=== PATIENT | female | born 1955 | race Caucasian/White ===

== ENCOUNTER → 2018-07-17 08:11 | Outpatient (CLI) | payer OTHER, SELFPAY ==
[2018-07-17 09:46] LABS: Add Manual Diff / Slide Review NO; Appearance Urine UA CLEAR; Basophils Absolute Auto 0 /uL (0-100); Basophils Percent Auto 0.8 % (0-2); Bilirubin Urine UA NEGATIVE (NEGATIVE); Color Urine UA YELLOW; Eosinophils Absolute Auto 100 /uL (0-450); Eosinophils Percent Auto 2.8 % (2-4); Glucose Urine UA NEGATIVE (Negative); Hematocrit 40.4 % (36-46); Hemoglobin 13.3 g/dL (12.0-16.0); Ketones Urine UA NEGATIVE (NEGATIVE); Leukocyte Esterase Urine UA NEGATIVE (NEGATIVE); Lymphocytes Absolute Auto 2000 /uL (1100-4500); Lymphocytes Percent Auto 41.3 % (25-40); Mean Corpuscular HGB Conc 32.9 % (30-36); Mean Corpuscular Hemoglobin 28.6 PG (26-34); Mean Corpuscular Volume 87.1 fL (80-100); Monocytes Absolute Auto 400 /uL (0-900); Monocytes Percent Auto 7.6 % (3-14); Neutrophils Absolute Auto 2300 /uL (1500-7000); Neutrophils Percent Auto 47.5 % (50-75); Nitrite Urine UA NEGATIVE (Negative); Occult Blood Urine UA 3+ (Negative); Platelet Count 216 X10^3/uL (150-400); Protein Urine UA NEGATIVE (Negative); Red Blood Cell Count 4.63 X10^6/uL (4.0-5.2); Red Cell Distribution Width 12.8 % (11.6-14.8); Urobilinogen Urine UA 0.2 E.U./dL (0.2); White Blood Cell Count 4.9 X10^3/uL (4.5-11.0); pH Urine UA 6.5 (4.5-8.0)
[2018-07-17 09:58] LABS: Bacteria Urine Few (2-10); Culture Indicated Urine Cult Not Indicated; RBC Urine 5-10/HPF (0-5/HPF); Squamous Epithelial Cell Urine 1-5 /HPF (0-5/HPF); WBC Urine 0-1/HPF (0-5/HPF)
[2018-07-17 10:26] LABS: Alanine Aminotransferase 15 IU/L (9-52); Albumin 4.5 g/dL (3.5-5.0); Albumin Globulin Ratio 1.6 (1.0-2.8); Alkaline Phosphatase 59 U/L (38-126); Aspartate Aminotransferase 29 IU/L (14-36); Bilirubin Total 0.7 mg/dL (0.2-1.3); Blood Urea Nitrogen 20 mg/dL (7-17); Calcium 9.4 mg/dL (8.4-10.2); Carbon Dioxide 30 mmol/L (22-32); Chloride 103 mmol/L (98-107); Cholesterol 242 mg/dL (140-199); Estimated Glomerular Filt Rate > 60.0 mL/min (>60); Globulin 2.9 g/dL (1.7-4.1); Glucose 85 mg/dL (80-110); HDL Cholesterol 66 mg/dL (40-60); HEMOLYSIS < 15 (0-50); LDL Cholesterol Calculated 152 mg/dL (<100); Potassium 4.4 mmol/L (3.4-5.1); Sodium 141 mmol/L (137-145); Total Protein 7.4 g/dL (6.3-8.2); Triglycerides 122 mg/dL (35-150)
[2018-07-17 10:50] LABS: Thyroid Stimulating Hormone 3.35 uIU/mL (0.47-4.68)
[2018-07-17 11:26] LABS: Folate 13.9 ng/mL (2.76-20.0); Vitamin B12 571 pg/mL (239-931)
[2018-07-17 12:37] LABS: Vitamin D 25 Hydroxy (D3) 60.4 ng/mL (30.0-100.0)
== END ==
PROVIDERS: Visit Provider Family Medicine
DX: Z13.9 Encounter for screening, unspecified (principal)
CPT/HCPCS: 36415; 80053; 80061; 81001; 82306; 82607; 82746; 84443; 85025

== ENCOUNTER → 2018-09-04 07:36 | Outpatient (CLI) | payer OTHER, SELFPAY ==
--- NOTE | 2018-09-04 | DI.MG.S_ITS ---
BILATERAL DIGITAL SCREENING MAMMOGRAM 3D/2D WITH CAD: 09/04/2018 CLINICAL: Routine screening. Family history of breast cancer. Comparison is made to exams dated: 05/06/2017 mammogram, 04/30/2016 mammogram, and 11/01/2014 mammogram - [facility]. There are scattered fibroglandular elements in both breasts. Current study was also evaluated with a Computer Aided Detection (CAD) system. No significant masses, calcifications, or other findings are seen in either breast. There has been no significant interval change. IMPRESSION: NEGATIVE There is no mammographic evidence of malignancy. A 1 year screening mammogram is recommended. This exam was interpreted at Station ID: [id number]. NOTE: For mammograms, a report in lay terms will be sent to the patient. Approximately 15% of breast malignancies will not be visualized mammographically. In the management of a palpable breast mass, a negative mammogram must not discourage biopsy of a clinically suspicious lesion. Electronically Signed By: Ty shore/jenny:09/07/2018 09:00:48 letter sent: Normal Exam ACR BI-RADS Category 1: Negative 3341F
== END ==
PROVIDERS: PCP Family Medicine; Visit Provider Family Medicine
DX: Z12.31 Encounter for screening mammogram for malignant neoplasm of breast (principal); Z80.3 Family history of malignant neoplasm of breast
CPT/HCPCS: 77063; 77067

== ENCOUNTER → 2018-11-19 08:05 | Outpatient (CLI) | payer OTHER, SELFPAY ==
[2018-11-19 08:44] LABS: Appearance Urine UA CLEAR; Bilirubin Urine UA NEGATIVE (NEGATIVE); Color Urine UA YELLOW; Glucose Urine UA NEGATIVE (Negative); Ketones Urine UA NEGATIVE (NEGATIVE); Leukocyte Esterase Urine UA NEGATIVE (NEGATIVE); Nitrite Urine UA NEGATIVE (Negative); Occult Blood Urine UA 2+ (Negative); Protein Urine UA NEGATIVE (Negative); Specific Gravity Urine UA 1.015 (1.000-1.035); Urobilinogen Urine UA 0.2 E.U./dL (0.2)
[2018-11-19 09:17] LABS: Cholesterol 224 mg/dL (140-199); HDL Cholesterol 69 mg/dL (40-60); LDL Cholesterol Calculated 127 mg/dL (<100); Triglycerides 140 mg/dL (35-150)
[2018-11-19 09:24] LABS: Rheumatoid Factor < 8.6 IU/mL (<12.0)
[2018-11-19 09:46] LABS: Erythrocyte Sedimentation Rate 8 MM/HR (0-20)
== END ==
PROVIDERS: PCP Family Medicine; Visit Provider Family Medicine
DX: E78.5 Hyperlipidemia, unspecified (principal); M85.80 Other specified disorders of bone density and structure, unspecified site; Z82.3 Family history of stroke
CPT/HCPCS: 36415; 80061; 81003; 85651; 86038; 86430

== ENCOUNTER → 2018-12-01 10:01 | Outpatient (CLI) | payer OTHER, SELFPAY ==
--- NOTE | 2018-12-01 10:05 | DI.RAD.S_ITS ---
PROCEDURE: XR HIP W PEL IF DONE LT MIN 4V INDICATIONS: myalgia, arthralgia, rheumatoid bursisit of hip. TECHNIQUE: AP pelvis with lateral view(s) of the bilateral hip(s). COMPARISON: None. FINDINGS: Bones: No fractures or dislocations. Pelvic ring appears intact. No suspicious bony lesions. There is a small degree of hip joint space narrowing, consistent with mild osteoarthritis Soft tissues: The visualized bowel gas pattern is normal. No suspicious soft tissue calcifications. Note is made of rounded clustered radiodensities at the midline of the pelvis, potentially dystrophic calcifications within a uterine fibroid but also potentially evidence of bladder calculi layering dependently posteriorly. IMPRESSION: Mild symmetric hip joint osteoarthritis, no trauma found. Clustered presumed calcifications at the midline of the pelvis potentially within a dystrophic uterine fibroid but also possibly within the bladder lumen. Dedicated single organ bladder ultrasound likely is warranted to ensure that bladder calculi are not present. Dictated by: Gume Joe M.D. on 12/01/2018 at 11:12 Approved by: Gume Joe M.D. on 12/01/2018 at 11:14
--- NOTE | 2018-12-01 10:05 | DI.RAD.S_ITS ---
PROCEDURE: XR KNEE RT 3V INDICATIONS: myalgia, arthralgia, rheumatoid bursisit of hip/. TECHNIQUE: 3 views of the knee were acquired. COMPARISON: None. FINDINGS: Bones: No fractures or dislocations. No suspicious bony lesions. Mild degenerative medial compartment joint space narrowing. Soft tissues: No joint effusion. No suspicious soft tissue calcifications. IMPRESSION: No acute trauma found, no effusion or loose body, mild medial compartment degenerative osteoarthritic joint space narrowing. Dictated by: Gume Joe M.D. on 12/01/2018 at 11:14 Approved by: Gume Joe M.D. on 12/01/2018 at 11:20
--- NOTE | 2018-12-01 10:05 | DI.RAD.S_ITS ---
PROCEDURE: XR KNEE LT 3V INDICATIONS: myalgia, arthralgia, rheumatoid bursisit of hip/. TECHNIQUE: 3 views of the knees bilaterally were acquired. COMPARISON: [facility], CR, XR KNEE RT 3V, 12/01/2018, 10:12. FINDINGS: Bones: No fractures or dislocations. No suspicious bony lesions. Soft tissues: No joint effusion. No suspicious soft tissue calcifications. IMPRESSION: No trauma found, and there is only a mild degree of degenerative osteoarthritic joint space narrowing symmetrically present at each knee. Dictated by: Gume Joe M.D. on 12/01/2018 at 11:46 Approved by: Gume Joe M.D. on 12/01/2018 at 11:47
== END ==
PROVIDERS: PCP Family Medicine; Visit Provider Family Medicine
DX: M06.2 Rheumatoid bursitis (principal); M16.0 Bilateral primary osteoarthritis of hip; M17.0 Bilateral primary osteoarthritis of knee; M79.10 Myalgia, unspecified site; M25.50 Pain in unspecified joint
CPT/HCPCS: 73522; 73562

== ENCOUNTER → 2019-09-28 14:11 | Outpatient (CLI) | payer MEDICARE, SELFPAY | PROVIDERS: PCP Student in an Organized Health Care Education/Training Program; Referring Provider Student in an Organized Health Care Education/Training Program; Visit Provider Student in an Organized Health Care Education/Training Program | DX: Z13.820 Encounter for screening for osteoporosis (principal); M85.88 Other specified disorders of bone density and structure, other site; Z78.0 Asymptomatic menopausal state; Z91.89 Other specified personal risk factors, not elsewhere classified | CPT/HCPCS: 77080 ==

== ENCOUNTER → 2020-02-21 14:54 | Outpatient (CLI) | payer MEDICARE, SELFPAY ==
[2020-02-21 17:04] LABS: COVID19 -Nasal RAPID Negative (Negative)
== END ==
PROVIDERS: PCP Student in an Organized Health Care Education/Training Program; Visit Provider Physician Assistant
DX: Z11.59 Encounter for screening for other viral diseases (principal); R51.9 Headache, unspecified
CPT/HCPCS: 87635

== ENCOUNTER 2020-09-22 20:13 | Emergency (ER) | payer MEDICARE, SELFPAY ==
[2020-09-22 20:15] VITALS: TEMP 36.8; BMI 25.0
[2020-09-22] MEDS: LIDO 1%/SOD BICARB 8.4% (10ML) 10 ML SYRINGE INJ (20:36)
--- NOTE | 2020-09-22 20:38 | PC.NURSE ---
pt had a moth in her ear
--- NOTE | 2020-09-22 20:39 | PC.NURSE ---
Dr Bone ordered buffered lido irrigated in right ear. Moth stopped moving able to use an ear curette to remove moth. Dr stern in room.
--- NOTE | 2020-09-23 06:36 | ED.EAR ---
HPI - Ear Problem General Chief complaint: Ear Stated complaint: states moth in rt ear, she can't get it out Time Seen by Provider: 09/22/20 20:33 Source: patient Mode of arrival: Ambulatory Limitations: no limitations History of Present Illness HPI Narrative: 65-year-old female former smoker with noncontributory medical history presents with a chief complaint of a bug in her right ear. She states that it has been fluttering around for the past 30 minutes or so. She denies any pain or drainage. She has not made any significant attempts to get it out. She denies other symptoms and is otherwise well and free of complaint MD Complaint: foreign body Location: right ear Duration: constant Severity: mild Relieving factors: nothing Exacerbating factors: nothing Discharge from ear: no Treatment prior to arrival: none Related Data Home Medications Medication Instructions Recorded Confirmed ascorbate calcium (vitamin C) 500 500 mg PO DAILY 05/02/19 11/23/19 mg tablet cholecalciferol (vitamin D3) 125 5,000 unit PO DAILY 05/02/19 11/23/19 mcg (5,000 unit) capsule vitamin B complex 1 tab PO DAILY 05/02/19 11/23/19 Previous Rx's Medication Instructions Recorded primidone 50 mg tablet 50 mg PO BEDTIME #30 tab 07/08/20 Allergies Allergy/AdvReac Type Severity Reaction Status Date / Time No Known Drug Allergies Allergy Verified 09/22/20 20:15 Review of Systems Constitutional Constitutional: Denies chills, Denies fatigue, Denies fever(s), Denies frequent falls, Denies lethargy and Denies weakness Eyes Eyes: Denies change in vision, Denies eye discharge, Denies irritation and Denies loss of vision ENT Ears, Nose, Mouth, and Throat: Denies change in voice, Denies dizziness, Denies neck pain, Denies sore throat and Denies throat swelling Cardiovascular Cardiovascular: Denies chest pain, Denies irregular heart rhythm, Denies lightheadedness, Denies palpitations, Denies dyspnea, Denies dyspnea on exertion and Denies orthopnea Respiratory Respiratory: Denies cough, Denies dyspnea, Denies dyspnea on exertion and Denies wheezing Gastrointestinal Gastrointestinal: Denies abdominal pain, Denies change in bowel habits, Denies diarrhea, Denies nausea and Denies vomiting Musculoskeletal Musculoskeletal: Denies neck pain and Denies numbness Integumentary/Breasts Skin/Breast: Denies pruritus, Denies erythema, Denies rash and Denies wounds Neurologic Neurologic: Denies behavioral changes, Denies confusion, Denies dizziness, Denies frequent falls, Denies loss of vision, Denies numbness and Denies weakness Psychiatric Psychiatric: Denies anxiety, Denies behavioral changes, Denies confusion, Denies depression, Denies homicidal ideation and Denies suicidal ideation Endocrine Endocrine: Denies fatigue, Denies flushing and Denies palpitations Hematologic/Lymphatic Hematologic/Lymphatic: Denies easy bruising Allergic/Immunologic Allergic/Immunologic: Denies urticaria, Denies throat swelling and Denies wheezing Patient History Medical History Actinic keratosis Fibroids (~1984) Finger laceration Genital warts (~1971) Lipoma of right upper extremity Osteopenia Ovarian cyst (~1984) Rheumatoid bursitis, unspecified hip Sinus congestion Tinnitus (~2017) Vitamin D deficiency Surgical History Anesthesia H/O blepharoplasty History of 2 sections History of bunionectomy (~1970) History of oral surgery (~2017) History of varicose veins Family History Mother Hypertension Stroke Social History Smoking Status: Former smoker alcohol intake: current substance use type: former substance user (marijuana) Smoking Status: Former smoker alcohol intake frequency: holidays/special occasions only Substance Use Type: does not use Exam Narrative Exam Narrative: GEN: AOx3 and in mild distress EYES: Pupils are equal, round, and reactive to light and accommodation. Extraoccular muscles are intact bilaterally. There is no subconjunctival hemorrhage or exudate. ENT: Foreign body, my off, noted in right external auditory canal. Nursing has instilled lidocaine with bicarb and moth no longer moving. It is easily removed from the canal with no residual parts, damage. No bleeding discharge or evidence of perforation CHEST: Lungs are clear to auscultation bilaterally and free of wheezes, rales, or rhonchi. Heart rate is regular rhythm, there are no murmurs, clicks, rubs, or gallops. There is no chest wall tenderness. ABD: Abdomen is soft and nontender. There is no guarding or rebound. Bowel sounds are normal in all 4 quadrants. There is no mass or organomegaly. EXT: Full painless ROM of all extremities with no loss of sensation or strength. SKIN: Warm, pink, and dry. No erythema or rash Initial Vital Signs Initial Vital Signs: Vital Signs Temperature 98.3 F 09/22/20 20:15 Discharge Plan Departure Patient Disposition: Home Clinical Impression: Foreign body in ear Qualifiers: Encounter type: initial encounter Laterality: right Qualified Code(s): T16.1XXA - Foreign body in right ear, initial encounter Instructions: DI for Removal of Foreign Body From Ear Activity Restrictions/Additional Instructions: *You have been diagnosed with [foreign body right ear, removed] *What to do: *Please continue to take your regular medications as directed. [ ] New medication prescriptions sent to your pharmacy: [ ] [ ] New medication written as a paper prescription [x ] No new medications given *Please follow up with your primary care provider in 2-3 days, call for an appointment. Let them know you were seen in the Emergency Department and that we ask that you be seen in follow up. We will electronically transmit a record of today's note if your PCP is in our system *If you do not have a primary care provider please contact the [facility] Resource line at [phone]. They will ask some questions about your medical history and help get you set up with a doctor in the community. *Return to Emergency Department if you should have any new, worsening or concerning symptoms, such as [fever greater than 101 F, shaking chills, worsening pain, persistent vomiting or other bothersome symptoms] Prescriptions: No Action cholecalciferol (vitamin D3) 125 mcg (5,000 unit) capsule 5,000 unit PO DAILY RF: 0 vitamin B complex [B Complex-Vitamin B12] Tablet 1 tab PO DAILY RF: 0 ascorbate calcium (vitamin C) 500 mg tablet 500 mg PO DAILY RF: 0 primidone 50 mg tablet 50 mg PO BEDTIME Qty: 30 RF: 0 Referrals: Heriberto Vang MD [Primary Care Provider] -
== END 2020-09-22 20:40 | disposition home or self-care (01) ==
PROVIDERS: Emergency Provider Emergency Medicine; PCP Student in an Organized Health Care Education/Training Program
DX: T16.1XXA Foreign body in right ear, initial encounter (principal)
CPT/HCPCS: 99282

== ENCOUNTER → 2020-11-01 10:57 | Outpatient (CLI) | payer MEDICARE, SELFPAY ==
--- NOTE | 2020-11-01 | DI.MG.S_ITS ---
BILATERAL DIGITAL SCREENING MAMMOGRAM 3D/2D WITH CAD: 11/01/2020 CLINICAL: Routine screening. Comparison is made to exams dated: 09/04/2018 mammogram - [facility], 05/06/2017 mammogram, and 04/30/2016 mammogram - [facility]. There are scattered fibroglandular elements in both breasts. Current study was also evaluated with a Computer Aided Detection (CAD) system. There is a possible new 0.5 cm oval equal density focal asymmetry in the left breast at 5 o'clock posterior depth. No other significant masses, calcifications, or other findings are seen in either breast. IMPRESSION: INCOMPLETE: NEEDS ADDITIONAL IMAGING EVALUATION The possible new 0.5 cm oval equal density focal asymmetry in the left breast is indeterminate. Additional views with possible ultrasound are recommended. This exam was interpreted at Station ID: [id number]. NOTE: For mammograms, a report in lay terms will be sent to the patient. Approximately 15% of breast malignancies will not be visualized mammographically. In the management of a palpable breast mass, a negative mammogram must not discourage biopsy of a clinically suspicious lesion. Electronically Signed By: Camilo Carl M.D. aty/:11/01/2020 11:49:49 letter sent: Additional Imaging Needed ACR BI-RADS Category 0: Incomplete 3340F
--- NOTE | 2020-11-01 11:00 | DI.RAD.S_ITS ---
PROCEDURE: XR HIP W PEL IF DONE KIMBERLY MIN 4V INDICATIONS: Bilateral hip osteoarthritis TECHNIQUE: AP pelvis with lateral view(s) of the bilateral hip(s). COMPARISON: [facility], CR, XR HIP W PEL IF DONE KIMBERLY 3TO4V, 12/01/2018, 10:09. FINDINGS: Bones: No fractures or dislocations. Pelvic ring appears intact. No suspicious bony lesions. Soft tissues: The visualized bowel gas pattern is normal. No suspicious soft tissue calcifications. Note is again made of pelvic calcifications over the midline and also at the lateral aspect of the bladder area, perhaps ovarian in origin. Impression: Midline pelvic calcifications, potentially bladder calculi. Bladder ultrasound may be warranted. These have been previously present, however, and therefore potentially may simply represent dystrophic calcifications within uterine fibroids. Bilateral pelvic sidewall calcifications, likely ovarian in origin. Pelvic/bladder ultrasound may be warranted. Dictated by: Gume Joe M.D. on 11/01/2020 at 15:12 Approved by: Gume Joe M.D. on 11/01/2020 at 15:14
== END ==
PROVIDERS: PCP Student in an Organized Health Care Education/Training Program; Referring Provider Student in an Organized Health Care Education/Training Program; Visit Provider Student in an Organized Health Care Education/Training Program
DX: Z12.31 Encounter for screening mammogram for malignant neoplasm of breast (principal); M16.0 Bilateral primary osteoarthritis of hip
CPT/HCPCS: 73522; 77063; 77067

== ENCOUNTER → 2020-11-06 11:10 | Outpatient (CLI) | payer MEDICARE, SELFPAY ==
[2020-11-06 12:15] LABS: BUN Creatinine Ratio 26.4 (6-22); Blood Urea Nitrogen 19 mg/dL (7-17); Estimated Glomerular Filt Rate > 60.0 mL/min (>60)
== END ==
PROVIDERS: PCP Student in an Organized Health Care Education/Training Program; Referring Provider Student in an Organized Health Care Education/Training Program; Visit Provider Student in an Organized Health Care Education/Training Program
DX: Z01.812 Encounter for preprocedural laboratory examination (principal)
CPT/HCPCS: 36415; 82565; 84520

== ENCOUNTER → 2020-11-07 10:05 | Outpatient (CLI) | payer MEDICARE, SELFPAY ==
--- NOTE | 2020-11-07 10:08 | DI.CT.S_ITS ---
PROCEDURE: CT UE RT W CON INDICATIONS: Right arm masses TECHNIQUE: After the administration of intravenous contrast, 3 mm axial sections acquired of the humerus and radius/ulna, with coronal and sagittal reformats. COMPARISON: None. FINDINGS: Image quality: Excellent. Bones: No fracture identified. No focal osseous destruction is seen. Soft tissues: No discrete mass identified. Between 2 fiducial markers placed on the upper extremity at the level of the mid humerus to the mid radius, there is no discrete mass or focal fluid collection. Subcutaneous soft tissues appear grossly unremarkable. The muscles appear within normal limits. Vessels grossly normal and contrast opacified. No axillary lymphadenopathy seen. Technically (as in all cases) it would be difficult to exclude unencapsulated lipoma. IMPRESSION: No discrete mass or focal fluid collection seen in the region marked by the skin fiducials. If clinically warranted, a focused ultrasound could be performed, or contrast enhanced MRI on the basis of persistent high clinical suspicion. Recommend clinical management. Dictated by: Tima Quinonez M.D. on 11/07/2020 at 12:40 Approved by: Tima Quinonez M.D. on 11/07/2020 at 12:48
== END ==
PROVIDERS: PCP Student in an Organized Health Care Education/Training Program; Referring Provider Student in an Organized Health Care Education/Training Program; Visit Provider Student in an Organized Health Care Education/Training Program
DX: R22.31 Localized swelling, mass and lump, right upper limb (principal)
CPT/HCPCS: 73201; Q9967

== ENCOUNTER → 2020-11-28 09:13 | Outpatient (CLI) | payer MEDICARE, SELFPAY ==
--- NOTE | 2020-11-28 | DI.MG.S_ITS ---
UNILATERAL LEFT DIGITAL DIAGNOSTIC MAMMOGRAM 3D/2D WITH ADDITIONAL VIEWS: 11/28/2020 CLINICAL: Additional evaluation requested from prior study. Comparison is made to exams dated: 11/01/2020 mammogram, 09/04/2018 mammogram - [facility], and 05/06/2017 mammogram - [facility]. There are scattered fibroglandular elements in left breast. The previously described possible 0.5 cm oval equal density focal asymmetry in the left breast at 5 o'clock middle depth is not reproduced and presumably represented superimposed breast tissue. No other significant masses or calcifications are seen in the breast. IMPRESSION: BENIGN The previously described asymmetry disperses with additional views and is consistent with summation artifact. There is no mammographic evidence of malignancy. A 1 year screening mammogram is recommended. Findings and recommendations were conveyed to the patient during today's evaluation. This exam was interpreted at Station ID: [id number]. NOTE: For mammograms, a report in lay terms will be sent to the patient. Approximately 15% of breast malignancies will not be visualized mammographically. In the management of a palpable breast mass, a negative mammogram must not discourage biopsy of a clinically suspicious lesion. Electronically Signed By: Camilo Carl M.D. aty/:11/28/2020 09:59:18 letter sent: Normal Exam ACR BI-RADS Category 2: Benign Finding(s) 3342F
== END ==
PROVIDERS: PCP Student in an Organized Health Care Education/Training Program; Referring Provider Student in an Organized Health Care Education/Training Program; Visit Provider Student in an Organized Health Care Education/Training Program
DX: R92.8 Other abnormal and inconclusive findings on diagnostic imaging of breast (principal)
CPT/HCPCS: 77065; G0279

== ENCOUNTER → 2021-12-19 09:58 | Outpatient (CLI) | payer MEDICARE, SELFPAY ==
--- NOTE | 2021-12-19 10:00 | DI.CT.S_ITS ---
PROCEDURE: CT CERVICAL SPINE WO CON INDICATIONS: Multiple limb paresthesias and coordination problems TECHNIQUE: Noncontrast 3 mm thick sections acquired from the skull base to the T4 level. Sagittal and coronal reformats were then constructed. For radiation dose reduction, the following was used: automated exposure control, adjustment of mA and/or kV according to patient size. COMPARISON: None. FINDINGS: Image quality: Excellent. Bones: No fractures or dislocations. Visualized superior ribs are intact. Reversal of the normal cervical lordosis is seen, with the apex at the C4-C5 level. No focal AP alignment abnormality is seen. Focal degenerative change is seen involving the C1-C2 interface anteriorly. There is mild to moderate disc space narrowing seen at C3-C4 and C4-C5, with at least moderate disc space narrowing seen at C5-C6 and at C6-C7. Post erected endplate osteophytes are seen, which are worst at C5-C6 and C6-C7. There is an apparent vertebral body hemangioma seen within the T3 vertebral body, as on series 4, image 34. Soft tissues: Prevertebral soft tissues are normal in thickness. No paravertebral hematomas. No apical pneumothoraces. IMPRESSION: Cervical spine degenerative changes are seen, which are worst inferiorly. Reversal of the normal cervical lordosis is seen. This is commonly observed in patients with muscular spasm. If it would be helpful for clinical management decision making, please consider a dedicated cervical spine MRI for further evaluation (assuming that there is no contraindication). Incidental note is made of: T3 vertebral body hemangioma Dictated by: Roger Brown M.D. on 12/19/2021 at 9:25 Approved by: Roger Brown M.D. on 12/19/2021 at 9:27
--- NOTE | 2021-12-19 10:00 | DI.MG.S_ITS ---
BILATERAL DIGITAL SCREENING MAMMOGRAM 3D/2D WITH CAD: 12/19/2021 CLINICAL: Routine screening. Comparison is made to exams dated: 11/01/2020 mammogram, 09/04/2018 mammogram - [facility], 05/06/2017 mammogram - [facility], and 11/28/2020 mammogram - [facility]. There are scattered areas of fibroglandular density in both breasts (category b / 25%-50% glandular tissue). Current study was also evaluated with a Computer Aided Detection (CAD) system. No significant masses, calcifications, or other findings are seen in either breast. There has been no significant interval change. IMPRESSION: NEGATIVE There is no mammographic evidence of malignancy. A 1 year screening mammogram is recommended. Based on the Tyrer Cuzick model (a risk assessment model) the patient's lifetime risk is 5.8% and her 10 year risk is 3.2%. According to the ACR, ACS, and NCCN guidelines, an annual breast MRI exam along with mammogram is recommended if the patient's lifetime risk is 20% or greater. This exam was interpreted at Station ID: [id number]. NOTE: For mammograms, a report in lay terms will be sent to the patient. Approximately 15% of breast malignancies will not be visualized mammographically. In the management of a palpable breast mass, a negative mammogram must not discourage biopsy of a clinically suspicious lesion. Electronically Signed By: Dino polk/jenny:12/19/2021 13:22:27 letter sent: Normal Exam ACR BI-RADS Category 1: Negative [id number]
== END ==
PROVIDERS: Family Provider Student in an Organized Health Care Education/Training Program; PCP Student in an Organized Health Care Education/Training Program; Referring Provider Student in an Organized Health Care Education/Training Program; Visit Provider Student in an Organized Health Care Education/Training Program
DX: Z78.0 Asymptomatic menopausal state (principal); M85.88 Other specified disorders of bone density and structure, other site; Z12.31 Encounter for screening mammogram for malignant neoplasm of breast; M47.812 Spondylosis without myelopathy or radiculopathy, cervical region; R20.8 Other disturbances of skin sensation; M79.10 Myalgia, unspecified site; R29.898 Other symptoms and signs involving the musculoskeletal system; D18.09 Hemangioma of other sites
CPT/HCPCS: 72125; 77063; 77067; 77080

== ENCOUNTER → 2022-01-03 07:56 | Outpatient (CLI) | payer MEDICARE, SELFPAY ==
[2022-01-03 09:44] LABS: Erythrocyte Sedimentation Rate 12 MM/HR (0-20)
[2022-01-03 09:49] LABS: BUN Creatinine Ratio 17.1 (6-22); Blood Urea Nitrogen 14 mg/dL (7-17); C-Reactive Protein Quant < 0.5 mg/dL (<1.0); Calcium 9.2 mg/dL (8.4-10.2); Carbon Dioxide 30 mmol/L (22-32); Chloride 103 mmol/L (98-107); Creatine Kinase 40 U/L (30-135); Estimated Glomerular Filt Rate > 60 mL/min (>60); Glucose 93 mg/dL (80-110); HEMOLYSIS < 15 (0-50); Potassium 4.3 mmol/L (3.4-5.1); Sodium 142 mmol/L (137-145)
[2022-01-03 09:51] LABS: Rheumatoid Factor < 8.6 IU/mL (<12.0)
[2022-01-04 16:07] LABS: DNA (DS) Antibody <1 IU/mL (0-9); Scleroderma 70 Antibody < 0.2 AI (0.0-0.9)
[2022-01-05 16:28] LABS: ANA Screen, IFA Positive (.)
[2022-01-06 00:50] LABS: CCP Antibodies IgG/IgA 5 units (0-19)
== END ==
PROVIDERS: Family Provider Student in an Organized Health Care Education/Training Program; PCP Student in an Organized Health Care Education/Training Program; Referring Provider Student in an Organized Health Care Education/Training Program; Visit Provider Student in an Organized Health Care Education/Training Program
DX: M34.89 Other systemic sclerosis (principal); R20.8 Other disturbances of skin sensation; R29.898 Other symptoms and signs involving the musculoskeletal system
CPT/HCPCS: 36415; 80048; 82550; 85651; 86038; 86140; 86200; 86225; 86235; 86430

== ENCOUNTER → 2022-01-09 08:29 | Outpatient (CLI) | payer MEDICARE, SELFPAY ==
--- NOTE | 2022-01-09 08:32 | DI.MRI.S_ITS ---
PROCEDURE: MR KNEE LT WO CON INDICATIONS: Left knee injury TECHNIQUE: Noncontrast sagittal PD fast spin echo and T2 fast spin echo with fat saturation, sagittal 3-D FLASH with fat saturation; coronal T1 spin echo and PD fast spin echo with fat saturation, and axial PD fast spin echo with fat saturation through the knee. COMPARISON: None. FINDINGS: Image quality: Excellent. Menisci: Peripheral displacement of medial meniscus is seen bowing medial collateral ligament. Complex oblique tear involving posterior horn of medial meniscus seen is seen extending to superior articulating surface. Lateral meniscus is intact. Torn posterior medial meniscal root ligament at its insertion is noted. Cruciate ligaments: The anterior and posterior cruciate ligaments appear intact. Medial structures: Moderate grade medial collateral ligament sprain/partial-thickness tear is seen. The posterior oblique ligament, semimembranosus tendon insertions, oblique popliteal ligament, and meniscocapsular junction appear intact. Visualized portions of the pes anserinus tendons appear normal. No abnormal bursal fluid. Lateral structures: The lateral collateral ligament, long and short heads of the biceps femoris tendon appear intact. The popliteus tendon appears normal; the popliteofibular ligament appears intact. Iliotibial band appears normal. Anterior structures: The quadriceps and patellar tendons appear intact. Patellar alignment is normal. No femoral trochlear dysplasia or ventral trochlear prominence. No edema in the infrapatellar fat pad. 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 No fracture or dislocation. Joint space: There is small to moderate amount of joint effusion. Large lobulated and septated popliteal cyst is seen and measures up to 6.6 x 2 x 8.1 cm in size. Normal appearing synovial plicae are incidentally noted. IMPRESSION: 1. 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 No fracture or dislocation. Small to moderate joint effusion and a large popliteal cyst as above. 2. Complex oblique tear involving posterior horn of medial meniscus extending to superior articulating surface. Lateral meniscus is intact. Torn posterior medial meniscal root ligament. 3. Moderate grade MCL sprain/partial-thickness tear. Anterior and posterior cruciate ligaments are intact. Dictated by: Jeremias Honeycutt M.D. on 01/09/2022 at 12:26 Approved by: Jeremias Honeycutt M.D. on 01/09/2022 at 12:36
== END ==
PROVIDERS: Family Provider Student in an Organized Health Care Education/Training Program; PCP Student in an Organized Health Care Education/Training Program; Referring Provider Student in an Organized Health Care Education/Training Program; Visit Provider Student in an Organized Health Care Education/Training Program
DX: S83.232A Complex tear of medial meniscus, current injury, left knee, initial encounter (principal); S83.412A Sprain of medial collateral ligament of left knee, initial encounter; M17.12 Unilateral primary osteoarthritis, left knee; M71.22 Synovial cyst of popliteal space [Baker], left knee; M94.262 Chondromalacia, left knee; M25.462 Effusion, left knee; X58.XXXA Exposure to other specified factors, initial encounter
CPT/HCPCS: 73721

== ENCOUNTER 2022-01-24 09:30 | Outpatient (RCR) | payer MEDICARE, SELFPAY ==
--- NOTE | 2021-12-13 15:30 | OT.OP.EVAL ---
Visit Care Team Role Provider Type Heriberto Vang MD Attending Provider Physician Family Provider Primary Care Provider Referring Provider Specialty: Internal Medicine Address: [address] [place] [address], [address], [place], [address] Email: [email or web address] Occupational Therapy Initial Evaluation OT Outpatient Adult Evaluation Start: 12/14/21 08:37 Freq: Status: Active Protocol: Document 12/13/21 15:30 AMS (Rec: 12/14/21 09:09 AMS [id number]) General Information - Adult Visit Number 04/09 Plan of Care Dates 12/13/21 - 02/21/22 Insurance Information A[employer] Medicare Visit Start Time 13:30 Visit Stop Time 14:15 Total Visit Minutes 45 Treatment Setting Outpatient Care Note Type Initial Evaluation Identification Confirmed Yes Identification Confirmed By Patient/June Goals Treatment Initiated HEP. Instructed in passive hook fist stretch; instructed in active hook --> tight fist for tendon gliding. Instructed in digit extensor strengthening w/ single rubberband. Written and visual instructions were provided and will be scanned into EMR by front office attendant staff when they are able to do so. Floor Cleaner Goals 1. Patient will be modified independent with execution of home exercise program utilizing provided written and visual instructions from therapist. 2. Patient will be able to verbally identify 2 to 3 different strategies to address tightness/stiffness of digits of the hands that she can utilize in the home without support from therapist (e.g., heat, range of motion, positioning). 3. Patient will be able to verbalize understanding of joint protection principles of the fingers/hands referencing provided written and visual instructions as needed. Assessment/Plan Treatment Assessment Patient is a 66 left hand dominant female referred to outpatient OT by her PCP secondary to c/o bilateral hand weakness/stiffness. PMH: Significant for: lipoma of R UE; osteopenia; rheumatoid bursitis; vitamin D deficiency ; neuropathy. Patient is currently taking Gabapentin. 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 She has tried playing the guitar recently with poor success. Patient Goals/Concerns: Concern re: losing function of fingers/hands. Difficulties reported w/ keyboarding and playing the guitar. Patient reports that she will be seeing her neurologist on December 26; she reports seeing pie maker earlier in the day who recommend the following panels: thyroid, B12 and folate, Glucose, and CBC differential. She also expressed that she will be seeking EMG referral to changes in sensation. Tingling reported in hands/feet w/ numbness primarily reported in toes. (+) bilateral intrinsic tightness. (+) tightness reported of MPJs of 2 through 5 digits bilaterally; however, full extension available. (+) scissoring of 3rd digits onto 4th digits w/ formation of tight fist. Patient's main concern is L; reports that 'L is worse than R'. Report of awareness of scissoring with gripping items (as noted with use of steering wheel). Reported finger tightness bilaterally w/ formation of tight fists. 4th digit extensor weakness. Patient denies use of finger/hand splints. Patient completed Pain Assessment Grid; indicated 1 out of 10 for digits 1 to 3 bilaterally; 2 out of 10 R 4th and 5th digits ; 3 out of 10 L 4th and 5th digits. Volar and dorsal surfaces were indicated. QuickDASH UE Outcome Measure Score = 34.09. QuickDASH Work Module (computer typing) Score = 62.5. QuickDASH Sports/ Performing Arts Module (hiking , music) Score = 68.75. Patient would likely benefit from outpatient OT for education, HEP development, and to address finger/hand coordination/weakness. Patient would like to see neurologist prior to having follow-up OT treatment sessions. Thus, patient was started on HEP w/ follow-up appointments scheduled post-neuro appt. Comment 10 weeks Treatment Frequency Once a Week Comment 1-2 times per week Therapeutic Contents Active Range of Motion, Adaptive Equipment Education, Client Education,Cognitive Skills Development,Functional Activities,Home Exercise Program,Joint Protection, Manual Therapy,Education, Neurodevelopment Treatment, Neuromuscular Re-Education, Self-Care,Stretching/ Flexibility Activities, Therapeutic Activities, Therapeutic Exercises, Modalities,Sensory Re- education Modalities As Needed,As Prescribed Additional Types of Modalities Heat/Cold/Parrafin/Ultrasound
--- NOTE | 2021-12-27 15:30 | OT.OP.TRT ---
Visit Care Team Role Provider Type Heriberto Vang MD Attending Provider Physician Family Provider Primary Care Provider Referring Provider Specialty: Internal Medicine Address: [address] [place] [address], [address], [place], [address] Email: [email or web address] Occupational Therapy Treatment Note OT Outpatient Treatment Note - Adult Start: 12/14/21 08:37 Freq: Status: Active Protocol: Document 12/27/21 15:30 AMS (Rec: 12/28/21 12:31 AMS [id number]) OT Outpatient Adult Treatment Note Session Time Visit Start Time 09:30 Visit Stop Time 10:15 Total Visit Minutes 45 Visit Information Visit Number 05/10 Plan of Care Dates 12/13/21 - 02/21/22 Insurance Information AARP Medicare Setting Treatment Setting Outpatient Care Visit Type Note Type Treatment Note General Information General Information Patient is a 66 left hand dominant female referred to outpatient OT by her PCP secondary to c/o bilateral hand weakness/stiffness. PMH: Significant for: lipoma of R UE; osteopenia; rheumatoid bursitis; vitamin D deficiency ; neuropathy. Patient is currently taking Gabapentin. 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 She has tried playing the [place] [place] recently with poor success. - Subjective Identification Type Name Identification Reconciled With Medical Record Observations June reported (+) compliance w/ tendon glides/passive hook/ fist stretches; denied use of single rubberband to work on extensor strengthening of the digits. Report of being seen by a new neurologist ( MD Cody) who is referring June for EMG and to be seen by sales advisory manager. Report of recent scan of upper neck w/ no signs of compression. Patient Expectation/Goals Concern re: losing function of fingers/hands. Diff w/ keyboarding/music - Objective Objective Measurements Please refer to below for progress towards meeting established OT goals: Mix Maker Goals 1. Patient will be modified independent with execution of home exercise program utilizing provided written and visual instructions from therapist. 2. Patient will be able to verbally identify 2 to 3 different strategies to address tightness/stiffness of digits of the hands that she can utilize in the home without support from therapist (e.g., heat, range of motion, positioning). 3. Patient will be able to verbalize understanding of joint protection principles of the fingers/hands referencing provided written and visual instructions as needed. - Treatment 2 Descriptor Heat x 10 minutes. 1 Descriptor HEP. Education re: heat to support range of motion/ flexibility in joints of fingers/hands. Discussed bathing/showering, sinked filled w/ warm water, rice hot pack and/or other heated source. Discussed need to monitor skin d/t inconsistent report of change in sensation of fingers/hands to therapist. Discussed use of gloves and recommendation to range fingers/change position of fingers/hands when hiking and using trekking poles (avoiding sustained positions of fingers/hands). Also discussed portable heating options for hands. Instructed in use of single rubberband for strengthening abd/add of digits; focus primarily 4th digit w/ abd d/t presenting weakness. Reviewed extension strengthening of digits w/ rubberband and hook fist w/ passive contralateral hand providing stretch. - Assessment Assessment of Improvement Patient reported slight improvement relative to flexibility of fingers/digits since time of eval. Has been referred to sales advisory manager and for nerve conduction studies. Advanced HEP/additional education provided. Weakness w / abd 4th digit of L hand vs R hand. Recommend upgrading HEP as able. Overall, good session. Patient would likely benefit from outpatient OT for education, HEP development, and to address finger/hand coordination/weakness. Patient would like to see neurologist prior to having follow-up OT treatment sessions. Thus, patient was started on HEP w/ follow-up appointments scheduled post-neuro appt. - Plan Therapy Recommendations Continue with Current Program, Advance per Rehabilitation Protocol
--- NOTE | 2022-01-17 16:59 | OT.OP.TRT ---
Visit Care Team Role Provider Type Heriberto Vang MD Attending Provider Physician Family Provider Primary Care Provider Referring Provider Specialty: Internal Medicine Address: [address] [place] [address], [facility] [address], [place], [address] Email: [email or web address] Occupational Therapy Treatment Note OT Outpatient Treatment Note - Adult Start: 12/14/21 08:37 Freq: Status: Active Protocol: Document 01/17/22 16:41 AMS (Rec: 01/17/22 16:59 AMS [id number]) OT Outpatient Adult Treatment Note Session Time Visit Start Time 13:30 Visit Stop Time 14:15 Total Visit Minutes 45 Visit Information Visit Number 06/07 Plan of Care Dates 12/13/21 - 02/21/22 Insurance Information AARP Medicare Setting Treatment Setting Outpatient Care Visit Type Note Type Treatment Note General Information General Information Patient is a 66 left hand dominant female referred to outpatient OT by her PCP secondary to c/o bilateral hand weakness/stiffness. PMH: Significant for: lipoma of R UE; osteopenia; rheumatoid bursitis; vitamin D deficiency ; neuropathy. Patient is currently taking Gabapentin. 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 She has tried playing the [place] recently with poor success. - Subjective Identification Type Name Identification Reconciled With Medical Record Observations June reported (+) compliance w/ tendon glides/passive hook/ fist stretches. Report of having orthopedic surgeon appt next Friday for knee re: tear , cyst, and OA; report of inability to get scheduled for PT until February; report of inability to get scheduled w/ deputy district customs director until May. Patient Expectation/Goals Concern re: losing function of fingers/hands. Diff w/ keyboarding/music - Objective Objective Measurements Please refer to below for progress towards meeting established OT goals: Fpc Goals 1. Patient will be modified independent with execution of home exercise program utilizing provided written and visual instructions from therapist. 2. Patient will be able to verbally identify 2 to 3 different strategies to address tightness/stiffness of digits of the hands that she can utilize in the home without support from therapist (e.g., heat, range of motion, positioning). 3. Patient will be able to verbalize understanding of joint protection principles of the fingers/hands referencing provided written and visual instructions as needed. - Treatment 2 Descriptor Heat x 10 minutes. 1 Descriptor HEP. Introduced passive MCPJ extension stretch and bear claws w/ towel. Exercises to be scanned into EMR when front desk agent staff able to do so. Reviewed use of re: heat to support range of motion/ flexibility in joints of fingers/hands; discussed need to monitor skin d/t inconsistent report of change in sensation of fingers/hands and use of gloves; reviewed recommendation to range fingers/change position of fingers/hands when hiking and using trekking poles (avoiding sustained positions of fingers/hands); reviewed use of single rubberband for strengthening abd/add of digits; focus primarily 4th digit w/ abd d/t presenting weakness. Reviewed extension strengthening of digits w/ rubberband and hook fist w/ passive contralateral hand providing stretch. - Assessment Assessment of Improvement Patient reported that she has noticed improvement of flexibility of fingers/digits. Reviewed prior recommendations and introduced 2 new exercises; written and visual instructions were provided and to be scanned into EMR when able by front desk agent staff. Patient to be seen by orthopedic surgeon for knee; deputy district customs director in May; PT in February for knee and nerve conduction study mid January. Recommend answering all questions re: HEP and transition to HEP when able. Overall, good session. Patient would likely benefit from outpatient OT for education, HEP development, and to address finger/hand coordination/weakness. Patient would like to see neurologist prior to having follow-up OT treatment sessions. Thus, patient was started on HEP w/ follow-up appointments scheduled post-neuro appt. - Plan Therapy Recommendations Continue with Current Program, Advance per Rehabilitation Protocol
--- NOTE | 2022-01-24 15:30 | OT.OP.TRT ---
Visit Care Team Role Provider Type Heriberto Vang MD Attending Provider Physician Family Provider Primary Care Provider Referring Provider Specialty: Internal Medicine Address: [address] [place] [address], [address], [address] Email: [email or web address] Occupational Therapy Treatment Note OT Outpatient Treatment Note - Adult Start: 12/14/21 08:37 Freq: Status: Active Protocol: Document 01/24/22 15:30 AMS (Rec: 04/02/22 09:03 AMS [id number]) OT Outpatient Adult Treatment Note Session Time Visit Start Time 09:30 Visit Stop Time 10:15 Total Visit Minutes 45 Visit Information Visit Number 07/08 Plan of Care Dates 12/13/21 - 02/21/22 Insurance Information AARP Medicare Setting Treatment Setting Outpatient Care Visit Type Note Type Treatment Note General Information General Information Patient is a 66 left hand dominant female referred to outpatient OT by her PCP secondary to c/o bilateral hand weakness/stiffness. PMH: Significant for: lipoma of R UE; osteopenia; rheumatoid bursitis; vitamin D deficiency ; neuropathy. Patient is currently taking Gabapentin. 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 She has tried playing the [place] recently with poor success. - Subjective Identification Type Name Identification Reconciled With Medical Record Observations June reported (+) compliance w/ home exercise program. Report of receipt of referral to hand therapist to obtain custom hand splints. Patient Expectation/Goals Concern re: losing function of fingers/hands. Diff w/ keyboarding/music - Objective Objective Measurements Please refer to below for progress towards meeting established OT goals: Shelter Goals ALL GOALS MET 01/24/22 1. Patient will be modified independent with execution of home exercise program utilizing provided written and visual instructions from therapist. 2. Patient will be able to verbally identify 2 to 3 different strategies to address tightness/stiffness of digits of the hands that she can utilize in the home without support from therapist (e.g., heat, range of motion, positioning). 3. Patient will be able to verbalize understanding of joint protection principles of the fingers/hands referencing provided written and visual instructions as needed. - Treatment 2 Descriptor Heat x 10 minutes. 1 Descriptor HEP. Reviewed home exercise program recommendations; provided written and visual instructions to support carry- over of home exercise program. June denied questions and/or need for further treatment. - Assessment Assessment of Improvement Patient denied any questions and reported receipt of referral from physician to local T in order to receive custom hand/finger splints. Therapist reviewed home exercise program and provided written and visual instructions to support carry- over. June denied questions and/or need for further treatment. Therapist to complete d/c paperwork. - Plan Therapy Recommendations Discharge from Occupational Therapy
--- NOTE | 2022-04-02 09:04 | OT.OP.DC ---
Visit Care Team Role Provider Type Heriberto Vang MD Attending Provider Physician Family Provider Primary Care Provider Referring Provider Address: [address] [place] [address], [address], [place], [address] Email: [email or web address] Outpatient OT Outpatient Adult Evaluation Start: 12/14/21 08:37 Freq: Status: Active Protocol: Document 12/13/21 15:30 AMS (Rec: 12/14/21 09:09 AMS [id number]) General Information - Adult Visit Information Visit Number 04/09 Plan of Care Dates 12/13/21 - 02/21/22 Insurance Information AAR Medicare Session Time Visit Start Time 13:30 Visit Stop Time 14:15 Total Visit Minutes 45 Setting Treatment Setting Outpatient Care Visit Type Note Type Initial Evaluation Identification Identification Confirmed Yes Identification Confirmed By Patient/June Goals Treatment Treatment Initiated HEP. Instructed in passive hook fist stretch; instructed in active hook --> tight fist for tendon gliding. Instructed in digit extensor strengthening w/ single rubberband. Written and visual instructions were provided and will be scanned into EMR by front desk manager staff when they are able to do so. [facility] Goals Advanced Manager Goals 1. Patient will be modified independent with execution of home exercise program utilizing provided written and visual instructions from therapist. 2. Patient will be able to verbally identify 2 to 3 different strategies to address tightness/stiffness of digits of the hands that she can utilize in the home without support from therapist (e.g., heat, range of motion, positioning). 3. Patient will be able to verbalize understanding of joint protection principles of the fingers/hands referencing provided written and visual instructions as needed. Assessment/Plan Assessment Treatment Assessment Patient is a 66 left hand dominant female referred to outpatient OT by her PCP secondary to c/o bilateral hand weakness/stiffness. PMH: Significant for: lipoma of R UE; osteopenia; rheumatoid bursitis; vitamin D deficiency ; neuropathy. Patient is currently taking Gabapentin. 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 She has tried playing the guitar recently with poor success. Patient Goals/Concerns: Concern re: losing function of fingers/hands. Difficulties reported w/ keyboarding and playing the guitar. Patient reports that she will be seeing her neurologist on December 26; she reports seeing forest technician earlier in the day who recommend the following panels: thyroid, B12 and folate, Glucose, and CBC differential. She also expressed that she will be seeking EMG referral to changes in sensation. Tingling reported in hands/feet w/ numbness primarily reported in toes. (+) bilateral intrinsic tightness. (+) tightness reported of MPJs of 2 through 5 digits bilaterally; however, full extension available. (+) scissoring of 3rd digits onto 4th digits w/ formation of tight fist. Patient's main concern is L; reports that 'L is worse than R'. Report of awareness of scissoring with gripping items (as noted with use of steering wheel). Reported finger tightness bilaterally w/ formation of tight fists. 4th digit extensor weakness. Patient denies use of finger/hand splints. Patient completed Pain Assessment Grid; indicated 1 out of 10 for digits 1 to 3 bilaterally; 2 out of 10 R 4th and 5th digits ; 3 out of 10 L 4th and 5th digits. Volar and dorsal surfaces were indicated. QuickDASH UE Outcome Measure Score = 34.09. QuickDASH Work Module (computer typing) Score = 62.5. QuickDASH Sports/ Performing Arts Module (hiking , music) Score = 68.75. Patient would likely benefit from outpatient OT for education, HEP development, and to address finger/hand coordination/weakness. Patient would like to see neurologist prior to having follow-up OT treatment sessions. Thus, patient was started on HEP w/ follow-up appointments scheduled post-neuro appt. Plan Comment 10 weeks Treatment Frequency Once a Week Comment 1-2 times per week Therapeutic Contents Active Range of Motion, Adaptive Equipment Education, Client Education,Cognitive Skills Development,Functional Activities,Home Exercise Program,Joint Protection, Manual Therapy,Education, Neurodevelopment Treatment, Neuromuscular Re-Education, Self-Care,Stretching/ Flexibility Activities, Therapeutic Activities, Therapeutic Exercises, Modalities,Sensory Re- education Modalities As Needed,As Prescribed Additional Types of Modalities Heat/Cold/Parrafin/Ultrasound Functional Wrist/Hand Scan Hand Side Sensory Assessment Sensory Profile2 OT Outpatient Treatment Note - Adult Start: 12/14/21 08:37 Freq: Status: Active Protocol: Document 01/24/22 15:30 AMS (Rec: 04/02/22 09:03 AMS [id number]) OT Outpatient Adult Treatment Note Session Time Visit Start Time 09:30 Visit Stop Time 10:15 Total Visit Minutes 45 Visit Information Visit Number 4 Plan of Care Dates 12/13/21 - 02/21/22 Insurance Information A[employer] Medicare Setting Treatment Setting Outpatient Care Visit Type Note Type Treatment Note General Information General Information Patient is a 66 left hand dominant female referred to outpatient OT by her PCP secondary to c/o bilateral hand weakness/stiffness. PMH: Significant for: lipoma of R UE; osteopenia; rheumatoid bursitis; vitamin D deficiency ; neuropathy. Patient is currently taking Gabapentin. 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 She has tried playing the [place] recently with poor success. - Subjective Identification Type Name Identification Reconciled With Medical Record Observations June reported (+) compliance w/ home exercise program. Report of receipt of referral to hand therapist to obtain custom hand splints. Patient Expectation/Goals Concern re: losing function of fingers/hands. Diff w/ keyboarding/music - Objective Objective Measurements Please refer to below for progress towards meeting established OT goals: Advanced Manager Goals ALL GOALS MET 01/24/22 1. Patient will be modified independent with execution of home exercise program utilizing provided written and visual instructions from therapist. 2. Patient will be able to verbally identify 2 to 3 different strategies to address tightness/stiffness of digits of the hands that she can utilize in the home without support from therapist (e.g., heat, range of motion, positioning). 3. Patient will be able to verbalize understanding of joint protection principles of the fingers/hands referencing provided written and visual instructions as needed. - Treatment 2 Descriptor Heat x 10 minutes. 1 Descriptor HEP. Reviewed home exercise program recommendations; provided written and visual instructions to support carry- over of home exercise program. June denied questions and/or need for further treatment. - Assessment Assessment of Improvement Patient denied any questions and reported receipt of referral from physician to local [facility] in order to receive custom hand/finger splints. Therapist reviewed home exercise program and provided written and visual instructions to support carry- over. June denied questions and/or need for further treatment. Therapist to complete d/c paperwork. - Plan Therapy Recommendations Discharge from Occupational Therapy
== END 2022-04-03 12:43 | disposition home or self-care (01) ==
LOC: OT 09:30
PROVIDERS: Family Provider Student in an Organized Health Care Education/Training Program; PCP Student in an Organized Health Care Education/Training Program; Referring Provider Student in an Organized Health Care Education/Training Program; Visit Provider Student in an Organized Health Care Education/Training Program
DX: R29.898 Other symptoms and signs involving the musculoskeletal system (principal); R53.1 Weakness; M25.542 Pain in joints of left hand; M25.541 Pain in joints of right hand
CPT/HCPCS: 97110; 97165

== ENCOUNTER → 2022-01-30 14:04 | Outpatient (CLI) | payer MEDICARE, SELFPAY ==
--- NOTE | 2022-01-30 14:05 | DI.US.S_ITS ---
PROCEDURE: US EXTREMELY NONVASC UPPER RT INDICATIONS: ARM LUMPS TECHNIQUE: Real-time scanning was performed of the bilateral upper extremities, with image documentation. COMPARISON: None. FINDINGS: Targeted scanning at the areas of the bilateral palpable abnormalities demonstrates multiple mildly hyperechoic circumscribed subcutaneous masses. Seven similar appearing masses are seen in total, 4 on the right and 3 on the left. The largest is located at the posterior aspect of the right upper arm (labeled #2 on sonographic images), which measures 4.7 x 1.6 x 3.6 cm. IMPRESSION: Multiple circumscribed hyperechoic masses in the subcutaneous tissues of both upper extremities, which correspond to the reported palpable abnormalities. Imaging findings are most compatible with benign lipomas, although other benign or malignant soft tissue masses are not entirely excluded. MRI or CT could be performed for further evaluation if there is continued clinical concern. Approved by: Basilio Fernandez M.D. on 01/30/2022 at 16:22
== END ==
PROVIDERS: Family Provider Student in an Organized Health Care Education/Training Program; PCP Student in an Organized Health Care Education/Training Program; Referring Provider Student in an Organized Health Care Education/Training Program; Visit Provider Student in an Organized Health Care Education/Training Program
DX: R22.31 Localized swelling, mass and lump, right upper limb (principal)
CPT/HCPCS: 76882

== ENCOUNTER → 2022-02-23 08:17 | Outpatient (CLI) | payer MEDICARE, SELFPAY | PROVIDERS: Family Provider Student in an Organized Health Care Education/Training Program; PCP Student in an Organized Health Care Education/Training Program; Visit Provider Physician Assistant | DX: R30.0 Dysuria (principal) | CPT/HCPCS: 87077; 87086; 87186 ==

== ENCOUNTER → 2022-03-09 09:17 | Outpatient (CLI) | payer MEDICARE, SELFPAY | PROVIDERS: Family Provider Student in an Organized Health Care Education/Training Program; PCP Student in an Organized Health Care Education/Training Program; Visit Provider Nurse Practitioner Family | DX: N39.0 Urinary tract infection, site not specified (principal) | CPT/HCPCS: 87077; 87086; 87186 ==

== ENCOUNTER → 2022-03-27 12:16 | Outpatient (CLI) | payer MEDICARE, SELFPAY ==
[2022-03-27 13:37] LABS: Add Manual Diff / Slide Review NO; Appearance Urine UA SL CLOUDY; Basophils Absolute Auto 0 /uL (0-100); Basophils Percent Auto 0.4 % (0-2); Bilirubin Urine UA NEGATIVE (NEGATIVE); Color Urine UA YELLOW; Eosinophils Absolute Auto 100 /uL (0-450); Eosinophils Percent Auto 1.8 % (2-4); Glucose Urine UA NEGATIVE (Negative); Hematocrit 36.2 % (36-46); Hemoglobin 12.2 g/dL (12.0-16.0); Ketones Urine UA NEGATIVE (NEGATIVE); Leukocyte Esterase Urine UA TRACE (NEGATIVE); Lymphocytes Absolute Auto 1900 /uL (1100-4500); Lymphocytes Percent Auto 31.2 % (25-40); Mean Corpuscular HGB Conc 33.7 % (30-36); Mean Corpuscular Volume 86.2 fL (80-100); Monocytes Absolute Auto 300 /uL (0-900); Monocytes Percent Auto 4.7 % (3-14); Neutrophils Absolute Auto 3700 /uL (1500-7000); Neutrophils Percent Auto 61.9 % (50-75); Nitrite Urine UA NEGATIVE (Negative); Occult Blood Urine UA 3+ (Negative); Platelet Count 202 X10^3/uL (150-400); Protein Urine UA TRACE (Negative); Specific Gravity Urine UA >=1.030 (1.000-1.035); Urobilinogen Urine UA 0.2 E.U./dL (0.2)
[2022-03-27 13:51] LABS: Hemoglobin A1C% w Est Avg Glu 5.5 % (4.0-6.0)
[2022-03-27 14:00] LABS: Bacteria Urine Few (2-10); Culture Indicated Urine Specimen Cultured; RBC Urine 1-5/HPF (0-5/HPF); Squamous Epithelial Cell Urine 1-5 /HPF (0-5/HPF); WBC Urine 1-5/HPF (0-5/HPF)
[2022-03-27 14:04] LABS: BUN Creatinine Ratio 31.9 (6-22); Blood Urea Nitrogen 23 mg/dL (7-17); Calcium 9.2 mg/dL (8.4-10.2); Carbon Dioxide 27 mmol/L (22-32); Chloride 106 mmol/L (98-107); Estimated Glomerular Filt Rate > 60 mL/min (>60); Glucose 89 mg/dL (80-110); HEMOLYSIS < 15 (0-50); Potassium 3.9 mmol/L (3.4-5.1); Sodium 141 mmol/L (137-145)
== END ==
PROVIDERS: Family Provider Student in an Organized Health Care Education/Training Program; PCP Student in an Organized Health Care Education/Training Program; Referring Provider Orthopaedic Surgery Foot and Ankle Surgery; Visit Provider Orthopaedic Surgery Foot and Ankle Surgery
DX: Z01.818 Encounter for other preprocedural examination (principal); R73.9 Hyperglycemia, unspecified; Z01.812 Encounter for preprocedural laboratory examination; N39.0 Urinary tract infection, site not specified
CPT/HCPCS: 36415; 80048; 81001; 83036; 85025; 87086; 93005

== ENCOUNTER 2022-06-17 16:17 | Emergency (ER) | payer MEDICARE, SELFPAY ==
[2022-06-17 16:35] VITALS: BP 181/77; PULSE 78; RESP 16; TEMP 36.6; O2SAT 98; BMI 25.0
[2022-06-17 17:12] LABS: COVID19 -Nasal RAPID Negative (Negative)
[2022-06-17 18:15] VITALS: BP 180/70; PULSE 75; RESP 18; O2SAT 98
--- NOTE | 2022-06-17 19:26 | ED.RECABL ---
HPI - Recheck/Abnormal Lab/Rx <Shaka Do PA-C - Last Filed: 06/17/22 19:35> General Chief Complaint: Recheck/Abnormal Lab/Rx Stated Complaint: METAL TASTE AND SMELL (PREVIOUS KNEE REPLACEMENT) Time Seen by Provider: 06/17/22 17:43 Source: patient Mode of arrival: Ambulatory History of Present Illness HPI narrative: 67-year-old female with pastMedical history arthritis, peripheral neuropathy, hypercholesterolemia, status post a left knee replacement in May 2022 presents to the ED with 2 days of metallic smell and taste. Patient denies fever, chills, rhinorrhea, sinus congestion, cough, sore throat, cough, chest pain, shortness of breath, abdominal pain, dysuria, lightheadedness, dizziness, syncope. Patient came to the ED since she was concerned that the metallic knee replacement might be causing the smell and taste. Patient states she tried to call her orthopedic surgeon, however she did not hear back from them. Patient denies having any recent viral URIs. Related Data Home Medications Medication Instructions Recorded Confirmed calcium carbonate 600 mg calcium 600 mg PO DAILY 10/31/20 03/27/22 (1,500 mg) tablet (Calcium) cholecalciferol (vitamin D3) 25 25 mcg PO DAILY 01/02/22 03/27/22 mcg (1,000 unit) chewable tablet (Vitamin D3) meloxicam 15 mg tablet-irritant 1 ea topical DAILY PRN miniscus 03/27/22 03/27/22 and counter-irritant no.2 topical tear and possible inf gel Previous Rx's Medication Instructions Recorded gabapentin 300 mg capsule 300 mg PO TID #270 caps 05/20/22 Allergies Allergy/AdvReac Type Severity Reaction Status Date / Time No Known Drug Allergies Allergy Verified 03/27/22 16:51 Review of Systems <Shaka Do PA-C - Last Filed: 06/17/22 19:35> Review of Systems ROS Unobtainable: All systems reviewed & are unremarkable except as noted in HPI and below Constitutional Constitutional: Denies chills, Denies fatigue, Denies fever(s), Denies frequent falls, Denies lethargy and Denies weakness Eyes Eyes: Denies change in vision, Denies eye discharge, Denies irritation and Denies loss of vision ENT Ears, Nose, Mouth, and Throat: Denies change in voice, Denies dizziness, Denies neck pain, Denies sore throat and Denies throat swelling Comments: metallic smell and taste in mouth Cardiovascular Cardiovascular: Denies chest pain, Denies irregular heart rhythm, Denies lightheadedness, Denies palpitations, Denies dyspnea, Denies dyspnea on exertion and Denies orthopnea Respiratory Respiratory: Denies cough, Denies dyspnea, Denies dyspnea on exertion and Denies wheezing Gastrointestinal Gastrointestinal: Denies abdominal pain, Denies change in bowel habits, Denies diarrhea, Denies nausea and Denies vomiting Genitourinary Genitourinary: Denies hematuria, Denies flank pain, Denies urinary incontinence and Denies urinary urgency Musculoskeletal Musculoskeletal: Denies back pain, Denies muscle weakness, Denies neck pain, Denies numbness and Denies tingling Integumentary/Breasts Skin/Breast: Denies pruritus, Denies erythema, Denies rash and Denies wounds Neurologic Neurologic: Denies behavioral changes, Denies confusion, Denies dizziness, Denies frequent falls, Denies loss of vision, Denies numbness, Denies tingling and Denies weakness Psychiatric Psychiatric: Denies anxiety, Denies behavioral changes, Denies confusion, Denies depression, Denies homicidal ideation and Denies suicidal ideation Endocrine Endocrine: Denies fatigue, Denies flushing and Denies palpitations Hematologic/Lymphatic Hematologic/Lymphatic: Denies easy bruising Allergic/Immunologic Allergic/Immunologic: Denies urticaria, Denies throat swelling and Denies wheezing Patient History <Shaka Do PA-C - Last Filed: 06/17/22 19:35> Medical History Actinic keratosis Fibroids (~1984) Finger laceration Genital warts (~1971) Lipoma of right upper extremity Osteopenia Ovarian cyst (~1984) Rheumatoid bursitis, unspecified hip Sinus congestion Tinnitus (~2017) Urinary tract infection Vitamin D deficiency Surgical History Anesthesia H/O blepharoplasty History of 2 sections History of bunionectomy (~1970) History of oral surgery (~2017) History of varicose veins Family History Mother Hypertension Stroke Social History Smoking Status: Former smoker alcohol intake: current substance use type: former substance user Smoking Status: Former smoker alcohol intake frequency: holidays/special occasions only Substance Use Type: does not use Exam <Shaka Do PA-C - Last Filed: 06/17/22 19:35> Narrative Exam Narrative: Const General:?cooperative, healthy appearing and comfortable HENAK Head:?normal to inspection Ears:?hearing grossly normal bilaterally Nose:?external nose normal Face and sinus:?normal facial exam and sinuses nontender Mouth:?oral mucosae normal Throat:?posterior oropharynx normal Eyes General:?appearance normal, both eyes and all related structures Neck Neck:?normal visual inspection and no lymphadenopathy noted Resp Effort & Inspection:?normal respiratory effort Auscultation:?clear to auscultation bilaterally Cardio Rate:?regular rate Rhythm:?regular rhythm Neuro General:?patient alert, patient awake and patient oriented x3 Initial Vital Signs Initial Vital Signs: Vital Signs Temperature 98 F 06/17/22 16:35 Pulse Rate 78 06/17/22 16:35 Respiratory Rate 16 06/17/22 16:35 Blood Pressure 181/77 H 06/17/22 16:35 Pulse Oximetry 98 06/17/22 16:35 Oxygen Delivery Method Room Air 06/17/22 16:35 <Jese Rod DO - Last Filed: 06/18/22 07:13> Initial Vital Signs Initial Vital Signs: Vital Signs Temperature 98 F 06/17/22 16:35 Pulse Rate 78 06/17/22 16:35 Respiratory Rate 16 06/17/22 16:35 Blood Pressure 181/77 H 06/17/22 16:35 Pulse Oximetry 98 06/17/22 16:35 Oxygen Delivery Method Room Air 06/17/22 16:35 Course <Shaka Do PA-C - Last Filed: 06/17/22 19:35> Orders Ordered: ED Orders 06/17/22 16:40 COVID19 -Nasal RAPID Stat Vital Signs Vital signs: Vital Signs - 8 hr 06/17/22 16:35 06/17/22 18:15 Temperature 98 F Pulse Rate 78 75 Respiratory Rate 16 18 Blood Pressure 181/77 H 180/70 H Pulse Oximetry 98 98 Oxygen Delivery Method Room Air <Jese Rod DO - Last Filed: 06/18/22 07:13> Orders Ordered: ED Orders 06/17/22 16:40 COVID19 -Nasal RAPID Stat Vital Signs Vital signs: Vital Signs - 8 hr 06/17/22 16:35 06/17/22 18:15 Temperature 98 F Pulse Rate 78 75 Respiratory Rate 16 18 Blood Pressure 181/77 H 180/70 H Pulse Oximetry 98 98 Oxygen Delivery Method Room Air MDM - Recheck/Abnormal Lab/Rx <Shaka Do PA-C - Last Filed: 06/17/22 19:35> Lab Data Labs: Lab Results 06/17/22 Range/Units 16:40 SARS-CoV-2 (PCR) Negative (Negative) MDM Narrative Medical decision making narrative: 67-year-old female with pastMedical history arthritis, peripheral neuropathy, hypercholesterolemia, status post a left knee replacement in May 2022 presents to the ED with 2 days of metallic smell and taste. Patient appears well. Discussed with patient the most common causes of metallic smell and taste. Also tested patient for COVID which was negative. Recommend patient consult with her orthopedic surgeon for further evaluation and treatment. Also recommend prompt follow-up with PCP for any further evaluation and monitoring. ED return precautions were discussed with patient. Patient verbalized understanding. Medical records reviewed: Yes <Jese Rod DO - Last Filed: 06/18/22 07:13> Lab Data Labs: Lab Results 06/17/22 Range/Units 16:40 SARS-CoV-2 (PCR) Negative (Negative) Discharge Plan Departure Patient Disposition: Home Clinical Impression: Metallic taste Activity Restrictions/Additional Instructions: You were evaluated in the ED today for a metallic taste in her mouth. While it is unclear what the source of this is, it is unlikely that it is related to your knee replacement surgery from May. Your also not experiencing a cold currently or have experienced a cold recently and you do not have any sinus congestion. I would recommend that you consult your orthopedic surgeon for further evaluation. Please also follow-up with your PCP as soon as possible. Return to the ED if you experience any chest pain, shortness of breath. Prescriptions: No Action gabapentin 300 mg capsule 300 mg PO TID Qty: 270 3RF cholecalciferol (vitamin D3) [Vitamin D3] 25 mcg (1,000 unit) tablet,chewable 25 mcg PO DAILY meloxicam-irritant,cntr irr 2 15 mg kit 1 ea topical DAILY PRN (Reason: miniscus tear and possible inf) calcium carbonate [Calcium 600] 600 mg calcium (1,500 mg) tablet 600 mg PO DAILY Referrals: Heriberto Vang MD [Primary Care Provider] - Stand Alone Forms: Patient Portal/API <Jese Rod DO - Last Filed: 06/18/22 07:13> Cosign ED Attending Cosignature Attestation: Dr Rod Co-Sign Statement: I was available for consultation during this patient's emergency department visit. This chart is signed by myself for administrative purposes only. I did not have direct contact with this patient during this visit. They were seen independently by the APC.
== END 2022-06-17 18:30 | disposition home or self-care (01) ==
PROVIDERS: Emergency Medicine; Emergency Provider Student in an Organized Health Care Education/Training Program; Family Provider Student in an Organized Health Care Education/Training Program; PCP Student in an Organized Health Care Education/Training Program
DX: R43.8 Other disturbances of smell and taste (principal); Z20.822 Contact with and (suspected) exposure to COVID-19
CPT/HCPCS: 87635; 99281; 99282; C9803

== ENCOUNTER 2022-08-23 10:30 | Outpatient (RCR) | payer MEDICARE, SELFPAY ==
--- NOTE | 2022-02-28 17:07 | PT.OIE ---
Current Diagnoses Unspecified injury of left lower leg, initial encounter (02/28/22) Past Medical History (Last Updated 02/23/22 @ 08:51 by Luis Schneider PA-C) Actinic keratosis Fibroids (~1984) Finger laceration Genital warts (~1971) Lipoma of right upper extremity Osteopenia Ovarian cyst (~1984) Rheumatoid bursitis, unspecified hip Sinus congestion Tinnitus (~2017) Urinary tract infection Vitamin D deficiency Past Surgical History (Last Reviewed 02/13/22 @ 09:40 by Massiel Joseph RN) Anesthesia H/O blepharoplasty History of 2 sections History of bunionectomy (~1970) History of oral surgery (~2017) History of varicose veins Visit Care Team Role Provider Type Heriberto Vang MD Attending Provider Physician Family Provider Primary Care Provider Referring Provider Specialty: Internal Medicine Address: [address] [place] [address], [address], [facility] Email: [email or web address] Physical Therapy Initial Evaluation PT-OP-A Visit Information Start: 02/25/22 19:43 Freq: Status: Active Protocol: Document 02/28/22 09:06 LRN (Rec: 02/28/22 12:41 LRN [id number]) Out-Patient Physical Therapy Visit Information Visit Information Visit Type Initial Evaluation Visit Start Time 09:06 Visit Stop Time 09:50 Total Visit Minutes 44 Visit Number Evaluation Information Evaluation Date 02/28/22 Precautions Precautions ADHESIVE ALLERGIES, Arthritis, decreased hearing but doesn't wear her hearing aids, 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 PT-OP-B Current Condition Start: 02/25/22 19:43 Freq: Status: Active Protocol: Document 02/28/22 09:06 LRN (Rec: 02/28/22 12:41 LRN [id number]) Current Condition History of Current Condition Onset Date Current Complaints L medial knee pain. History of Current Condition After hike L knee hurt, a couple weeks later was dancing and next day could hardly walk. Went to a walk-in clinic in [facility] and was told arthritis and was given meds. Pain didn't go away so went to Dr. Acuña and was told arthritis and knee wasn't going to get better. Had a cortisone injection in Dec 2021, that didn't help. Was told she was a candidate for a partial knee replacement or more injections. She is waiting to see if she has approval for surgery. Wearing an over the counter soft knee compression sleeve that is helpful. Has a brace for the L knee that she uses if she is doing something that she feels she needs more support that is helpful. Was told she had a meniscus tear. Prior Treatments and Tests Cortisone injection in L knee Dec 2021. X-ray 12/01/18. MRI 01/09/22 indicates oblique tear of posterior horn of medial meniscus extending to superior articulating surface. Torn posterior medial meniscus root ligament. 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 X-ray after MRI - unavailable. PT for R hip in [place] at end of 2020 with mostly resolution of pain. Future Testing and Treatments Planned Pending approval of partial L TKA. Treatment Goals Patient/Caregiver Goals Pt goal with therapy is to complete PT that was recommended a long time ago but wasn't able to get into therapy. Prior Functional Status Baseline Function- ADL's Independent Baseline Function- Mobility Independent Baseline Function- Gait Holds R LE in ER, hits hard on R heel strike. Baseline Function- Other Was hiking (couple times a week, a couple hour hike) and dancing for recreation. Current Functional Impairments (Reported) Functional Limitations- ADL's Not able to hike and dance. Walks sideways down stairs. Pain with transfers sit<>stand . Personal Factors Other Personal Factors That May Effect Currently has UTI. Therapy/Recovery Does online dance class and is doing water aerobic class trying to stay in shape. Lives alone with dog and 2 cats. PT-OP-C Subjective Start: 02/25/22 19:43 Freq: Status: Active Protocol: Document 02/28/22 09:06 LRN (Rec: 02/28/22 12:41 LRN [id number]) OP-PT Subjective Patient Comments Patient Comments States she has had swelling behind the L knee that she was told contributes to her pain. Patient Questionnaires Lower Extremity Functional Scale LEFS Score 25 LEFS Impairment 60 to 79% Impaired (Score 17- 31) OP-PT Pain Assessment Pain Assessment Grid Paper Pain Assessment Grid Completed Yes Location L knee Pain Location Details Anterior and posterio knee pain Intensity 5 Scale Used Numeric (0 - 10) Description Aching,Dull Description- Other 5/10 anterior, 3/10 posterior. At rest dull ache, walking sharp Frequency Constant Pain Aggravating Factors Changing Position,ADL's, Activity,Exercise,Sitting, Walking,Stair Climbing,Bending ,Lifting Pain Alleviating Factors Medication Other Pain Alleviating Factors Anti-inflammatory. PT-OP-G Mobility & Gait Start: 02/25/22 19:43 Freq: Status: Active Protocol: Document 02/28/22 09:06 LRN (Rec: 02/28/22 12:41 LRN [id number]) OP Gait Assessment Gait Gait Assistance Required: Independent Assistive Devices Assistive Device None Gait Deviations General Gait Pattern Antalgic Factors Limiting Gait Function Factors Limiting Gait Function Pain Comments Gait Comments Holds R LE in ER, hits hard on R heel strike. PT-OP-H Neuro Start: 02/25/22 19:43 Freq: Status: Active Protocol: Document 02/28/22 09:06 LRN (Rec: 02/28/22 12:41 LRN [id number]) Sensation Evaluation Gross Sensation Gross Sensation WNL Comments Summary Comments Sensation assessment is in bilateral thighs and lower legs. Bottoms of feet not assessed. NOTE: pt reported neuropathy. PT-OP-J Posture/Palpation/Skin Start: 02/25/22 19:43 Freq: Status: Active Protocol: Document 02/28/22 09:06 LRN (Rec: 02/28/22 12:41 LRN [id number]) Posture Evaluation Position Standing Knee Posture (L) Genu Varus,(R) Genu Varus Comments Posture Comments Decreased arch L foot Palpation Assessment Location L knee Palpation Location No pain Palpation Findings Edema PT-OP-K Range of Motion Start: 02/25/22 19:43 Freq: Status: Active Protocol: Document 02/28/22 09:06 LRN (Rec: 02/28/22 12:41 LRN [id number]) Knee Goniometric Range of Motion Knee Right Knee ROM WFL Yes Patient Position Supine Flexion Active (degrees) 137 Extension Active (degrees) 0 Left Knee ROM WFL No Patient Position Supine Flexion Active (degrees) 125 Extension Active (degrees) 2 Ankle and Foot Goniometric Range of Motion Ankle and Foot Right Active Ankle/Foot ROM WFL Yes Testing Position Supine Comments ROM is bilaterally symmetrical Left Active Ankle/Foot ROM WFL Yes Testing Position Supine Comments ROM is bilaterally symmetrical . In sitting: ankle DF is limited ~25%. PT-OP-M Strength Start: 02/25/22 19:43 Freq: Status: Active Protocol: Document 02/28/22 09:06 LRN (Rec: 02/28/22 12:41 LRN [id number]) Knee Strength Knee Manual Muscle Testing Right Flexion (S2) 5 Normal Extension (L3) 5 Normal Left Flexion (S2) 3 Fair Extension (L3) 3 Fair Ankle/Foot Strength Ankle and Foot Manual Muscle Testing Right Dorsiflexion (L4) 5 Normal Comments Generally 5/5 Left Eversion (S1) 3+ Fair+ Comments Generally 4/5 except as indicated above PT-OP-Q Treatments Start: 02/25/22 19:43 Freq: Status: Active Protocol: Document 02/28/22 09:06 LRN (Rec: 02/28/22 12:41 N [id number]) Self-Care/Home Management Treatment Education Patient Education Home Exercise Program,Joint Protection,Pain Management Other Education Discussed results of evaluation, goals, and plan of care (POC). Pt agreeable to goals and POC. Activities Self-Care/Home Management Activities I/S pt in QS, and precautions of movement for meniscus tear. Discussed and recommended pain management at home with use of cryotherapy and elevation techniques. PT-OP-T Assessment and Plan Start: 02/25/22 19:43 Freq: Status: Active Protocol: Document 02/28/22 09:06 LRN (Rec: 02/28/22 12:41 [facility] [id number]) Physical Therapy Assessment Rehab Potential Rehabilitation Potential Fair Evaluation Complexity Number of Personal Factors/Comorbidities 1-2 Number of Body Systems Impaired 4 or More Clinical Presentation at Evaluation Evolving Impairments Impairments Activity Tolerance,Gait,Pain, Strength Goals Three Impairment Decreased L knee strength Impairment L knee pain rated 5/10. 5/10 anterior, 3/10 posterior. L knee MMT: Flex/Ext 3/5 (R knee is 5/5). L ankle MMT: Generally 4/5 except EV is 3+/5 (R ankle is 5/5). Short Term Goal (STG) Strengthen L knee with pt able to perform sit<>stand with less L knee pain. STG Duration 03/29/22 LTG Duration 04/25/22 Two Impairment Decreased function per LEFS score and ascending stairs sideways. Impairment Knee AROM: 0-125 deg's left (0 -137 deg's right). Ankle AROM: LEFS 25 (60-79% impaired). Short Term Goal (STG) Improve L knee AROM with pt able to walk down stairs facing forward (step to step or normal gait). STG Duration 03/29/22 Custodial Goal (LTG) Improve function per LEFS score 48-62 (20-39% impaired). LTG Duration 04/25/22 One Impairment Lacks appropriate self care HEP Short Term Goal (STG) Pt will be educated in edema and pain management for self prison. Custodial Goal (LTG) Pt will be educated in HEP for L knee, hip ankle strengthening ex's and ROM ex' s as needed (knee, hip) LTG Duration 05/29/22 Assessment Summary Assessment Pt presents with symptoms and reports of L knee oblique tear of posterior horn of medial meniscus. 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 The pt is limited in strength, mobility and function due to pain. The pt will benefit from skilled physical therapy to promote L knee strengthening and stability for daily function, safety with gait, education in self care for pain and exercise, as well as preparation for possible future surgery. The pt is planned for a 6-8 week therapy program, but due to the approach of the holidays her therapy is expected to be extended. Physical Therapy Plan Frequency and Duration Frequency of Treatment 2x/Week Plan of Care Start Date 02/28/22 Plan of Care End Date 05/29/22 Therapeutic Interventions Therapeutic Interventions Aquatic Therapy,Gait Training, Home Exercise Program,Manual Therapy,Patient/Caregiver Education,Self-Care/Home Management,Soft Tissue Mobilization,Therapeutic Activities,Therapeutic Exercises Modalities Electric Stimulation, Ultrasound Next Visit Focus/Plan Next Note Type Treatment Note Next Visit Plan Assess hip strength. Review QS ex for appropriateness and add to HEP L quad/hamstring strengthening. Pt education in edema management (RICE) and review precautions of movement to decrease pain due to meniscal tear and arthritis. Strengthening with high RPM, low resistance. Gait training.
--- NOTE | 2022-02-28 17:08 | PT.OPPOC ---
Physical, Occupational & Speech Therapy At [facility] Current Diagnoses Unspecified injury of left lower leg, initial encounter (02/28/22) Visit Care Team Role Provider Type Heriberto Vang MD Attending Provider Physician Family Provider Primary Care Provider Referring Provider Specialty: Internal Medicine Address: [address] [place] [address], [address], [address] Email: [email or web address] Plan Of Care PT-OP-T Assessment and Plan Start: 02/25/22 19:43 Freq: Status: Active Protocol: Document 02/28/22 09:06 LRN (Rec: 02/28/22 12:41 LRN [id number]) Physical Therapy Assessment Rehab Potential Rehabilitation Potential Fair Evaluation Complexity Number of Personal Factors/Comorbidities 1-2 Number of Body Systems Impaired 4 or More Clinical Presentation at Evaluation Evolving Impairments Impairments Activity Tolerance,Gait,Pain, Strength Goals Three Impairment Decreased L knee strength Impairment L knee pain rated 5/10. 5/10 anterior, 3/10 posterior. L knee MMT: Flex/Ext 3/5 (R knee is 5/5). L ankle MMT: Generally 4/5 except EV is 3+/5 (R ankle is 5/5). Short Term Goal (STG) Strengthen L knee with pt able to perform sit<>stand with less L knee pain. STG Duration 03/29/22 LTG Duration 04/25/22 Two Impairment Decreased function per LEFS score and ascending stairs sideways. Impairment Knee AROM: 0-125 deg's left (0 -137 deg's right). Ankle AROM: LEFS 25 (60-79% impaired). Short Term Goal (STG) Improve L knee AROM with pt able to walk down stairs facing forward (step to step or normal gait). STG Duration 03/29/22 Nursing Home Goal (LTG) Improve function per LEFS score 48-62 (20-39% impaired). LTG Duration 04/25/22 One Impairment Lacks appropriate self care HEP Short Term Goal (STG) Pt will be educated in edema and pain management for self halfway. Nursing Home Goal (LTG) Pt will be educated in HEP for L knee, hip ankle strengthening ex's and ROM ex' s as needed (knee, hip) LTG Duration 05/29/22 Assessment Summary Assessment Pt presents with symptoms and reports of L knee oblique tear of posterior horn of medial meniscus. 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 The pt is limited in strength, mobility and function due to pain. The pt will benefit from skilled physical therapy to promote L knee strengthening and stability for daily function, safety with gait, education in self care for pain and exercise, as well as preparation for possible future surgery. The pt is planned for a 6-8 week therapy program, but due to the approach of the holidays her therapy is expected to be extended. Physical Therapy Plan Frequency and Duration Frequency of Treatment 2x/Week Plan of Care Start Date 02/28/22 Plan of Care End Date 05/29/22 Therapeutic Interventions Therapeutic Interventions Aquatic Therapy,Gait Training, Home Exercise Program,Manual Therapy,Patient/Caregiver Education,Self-Care/Home Management,Soft Tissue Mobilization,Therapeutic Activities,Therapeutic Exercises Modalities Electric Stimulation, Ultrasound Next Visit Focus/Plan Next Note Type Treatment Note Next Visit Plan Assess hip strength. Review QS ex for appropriateness and add to HEP L quad/hamstring strengthening. Pt education in edema management (RICE) and review precautions of movement to decrease pain due to meniscal tear and arthritis. Strengthening with high RPM, low resistance. Gait training. Plan of Care Dates Plan of Care Start Date 02/28/22 Plan of Care End Date 05/29/22 Electronically Signed by: Clara Harden, PT 02/28/22 [id number] If you are in agreement with this Plan of Care, please return a signed and dated copy. I have reviewed this Plan of Care and certify that the skilled therapy services above are required to meet the patient?s needs. Physician Signature Date Printed Name and Credentials Clinical Instructor Signature Printed Name and Credentials
--- NOTE | 2022-03-07 16:23 | PT.OTN ---
Current Diagnoses Unspecified injury of left lower leg, initial encounter (03/07/22) Physical Therapy Treatment Note PT-OP-A Visit Information Start: 02/25/22 19:43 Freq: Status: Active Protocol: Document 03/07/22 09:56 LRN (Rec: 03/07/22 10:36 LRN [id number]) Out-Patient Physical Therapy Visit Information Visit Information Visit Type Treatment Note Visit Start Time 09:56 Visit Stop Time 10:34 Total Visit Minutes 38 Visit Number Evaluation Information Evaluation Date 02/28/22 Precautions Precautions ADHESIVE ALLERGIES, Arthritis, decreased hearing but doesn't wear her hearing aids, 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 PT-OP-B Current Condition Start: 02/25/22 19:43 Freq: Status: Active Protocol: Document 02/28/22 09:06 LRN (Rec: 02/28/22 12:41 LRN [id number]) Current Condition History of Current Condition Onset Date Current Complaints L medial knee pain. History of Current Condition After hike L knee hurt, a couple weeks later was dancing and next day could hardly walk. Went to a walk-in clinic in [facility] and was told arthritis and was given meds. Pain didn't go away so went to Dr. Acuña and was told arthritis and knee wasn't going to get better. Had a cortisone injection in Dec 2021, that didn't help. Was told she was a candidate for a partial knee replacement or more injections. She is waiting to see if she has approval for surgery. Wearing an over the counter soft knee compression sleeve that is helpful. Has a brace for the L knee that she uses if she is doing something that she feels she needs more support that is helpful. Was told she had a meniscus tear. Prior Treatments and Tests Cortisone injection in L knee Dec 2021. X-ray 12/01/18. MRI 01/09/22 indicates oblique tear of posterior horn of medial meniscus extending to superior articulating surface. Torn posterior medial meniscus root ligament. 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 X-ray after MRI - unavailable. PT for R hip in [place] at end of 2020 with mostly resolution of pain. Future Testing and Treatments Planned Pending approval of partial L TKA. Treatment Goals Patient/Caregiver Goals Pt goal with therapy is to complete PT that was recommended a long time ago but wasn't able to get into therapy. Prior Functional Status Baseline Function- ADL's Independent Baseline Function- Mobility Independent Baseline Function- Gait Holds R LE in ER, hits hard on R heel strike. Baseline Function- Other Was hiking (couple times a week, a couple hour hike) and dancing for recreation. Current Functional Impairments (Reported) Functional Limitations- ADL's Not able to hike and dance. Walks sideways down stairs. Pain with transfers sit<>stand . Personal Factors Other Personal Factors That May Effect Currently has UTI. Therapy/Recovery Does online dance class and is doing water aerobic class trying to stay in shape. Lives alone with dog and 2 cats. PT-OP-C Subjective Start: 02/25/22 19:43 Freq: Status: Active Protocol: Document 03/07/22 09:56 LRN (Rec: 03/07/22 10:36 LRN [id number]) OP-PT Subjective Patient Comments Patient Comments Was carrying around grandson weighing 30#. Patient Reported Progress Same PT-OP-G Mobility & Gait Start: 02/25/22 19:43 Freq: Status: Active Protocol: Document 02/28/22 09:06 LRN (Rec: 02/28/22 12:41 LRN [id number]) OP Gait Assessment Gait Gait Assistance Required: Independent Assistive Devices Assistive Device None Gait Deviations General Gait Pattern Antalgic Factors Limiting Gait Function Factors Limiting Gait Function Pain Comments Gait Comments Holds R LE in ER, hits hard on R heel strike. PT-OP-H Neuro Start: 02/25/22 19:43 Freq: Status: Active Protocol: Document 02/28/22 09:06 LRN (Rec: 02/28/22 12:41 LRN [id number]) Sensation Evaluation Gross Sensation Gross Sensation WNL Comments Summary Comments Sensation assessment is in bilateral thighs and lower legs. Bottoms of feet not assessed. NOTE: pt reported neuropathy. PT-OP-J Posture/Palpation/Skin Start: 02/25/22 19:43 Freq: Status: Active Protocol: Document 02/28/22 09:06 LRN (Rec: 02/28/22 12:41 LRN [id number]) Posture Evaluation Position Standing Knee Posture (L) Genu Varus,(R) Genu Varus Comments Posture Comments Decreased arch L foot Palpation Assessment Location L knee Palpation Location No pain Palpation Findings Edema PT-OP-K Range of Motion Start: 02/25/22 19:43 Freq: Status: Active Protocol: Document 02/28/22 09:06 LRN (Rec: 02/28/22 12:41 LRN [id number]) Knee Goniometric Range of Motion Knee Right Knee ROM WFL Yes Patient Position Supine Flexion Active (degrees) 137 Extension Active (degrees) 0 Left Knee ROM WFL No Patient Position Supine Flexion Active (degrees) 125 Extension Active (degrees) 2 Ankle and Foot Goniometric Range of Motion Ankle and Foot Right Active Ankle/Foot ROM WFL Yes Testing Position Supine Comments ROM is bilaterally symmetrical Left Active Ankle/Foot ROM WFL Yes Testing Position Supine Comments ROM is bilaterally symmetrical . In sitting: ankle DF is limited ~25%. PT-OP-M Strength Start: 02/25/22 19:43 Freq: Status: Active Protocol: Document 02/28/22 09:06 LRN (Rec: 02/28/22 12:41 LRN [id number]) Knee Strength Knee Manual Muscle Testing Right Flexion (S2) 5 Normal Extension (L3) 5 Normal Left Flexion (S2) 3 Fair Extension (L3) 3 Fair Ankle/Foot Strength Ankle and Foot Manual Muscle Testing Right Dorsiflexion (L4) 5 Normal Comments Generally 5/5 Left Eversion (S1) 3+ Fair+ Comments Generally 4/5 except as indicated above PT-OP-Q Treatments Start: 02/25/22 19:43 Freq: Status: Active Protocol: Document 03/07/22 09:56 LRN (Rec: 03/07/22 10:36 LRN [id number]) Therapeutic Exercises Supine Exercises SLR Supine Exercise Name SLR Side left Reps/Minutes 30x L knee AROM Supine Exercise Name L knee flex/ext AROM stretch Side left Reps/Minutes 3' Prone Exercises L Hip Ext Prone Exercise Name L Hip Ext Side left Sidelying Exercises Hip AB/AD strengthening Sidelying Exercise Name Hip AB/AD strengthening Side left Reps/Minutes 15x Sitting Exercises L knee ext strengthening Sitting Exercise Name L knee 100-39 deg's ext Side left Equipment Used Lev 2 TB L knee strengthening Sitting Exercise Name L knee flex strengthening Side left Equipment Used Lev 2 TB Reps/Minutes 20x Knee flex ROM Sitting Exercise Name L knee flex stretch - Heel slide & KTC for knee flex stretch Side left Reps/Minutes 6' Comments Tried several different positions, but pt not able to get a good stretch. Self-Care/Home Management Treatment Education Patient Education Home Exercise Program,Pain Management Other Education Educated and discussed with pt ROM that places most stress on Meniscus. Pt educated in edema and pain management for self group home. Activities Self-Care/Home Management Activities Issued & reviewed HEP: L knee supine flex/ext stretch, and sup/sidelie: L hip ext, AB, AD strengthening. PT-OP-T Assessment and Plan Start: 02/25/22 19:43 Freq: Status: Active Protocol: Document 03/07/22 09:56 LRN (Rec: 03/07/22 10:36 LRN [id number]) Physical Therapy Assessment Goals Three Impairment Decreased L knee strength Impairment L knee pain rated 5/10. 5/10 anterior, 3/10 posterior. L knee MMT: Flex/Ext 3/5 (R knee is 5/5). L ankle MMT: Generally 4/5 except EV is 3+/5 (R ankle is 5/5). Short Term Goal (STG) Strengthen L knee with pt able to perform sit<>stand with less L knee pain. STG Duration 03/29/22 LTG Duration 04/25/22 Two Impairment Decreased function per LEFS score and ascending stairs sideways. Impairment Knee AROM: 0-125 deg's left (0 -137 deg's right). Ankle AROM: LEFS 25 (60-79% impaired). Short Term Goal (STG) Improve L knee AROM with pt able to walk down stairs facing forward (step to step or normal gait). STG Duration 03/29/22 [facility]ci Goal (LTG) Improve function per LEFS score 48-62 (20-39% impaired). LTG Duration 04/25/22 One Impairment Lacks appropriate self care HEP Short Term Goal (STG) Pt will be educated in edema and pain management for self group home. STG Duration 03/07/22: MET GOAL Ip Litigation Associate Goal (LTG) Pt will be educated in HEP for L knee, hip ankle strengthening ex's and ROM ex' s as needed (knee, hip). 03/07/22: HEP: L knee supine flex/ext stretch and QS; L hip ext, AB (clamshell and straight leg), AD strengthening in sup/sidelie. LTG Duration 05/29/22 progressed 03/07/22 Assessment Summary Assessment Pt with L knee oblique tear of manufacturing millwright horn of med meniscus and manufacturing millwright med meniscus root ligament, MCL strain/partial thickness tear and mild> moderate tricompartmental OA. Pt showed good tolerance to strengthening. Weakness noted with L hip Ext/AB/AD/mildly with flex. Physical Therapy Plan Frequency and Duration Frequency of Treatment 2x/Week Plan of Care Start Date 02/28/22 Plan of Care End Date 05/29/22 Next Visit Focus/Plan Next Note Type Treatment Note Next Visit Plan Review & issue HO for edema management (YEE). Review/discuss precautions of movement (rot, review flex/ext ) to decrease pain due to meniscal tear and arthritis. Maximize L knee strength: high RPM, low resistance (max range 3-90 deg's flexion). EX: Strengthen L ankle Gait training.
--- NOTE | 2022-03-13 11:15 | PT.OTN ---
Current Diagnoses Unspecified injury of left lower leg, initial encounter (03/13/22) Physical Therapy Treatment Note PT-OP-A Visit Information Start: 02/25/22 19:43 Freq: Status: Active Protocol: Document 03/13/22 10:32 SP (Rec: 03/13/22 11:41 SP [id number]) Out-Patient Physical Therapy Visit Information Visit Information Visit Type Treatment Note Visit Start Time 10:32 Visit Stop Time 11:15 Total Visit Minutes 43 Visit Number 3 Number of PAIN MANAGEMENT SPECIALIST Visits 1 Evaluation Information Evaluation Date 02/28/22 Precautions Precautions ADHESIVE ALLERGIES, Arthritis, decreased hearing but doesn't wear her hearing aids, 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 PT-OP-B Current Condition Start: 02/25/22 19:43 Freq: Status: Active Protocol: Document 02/28/22 09:06 LRN (Rec: 02/28/22 12:41 LRN [id number]) Current Condition History of Current Condition Onset Date Current Complaints L medial knee pain. History of Current Condition After hike L knee hurt, a couple weeks later was dancing and next day could hardly walk. Went to a walk-in clinic in [facility] and was told arthritis and was given meds. Pain didn't go away so went to Dr. Acuña and was told arthritis and knee wasn't going to get better. Had a cortisone injection in Dec 2021, that didn't help. Was told she was a candidate for a partial knee replacement or more injections. She is waiting to see if she has approval for surgery. Wearing an over the counter soft knee compression sleeve that is helpful. Has a brace for the L knee that she uses if she is doing something that she feels she needs more support that is helpful. Was told she had a meniscus tear. Prior Treatments and Tests Cortisone injection in L knee Dec 2021. X-ray 12/01/18. MRI 01/09/22 indicates oblique tear of posterior horn of medial meniscus extending to superior articulating surface. Torn posterior medial meniscus root ligament. 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 X-ray after MRI - unavailable. PT for R hip in [place] at end of 2020 with mostly resolution of pain. Future Testing and Treatments Planned Pending approval of partial L TKA. Treatment Goals Patient/Caregiver Goals Pt goal with therapy is to complete PT that was recommended a long time ago but wasn't able to get into therapy. Prior Functional Status Baseline Function- ADL's Independent Baseline Function- Mobility Independent Baseline Function- Gait Holds R LE in ER, hits hard on R heel strike. Baseline Function- Other Was hiking (couple times a week, a couple hour hike) and dancing for recreation. Current Functional Impairments (Reported) Functional Limitations- ADL's Not able to hike and dance. Walks sideways down stairs. Pain with transfers sit<>stand . Personal Factors Other Personal Factors That May Effect Currently has UTI. Therapy/Recovery Does online dance class and is doing water aerobic class trying to stay in shape. Lives alone with dog and 2 cats. PT-OP-C Subjective Start: 02/25/22 19:43 Freq: Status: Active Protocol: Document 03/13/22 10:32 SP (Rec: 03/13/22 11:41 SP [id number]) OP-PT Subjective Patient Comments Patient Comments Pt reports feels her AROM is improving with HEP. She found out is schedule for partial L knee on may 23, 2022 at [facility], wants to set up more appts into May up to surgery date. She will have family to help her, can borrow a FWW and maybe shower chair from [employer] for post op, has stairs to basement to let dog out but doesn;t have to go. Someone can let her dog out and flush threshold enter home. Patient Reported Progress Same PT-OP-G Mobility & Gait Start: 02/25/22 19:43 Freq: Status: Active Protocol: Document 02/28/22 09:06 LRN (Rec: 02/28/22 12:41 LRN [id number]) OP Gait Assessment Gait Gait Assistance Required: Independent Assistive Devices Assistive Device None Gait Deviations General Gait Pattern Antalgic Factors Limiting Gait Function Factors Limiting Gait Function Pain Comments Gait Comments Holds R LE in ER, hits hard on R heel strike. PT-OP-H Neuro Start: 02/25/22 19:43 Freq: Status: Active Protocol: Document 02/28/22 09:06 LRN (Rec: 02/28/22 12:41 LRN [id number]) Sensation Evaluation Gross Sensation Gross Sensation WNL Comments Summary Comments Sensation assessment is in bilateral thighs and lower legs. Bottoms of feet not assessed. NOTE: pt reported neuropathy. PT-OP-J Posture/Palpation/Skin Start: 02/25/22 19:43 Freq: Status: Active Protocol: Document 02/28/22 09:06 LRN (Rec: 02/28/22 12:41 LRN [id number]) Posture Evaluation Position Standing Knee Posture (L) Genu Varus,(R) Genu Varus Comments Posture Comments Decreased arch L foot Palpation Assessment Location L knee Palpation Location No pain Palpation Findings Edema PT-OP-K Range of Motion Start: 02/25/22 19:43 Freq: Status: Active Protocol: Document 03/13/22 10:32 SP (Rec: 03/13/22 11:41 SP [id number]) Knee Goniometric Range of Motion Knee Right Knee ROM WFL Yes Patient Position Supine Flexion Active (degrees) 145 Extension Active (degrees) 0 Comments IMproved 8 deg flexion AROM Left Knee ROM WFL No Patient Position Supine Flexion Active (degrees) 128 Extension Active (degrees) 2 Comments improved AROM 3 deg flexion PT-OP-M Strength Start: 02/25/22 19:43 Freq: Status: Active Protocol: Document 02/28/22 09:06 LRN (Rec: 02/28/22 12:41 LRN [id number]) Knee Strength Knee Manual Muscle Testing Right Flexion (S2) 5 Normal Extension (L3) 5 Normal Left Flexion (S2) 3 Fair Extension (L3) 3 Fair Ankle/Foot Strength Ankle and Foot Manual Muscle Testing Right Dorsiflexion (L4) 5 Normal Comments Generally 5/5 Left Eversion (S1) 3+ Fair+ Comments Generally 4/5 except as indicated above PT-OP-Q Treatments Start: 02/25/22 19:43 Freq: Status: Active Protocol: Document 03/13/22 10:32 SP (Rec: 03/13/22 11:41 SP [id number]) Therapeutic Exercises Supine Exercises SLR Supine Exercise Name SLR- HEP reviewed Side left Reps/Minutes 30x Comments cued quad set and maintain within reason during SLR L knee AROM Supine Exercise Name L knee flex/ext AROM stretch- Heel slide HEP reviewed Side left Resistance AROM: 128 deg LLE, 145 RLE Reps/Minutes x10 reps, pause good stretch Comments good form and stretch response , no UE support required Prone Exercises L Hip Ext Prone Exercise Name L Hip Ext- added to HEP Side left Resistance AROM Reps/Minutes x10 Comments cued TA awareness, pillow under pelvis to support LB Sidelying Exercises Hip AB/AD strengthening Sidelying Exercise Name Hip AB/AD strengthening- HEP reviewed Side left Reps/Minutes 15x Comments occasional cue for side stacking alignment, good form Sitting Exercises L knee ext strengthening Sitting Exercise Name L knee 90-10 deg's ext- HEP reviewed Side left Equipment Used Lev 2 TB around B ankles anchor opp LE Reps/Minutes x20 Comments cued modified ext hold 1 sec mid quad fac.- painfree response for strength L knee strengthening Sitting Exercise Name L knee flex strengthening Side left Resistance Lev 2 TB Equipment Used anchored in door, seated full back in chair Reps/Minutes 20x Comments cued sit full back in chair femur suport, painfree Knee flex ROM Sitting Exercise Name L knee flex stretch - Heel slide & KTC for knee flex stretch Side left Resistance AROM seated in chair Reps/Minutes x10 reps Comments pt reports easy,not getting stretch, good ROM review for post op awareness Self-Care/Home Management Treatment Education Patient Education Home Exercise Program Other Education Extra time spent on post op care, HEP, DME needed, CG support if needed no use stairs if not needed post surgery 05/23/22. Good understanding. PT-OP-T Assessment and Plan Start: 02/25/22 19:43 Freq: Status: Active Protocol: Document 03/13/22 10:32 SP (Rec: 03/13/22 11:41 SP [id number]) Physical Therapy Assessment Goals Three Impairment Decreased L knee strength Impairment L knee pain rated 5/10. 5/10 anterior, 3/10 posterior. L knee MMT: Flex/Ext 3/5 (R knee is 5/5). L ankle MMT: Generally 4/5 except EV is 3+/5 (R ankle is 5/5). Short Term Goal (STG) Strengthen L knee with pt able to perform sit<>stand with less L knee pain. STG Duration 03/29/22 LTG Duration 04/25/22 Two Impairment Decreased function per LEFS score and ascending stairs sideways. Impairment Knee AROM: 0-125 deg's left (0 -137 deg's right). Ankle AROM: LEFS 25 (60-79% impaired). Short Term Goal (STG) Improve L knee AROM with pt able to walk down stairs facing forward (step to step or normal gait). 03/13/22: porgression:128deg L knee flexion AROM supine. STG Duration 03/29/22 progression 03/13/22 Fpc Goal (LTG) Improve function per LEFS score 48-62 (20-39% impaired). LTG Duration 04/25/22 One Impairment Lacks appropriate self care HEP Short Term Goal (STG) Pt will be educated in edema and pain management for self retirement. STG Duration 03/07/22: MET GOAL Termite Helper Goal (LTG) Pt will be educated in HEP for L knee, hip ankle strengthening ex's and ROM ex' s as needed (knee, hip). 03/07/22: HEP: L knee supine flex/ext stretch and QS; L hip ext, AB (clamshell and straight leg), AD strengthening in sup/sidelie. : resisted HS curl & LAQ. LTG Duration 05/29/22 progressed 03/13/22 Progress Towards Goals Progress Towards Goals Progressing Toward Goals Progress Comments AROM B knees: RLE improved 8 deg, 145deg LLE improved 3 deg, 128 deg Assessment Summary Assessment Pt good response to HEP review , cues as needed for form. PRovided Tb loop for LAQ and showed how anchor TB for resisted hamstring curls. Pt improving in ROM progression and tolerance against gravity. Physical Therapy Plan Frequency and Duration Frequency of Treatment 2x/Week Plan of Care Start Date 02/28/22 Plan of Care End Date 05/29/22 Therapeutic Interventions Therapeutic Interventions Aquatic Therapy,Gait Training, Home Exercise Program,Manual Therapy,Patient/Caregiver Education,Self-Care/Home Management,Soft Tissue Mobilization,Therapeutic Activities,Therapeutic Exercises Modalities Electric Stimulation, Ultrasound Next Visit Focus/Plan Next Note Type Treatment Note Next Visit Plan Partial L knee surgery 05/23/22 , started post op ed 03/13/22. Assess if can add resistance to HEP. POC: Review & issue HO for edema management (RICE). Review/discuss precautions of movement (rot, review flex/ext ) to decrease pain due to meniscal tear and arthritis. Maximize L knee strength: high RPM, low resistance (max range 3-90 deg's flexion, 90- 10 deg extension). EX: Strengthen L ankle Gait training.
--- NOTE | 2022-04-09 17:55 | PT.OTN ---
Current Diagnoses Unspecified injury of left lower leg, initial encounter (04/09/22) Physical Therapy Treatment Note PT-OP-A Visit Information Start: 02/25/22 19:43 Freq: Status: Active Protocol: Document 04/09/22 09:50 LRN (Rec: 04/09/22 10:32 LRN [id number]) Out-Patient Physical Therapy Visit Information Visit Information Visit Type Progress Note Visit Start Time 09:50 Visit Stop Time 10:29 Total Visit Minutes 39 Visit Number Evaluation Information Evaluation Date 02/28/22 Precautions Precautions ADHESIVE ALLERGIES, Arthritis, decreased hearing but doesn't wear her hearing aids, 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 PT-OP-B Current Condition Start: 02/25/22 19:43 Freq: Status: Active Protocol: Document 02/28/22 09:06 LRN (Rec: 02/28/22 12:41 LRN [id number]) Current Condition History of Current Condition Onset Date Current Complaints L medial knee pain. History of Current Condition After hike L knee hurt, a couple weeks later was dancing and next day could hardly walk. Went to a walk-in clinic in [facility] and was told arthritis and was given meds. Pain didn't go away so went to Dr. Acuña and was told arthritis and knee wasn't going to get better. Had a cortisone injection in Dec 2021, that didn't help. Was told she was a candidate for a partial knee replacement or more injections. She is waiting to see if she has approval for surgery. Wearing an over the counter soft knee compression sleeve that is helpful. Has a brace for the L knee that she uses if she is doing something that she feels she needs more support that is helpful. Was told she had a meniscus tear. Prior Treatments and Tests Cortisone injection in L knee Dec 2021. X-ray 12/01/18. MRI 01/09/22 indicates oblique tear of posterior horn of medial meniscus extending to superior articulating surface. Torn posterior medial meniscus root ligament. 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 X-ray after MRI - unavailable. PT for R hip in [place] at end of 2020 with mostly resolution of pain. Future Testing and Treatments Planned Pending approval of partial L TKA. Treatment Goals Patient/Caregiver Goals Pt goal with therapy is to complete PT that was recommended a long time ago but wasn't able to get into therapy. Prior Functional Status Baseline Function- ADL's Independent Baseline Function- Mobility Independent Baseline Function- Gait Holds R LE in ER, hits hard on R heel strike. Baseline Function- Other Was hiking (couple times a week, a couple hour hike) and dancing for recreation. Current Functional Impairments (Reported) Functional Limitations- ADL's Not able to hike and dance. Walks sideways down stairs. Pain with transfers sit<>stand . Personal Factors Other Personal Factors That May Effect Currently has UTI. Therapy/Recovery Does online dance class and is doing water aerobic class trying to stay in shape. Lives alone with dog and 2 cats. PT-OP-C Subjective Start: 02/25/22 19:43 Freq: Status: Active Protocol: Document 04/09/22 09:50 LRN (Rec: 04/09/22 10:32 LRN [id number]) OP-PT Subjective Patient Comments Patient Comments Has pre-op first of MAY. for partial knee replacement on . No change in pain. PT-OP-G Mobility & Gait Start: 02/25/22 19:43 Freq: Status: Active Protocol: Document 02/28/22 09:06 LRN (Rec: 02/28/22 12:41 LRN [id number]) OP Gait Assessment Gait Gait Assistance Required: Independent Assistive Devices Assistive Device None Gait Deviations General Gait Pattern Antalgic Factors Limiting Gait Function Factors Limiting Gait Function Pain Comments Gait Comments Holds R LE in ER, hits hard on R heel strike. PT-OP-H Neuro Start: 02/25/22 19:43 Freq: Status: Active Protocol: Document 02/28/22 09:06 LRN (Rec: 02/28/22 12:41 LRN [id number]) Sensation Evaluation Gross Sensation Gross Sensation WNL Comments Summary Comments Sensation assessment is in bilateral thighs and lower legs. Bottoms of feet not assessed. NOTE: pt reported neuropathy. PT-OP-J Posture/Palpation/Skin Start: 02/25/22 19:43 Freq: Status: Active Protocol: Document 02/28/22 09:06 LRN (Rec: 02/28/22 12:41 LRN [id number]) Posture Evaluation Position Standing Knee Posture (L) Genu Varus,(R) Genu Varus Comments Posture Comments Decreased arch L foot Palpation Assessment Location L knee Palpation Location No pain Palpation Findings Edema PT-OP-K Range of Motion Start: 02/25/22 19:43 Freq: Status: Active Protocol: Document 03/13/22 10:32 SP (Rec: 03/13/22 11:41 SP [id number]) Knee Goniometric Range of Motion Knee Right Knee ROM WFL Yes Patient Position Supine Flexion Active (degrees) 145 Extension Active (degrees) 0 Comments IMproved 8 deg flexion AROM Left Knee ROM WFL No Patient Position Supine Flexion Active (degrees) 128 Extension Active (degrees) 2 Comments improved AROM 3 deg flexion PT-OP-M Strength Start: 02/25/22 19:43 Freq: Status: Active Protocol: Document 02/28/22 09:06 LRN (Rec: 02/28/22 12:41 LRN [id number]) Knee Strength Knee Manual Muscle Testing Right Flexion (S2) 5 Normal Extension (L3) 5 Normal Left Flexion (S2) 3 Fair Extension (L3) 3 Fair Ankle/Foot Strength Ankle and Foot Manual Muscle Testing Right Dorsiflexion (L4) 5 Normal Comments Generally 5/5 Left Eversion (S1) 3+ Fair+ Comments Generally 4/5 except as indicated above PT-OP-Q Treatments Start: 02/25/22 19:43 Freq: Status: Active Protocol: Document 04/09/22 09:50 LRN (Rec: 04/09/22 10:32 LRN [id number]) Cardio Equipment Recumbent Bicycle Duration (Minutes) 8 Resistance 1 Seat Position 5 Therapeutic Exercises Supine Exercises SLR Supine Exercise Name SLR foot at 12 & 10 O'Clock position Side left Reps/Minutes 15x each L knee AROM Supine Exercise Name Heel slide Side left Reps/Minutes 15x Prone Exercises L Hip Ext Prone Exercise Name L Hip Ext- added to HEP Side left Resistance AROM Reps/Minutes 15x 2 Comments cued TA awareness, pillow under pelvis to support LB Sidelying Exercises Hip AB/AD strengthening Sidelying Exercise Name Hip AB/AD strengthening- HEP reviewed Side left Reps/Minutes AD - 20x, 10x; AB - 15x 2 Comments cuing for good form to start & TA tight Sitting Exercises L knee ext strengthening Sitting Exercise Name L knee 90-10 deg's ext- HEP reviewed Side left Equipment Used Lev 2 TB around B ankles anchor opp LE Reps/Minutes 15 x 3 Comments cued modified ext hold 2- sec mid quad fac.- painfree response for strength L knee strengthening Sitting Exercise Name L knee flex strengthening Side left Resistance Lev 2 TB Equipment Used anchored by opp foot. Reps/Minutes 15x2 Comments Extra time to determine max tolerated resistance and ROM. Knee flex ROM Sitting Exercise Name L knee flex stretch - Heel slide & KTC for knee flex stretch Side left Resistance AROM seated in chair Reps/Minutes x10 reps Comments pt reports easy,not getting stretch, good ROM review for post op awareness Standing Exercises Toe raises Standing Exercise Name Toe raises: Ankle IV, neutral, EV Side bilateral Equipment Used Railing/6 steps Reps/Minutes 15x each position Stair stepping Standing Exercise Name Step ups Equipment Used Railing/6 step Reps/Minutes 15x each direction Comments Extra time taken for proper coordination of mvmt, Self-Care/Home Management Treatment Education Patient Education Pain Management Other Education Educated pt in edema management (RICE) technique. Activities Self-Care/Home Management Activities Review & issue HO for edema management (RICE). Issued white strap to anchor TB in door. Reviewed pt's appt schedule at pt's request and recommended pt schedule up to surgery day due to lack of available appts . PT-OP-T Assessment and Plan Start: 02/25/22 19:43 Freq: Status: Active Protocol: Document 04/09/22 09:50 LRN (Rec: 04/09/22 10:32 LRN [id number]) Physical Therapy Assessment Rehab Potential Rehabilitation Potential Fair Evaluation Complexity Number of Personal Factors/Comorbidities 1-2 Number of Body Systems Impaired 4 or More Clinical Presentation at Evaluation Evolving Impairments Impairments Activity Tolerance,Gait,Pain, Strength Goals Three Impairment Decreased L knee strength Impairment L knee pain rated 5/10. 5/10 anterior, 3/10 posterior. L knee MMT: Flex/Ext 3/5 (R knee is 5/5). L ankle MMT: Generally 4/5 except EV is 3+/5 (R ankle is 5/5). Short Term Goal (STG) Strengthen L knee with pt able to perform sit<>stand with less L knee pain. STG Duration 03/29/22 [facility] Goal (LTG) Improve L ankle strength. LTG Duration 04/25/22 Two Impairment Decreased function per LEFS score and ascending stairs sideways. Impairment Knee AROM: 0-125 deg's left (0 -137 deg's right). Ankle AROM: LEFS 25 (60-79% impaired). Short Term Goal (STG) Improve L knee AROM with pt able to walk down stairs facing forward (step to step or normal gait). 03/13/22: porgression:128 deg L knee flexion AROM supine. STG Duration 03/29/22 progression 03/13/22 Software Development Coordinator Goal (LTG) Improve function per LEFS score 48-62 (20-39% impaired). LTG Duration 04/25/22 One Impairment Lacks appropriate self care HEP Short Term Goal (STG) Pt will be educated in edema and pain management for self [facility]. STG Duration 03/07/22: MET GOAL Software Development Coordinator Goal (LTG) Pt will be educated in HEP for L knee, hip ankle strengthening ex's and ROM ex' s as needed (knee, hip). 03/07/22: HEP: L knee supine flex/ext stretch and QS; L hip ext, AB (clamshell and straight leg), AD strengthening in sup/sidelie. : resisted HS curl & LAQ. LTG Duration 05/29/22 progressed 03/13/22 Assessment Summary Assessment POC update due to addition of LTG to strength impairment ( Goal #3). Pt was not yet ready to add resistance to ex' s due to low tolerance to ex at home. Pt did tolerate increase in reps today with minimal complaints, primarily due to weakness of muscles. Expect pt will be ready for PRE's next appt. Physical Therapy Plan Frequency and Duration Frequency of Treatment 2x/Week Plan of Care Start Date 02/28/22 Plan of Care End Date 05/29/22 Therapeutic Interventions Therapeutic Interventions Aquatic Therapy,Gait Training, Home Exercise Program,Manual Therapy,Patient/Caregiver Education,Self-Care/Home Management,Soft Tissue Mobilization,Therapeutic Activities,Therapeutic Exercises Modalities Electric Stimulation, Ultrasound Next Visit Focus/Plan Next Note Type Treatment Note Next Visit Plan Partial L knee surgery planeed 05/23/22, started post op ed 03/13/22. POC: Review/discuss precautions of movement (rot, review flex/ext ) to decrease pain due to meniscal tear and arthritis. Add sitting ankle ex's, add resistance to ex for PRE's 8 rep max strengthening. EX: Maximize L knee strength: high RPM, low resistance ( max range 3-90 deg's flexion, 90-10 deg extension). Gait training.
--- NOTE | 2022-04-09 17:55 | PT.OPPOC ---
Physical, Occupational & Speech Therapy At [facility] Current Diagnoses Unspecified injury of left lower leg, initial encounter (04/09/22) Visit Care Team Role Provider Type Heriberto Vang MD Attending Provider Physician Family Provider Primary Care Provider Referring Provider Specialty: Internal Medicine Address: [address] [place] [address], [id number] Email: [email or web address] Plan Of Care PT-OP-T Assessment and Plan Start: 02/25/22 19:43 Freq: Status: Active Protocol: Document 04/09/22 09:50 LRN (Rec: 04/09/22 10:32 LRN [id number]) Physical Therapy Assessment Rehab Potential Rehabilitation Potential Fair Evaluation Complexity Number of Personal Factors/Comorbidities 1-2 Number of Body Systems Impaired 4 or More Clinical Presentation at Evaluation Evolving Impairments Impairments Activity Tolerance,Gait,Pain, Strength Goals Three Impairment Decreased L knee strength Impairment L knee pain rated 5/10. 5/10 anterior, 3/10 posterior. L knee MMT: Flex/Ext 3/5 (R knee is 5/5). L ankle MMT: Generally 4/5 except EV is 3+/5 (R ankle is 5/5). Short Term Goal (STG) Strengthen L knee with pt able to perform sit<>stand with less L knee pain. STG Duration 03/29/22 Correction Goal (LTG) Improve L ankle strength. LTG Duration 04/25/22 Two Impairment Decreased function per LEFS score and ascending stairs sideways. Impairment Knee AROM: 0-125 deg's left (0 -137 deg's right). Ankle AROM: LEFS 25 (60-79% impaired). Short Term Goal (STG) Improve L knee AROM with pt able to walk down stairs facing forward (step to step or normal gait). 03/13/22: porgression:128 deg L knee flexion AROM supine. STG Duration 03/29/22 progression 03/13/22 Review Assistant Goal (LTG) Improve function per LEFS score 48-62 (20-39% impaired). LTG Duration 04/25/22 One Impairment Lacks appropriate self care HEP Short Term Goal (STG) Pt will be educated in edema and pain management for self [facility]. STG Duration 03/07/22: MET GOAL Correction Goal (LTG) Pt will be educated in HEP for L knee, hip ankle strengthening ex's and ROM ex' s as needed (knee, hip). 03/07/22: HEP: L knee supine flex/ext stretch and QS; L hip ext, AB (clamshell and straight leg), AD strengthening in sup/sidelie. : resisted HS curl & LAQ. LTG Duration 05/29/22 progressed 03/13/22 Assessment Summary Assessment POC update due to addition of LTG to strength impairment ( Goal #3). Pt was not yet ready to add resistance to ex' s due to low tolerance to ex at home. Pt did tolerate increase in reps today with minimal complaints, primarily due to weakness of muscles. Expect pt will be ready for PRE's next appt. Physical Therapy Plan Frequency and Duration Frequency of Treatment 2x/Week Plan of Care Start Date 02/28/22 Plan of Care End Date 05/29/22 Therapeutic Interventions Therapeutic Interventions Aquatic Therapy,Gait Training, Home Exercise Program,Manual Therapy,Patient/Caregiver Education,Self-Care/Home Management,Soft Tissue Mobilization,Therapeutic Activities,Therapeutic Exercises Modalities Electric Stimulation, Ultrasound Next Visit Focus/Plan Next Note Type Treatment Note Next Visit Plan Partial L knee surgery planeed 05/23/22, started post op ed 03/13/22. POC: Review/discuss precautions of movement (rot, review flex/ext ) to decrease pain due to meniscal tear and arthritis. Add sitting ankle ex's, add resistance to ex for PRE's 8 rep max strengthening. EX: Maximize L knee strength: high RPM, low resistance ( max range 3-90 deg's flexion, 90-10 deg extension). Gait training. Plan of Care Dates Plan of Care Start Date 02/28/22 Plan of Care End Date 05/29/22 Electronically Signed by: Clara Harden, PT 04/09/22 2130 If you are in agreement with this Plan of Care, please return a signed and dated copy. I have reviewed this Plan of Care and certify that the skilled therapy services above are required to meet the patient?s needs. Physician Signature Date Printed Name and Credentials Clinical Instructor Signature Printed Name and Credentials
--- NOTE | 2022-04-17 10:35 | PT.OTN ---
Current Diagnoses Unspecified injury of left lower leg, initial encounter (04/17/22) Physical Therapy Treatment Note PT-OP-A Visit Information Start: 02/25/22 19:43 Freq: Status: Active Protocol: Document 04/17/22 09:46 SP (Rec: 04/17/22 10:37 SP [id number]) Out-Patient Physical Therapy Visit Information Visit Information Visit Type Treatment Note Visit Start Time 09:46 Visit Stop Time 10:35 Total Visit Minutes 49 Visit Number Number of BAND CUTTING MACHINE OPERATOR Visits 1 Evaluation Information Evaluation Date 02/28/22 Precautions Precautions ADHESIVE ALLERGIES, Arthritis, decreased hearing but doesn't wear her hearing aids, 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 PT-OP-B Current Condition Start: 02/25/22 19:43 Freq: Status: Active Protocol: Document 02/28/22 09:06 LRN (Rec: 02/28/22 12:41 LRN [id number]) Current Condition History of Current Condition Onset Date Current Complaints L medial knee pain. History of Current Condition After hike L knee hurt, a couple weeks later was dancing and next day could hardly walk. Went to a walk-in clinic in [facility] and was told arthritis and was given meds. Pain didn't go away so went to Dr. Acuña and was told arthritis and knee wasn't going to get better. Had a cortisone injection in Dec 2021, that didn't help. Was told she was a candidate for a partial knee replacement or more injections. She is waiting to see if she has approval for surgery. Wearing an over the counter soft knee compression sleeve that is helpful. Has a brace for the L knee that she uses if she is doing something that she feels she needs more support that is helpful. Was told she had a meniscus tear. Prior Treatments and Tests Cortisone injection in L knee Dec 2021. X-ray 12/01/18. MRI 01/09/22 indicates oblique tear of posterior horn of medial meniscus extending to superior articulating surface. Torn posterior medial meniscus root ligament. 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 X-ray after MRI - unavailable. PT for R hip in [place] at end of 2020 with mostly resolution of pain. Future Testing and Treatments Planned Pending approval of partial L TKA. Treatment Goals Patient/Caregiver Goals Pt goal with therapy is to complete PT that was recommended a long time ago but wasn't able to get into therapy. Prior Functional Status Baseline Function- ADL's Independent Baseline Function- Mobility Independent Baseline Function- Gait Holds R LE in ER, hits hard on R heel strike. Baseline Function- Other Was hiking (couple times a week, a couple hour hike) and dancing for recreation. Current Functional Impairments (Reported) Functional Limitations- ADL's Not able to hike and dance. Walks sideways down stairs. Pain with transfers sit<>stand . Personal Factors Other Personal Factors That May Effect Currently has UTI. Therapy/Recovery Does online dance class and is doing water aerobic class trying to stay in shape. Lives alone with dog and 2 cats. PT-OP-C Subjective Start: 02/25/22 19:43 Freq: Status: Active Protocol: Document 04/17/22 09:46 SP (Rec: 04/17/22 10:37 SP [id number]) OP-PT Subjective Patient Comments Patient Comments Pt asks to review ankle TB exercises, not sure doing right and having some knee pain with it. PT-OP-G Mobility & Gait Start: 02/25/22 19:43 Freq: Status: Active Protocol: Document 02/28/22 09:06 LRN (Rec: 02/28/22 12:41 LRN [id number]) OP Gait Assessment Gait Gait Assistance Required: Independent Assistive Devices Assistive Device None Gait Deviations General Gait Pattern Antalgic Factors Limiting Gait Function Factors Limiting Gait Function Pain Comments Gait Comments Holds R LE in ER, hits hard on R heel strike. PT-OP-H Neuro Start: 02/25/22 19:43 Freq: Status: Active Protocol: Document 02/28/22 09:06 LRN (Rec: 02/28/22 12:41 LRN [id number]) Sensation Evaluation Gross Sensation Gross Sensation WNL Comments Summary Comments Sensation assessment is in bilateral thighs and lower legs. Bottoms of feet not assessed. NOTE: pt reported neuropathy. PT-OP-J Posture/Palpation/Skin Start: 02/25/22 19:43 Freq: Status: Active Protocol: Document 02/28/22 09:06 LRN (Rec: 02/28/22 12:41 LRN [id number]) Posture Evaluation Position Standing Knee Posture (L) Genu Varus,(R) Genu Varus Comments Posture Comments Decreased arch L foot Palpation Assessment Location L knee Palpation Location No pain Palpation Findings Edema PT-OP-K Range of Motion Start: 02/25/22 19:43 Freq: Status: Active Protocol: Document 03/13/22 10:32 SP (Rec: 03/13/22 11:41 SP [id number]) Knee Goniometric Range of Motion Knee Right Knee ROM WFL Yes Patient Position Supine Flexion Active (degrees) 145 Extension Active (degrees) 0 Comments IMproved 8 deg flexion AROM Left Knee ROM WFL No Patient Position Supine Flexion Active (degrees) 128 Extension Active (degrees) 2 Comments improved AROM 3 deg flexion PT-OP-M Strength Start: 02/25/22 19:43 Freq: Status: Active Protocol: Document 02/28/22 09:06 LRN (Rec: 02/28/22 12:41 LRN [id number]) Knee Strength Knee Manual Muscle Testing Right Flexion (S2) 5 Normal Extension (L3) 5 Normal Left Flexion (S2) 3 Fair Extension (L3) 3 Fair Ankle/Foot Strength Ankle and Foot Manual Muscle Testing Right Dorsiflexion (L4) 5 Normal Comments Generally 5/5 Left Eversion (S1) 3+ Fair+ Comments Generally 4/5 except as indicated above PT-OP-Q Treatments Start: 02/25/22 19:43 Freq: Status: Active Protocol: Document 04/17/22 09:46 SP (Rec: 04/17/22 10:37 SP [id number]) Therapeutic Exercises Sitting Exercises self STMs Sitting Exercise Name added to HEP: quad, HS, calf, tib ant Side bilateral Equipment Used rolling pin Reps/Minutes 2 min total Comments good feedback self massage lessened knee discomfort L ankle DF Sitting Exercise Name L ankle DF strengthening Side left Equipment Used towel between knees Reps/Minutes 15x Comments cued ankle under/ front knee, slow eccentric control L ankle IV Sitting Exercise Name L ankle IV strengthening with R foot behind the L Side left Resistance TB #2 Reps/Minutes 15x Comments cued keep leg straight, painfree L ankle EV Sitting Exercise Name L ankle EV strengthening Side left Resistance TB #2 Equipment Used towel between knees Reps/Minutes 2x10 Comments cued eccentric control return L knee ext strengthening Sitting Exercise Name L knee 90-10 deg's ext- HEP reviewed Side left Equipment Used Lev 2 TB around B ankles anchor opp LE, legs dangle off edge table/ bed Reps/Minutes 15 x 3 Comments cued modified ext hold 2- sec mid quad fac.- painfree response for strength L knee strengthening Sitting Exercise Name L knee flex strengthening Side left Resistance Lev 2 TB Equipment Used anchored at post/door Reps/Minutes 15x2 Comments good feedback HS emphasis, not knee Standing Exercises resisted side stepping Standing Exercise Name added to HEP Resistance TB #2 loop at thighs Reps/Minutes 20 ft x2 laps Comments cued contact rail PRN, ft // Self-Care/Home Management Treatment Education Patient Education Body Mechanics,Home Exercise Program,Joint Protection,Pain Management,Posture,Safety Other Education Time spent cues knee/ankle alignment set up for ankle, knee HEP, improved good muscle effort and no knee pain. Added resisted band walk. PT-OP-T Assessment and Plan Start: 02/25/22 19:43 Freq: Status: Active Protocol: Document 04/17/22 09:46 SP (Rec: 04/17/22 10:37 SP [id number]) Physical Therapy Assessment Goals Three Impairment Decreased L knee strength Impairment L knee pain rated 5/10. 5/10 anterior, 3/10 posterior. L knee MMT: Flex/Ext 3/5 (R knee is 5/5). L ankle MMT: Generally 4/5 except EV is 3+/5 (R ankle is 5/5). Short Term Goal (STG) Strengthen L knee with pt able to perform sit<>stand with less L knee pain. STG Duration 03/29/22 Fpc Goal (LTG) Improve L ankle strength. LTG Duration 04/25/22 Two Impairment Decreased function per LEFS score and ascending stairs sideways. Impairment Knee AROM: 0-125 deg's left (0 -137 deg's right). Ankle AROM: LEFS 25 (60-79% impaired). Short Term Goal (STG) Improve L knee AROM with pt able to walk down stairs facing forward (step to step or normal gait). 03/13/22: progression:128 deg L knee flexion AROM supine. STG Duration 03/29/22 progression 03/13/22 Shoe Clerk Goal (LTG) Improve function per LEFS score 48-62 (20-39% impaired). LTG Duration 04/25/22 One Impairment Lacks appropriate self care HEP Short Term Goal (STG) Pt will be educated in edema and pain management for self fpc. 04/12/22: Reviewed/discussed precautions of movement (rot, review flex/ext) to decrease pain due to meniscal tear and arthritis. Reviewed RICE protocol. STG Duration 03/07/22: MET GOAL Fpc Goal (LTG) Pt will be educated in HEP for L knee, hip ankle strengthening ex's and ROM ex' s as needed (knee, hip). 03/07/22: HEP: L knee supine flex/ext stretch and QS; L hip ext, AB (clamshell and straight leg), AD strengthening in sup/sidelie. : resisted HS curl & LAQ. 04/12/22: ankle DF, IV, EV strengthening and gastroc/ soleus stretch. 04/27/22: added resisted band walk LTG Duration 05/29/22 progressed 04/17/22 Assessment Summary Assessment Pt good understanding set up and modifications in positioning for seated ankle and knee HEP. decreased knee pain with cues for alignment corrections. Painfree and good hip abd strengthening add resisted band walks, band at thighs. Physical Therapy Plan Frequency and Duration Frequency of Treatment 2x/Week Plan of Care Start Date 02/28/22 Plan of Care End Date 05/29/22 Therapeutic Interventions Therapeutic Interventions Aquatic Therapy,Gait Training, Home Exercise Program,Manual Therapy,Patient/Caregiver Education,Self-Care/Home Management,Soft Tissue Mobilization,Therapeutic Activities,Therapeutic Exercises Modalities Electric Stimulation, Ultrasound Next Visit Focus/Plan Next Note Type Treatment Note Next Visit Plan Recheck band walk and new positioning for LAQ, knee flexion, ankle HEP. *Partial L knee surgery planeed 05/23/22, started post op ed 03/13/22. POC: Review sitting ankle ex's, ADD Prone hip Ext to HEP. Add: Ex bike (low resistance/ high RPM), Glut strengthening (90 deg Squats) & resistance to ex for PRE's 8 rep max strengthening. EX: Maximize L knee strength: high RPM, low resistance ( max range 3-90 deg's flexion, 90-10 deg extension). Gait training.
--- NOTE | 2022-04-24 09:47 | PT.OTN ---
Current Diagnoses Unspecified injury of left lower leg, initial encounter (04/24/22) Physical Therapy Treatment Note PT-OP-A Visit Information Start: 02/25/22 19:43 Freq: Status: Active Protocol: Document 04/24/22 09:05 SP (Rec: 04/24/22 09:50 SP [id number]) Out-Patient Physical Therapy Visit Information Visit Information Visit Type Treatment Note Visit Start Time 09:05 Visit Stop Time 09:47 Total Visit Minutes 42 Visit Number Number of SCALLOP CUTTER MACHINE Visits 2 Evaluation Information Evaluation Date 02/28/22 Precautions Precautions ADHESIVE ALLERGIES, Arthritis, decreased hearing but doesn't wear her hearing aids, 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 PT-OP-B Current Condition Start: 02/25/22 19:43 Freq: Status: Active Protocol: Document 02/28/22 09:06 LRN (Rec: 02/28/22 12:41 LRN [id number]) Current Condition History of Current Condition Onset Date Current Complaints L medial knee pain. History of Current Condition After hike L knee hurt, a couple weeks later was dancing and next day could hardly walk. Went to a walk-in clinic in [facility] and was told arthritis and was given meds. Pain didn't go away so went to Dr. Acuña and was told arthritis and knee wasn't going to get better. Had a cortisone injection in Dec 2021, that didn't help. Was told she was a candidate for a partial knee replacement or more injections. She is waiting to see if she has approval for surgery. Wearing an over the counter soft knee compression sleeve that is helpful. Has a brace for the L knee that she uses if she is doing something that she feels she needs more support that is helpful. Was told she had a meniscus tear. Prior Treatments and Tests Cortisone injection in L knee Dec 2021. X-ray 12/01/18. MRI 01/09/22 indicates oblique tear of posterior horn of medial meniscus extending to superior articulating surface. Torn posterior medial meniscus root ligament. 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 X-ray after MRI - unavailable. PT for R hip in [place] at end of 2020 with mostly resolution of pain. Future Testing and Treatments Planned Pending approval of partial L TKA. Treatment Goals Patient/Caregiver Goals Pt goal with therapy is to complete PT that was recommended a long time ago but wasn't able to get into therapy. Prior Functional Status Baseline Function- ADL's Independent Baseline Function- Mobility Independent Baseline Function- Gait Holds R LE in ER, hits hard on R heel strike. Baseline Function- Other Was hiking (couple times a week, a couple hour hike) and dancing for recreation. Current Functional Impairments (Reported) Functional Limitations- ADL's Not able to hike and dance. Walks sideways down stairs. Pain with transfers sit<>stand . Personal Factors Other Personal Factors That May Effect Currently has UTI. Therapy/Recovery Does online dance class and is doing water aerobic class trying to stay in shape. Lives alone with dog and 2 cats. 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 PT-OP-G Mobility & Gait Start: 02/25/22 19:43 Freq: Status: Active Protocol: Document 02/28/22 09:06 LRN (Rec: 02/28/22 12:41 LRN [id number]) OP Gait Assessment Gait Gait Assistance Required: Independent Assistive Devices Assistive Device None Gait Deviations General Gait Pattern Antalgic Factors Limiting Gait Function Factors Limiting Gait Function Pain Comments Gait Comments Holds R LE in ER, hits hard on R heel strike. PT-OP-H Neuro Start: 02/25/22 19:43 Freq: Status: Active Protocol: Document 02/28/22 09:06 LRN (Rec: 02/28/22 12:41 LRN [id number]) Sensation Evaluation Gross Sensation Gross Sensation WNL Comments Summary Comments Sensation assessment is in bilateral thighs and lower legs. Bottoms of feet not assessed. NOTE: pt reported neuropathy. PT-OP-J Posture/Palpation/Skin Start: 02/25/22 19:43 Freq: Status: Active Protocol: Document 02/28/22 09:06 LRN (Rec: 02/28/22 12:41 LRN [id number]) Posture Evaluation Position Standing Knee Posture (L) Genu Varus,(R) Genu Varus Comments Posture Comments Decreased arch L foot Palpation Assessment Location L knee Palpation Location No pain Palpation Findings Edema PT-OP-K Range of Motion Start: 02/25/22 19:43 Freq: Status: Active Protocol: Document 03/13/22 10:32 SP (Rec: 03/13/22 11:41 SP [id number]) Knee Goniometric Range of Motion Knee Right Knee ROM WFL Yes Patient Position Supine Flexion Active (degrees) 145 Extension Active (degrees) 0 Comments IMproved 8 deg flexion AROM Left Knee ROM WFL No Patient Position Supine Flexion Active (degrees) 128 Extension Active (degrees) 2 Comments improved AROM 3 deg flexion PT-OP-M Strength Start: 02/25/22 19:43 Freq: Status: Active Protocol: Document 02/28/22 09:06 LRN (Rec: 02/28/22 12:41 LRN [id number]) Knee Strength Knee Manual Muscle Testing Right Flexion (S2) 5 Normal Extension (L3) 5 Normal Left Flexion (S2) 3 Fair Extension (L3) 3 Fair Ankle/Foot Strength Ankle and Foot Manual Muscle Testing Right Dorsiflexion (L4) 5 Normal Comments Generally 5/5 Left Eversion (S1) 3+ Fair+ Comments Generally 4/5 except as indicated above PT-OP-Q Treatments Start: 02/25/22 19:43 Freq: Status: Active Protocol: Document 04/24/22 09:05 SP (Rec: 04/24/22 09:50 SP [id number]) Gym Equipment Shuttle Recovery Unilateral squat Details cued knees with mid toes Resistance 25# (new band) Shuttle Recovery Platform Stable Reps/Time 2x10 alternate sets bilateral squat Details cued knees with mid toes Resistance 50# (1 new band) Shuttle Recovery Platform Stable Reps/Time x20 Therapeutic Exercises Supine Exercises SLR Supine Exercise Name SLR foot at 12 & 10 O'Clock position Side left Reps/Minutes 5 reps (before knee flexes) x3 sets each Comments cued quad set 1st then lift Prone Exercises L Hip Ext Prone Exercise Name L Hip Ext- reviewed HEP Side left Resistance AROM Reps/Minutes 30x Comments cued TA awareness, pillow under pelvis to support LB Standing Exercises resisted side stepping Standing Exercise Name reviewed HEP- lateral Resistance TB #2 loop at thighs (soft knee) Reps/Minutes 20 ft x3 laps Comments near rail, good knee alignment and ft // Soleus stretch Standing Exercise Name Soleus Stretch Side left Reps/Minutes 30 Comments cued soft knee- good deep calf . Gastroc stretch Standing Exercise Name Gastroc Stretch Side left Reps/Minutes 30 Comments good form Toe raises Standing Exercise Name Toe raises: Ankle IV, neutral, EV Side bilateral Equipment Used Railing/6 steps Reps/Minutes 15x each position Comments cue x1 for midfoot front step, heel lower for depth good muscle effort/ROM Stair stepping Standing Exercise Name Step ups fwd Equipment Used contact PRNRailing/6 step Reps/Minutes 3x10 Comments cued midfoot/heel press glut/ quad/TA/ hip abd mus effort- good feedback PT-OP-T Assessment and Plan Start: 02/25/22 19:43 Freq: Status: Active Protocol: Document 04/24/22 09:05 SP (Rec: 04/24/22 09:50 SP [id number]) Physical Therapy Assessment Goals Three Impairment Decreased L knee strength Impairment L knee pain rated 5/10. 5/10 anterior, 3/10 posterior. L knee MMT: Flex/Ext 3/5 (R knee is 5/5). L ankle MMT: Generally 4/5 except EV is 3+/5 (R ankle is 5/5). Short Term Goal (STG) Strengthen L knee with pt able to perform sit<>stand with less L knee pain. STG Duration 03/29/22 Mcfp Goal (LTG) Improve L ankle strength. LTG Duration 04/25/22 Two Impairment Decreased function per LEFS score and ascending stairs sideways. Impairment Knee AROM: 0-125 deg's left (0 -137 deg's right). Ankle AROM: LEFS 25 (60-79% impaired). Short Term Goal (STG) Improve L knee AROM with pt able to walk down stairs facing forward (step to step or normal gait). 03/13/22: progression:128 deg L knee flexion AROM supine. STG Duration 03/29/22 progression 03/13/22 Spanish Lecturer Goal (LTG) Improve function per LEFS score 48-62 (20-39% impaired). LTG Duration 04/25/22 One Impairment Lacks appropriate self care HEP Short Term Goal (STG) Pt will be educated in edema and pain management for self mcfp. 04/12/22: Reviewed/discussed precautions of movement (rot, review flex/ext) to decrease pain due to meniscal tear and arthritis. Reviewed RICE protocol. STG Duration 03/07/22: MET GOAL Mcfp Goal (LTG) Pt will be educated in HEP for L knee, hip ankle strengthening ex's and ROM ex' s as needed (knee, hip). 03/07/22: HEP: L knee supine flex/ext stretch and QS; L hip ext, AB (clamshell and straight leg), AD strengthening in sup/sidelie. : resisted HS curl & LAQ. 04/12/22: ankle DF, IV, EV strengthening and gastroc/ soleus stretch. 04/27/22: added resisted band walk LTG Duration 05/29/22 progressed 04/17/22 Assessment Summary Assessment Pt good response to shuttle recovery today, she responded well to HEP review, reported little knee discomfort at rep 10 with heel raises, discussed reps with effort/painfree tolerance for strength, less 5 from last tx. Cued knee/ ankle alignment with ther ex, quad set form SLR better painfree. Physical Therapy Plan Frequency and Duration Frequency of Treatment 2x/Week Plan of Care Start Date 02/28/22 Plan of Care End Date 05/29/22 Therapeutic Interventions Therapeutic Interventions Aquatic Therapy,Gait Training, Home Exercise Program,Manual Therapy,Patient/Caregiver Education,Self-Care/Home Management,Soft Tissue Mobilization,Therapeutic Activities,Therapeutic Exercises Modalities Electric Stimulation, Ultrasound Next Visit Focus/Plan Next Note Type Treatment Note Next Visit Plan Recheck ROM, band walk and new positioning for LAQ, knee flexion, ankle HEP. *Partial L knee surgery planeed 05/23/22, started post op ed 03/13/22. POC: Review sitting ankle ex's, ADD Prone hip Ext to HEP. Add: Ex bike (low resistance/ high RPM), Glut strengthening (90 deg Squats) & resistance to ex for PRE's 8 rep max strengthening. EX: Maximize L knee strength: high RPM, low resistance ( max range 3-90 deg's flexion, 90-10 deg extension). Gait training.
--- NOTE | 2022-05-15 13:10 | PT.OTN ---
Current Diagnoses Unspecified injury of left lower leg, initial encounter (05/15/22) Physical Therapy Treatment Note PT-OP-A Visit Information Start: 02/25/22 19:43 Freq: Status: Active Protocol: Document 05/15/22 12:12 SP (Rec: 05/15/22 13:11 SP [id number]) Out-Patient Physical Therapy Visit Information Visit Information Visit Type Treatment Note Visit Start Time 12:15 Visit Stop Time 13:10 Total Visit Minutes 55 Visit Number Number of TUBE WASHER Visits 3 Evaluation Information Evaluation Date 02/28/22 Precautions Precautions ADHESIVE ALLERGIES, Arthritis, decreased hearing but doesn't wear her hearing aids, 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 PT-OP-B Current Condition Start: 02/25/22 19:43 Freq: Status: Active Protocol: Document 02/28/22 09:06 LRN (Rec: 02/28/22 12:41 LRN [id number]) Current Condition History of Current Condition Onset Date Current Complaints L medial knee pain. History of Current Condition After hike L knee hurt, a couple weeks later was dancing and next day could hardly walk. Went to a walk-in clinic in [facility] and was told arthritis and was given meds. Pain didn't go away so went to Dr. Acuña and was told arthritis and knee wasn't going to get better. Had a cortisone injection in Dec 2021, that didn't help. Was told she was a candidate for a partial knee replacement or more injections. She is waiting to see if she has approval for surgery. Wearing an over the counter soft knee compression sleeve that is helpful. Has a brace for the L knee that she uses if she is doing something that she feels she needs more support that is helpful. Was told she had a meniscus tear. Prior Treatments and Tests Cortisone injection in L knee Dec 2021. X-ray 12/01/18. MRI 01/09/22 indicates oblique tear of posterior horn of medial meniscus extending to superior articulating surface. Torn posterior medial meniscus root ligament. 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 X-ray after MRI - unavailable. PT for R hip in [place] at end of 2020 with mostly resolution of pain. Future Testing and Treatments Planned Pending approval of partial L TKA. Treatment Goals Patient/Caregiver Goals Pt goal with therapy is to complete PT that was recommended a long time ago but wasn't able to get into therapy. Prior Functional Status Baseline Function- ADL's Independent Baseline Function- Mobility Independent Baseline Function- Gait Holds R LE in ER, hits hard on R heel strike. Baseline Function- Other Was hiking (couple times a week, a couple hour hike) and dancing for recreation. Current Functional Impairments (Reported) Functional Limitations- ADL's Not able to hike and dance. Walks sideways down stairs. Pain with transfers sit<>stand . Personal Factors Other Personal Factors That May Effect Currently has UTI. Therapy/Recovery Does online dance class and is doing water aerobic class trying to stay in shape. Lives alone with dog and 2 cats. PT-OP-C Subjective Start: 02/25/22 19:43 Freq: Status: Active Protocol: Document 05/15/22 12:12 SP (Rec: 05/15/22 13:11 SP [id number]) OP-PT Subjective Patient Comments Patient Comments Pt states the band around her thighs for band walk irritated her thighs, wants to recheck. PT-OP-G Mobility & Gait Start: 02/25/22 19:43 Freq: Status: Active Protocol: Document 02/28/22 09:06 LRN (Rec: 02/28/22 12:41 LRN [id number]) OP Gait Assessment Gait Gait Assistance Required: Independent Assistive Devices Assistive Device None Gait Deviations General Gait Pattern Antalgic Factors Limiting Gait Function Factors Limiting Gait Function Pain Comments Gait Comments Holds R LE in ER, hits hard on R heel strike. PT-OP-H Neuro Start: 02/25/22 19:43 Freq: Status: Active Protocol: Document 02/28/22 09:06 LRN (Rec: 02/28/22 12:41 LRN [id number]) Sensation Evaluation Gross Sensation Gross Sensation WNL Comments Summary Comments Sensation assessment is in bilateral thighs and lower legs. Bottoms of feet not assessed. NOTE: pt reported neuropathy. PT-OP-J Posture/Palpation/Skin Start: 02/25/22 19:43 Freq: Status: Active Protocol: Document 02/28/22 09:06 LRN (Rec: 02/28/22 12:41 LRN [id number]) Posture Evaluation Position Standing Knee Posture (L) Genu Varus,(R) Genu Varus Comments Posture Comments Decreased arch L foot Palpation Assessment Location L knee Palpation Location No pain Palpation Findings Edema PT-OP-K Range of Motion Start: 02/25/22 19:43 Freq: Status: Active Protocol: Document 03/13/22 10:32 SP (Rec: 03/13/22 11:41 SP [id number]) Knee Goniometric Range of Motion Knee Right Knee ROM WFL Yes Patient Position Supine Flexion Active (degrees) 145 Extension Active (degrees) 0 Comments IMproved 8 deg flexion AROM Left Knee ROM WFL No Patient Position Supine Flexion Active (degrees) 128 Extension Active (degrees) 2 Comments improved AROM 3 deg flexion PT-OP-M Strength Start: 02/25/22 19:43 Freq: Status: Active Protocol: Document 02/28/22 09:06 LRN (Rec: 02/28/22 12:41 LRN [id number]) Knee Strength Knee Manual Muscle Testing Right Flexion (S2) 5 Normal Extension (L3) 5 Normal Left Flexion (S2) 3 Fair Extension (L3) 3 Fair Ankle/Foot Strength Ankle and Foot Manual Muscle Testing Right Dorsiflexion (L4) 5 Normal Comments Generally 5/5 Left Eversion (S1) 3+ Fair+ Comments Generally 4/5 except as indicated above PT-OP-Q Treatments Start: 02/25/22 19:43 Freq: Status: Active Protocol: Document 05/15/22 12:12 SP (Rec: 05/15/22 13:11 SP [id number]) Therapeutic Exercises Supine Exercises post op HEP Supine Exercise Name QS, HS, SAQ, knee hang: supine , knee flexion seated Side left Resistance AROM Reps/Minutes 10 reps each Comments good understanding review: provided folder to follow Prone Exercises L Hip Ext Prone Exercise Name discontinue not easy home squishy bed- do standing Side left Resistance AROM Reps/Minutes 30x Comments cued TA awareness, pillow under pelvis to support LB Sidelying Exercises Hip AB/AD strengthening Sidelying Exercise Name Hip AB/AD strengthening- HEP reviewed Side left Resistance AROM Reps/Minutes x10 each Comments cuing for good mindful of top LE knee positioning not hurt jt. Sitting Exercises L knee ext strengthening Sitting Exercise Name L knee 90-10 deg's ext- HEP reviewed Side left Equipment Used Lev 1 TB around B ankles anchor opp LE, legs dangle off edge table/ bed Reps/Minutes 15 x 3 Comments cued modified ext hold 2- sec mid quad fac.- painfree response for strength Knee flex ROM Sitting Exercise Name L HS curl Side left Resistance TB #1 lrg loop anchored indoor Reps/Minutes x10 reps Comments good form understanding set up Standing Exercises TKE Standing Exercise Name added to HEP Side left Resistance Tb #2 post thigh Reps/Minutes x10 Comments cued slow con/eccentric bend, no trunk movement hip ext/abd Standing Exercise Name added to HEP Side left Resistance TB #1 Reps/Minutes x10 each Comments cued resisted side stepping Standing Exercise Name reviewed HEP- lateral Resistance TB #2 loop mid salguero (soft knee ) Reps/Minutes 10 ft x2 laps Comments near rail, good knee alignment and ft // Soleus stretch Standing Exercise Name Soleus Stretch Side left Reps/Minutes 30 Comments cued soft knee- good deep calf . Gastroc stretch Standing Exercise Name Gastroc Stretch Side left Reps/Minutes 30 Comments good form Toe raises Standing Exercise Name Toe raises: Ankle IV, neutral, EV Side bilateral Equipment Used off floor, rail support Reps/Minutes 15x each position Comments good response muscle effort tiring Stair stepping Standing Exercise Name Step ups fwd Equipment Used contact PRNRailing/6 step Reps/Minutes 3x10 Comments L knee little irritated so stopped Self-Care/Home Management Treatment Education Patient Education Home Exercise Program,Joint Protection,Pain Management Other Education Ed cues for proper form, painfree range. Added resisted L knee TKE, hip : abd, ext PT-OP-T Assessment and Plan Start: 02/25/22 19:43 Freq: Status: Active Protocol: Document 05/15/22 12:12 SP (Rec: 05/15/22 13:11 SP [id number]) Physical Therapy Assessment Goals Three Impairment Decreased L knee strength Impairment L knee pain rated 5/10. 5/10 anterior, 3/10 posterior. L knee MMT: Flex/Ext 3/5 (R knee is 5/5). L ankle MMT: Generally 4/5 except EV is 3+/5 (R ankle is 5/5). Short Term Goal (STG) Strengthen L knee with pt able to perform sit<>stand with less L knee pain. STG Duration 03/29/22 Hardware Design Engineer Goal (LTG) Improve L ankle strength. LTG Duration 04/25/22 Two Impairment Decreased function per LEFS score and ascending stairs sideways. Impairment Knee AROM: 0-125 deg's left (0 -137 deg's right). Ankle AROM: LEFS 25 (60-79% impaired). Short Term Goal (STG) Improve L knee AROM with pt able to walk down stairs facing forward (step to step or normal gait). 03/13/22: progression:128 deg L knee flexion AROM supine. STG Duration 03/29/22 progression 03/13/22 Intermediate Goal (LTG) Improve function per LEFS score 48-62 (20-39% impaired). LTG Duration 04/25/22 One Impairment Lacks appropriate self care HEP Short Term Goal (STG) Pt will be educated in edema and pain management for self senior living. 04/12/22: Reviewed/discussed precautions of movement (rot, review flex/ext) to decrease pain due to meniscal tear and arthritis. Reviewed RICE protocol. STG Duration 03/07/22: MET GOAL Hardware Design Engineer Goal (LTG) Pt will be educated in HEP for L knee, hip ankle strengthening ex's and ROM ex' s as needed (knee, hip). 03/07/22: HEP: L knee supine flex/ext stretch and QS; L hip ext, AB (clamshell and straight leg), AD strengthening in sup/sidelie. : resisted HS curl & LAQ. 04/12/22: ankle DF, IV, EV strengthening and gastroc/ soleus stretch. 04/27/22: added resisted band walk LTG Duration 05/29/22 progressed 04/17/22 Assessment Summary Assessment Pt good response to post op ex review (folder provided), added resisted TKE, hip abd and extension this tx, good feedback strength muscle tiring. She feels much stronger resisted extension standing vs prone due to squishy bed at home. Cues for soft knee band around mid salguero during band walk improved glut med fac and less pressure at thighs learned previously. Pt reports feels confident with HEP and wants to cancel next 2 TUBE WASHER appts, follow up with PT last tx before surgery . Will recheck with schedulers 1st appt back needs be with PT for post op reeval. Physical Therapy Plan Frequency and Duration Frequency of Treatment 2x/Week Plan of Care Start Date 02/28/22 Plan of Care End Date 05/29/22 Therapeutic Interventions Therapeutic Interventions Aquatic Therapy,Gait Training, Home Exercise Program,Manual Therapy,Patient/Caregiver Education,Self-Care/Home Management,Soft Tissue Mobilization,Therapeutic Activities,Therapeutic Exercises Modalities Electric Stimulation, Ultrasound Next Visit Focus/Plan Next Note Type Treatment Note Next Visit Plan Recheck GOALS, ROM, HEP: added TKE resisted hip abd/ext standing. *Partial L knee surgery planeed 05/23/22, started post op ed 03/13/22. POC: Add: Ex bike (low resistance/ high RPM), Glut strengthening (90 deg Squats) & resistance to ex for PRE's 8 rep max strengthening. EX: Maximize L knee strength: high RPM, low resistance ( max range 3-90 deg's flexion, 90-10 deg extension). Gait training.
--- NOTE | 2022-05-21 11:53 | PT.OTN ---
Current Diagnoses Unspecified injury of left lower leg, initial encounter (05/21/22) Physical Therapy Treatment Note PT-OP-A Visit Information Start: 02/25/22 19:43 Freq: Status: Active Protocol: Document 05/21/22 10:34 LRN (Rec: 05/21/22 11:21 LRN [id number]) Out-Patient Physical Therapy Visit Information Visit Information Visit Type Treatment Note Visit Start Time 10:34 Visit Stop Time 11:16 Total Visit Minutes 42 Visit Number Evaluation Information Evaluation Date 02/28/22 Precautions Precautions ADHESIVE ALLERGIES, Arthritis, decreased hearing but doesn't wear her hearing aids, 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 PT-OP-B Current Condition Start: 02/25/22 19:43 Freq: Status: Active Protocol: Document 02/28/22 09:06 LRN (Rec: 02/28/22 12:41 LRN [id number]) Current Condition History of Current Condition Onset Date Current Complaints L medial knee pain. History of Current Condition After hike L knee hurt, a couple weeks later was dancing and next day could hardly walk. Went to a walk-in clinic in [facility] and was told arthritis and was given meds. Pain didn't go away so went to Dr. Acuña and was told arthritis and knee wasn't going to get better. Had a cortisone injection in Dec 2021, that didn't help. Was told she was a candidate for a partial knee replacement or more injections. She is waiting to see if she has approval for surgery. Wearing an over the counter soft knee compression sleeve that is helpful. Has a brace for the L knee that she uses if she is doing something that she feels she needs more support that is helpful. Was told she had a meniscus tear. Prior Treatments and Tests Cortisone injection in L knee Dec 2021. X-ray 12/01/18. MRI 01/09/22 indicates oblique tear of posterior horn of medial meniscus extending to superior articulating surface. Torn posterior medial meniscus root ligament. 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 X-ray after MRI - unavailable. PT for R hip in [place] at end of 2020 with mostly resolution of pain. Future Testing and Treatments Planned Pending approval of partial L TKA. Treatment Goals Patient/Caregiver Goals Pt goal with therapy is to complete PT that was recommended a long time ago but wasn't able to get into therapy. Prior Functional Status Baseline Function- ADL's Independent Baseline Function- Mobility Independent Baseline Function- Gait Holds R LE in ER, hits hard on R heel strike. Baseline Function- Other Was hiking (couple times a week, a couple hour hike) and dancing for recreation. Current Functional Impairments (Reported) Functional Limitations- ADL's Not able to hike and dance. Walks sideways down stairs. Pain with transfers sit<>stand . Personal Factors Other Personal Factors That May Effect Currently has UTI. Therapy/Recovery Does online dance class and is doing water aerobic class trying to stay in shape. Lives alone with dog and 2 cats. PT-OP-C Subjective Start: 02/25/22 19:43 Freq: Status: Active Protocol: Document 05/21/22 10:34 LRN (Rec: 05/21/22 11:21 LRN [id number]) OP-PT Subjective Patient Comments Patient Comments Having surgery , will return for p/o care next Friday. Patient Questionnaires Lower Extremity Functional Scale LEFS Score 33 LEFS Impairment 40 to 59% Impaired (Score 32- 47) OP-PT Pain Assessment Pain Assessment Grid Paper Pain Assessment Grid Completed Yes Location L knee Pain Location Details L knee: anter/eyedotter pn 2/10, Medial pn 3/10 Intensity 3 Scale Used Numeric (0 - 10) PT-OP-G Mobility & Gait Start: 02/25/22 19:43 Freq: Status: Active Protocol: Document 02/28/22 09:06 LRN (Rec: 02/28/22 12:41 LRN [id number]) OP Gait Assessment Gait Gait Assistance Required: Independent Assistive Devices Assistive Device None Gait Deviations General Gait Pattern Antalgic Factors Limiting Gait Function Factors Limiting Gait Function Pain Comments Gait Comments Holds R LE in ER, hits hard on R heel strike. PT-OP-H Neuro Start: 02/25/22 19:43 Freq: Status: Active Protocol: Document 02/28/22 09:06 LRN (Rec: 02/28/22 12:41 LRN [id number]) Sensation Evaluation Gross Sensation Gross Sensation WNL Comments Summary Comments Sensation assessment is in bilateral thighs and lower legs. Bottoms of feet not assessed. NOTE: pt reported neuropathy. PT-OP-J Posture/Palpation/Skin Start: 02/25/22 19:43 Freq: Status: Active Protocol: Document 02/28/22 09:06 LRN (Rec: 02/28/22 12:41 LRN [id number]) Posture Evaluation Position Standing Knee Posture (L) Genu Varus,(R) Genu Varus Comments Posture Comments Decreased arch L foot Palpation Assessment Location L knee Palpation Location No pain Palpation Findings Edema PT-OP-K Range of Motion Start: 02/25/22 19:43 Freq: Status: Active Protocol: Document 05/21/22 10:34 LRN (Rec: 05/21/22 11:21 LRN [id number]) Knee Goniometric Range of Motion Knee Right Knee ROM WFL Yes Patient Position Supine Flexion Active (degrees) 137 Extension Active (degrees) 0 Left Knee ROM WFL No Patient Position Supine Flexion Active (degrees) 127 Extension Active (degrees) 3 Extension Passive (degrees) 2 Comments improved AROM 3 deg flexion PT-OP-M Strength Start: 02/25/22 19:43 Freq: Status: Active Protocol: Document 05/21/22 10:34 LRN (Rec: 05/21/22 11:29 LRN [id number]) Knee Strength Knee Manual Muscle Testing Right Flexion (S2) 5 Normal Extension (L3) 5 Normal Left Flexion (S2) 3+ Fair+ Extension (L3) 4 Good Ankle/Foot Strength Ankle and Foot Manual Muscle Testing Right Comments All 5/5 Left Comments All 5/5 PT-OP-Q Treatments Start: 02/25/22 19:43 Freq: Status: Active Protocol: Document 05/21/22 10:34 LRN (Rec: 05/21/22 11:21 LRN [id number]) Cardio Equipment Recumbent Bicycle Duration (Minutes) 2 Resistance 1 Seat Position 5 Therapeutic Exercises Supine Exercises L knee AROM Supine Exercise Name L knee AROM flex/ext and stretch Side left Reps/Minutes 7' Comments ROM taken Sitting Exercises L knee ext strengthening Sitting Exercise Name L knee 90-10 deg's ext- HEP reviewed Side left Equipment Used Lev 1 TB around B ankles anchor opp LE, legs dangle off edge table/ bed Reps/Minutes 15 x 3 Comments cued modified ext hold 2- sec mid quad fac.- painfree response for strength L knee strengthening Sitting Exercise Name L knee flex strengthening Side left Resistance Lev 2 TB Equipment Used anchored at post/door Reps/Minutes 15x2 Comments good feedback HS emphasis, not knee Standing Exercises hip ext/abd Standing Exercise Name Hip Ext/AB Side left Resistance TB #1 above and below the knee Comments cued resisted side stepping Standing Exercise Name reviewed HEP- lateral Resistance TB #2 loop mid salguero (soft knee ) Reps/Minutes 10 ft x2 laps Comments good knee alignment Therapeutic Activity Therapeutic Activity Stair ambulation Name Stair ambulation training Reps/Minutes 8' Comments Use of railing, use of rail/1 cane. Self-Care/Home Management Treatment Education Caregiver Education Discussed questions of pt regarding use of compression hose. Encouraged pt to contact doctor regarding the amt of compression of the stockings. PT-OP-T Assessment and Plan Start: 02/25/22 19:43 Freq: Status: Active Protocol: Document 05/21/22 10:34 LRN (Rec: 05/21/22 11:21 LRN [id number]) Physical Therapy Assessment Goals Three Impairment Decreased L knee strength Impairment L knee pain rated 5/10. 5/10 anterior, 3/10 posterior. L knee MMT: Flex/Ext 3/5 (R knee is 5/5). L ankle MMT: Generally 4/5 except EV is 3+/5 (R ankle is 5/5). Short Term Goal (STG) Strengthen L knee with pt able to perform sit<>stand with less L knee pain. 05/21/22: L Knee pain is the same. STG Duration 03/29/22 no change 05/21/22 Cloth Dyer Goal (LTG) Improve L ankle strength. 05/21/22: L ankle strength is 5/5. LTG Duration 04/25/22 (05/21/22: MET GOAL ) Two Impairment Decreased function per LEFS score and ascending stairs sideways. Impairment Knee AROM: 0-125 deg's left (0 -137 deg's right). Ankle AROM: LEFS 25 (60-79% impaired). Short Term Goal (STG) Improve L knee AROM with pt able to walk down stairs facing forward (step to step or normal gait). 03/13/22: progression:128 deg L knee flexion AROM supine. 05/21/22: L knee ROM is 3-127 deg's. STG Duration 03/29/22 (05/21/22: MET GOAL w/use of railing) Cloth Dyer Goal (LTG) Improve function per LEFS score 48-62 (20-39% impaired). 05/21/22: LEFS score is 33/80 (40-59% impaired). LTG Duration 04/25/22 Improved 05/21/22 One Impairment Lacks appropriate self care HEP Short Term Goal (STG) Pt will be educated in edema and pain management for self half-way. 04/12/22: Reviewed/discussed precautions of movement (rot, review flex/ext) to decrease pain due to meniscal tear and arthritis. Reviewed RICE protocol. STG Duration 03/07/22: MET GOAL Cloth Dyer Goal (LTG) Pt will be educated in HEP for L knee, hip ankle strengthening ex's and ROM ex' s as needed (knee, hip). 03/07/22: HEP: L knee supine flex/ext stretch and QS; L hip ext, AB (clamshell and straight leg), AD strengthening in sup/sidelie. : resisted HS curl & LAQ. 04/12/22: ankle DF, IV, EV strengthening and gastroc/ soleus stretch. 04/27/22: added resisted band walk LTG Duration 05/29/22 progressed 04/17/22 Progress Towards Goals Progress Comments Function improved per LEFS of 33/80 (40-59% impaired), was initially 25/80 (60-79% impaired). Pt able to walk up/down stairs without having to turn sideways or step to step gait. Is normal as step over step gait with use of railing. Assessment Summary Assessment Pt presents for final physical therapy session before L TKA surgery. She has a good understanding of her current HEP of hip, knee, ankle strengthening ex's. Her az ankle strength is normal, and her L knee is mildly decreased in strength due to pain (flex 3+/5, ext 4/5). There is no improvement with L knee strength due to pain limiting strengthening. Her L ankle strength has improved to normal strength. L knee mobility is limited due to pain and she ambulates with an antalgic gait as expected due to her planned L TKA surgery. The pt is expected to do well s/p L TKA surgery and will be seen post-op surgery at her next visit and her POC will be updated. Physical Therapy Plan Frequency and Duration Frequency of Treatment 2x/Week Plan of Care Start Date 02/28/22 Plan of Care End Date 05/29/22 Next Visit Focus/Plan Next Note Type Treatment Note Next Visit Plan *Partial L knee surgery . Next visit: New POC, Post L TKA Re-eval and initiation of L TKA rehab. POC: L TKA rehab. EX: Maximize L knee strength: ROM ex, strengthening and AROM/PROM. Gait & Balance training when appropriate. Modalities: CP, K-tape when appropriate.
--- NOTE | 2022-05-27 17:51 | PT.OIE ---
Current Diagnoses Other abnormalities of gait and mobility (05/27/22) Unspecified injury of left lower leg, initial encounter (05/27/22) Past Medical History (Last Updated 02/23/22 @ 08:51 by Luis Schneider PA-C) Actinic keratosis Fibroids (~1984) Finger laceration Genital warts (~1971) Lipoma of right upper extremity Osteopenia Ovarian cyst (~1984) Rheumatoid bursitis, unspecified hip Sinus congestion Tinnitus (~2017) Urinary tract infection Vitamin D deficiency Past Surgical History (Last Reviewed 02/13/22 @ 09:40 by Massiel Joseph RN) Anesthesia H/O blepharoplasty History of 2 sections History of bunionectomy (~1970) History of oral surgery (~2017) History of varicose veins Visit Care Team Role Provider Type Heriberto Vang MD Attending Provider Physician Family Provider Primary Care Provider Referring Provider Specialty: Internal Medicine Address: [address] [place] [address], [facility] Email: [email or web address] Physical Therapy Initial Evaluation PT-OP-A Visit Information Start: 02/25/22 19:43 Freq: Status: Active Protocol: Document 05/27/22 14:43 LRN (Rec: 05/27/22 15:26 LRN [id number]) Out-Patient Physical Therapy Visit Information Visit Information Visit Type Re-Evaluation Visit Start Time 14:43 Visit Stop Time 15:25 Total Visit Minutes 42 Visit Number Evaluation Information Evaluation Date 05/27/22 Precautions Precautions ADHESIVE ALLERGIES, Arthritis, decreased hearing but doesn't wear her hearing aids, 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 PT-OP-B Current Condition Start: 02/25/22 19:43 Freq: Status: Active Protocol: Document 05/27/22 14:43 LRN (Rec: 05/27/22 17:20 LRN [id number]) Current Condition History of Current Condition Onset Date 05/23/22 Current Complaints s/p L TKA History of Current Condition Pt has had L medial knee pain since ~11/29/21 and had L knee rehab her at [facility] prior to surgery from 02/28/22 to 05/21/22. The pt underwent L partial knee replacement surgery 05/23/22 and was released home the same day. She states she had a difficult time the first couple days at home, but on the third day was able to do some of her L knee exercises. She attends to day reporting stiffness and pain at the L knee and feeling like she is not progressing as well as she had hoped, but that she is able to walk and has her daughter around her home to help her. Prior Treatments and Tests Cortisone injection in L knee Dec 2021. PT at [facility] from to 05/21/22. Developmental History Developmental History After hike L knee hurt, a couple weeks later was dancing and next day could hardly walk. Went to a walk-in clinic in [facility] and was told arthritis and was given meds. Pain didn't go away so went to Dr. Acuña and was told arthritis and knee wasn't going to get better. Had a cortisone injection in Dec 2021, that didn't help. Was told she was a candidate for a partial knee replacement or more injections. Treatment Goals Patient/Caregiver Goals Pt goals are to improve L knee mobility, strength, walk without an assistive device, to decrease her knee pain and improve her overall function. Prior Functional Status Baseline Function- ADL's Independent Baseline Function- Mobility Independent Baseline Function- Other LEFS score 25 (60-79% impaired , score 17-31) Current Functional Impairments (Reported) Functional Limitations- ADL's Pain with transfers. Pain with activity Limited with L knee mobility. Functional Limitations- Mobility/Gait Avoiding use of stairs. Walks with FWW. Functional Limitations- Other LEFS score 13/80 (80-99% impaired, score 1-16). Personal Factors Other Personal Factors That May Effect Lives alone with dog and 2 Therapy/Recovery cats, but daughter will stay with her for 1 week. PT-OP-C Subjective Start: 02/25/22 19:43 Freq: Status: Active Protocol: Document 05/27/22 14:43 LRN (Rec: 05/27/22 15:26 LRN [id number]) OP-PT Subjective Patient Comments Patient Comments No really pain full in the L knee. Feels tight. Occasionally if turn leg wrong , gets sharp pain. Patient Questionnaires Lower Extremity Functional Scale LEFS Score 13 LEFS Impairment 80 to 99% Impaired (Score 1-16 ) OP-PT Pain Assessment Pain Assessment Grid Paper Pain Assessment Grid Completed Yes Location L knee Pain Location Details L knee: anter/metal sash setter pn 2/10, Medial pn 3/10 Intensity 2 Scale Used Numeric (0 - 10) Description Tightness PT-OP-G Mobility & Gait Start: 02/25/22 19:43 Freq: Status: Active Protocol: Document 05/27/22 14:43 LRN (Rec: 05/27/22 15:26 LRN [id number]) OP Mobility Evaluation Bed Mobility Supine to and from Sit Independent Transfers Sit to Stand Independent with use of FWW Bed to Chair Transfers Independent with use of FWW. OP Gait Assessment Gait Gait Assistance Required: Independent Assistive Devices Assistive Device Front Wheeled Walker Gait Deviations General Gait Pattern Antalgic,Decreased Stride Length,Wide Based Gait Factors Limiting Gait Function Factors Limiting Gait Function Decreased Activity Tolerance, Decreased Strength,Limited Range of Motion,Pain,Poor Balance PT-OP-H Neuro Start: 02/25/22 19:43 Freq: Status: Active Protocol: Document 05/27/22 14:43 LRN (Rec: 05/27/22 15:26 LRN [id number]) Sensation Evaluation Comments Summary Comments Pt reports normal sensation, but not able to assess underneath the JACKSON bandage covering the LLE. PT-OP-J Posture/Palpation/Skin Start: 02/25/22 19:43 Freq: Status: Active Protocol: Document 05/27/22 14:43 LRN (Rec: 05/27/22 17:23 LRN [id number]) Posture Evaluation Position Standing Weight Distribution Weight Shifted Right Hip Posture (L) Flexed,(R) Flexed Comments Posture Comments Pt using FWW for standing. Palpation Assessment Location L knee Palpation Details Not able to palpate due to JACKSON wrap around L knee, proximal lower leg and distal thigh. PT-OP-K Range of Motion Start: 02/25/22 19:43 Freq: Status: Active Protocol: Document 05/27/22 14:43 LRN (Rec: 05/27/22 15:26 LRN [id number]) Knee Goniometric Range of Motion Knee Right Knee ROM WFL Yes Patient Position Supine Flexion Active (degrees) 140 Flexion Passive (degrees) 0 Extension Active (degrees) 0 Left Knee ROM WFL No Patient Position Supine Flexion Active (degrees) 70 Extension Active (degrees) 10 Extension Passive (degrees) 10 Comments Sitting: AROM is 20-80 PT-OP-M Strength Start: 02/25/22 19:43 Freq: Status: Active Protocol: Document 05/27/22 14:43 LRN (Rec: 05/27/22 15:26 LRN [id number]) Knee Strength Knee Manual Muscle Testing Right Flexion (S2) 5 Normal Extension (L3) 5 Normal Left Flexion (S2) 2 Poor Extension (L3) 2 Poor Ankle/Foot Strength Ankle and Foot Manual Muscle Testing Right Comments All 5/5 Left Comments All 5/5 PT-OP-Q Treatments Start: 02/25/22 19:43 Freq: Status: Active Protocol: Document 05/27/22 14:43 LRN (Rec: 05/27/22 15:26 LRN [id number]) Therapeutic Exercises Supine Exercises post op HEP Supine Exercise Name QS, HS, SAQ, knee hang: supine , knee flexion seated Side left Resistance AROM Reps/Minutes 10 reps each Comments good understanding review: provided folder to follow SLR Supine Exercise Name Assisted SLR Side left Reps/Minutes 10x L knee AROM Supine Exercise Name L knee AROM flex/ext and stretch Side left Reps/Minutes 10x Comments ROM taken Self-Care/Home Management Treatment Education Other Education Pt educated in use Ice to knee for pain management. Activities Self-Care/Home Management Activities Pt to continue with s/p TKA ex 's at home. PT-OP-R Modalities Start: 02/25/22 19:43 Freq: Status: Active Protocol: Document 05/27/22 14:43 LRN (Rec: 05/27/22 17:21 LRN [id number]) Hot Pack/Cold Pack Treatment Cold Pack Location L knee Treatment Duration (minutes) 10 Patient Tolerance Good Comments Pt in supine with LLE elevated PT-OP-T Assessment and Plan Start: 02/25/22 19:43 Freq: Status: Active Protocol: Document 05/27/22 14:43 LRN (Rec: 05/27/22 15:26 LRN [id number]) Physical Therapy Assessment Rehab Potential Rehabilitation Potential Excellent Evaluation Complexity Number of Personal Factors/Comorbidities 1-2 Number of Body Systems Impaired 4 or More Clinical Presentation at Evaluation Evolving Impairments Impairments Activity Tolerance,Balance, Edema,Functional Mobility,Gait ,Pain,ROM,Soft Tissue Mobility ,Strength,Transfers Goals Four Impairment Decreased L knee mobility Impairment L Knee AROM: Supine: 10-70 left , 0-140 deg's right; Sittin-80 deg's left. Short Term Goal (STG) Improve L knee AROM with pt able to walk with a cane with normal gait pattern. STG Duration 07/12/22 Java Developer Goal (LTG) Pt able to ambulate w/o an assistive device and normal gait on stairs and flat surface. LTG Duration 08/25/22 Three Impairment Decreased L knee strength Impairment L knee MMT: Flex/Ext is 2/5 ( R knee is 5/5). L knee pain rated 2-3/10 with Acetaminophen. Tight feeling. Short Term Goal (STG) Strengthen L knee with pt able to perform sit<>stand with out the walker. STG Duration 07/12/22 Java Developer Goal (LTG) Strengthen L knee to 5/5. LTG Duration 08/25/22 Two Impairment Decreased function per LEFS score and pt using FWW for gait Impairment Pre surgery: LEFS score 25 (60 -79% impaired, score 17-31) Re-eval: LEFS score 13/80 (80 -99% impaired, score 1-16). Short Term Goal (STG) Pt will improve function per LEFS score of 25 or greater to be at pre-surgery function ( 60-79% impaired, score 17-31). STG Duration 07/12/22 Nursing Home Goal (LTG) Improve function per LEFS score 48 or greater (20-39% impaired). LTG Duration 08/25/22 One Impairment Lacks appropriate self care HEP Short Term Goal (STG) Pt will be re-educated in edema and pain management for self fci. 04/12/22: Reviewed/discussed precautions of movement (rot, review flex/ext) to decrease pain due to meniscal tear and arthritis. Reviewed RICE protocol. STG Duration 05/31/22 Java Developer Goal (LTG) Pt will be able to resume HEP for L knee, hip ankle strengthening ex's and ROM ex' s pre surgery. 03/07/22: HEP: L knee supine flex/ext stretch and QS; L hip ext, AB (clamshell and straight leg), AD strengthening in sup/sidelie. : resisted HS curl & LAQ. 04/12/22: ankle DF, IV, EV strengthening and gastroc/ soleus stretch. 04/27/22: added resisted band walk LTG Duration 08/25/22 Assessment Summary Assessment Pt presents s/p L partial ( medial) knee arthroplasty on . She is doing quite well and walked into therapy with indepedently with use of a FWW and appears to be quite stable. As expected she has decreased L knee ROM, strength and hindered by pain in her gait, balance and stability. The pt appears to be transfering without need for assist. The pt is expected to do quite well with therapy. The pt will benefit from skilled physical therapy to achieve her above stated goals . Physical Therapy Plan Frequency and Duration Frequency of Treatment 2x/Week Plan of Care Start Date 05/27/22 Plan of Care End Date 08/25/22 Therapeutic Interventions Therapeutic Interventions Balance Training,Gait Training ,Home Exercise Program,Joint Mobilizations,Manual Therapy, Neuromuscular Re-education, Patient/Caregiver Education, Self-Care/Home Management,Soft Tissue Mobilization,Taping, Therapeutic Activities, Therapeutic Exercises Modalities Cold Pack/Ice Massage,Hot Packs,Ultrasound Next Visit Focus/Plan Next Note Type Treatment Note Next Visit Plan S/P L medial knee arthoplasty rehabilitation. Try starting with, pt education in edema/ pain management with ex bike/ recumbent or stair stepper, f/ b ROM, strengthening, STM ( including lympedema if appropiate), K-taping for edema when appropriate, gait/ balance training.
--- NOTE | 2022-05-27 17:52 | PT.OPPOC ---
Physical, Occupational & Speech Therapy At [facility] Current Diagnoses Other abnormalities of gait and mobility (05/27/22) Unspecified injury of left lower leg, initial encounter (05/27/22) Visit Care Team Role Provider Type Heriberto Vang MD Attending Provider Physician Family Provider Primary Care Provider Referring Provider Specialty: Internal Medicine Address: [address] [place] [address], [address], [facility] Email: [email or web address] Plan Of Care PT-OP-T Assessment and Plan Start: 02/25/22 19:43 Freq: Status: Active Protocol: Document 05/27/22 14:43 LRN (Rec: 05/27/22 15:26 LRN [id number]) Physical Therapy Assessment Rehab Potential Rehabilitation Potential Excellent Evaluation Complexity Number of Personal Factors/Comorbidities 1-2 Number of Body Systems Impaired 4 or More Clinical Presentation at Evaluation Evolving Impairments Impairments Activity Tolerance,Balance, Edema,Functional Mobility,Gait ,Pain,ROM,Soft Tissue Mobility ,Strength,Transfers Goals Four Impairment Decreased L knee mobility Impairment L Knee AROM: Supine: 10-70 left , 0-140 deg's right; Sittin-80 deg's left. Short Term Goal (STG) Improve L knee AROM with pt able to walk with a cane with normal gait pattern. STG Duration 07/12/22 Spindle Plumber Goal (LTG) Pt able to ambulate w/o an assistive device and normal gait on stairs and flat surface. LTG Duration 08/25/22 Three Impairment Decreased L knee strength Impairment L knee MMT: Flex/Ext is 2/5 ( R knee is 5/5). L knee pain rated 2-3/10 with Acetaminophen. Tight feeling. Short Term Goal (STG) Strengthen L knee with pt able to perform sit<>stand with out the walker. STG Duration 07/12/22 Spindle Plumber Goal (LTG) Strengthen L knee to 5/5. LTG Duration 08/25/22 Two Impairment Decreased function per LEFS score and pt using FWW for gait Impairment Pre surgery: LEFS score 25 (60 -79% impaired, score 17-31) Re-eval: LEFS score 13/80 (80 -99% impaired, score 1-16). Short Term Goal (STG) Pt will improve function per LEFS score of 25 or greater to be at pre-surgery function ( 60-79% impaired, score 17-31). STG Duration 07/12/22 Spindle Plumber Goal (LTG) Improve function per LEFS score 48 or greater (20-39% impaired). LTG Duration 08/25/22 One Impairment Lacks appropriate self care HEP Short Term Goal (STG) Pt will be re-educated in edema and pain management for self alf. 04/12/22: Reviewed/discussed precautions of movement (rot, review flex/ext) to decrease pain due to meniscal tear and arthritis. Reviewed RICE protocol. STG Duration 05/31/22 Jail Goal (LTG) Pt will be able to resume HEP for L knee, hip ankle strengthening ex's and ROM ex' s pre surgery. 03/07/22: HEP: L knee supine flex/ext stretch and QS; L hip ext, AB (clamshell and straight leg), AD strengthening in sup/sidelie. : resisted HS curl & LAQ. 04/12/22: ankle DF, IV, EV strengthening and gastroc/ soleus stretch. 04/27/22: added resisted band walk LTG Duration 08/25/22 Assessment Summary Assessment Pt presents s/p L partial ( medial) knee arthroplasty on . She is doing quite well and walked into therapy with indepedently with use of a FWW and appears to be quite stable. As expected she has decreased L knee ROM, strength and hindered by pain in her gait, balance and stability. The pt appears to be transfering without need for assist. The pt is expected to do quite well with therapy. The pt will benefit from skilled physical therapy to achieve her above stated goals . Physical Therapy Plan Frequency and Duration Frequency of Treatment 2x/Week Plan of Care Start Date 05/27/22 Plan of Care End Date 08/25/22 Therapeutic Interventions Therapeutic Interventions Balance Training,Gait Training ,Home Exercise Program,Joint Mobilizations,Manual Therapy, Neuromuscular Re-education, Patient/Caregiver Education, Self-Care/Home Management,Soft Tissue Mobilization,Taping, Therapeutic Activities, Therapeutic Exercises Modalities Cold Pack/Ice Massage,Hot Packs,Ultrasound Next Visit Focus/Plan Next Note Type Treatment Note Next Visit Plan S/P L medial knee arthoplasty rehabilitation. Try starting with, pt education in edema/ pain management with ex bike/ recumbent or stair stepper, f/ b ROM, strengthening, STM ( including lympedema if appropiate), K-taping for edema when appropriate, gait/ balance training. Plan of Care Dates Plan of Care Start Date 05/27/22 Plan of Care End Date 08/25/22 Electronically Signed by: Clara Harden, PT 05/27/22 2420 If you are in agreement with this Plan of Care, please return a signed and dated copy. I have reviewed this Plan of Care and certify that the skilled therapy services above are required to meet the patient?s needs. Physician Signature Date Printed Name and Credentials Clinical Instructor Signature Printed Name and Credentials
--- NOTE | 2022-05-27 17:55 | PT.OPPOC ---
Physical, Occupational & Speech Therapy At [facility] Current Diagnoses Other abnormalities of gait and mobility (05/27/22) Unspecified injury of left lower leg, initial encounter (05/27/22) Visit Care Team Role Provider Type Heriberto Vang MD Attending Provider Physician Family Provider Primary Care Provider Referring Provider Specialty: Internal Medicine Address: [address] [place] [address], [address], [facility] Email: [email or web address] Plan Of Care PT-OP-T Assessment and Plan Start: 02/25/22 19:43 Freq: Status: Active Protocol: Document 05/27/22 14:43 LRN (Rec: 05/27/22 15:26 LRN [id number]) Physical Therapy Assessment Rehab Potential Rehabilitation Potential Excellent Evaluation Complexity Number of Personal Factors/Comorbidities 1-2 Number of Body Systems Impaired 4 or More Clinical Presentation at Evaluation Evolving Impairments Impairments Activity Tolerance,Balance, Edema,Functional Mobility,Gait ,Pain,ROM,Soft Tissue Mobility ,Strength,Transfers Goals Four Impairment Decreased L knee mobility Impairment L Knee AROM: Supine: 10-70 left , 0-140 deg's right; Sittin-80 deg's left. Short Term Goal (STG) Improve L knee AROM with pt able to walk with a cane with normal gait pattern. STG Duration 07/12/22 Statistical Financial Analyst Goal (LTG) Pt able to ambulate w/o an assistive device and normal gait on stairs and flat surface. LTG Duration 08/25/22 Three Impairment Decreased L knee strength Impairment L knee MMT: Flex/Ext is 2/5 ( R knee is 5/5). L knee pain rated 2-3/10 with Acetaminophen. Tight feeling. Short Term Goal (STG) Strengthen L knee with pt able to perform sit<>stand with out the walker. STG Duration 07/12/22 Statistical Financial Analyst Goal (LTG) Strengthen L knee to 5/5. LTG Duration 08/25/22 Two Impairment Decreased function per LEFS score and pt using FWW for gait Impairment Pre surgery: LEFS score 25 (60 -79% impaired, score 17-31) Re-eval: LEFS score 13/80 (80 -99% impaired, score 1-16). Short Term Goal (STG) Pt will improve function per LEFS score of 25 or greater to be at pre-surgery function ( 60-79% impaired, score 17-31). STG Duration 07/12/22 Statistical Financial Analyst Goal (LTG) Improve function per LEFS score 48 or greater (20-39% impaired). LTG Duration 08/25/22 One Impairment Lacks appropriate self care HEP Short Term Goal (STG) Pt will be re-educated in edema and pain management for self half-way. 04/12/22: Reviewed/discussed precautions of movement (rot, review flex/ext) to decrease pain due to meniscal tear and arthritis. Reviewed RICE protocol. STG Duration 05/31/22 Half-Way Goal (LTG) Pt will be able to resume HEP for L knee, hip ankle strengthening ex's and ROM ex' s pre surgery. 03/07/22: HEP: L knee supine flex/ext stretch and QS; L hip ext, AB (clamshell and straight leg), AD strengthening in sup/sidelie. : resisted HS curl & LAQ. 04/12/22: ankle DF, IV, EV strengthening and gastroc/ soleus stretch. 04/27/22: added resisted band walk LTG Duration 08/25/22 Assessment Summary Assessment Pt presents s/p L partial ( medial) knee arthroplasty on . She is doing quite well and walked into therapy with indepedently with use of a FWW and appears to be quite stable. As expected she has decreased L knee ROM, strength and hindered by pain in her gait, balance and stability. The pt appears to be transfering without need for assist. The pt is expected to do quite well with therapy. The pt will benefit from skilled physical therapy to achieve her above stated goals . Physical Therapy Plan Frequency and Duration Frequency of Treatment 2x/Week Plan of Care Start Date 05/27/22 Plan of Care End Date 08/25/22 Therapeutic Interventions Therapeutic Interventions Balance Training,Gait Training ,Home Exercise Program,Joint Mobilizations,Manual Therapy, Neuromuscular Re-education, Patient/Caregiver Education, Self-Care/Home Management,Soft Tissue Mobilization,Taping, Therapeutic Activities, Therapeutic Exercises Modalities Cold Pack/Ice Massage,Hot Packs,Ultrasound Next Visit Focus/Plan Next Note Type Treatment Note Next Visit Plan S/P L medial knee arthoplasty rehabilitation. Try starting with, pt education in edema/ pain management with ex bike/ recumbent or stair stepper, f/ b ROM, strengthening, STM ( including lympedema if appropiate), K-taping for edema when appropriate, gait/ balance training. Plan of Care Dates Plan of Care Start Date 05/27/22 Plan of Care End Date 08/25/22 Electronically Signed by: Clara Harden, PT 05/27/22 5570 If you are in agreement with this Plan of Care, please return a signed and dated copy. I have reviewed this Plan of Care and certify that the skilled therapy services above are required to meet the patient?s needs. Physician Signature Date Printed Name and Credentials Clinical Instructor Signature Printed Name and Credentials
--- NOTE | 2022-05-29 17:49 | PT.OTN ---
Current Diagnoses Other abnormalities of gait and mobility (05/29/22) Unspecified injury of left lower leg, initial encounter (05/29/22) Physical Therapy Treatment Note PT-OP-A Visit Information Start: 02/25/22 19:43 Freq: Status: Active Protocol: Document 05/29/22 16:55 LR (Rec: 05/29/22 17:49 [facility] [id number]) Out-Patient Physical Therapy Visit Information Visit Information Visit Type Treatment Note Visit Start Time 16:51 Visit Stop Time 17:41 Total Visit Minutes 50 Visit Number Number of WEB PORTAL DEVELOPER Visits 0 PT-OP-B Current Condition Start: 02/25/22 19:43 Freq: Status: Active Protocol: Document 05/27/22 14:43 LRN (Rec: 05/27/22 17:20 LRN [id number]) Current Condition History of Current Condition Onset Date 05/23/22 Current Complaints s/p L TKA History of Current Condition Pt has had L medial knee pain since ~11/29/21 and had L knee rehab her at [facility] prior to surgery from 02/28/22 to 05/21/22. The pt underwent L partial knee replacement surgery 05/23/22 and was released home the same day. She states she had a difficult time the first couple days at home, but on the third day was able to do some of her L knee exercises. She attends to day reporting stiffness and pain at the L knee and feeling like she is not progressing as well as she had hoped, but that she is able to walk and has her daughter around her home to help her. Prior Treatments and Tests Cortisone injection in L knee Dec 2021. PT at [facility] from to 05/21/22. Developmental History Developmental History After hike L knee hurt, a couple weeks later was dancing and next day could hardly walk. Went to a walk-in clinic in [facility] and was told arthritis and was given meds. Pain didn't go away so went to Dr. Acuña and was told arthritis and knee wasn't going to get better. Had a cortisone injection in Dec 2021, that didn't help. Was told she was a candidate for a partial knee replacement or more injections. Treatment Goals Patient/Caregiver Goals Pt goals are to improve L knee mobility, strength, walk without an assistive device, to decrease her knee pain and improve her overall function. Prior Functional Status Baseline Function- ADL's Independent Baseline Function- Mobility Independent Baseline Function- Other LEFS score 25 (60-79% impaired , score 17-31) Current Functional Impairments (Reported) Functional Limitations- ADL's Pain with transfers. Pain with activity Limited with L knee mobility. Functional Limitations- Mobility/Gait Avoiding use of stairs. Walks with FWW. Functional Limitations- Other LEFS score 13/80 (80-99% impaired, score 1-16). Personal Factors Other Personal Factors That May Effect Lives alone with dog and 2 Therapy/Recovery cats, but daughter will stay with her for 1 week. PT-OP-C Subjective Start: 02/25/22 19:43 Freq: Status: Active Protocol: Document 05/29/22 16:55 [facility] (Rec: 05/29/22 17:49 [facility] [id number]) OP-PT Subjective Patient Comments Patient Comments Pt asking about using cane and being able to go up/down stairs. PT-OP-G Mobility & Gait Start: 02/25/22 19:43 Freq: Status: Active Protocol: Document 05/27/22 14:43 LRN (Rec: 05/27/22 15:26 LRN [id number]) OP Mobility Evaluation Bed Mobility Supine to and from Sit Independent Transfers Sit to Stand Independent with use of FWW Bed to Chair Transfers Independent with use of FWW. OP Gait Assessment Gait Gait Assistance Required: Independent Assistive Devices Assistive Device Front Wheeled Walker Gait Deviations General Gait Pattern Antalgic,Decreased Stride Length,Wide Based Gait Factors Limiting Gait Function Factors Limiting Gait Function Decreased Activity Tolerance, Decreased Strength,Limited Range of Motion,Pain,Poor Balance PT-OP-H Neuro Start: 02/25/22 19:43 Freq: Status: Active Protocol: Document 05/27/22 14:43 LRN (Rec: 05/27/22 15:26 LRN [id number]) Sensation Evaluation Comments Summary Comments Pt reports normal sensation, but not able to assess underneath the JACKSON bandage covering the LLE. PT-OP-J Posture/Palpation/Skin Start: 02/25/22 19:43 Freq: Status: Active Protocol: Document 05/27/22 14:43 LRN (Rec: 05/27/22 17:23 LRN [id number]) Posture Evaluation Position Standing Weight Distribution Weight Shifted Right Hip Posture (L) Flexed,(R) Flexed Comments Posture Comments Pt using FWW for standing. Palpation Assessment Location L knee Palpation Details Not able to palpate due to JACKSON wrap around L knee, proximal lower leg and distal thigh. PT-OP-K Range of Motion Start: 02/25/22 19:43 Freq: Status: Active Protocol: Document 05/27/22 14:43 LRN (Rec: 05/27/22 15:26 LRN [id number]) Knee Goniometric Range of Motion Knee Right Knee ROM WFL Yes Patient Position Supine Flexion Active (degrees) 140 Flexion Passive (degrees) 0 Extension Active (degrees) 0 Left Knee ROM WFL No Patient Position Supine Flexion Active (degrees) 70 Extension Active (degrees) 10 Extension Passive (degrees) 10 Comments Sitting: AROM is 20-80 PT-OP-M Strength Start: 02/25/22 19:43 Freq: Status: Active Protocol: Document 05/27/22 14:43 LRN (Rec: 05/27/22 15:26 LRN [id number]) Knee Strength Knee Manual Muscle Testing Right Flexion (S2) 5 Normal Extension (L3) 5 Normal Left Flexion (S2) 2 Poor Extension (L3) 2 Poor Ankle/Foot Strength Ankle and Foot Manual Muscle Testing Right Comments All 5/5 Left Comments All 5/5 PT-OP-Q Treatments Start: 02/25/22 19:43 Freq: Status: Active Protocol: Document 05/29/22 16:55 LR (Rec: 05/29/22 17:49 [facility] [id number]) Cardio Equipment Recumbent Elliptical (Biodex) Duration (Minutes) 6 Resistance 1 Seat Position 8-7 Gym Equipment Shuttle Recovery bilateral squat Resistance 50# Shuttle Recovery Platform Stable Reps/Time 15 Therapeutic Ball knee flex Exercise Details B Ball Size/Color 55cm Body Position Supine Reps/Duration 5 sec x10 Therapeutic Exercises Supine Exercises SLR Supine Exercise Name cues for quad set first Side left Reps/Minutes 10x L knee AROM Supine Exercise Name L knee AROM then extra pull w/ gait belt Side left Reps/Minutes 5 sec x8 Sitting Exercises Knee flex ROM Sitting Exercise Name w/scoot fwd Side left Reps/Minutes 10 secx3 Standing Exercises TKE Side left Resistance Tb #1 post thigh Reps/Minutes x15 Comments cued slow con/eccentric bend, no trunk movement Toe raises Standing Exercise Name PF/DF Side bilateral Reps/Minutes 12x each position Gait Training Gait Activity stairs Comments 1. step ups L 4 in steps rail and cane x10 2.step to up using RLE 6 in step w/rail and cane x2 training stairs. gait Comments cane amb with cues for knee flex and sequencing x4 min PT-OP-R Modalities Start: 02/25/22 19:43 Freq: Status: Active Protocol: Document 05/29/22 16:55 [facility] (Rec: 05/29/22 17:49 [facility] [id number]) Hot Pack/Cold Pack Treatment Cold Pack Location L knee Treatment Duration (minutes) 10 Patient Tolerance Good Comments Pt in supine with LLE elevated PT-OP-T Assessment and Plan Start: 02/25/22 19:43 Freq: Status: Active Protocol: Document 05/29/22 16:55 [facility] (Rec: 05/29/22 17:49 [facility] [id number]) Physical Therapy Assessment Goals Four Impairment Decreased L knee mobility Impairment L Knee AROM: Supine: 10-70 left , 0-140 deg's right; Sittin-80 deg's left. Short Term Goal (STG) Improve L knee AROM with pt able to walk with a cane with normal gait pattern. STG Duration 07/12/22 Body Liner Goal (LTG) Pt able to ambulate w/o an assistive device and normal gait on stairs and flat surface. LTG Duration 08/25/22 Three Impairment Decreased L knee strength Impairment L knee MMT: Flex/Ext is 2/5 ( R knee is 5/5). L knee pain rated 2-3/10 with Acetaminophen. Tight feeling. Short Term Goal (STG) Strengthen L knee with pt able to perform sit<>stand with out the walker. STG Duration 07/12/22 Body Liner Goal (LTG) Strengthen L knee to 5/5. LTG Duration 08/25/22 Two Impairment Decreased function per LEFS score and pt using FWW for gait Impairment Pre surgery: LEFS score 25 (60 -79% impaired, score 17-31) Re-eval: LEFS score 13/80 (80 -99% impaired, score 1-16). Short Term Goal (STG) Pt will improve function per LEFS score of 25 or greater to be at pre-surgery function ( 60-79% impaired, score 17-31). STG Duration 07/12/22 Alf Goal (LTG) Improve function per LEFS score 48 or greater (20-39% impaired). LTG Duration 08/25/22 One Impairment Lacks appropriate self care HEP Short Term Goal (STG) Pt will be re-educated in edema and pain management for self longterm. 04/12/22: Reviewed/discussed precautions of movement (rot, review flex/ext) to decrease pain due to meniscal tear and arthritis. Reviewed RICE protocol. STG Duration 05/31/22 Alf Goal (LTG) Pt will be able to resume HEP for L knee, hip ankle strengthening ex's and ROM ex' s pre surgery. 03/07/22: HEP: L knee supine flex/ext stretch and QS; L hip ext, AB (clamshell and straight leg), AD strengthening in sup/sidelie. : resisted HS curl & LAQ. 04/12/22: ankle DF, IV, EV strengthening and gastroc/ soleus stretch. 04/27/22: added resisted band walk LTG Duration 08/25/22 Assessment Summary Assessment Pt had ROM of 4-91 deg today towards the end of the session . She is very motivated w/her recovery and tolerated session w/some discomfort but reported everything was tolearable. Physical Therapy Plan Frequency and Duration Frequency of Treatment 2x/Week Plan of Care Start Date 05/27/22 Plan of Care End Date 08/25/22 Next Visit Focus/Plan Next Note Type Treatment Note Next Visit Plan S/P L medial knee arthoplasty rehabilitation. Try starting with, pt education in edema/ pain management with ex bike/ recumbent or stair stepper, f/ b ROM, strengthening, STM ( including lympedema if appropiate), K-taping for edema when appropriate, gait/ balance training.
--- NOTE | 2022-06-03 09:04 | PT.OTN ---
Current Diagnoses Other abnormalities of gait and mobility (06/03/22) Unspecified injury of left lower leg, initial encounter (06/03/22) Physical Therapy Treatment Note PT-OP-A Visit Information Start: 02/25/22 19:43 Freq: Status: Active Protocol: Document 06/03/22 08:19 SP (Rec: 06/03/22 09:06 SP [id number]) Out-Patient Physical Therapy Visit Information Visit Information Visit Type Treatment Note Visit Start Time 08:19 Visit Stop Time 09:04 Total Visit Minutes 45 Visit Number Number of SPINNERET PERSON Visits 1 Evaluation Information Evaluation Date 05/27/22 Precautions Precautions ADHESIVE ALLERGIES, Arthritis, decreased hearing but doesn't wear her hearing aids, 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 *S/P L medial knee arthoplasty rehabilitation. PT-OP-B Current Condition Start: 02/25/22 19:43 Freq: Status: Active Protocol: Document 05/27/22 14:43 LRN (Rec: 05/27/22 17:20 LRN [id number]) Current Condition History of Current Condition Onset Date 05/23/22 Current Complaints s/p L TKA History of Current Condition Pt has had L medial knee pain since ~11/29/21 and had L knee rehab her at [facility] prior to surgery from 02/28/22 to 05/21/22. The pt underwent L partial knee replacement surgery 05/23/22 and was released home the same day. She states she had a difficult time the first couple days at home, but on the third day was able to do some of her L knee exercises. She attends to day reporting stiffness and pain at the L knee and feeling like she is not progressing as well as she had hoped, but that she is able to walk and has her daughter around her home to help her. Prior Treatments and Tests Cortisone injection in L knee Dec 2021. PT at [facility] from to 05/21/22. Developmental History Developmental History After hike L knee hurt, a couple weeks later was dancing and next day could hardly walk. Went to a walk-in clinic in [facility] and was told arthritis and was given meds. Pain didn't go away so went to Dr. Acuña and was told arthritis and knee wasn't going to get better. Had a cortisone injection in Dec 2021, that didn't help. Was told she was a candidate for a partial knee replacement or more injections. Treatment Goals Patient/Caregiver Goals Pt goals are to improve L knee mobility, strength, walk without an assistive device, to decrease her knee pain and improve her overall function. Prior Functional Status Baseline Function- ADL's Independent Baseline Function- Mobility Independent Baseline Function- Other LEFS score 25 (60-79% impaired , score 17-31) Current Functional Impairments (Reported) Functional Limitations- ADL's Pain with transfers. Pain with activity Limited with L knee mobility. Functional Limitations- Mobility/Gait Avoiding use of stairs. Walks with FWW. Functional Limitations- Other LEFS score 13/80 (80-99% impaired, score 1-16). Personal Factors Other Personal Factors That May Effect Lives alone with dog and 2 Therapy/Recovery cats, but daughter will stay with her for 1 week. PT-OP-C Subjective Start: 02/25/22 19:43 Freq: Status: Active Protocol: Document 06/03/22 08:19 SP (Rec: 06/03/22 09:06 SP [id number]) OP-PT Subjective Patient Comments Patient Comments Pt reports has been getting sharp pains doing seated assisted L knee flexion scoot forward so stopped, is compliant with heel slides use strap support. Pt has ortho F /U this Wed. PT-OP-G Mobility & Gait Start: 02/25/22 19:43 Freq: Status: Active Protocol: Document 05/27/22 14:43 LRN (Rec: 05/27/22 15:26 LRN [id number]) OP Mobility Evaluation Bed Mobility Supine to and from Sit Independent Transfers Sit to Stand Independent with use of FWW Bed to Chair Transfers Independent with use of FWW. OP Gait Assessment Gait Gait Assistance Required: Independent Assistive Devices Assistive Device Front Wheeled Walker Gait Deviations General Gait Pattern Antalgic,Decreased Stride Length,Wide Based Gait Factors Limiting Gait Function Factors Limiting Gait Function Decreased Activity Tolerance, Decreased Strength,Limited Range of Motion,Pain,Poor Balance PT-OP-H Neuro Start: 02/25/22 19:43 Freq: Status: Active Protocol: Document 05/27/22 14:43 LRN (Rec: 05/27/22 15:26 LRN [id number]) Sensation Evaluation Comments Summary Comments Pt reports normal sensation, but not able to assess underneath the JACKSON bandage covering the LLE. PT-OP-J Posture/Palpation/Skin Start: 02/25/22 19:43 Freq: Status: Active Protocol: Document 05/27/22 14:43 LRN (Rec: 05/27/22 17:23 LRN [id number]) Posture Evaluation Position Standing Weight Distribution Weight Shifted Right Hip Posture (L) Flexed,(R) Flexed Comments Posture Comments Pt using FWW for standing. Palpation Assessment Location L knee Palpation Details Not able to palpate due to JACKSON wrap around L knee, proximal lower leg and distal thigh. PT-OP-K Range of Motion Start: 02/25/22 19:43 Freq: Status: Active Protocol: Document 06/03/22 08:19 SP (Rec: 06/03/22 09:06 SP [id number]) Knee Goniometric Range of Motion Knee Left Knee ROM WFL No Patient Position Supine Flexion Active (degrees) 110 Extension Active (degrees) 3 Comments Supine AROM L knee: Flexion agained 40 deg, 110 deg Extension gained 7 deg, 3 deg lacking. PT-OP-M Strength Start: 02/25/22 19:43 Freq: Status: Active Protocol: Document 05/27/22 14:43 LRN (Rec: 05/27/22 15:26 LRN [id number]) Knee Strength Knee Manual Muscle Testing Right Flexion (S2) 5 Normal Extension (L3) 5 Normal Left Flexion (S2) 2 Poor Extension (L3) 2 Poor Ankle/Foot Strength Ankle and Foot Manual Muscle Testing Right Comments All 5/5 Left Comments All 5/5 PT-OP-Q Treatments Start: 02/25/22 19:43 Freq: Status: Active Protocol: Document 06/03/22 08:19 SP (Rec: 06/03/22 09:06 SP [id number]) Cardio Equipment Recumbent Bicycle Duration (Minutes) 8 Resistance 0 Seat Position 5>4 Other rocking initially then progressed fwd revolutions Gym Equipment Shuttle Recovery Unilateral squat Details cued x1 L knee with mid toes Resistance L 25# (old band), R 37# (1 old band) Shuttle Recovery Platform Stable Reps/Time 2x15 alternate sets bilateral squat Details cued x1 for knee alignment apart- good carryover Resistance 50# (2 old bands) Shuttle Recovery Platform Stable Reps/Time 15 Therapeutic Exercises Supine Exercises post op HEP Supine Exercise Name QS, HS w/ strap, SAQ, discussed cont knee hang supine, knee flexion seated Side left Resistance AROM Reps/Minutes 10 reps each Comments good understanding review: provided folder to follow SLR Supine Exercise Name cues for quad set first Side left Reps/Minutes 10x Comments demonstrates lag so discussed hold until next tx. L knee AROM Supine Exercise Name L knee AROM then extra pull w/ gait belt Side left Equipment Used 110 deg AROM>115 deg AAROM w/ strap Reps/Minutes 5 sec x8 Comments ROM reassessment Sitting Exercises self STMs Sitting Exercise Name HEP: quad, HS, calf, tib ant Side bilateral Equipment Used rolling pin Reps/Minutes 2 min total Comments good feedback self massage lessened knee discomfort Knee flex ROM Sitting Exercise Name w/scoot fwd Side left Reps/Minutes 10 secx3 Comments cued heel down, Standing Exercises TKE Standing Exercise Name HEP- verbal review Side left Resistance Tb #1 post thigh Reps/Minutes x15 Comments cued slow con/eccentric bend, no trunk movement Gait Training Gait Activity stairs Description ascend/descend stairs w/ L HR and SPC in RUE Device Used L HR, SPC in RUE (ascending) Level of Assistance S Distance/Duration 4 stairs x4 laps, 6 stairs Treatment Focus receiprocal stepping, eccentric L knee alignment& flexion control Comments step to advancing SPC each step then receiprocating. Cued slow eccentric support with BUEs to allow eccentric L knee flexion improved quality form /control. gait Description fwd, bwd Distance/Duration 20 ft x3 laps Treatment Focus quality gait phases in mirror Comments cane and without amb with cues for Lknee flex and sequencing x4 min PT-OP-R Modalities Start: 02/25/22 19:43 Freq: Status: Active Protocol: Document 05/29/22 16:55 [facility] (Rec: 05/29/22 17:49 [facility] [id number]) Hot Pack/Cold Pack Treatment Cold Pack Location L knee Treatment Duration (minutes) 10 Patient Tolerance Good Comments Pt in supine with LLE elevated PT-OP-T Assessment and Plan Start: 02/25/22 19:43 Freq: Status: Active Protocol: Document 06/03/22 08:19 SP (Rec: 06/03/22 09:06 SP [id number]) Physical Therapy Assessment Goals Four Impairment Decreased L knee mobility Impairment L Knee AROM: Supine: 10-70 left , 0-140 deg's right; Sittin-80 deg's left. Short Term Goal (STG) Improve L knee AROM with pt able to walk with a cane with normal gait pattern. 06/03/22: 0-110 L knee AROM. STG Duration 07/12/22 progressing 06/03/22 Nursing Home Goal (LTG) Pt able to ambulate w/o an assistive device and normal gait on stairs and flat surface. LTG Duration 08/25/22 Three Impairment Decreased L knee strength Impairment L knee MMT: Flex/Ext is 2/5 ( R knee is 5/5). L knee pain rated 2-3/10 with Acetaminophen. Tight feeling. Short Term Goal (STG) Strengthen L knee with pt able to perform sit<>stand with out the walker. STG Duration 07/12/22 Nursing Home Goal (LTG) Strengthen L knee to 5/5. LTG Duration 08/25/22 Two Impairment Decreased function per LEFS score and pt using FWW for gait Impairment Pre surgery: LEFS score 25 (60 -79% impaired, score 17-31) Re-eval: LEFS score 13/80 (80 -99% impaired, score 1-16). Short Term Goal (STG) Pt will improve function per LEFS score of 25 or greater to be at pre-surgery function ( 60-79% impaired, score 17-31). STG Duration 07/12/22 Education Research Analyst Goal (LTG) Improve function per LEFS score 48 or greater (20-39% impaired). LTG Duration 08/25/22 One Impairment Lacks appropriate self care HEP Short Term Goal (STG) Pt will be re-educated in edema and pain management for self mcc. 04/12/22: Reviewed/discussed precautions of movement (rot, review flex/ext) to decrease pain due to meniscal tear and arthritis. Reviewed RICE protocol. STG Duration 05/31/22 Education Research Analyst Goal (LTG) Pt will be able to resume HEP for L knee, hip ankle strengthening ex's and ROM ex' s pre surgery. 03/07/22: HEP: L knee supine flex/ext stretch and QS; L hip ext, AB (clamshell and straight leg), AD strengthening in sup/sidelie. : resisted HS curl & LAQ. 04/12/22: ankle DF, IV, EV strengthening and gastroc/ soleus stretch. 04/27/22: added resisted band walk LTG Duration 08/25/22 Progress Towards Goals Progress Comments Supine AROM L knee making gains since last tx: Flexion agained 40 deg to 110 deg Extension gained 7 deg to 3 deg lag. Assessment Summary Assessment Pt able to perform full revolutions on recumbent bike this tx. L knee: 3- 115 deg AAROM w/ strap by end tx, good alignment corrections during gait in mirror without AD and asc/descend stairs with BUE support at this time recommended for best quality mobility. GOod understanding HEP. Physical Therapy Plan Frequency and Duration Frequency of Treatment 2x/Week Plan of Care Start Date 05/27/22 Plan of Care End Date 08/25/22 Therapeutic Interventions Therapeutic Interventions Balance Training,Gait Training ,Home Exercise Program,Joint Mobilizations,Manual Therapy, Neuromuscular Re-education, Patient/Caregiver Education, Self-Care/Home Management,Soft Tissue Mobilization,Taping, Therapeutic Activities, Therapeutic Exercises Modalities Cold Pack/Ice Massage,Hot Packs,Ultrasound Next Visit Focus/Plan Next Note Type Treatment Note Next Visit Plan Recheck ROM, Try starting with , pt education in edema/pain management with ex bike/ recumbent or stair stepper, f/ b ROM, strengthening, STM ( including lympedema if appropiate), K-taping for edema when appropriate, gait/ balance training.
--- NOTE | 2022-06-05 09:49 | PT.OTN ---
Current Diagnoses Other abnormalities of gait and mobility (06/05/22) Unspecified injury of left lower leg, initial encounter (06/05/22) Physical Therapy Treatment Note PT-OP-A Visit Information Start: 02/25/22 19:43 Freq: Status: Active Protocol: Document 06/05/22 09:05 SP (Rec: 06/05/22 09:49 SP [id number]) Out-Patient Physical Therapy Visit Information Visit Information Visit Type Treatment Note Visit Start Time 09:05 Visit Stop Time 09:49 Total Visit Minutes 44 Visit Number Number of CENTER DIRECTOR Visits 2 Evaluation Information Evaluation Date 05/27/22 Precautions Precautions ADHESIVE ALLERGIES, Arthritis, decreased hearing but doesn't wear her hearing aids, 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 *S/P L medial knee arthoplasty rehabilitation. PT-OP-B Current Condition Start: 02/25/22 19:43 Freq: Status: Active Protocol: Document 05/27/22 14:43 LRN (Rec: 05/27/22 17:20 LRN [id number]) Current Condition History of Current Condition Onset Date 05/23/22 Current Complaints s/p L TKA History of Current Condition Pt has had L medial knee pain since ~11/29/21 and had L knee rehab her at [facility] prior to surgery from 02/28/22 to 05/21/22. The pt underwent L partial knee replacement surgery 05/23/22 and was released home the same day. She states she had a difficult time the first couple days at home, but on the third day was able to do some of her L knee exercises. She attends to day reporting stiffness and pain at the L knee and feeling like she is not progressing as well as she had hoped, but that she is able to walk and has her daughter around her home to help her. Prior Treatments and Tests Cortisone injection in L knee Dec 2021. PT at [facility] from to 05/21/22. Developmental History Developmental History After hike L knee hurt, a couple weeks later was dancing and next day could hardly walk. Went to a walk-in clinic in [place] and was told arthritis and was given meds. Pain didn't go away so went to Dr. Acuña and was told arthritis and knee wasn't going to get better. Had a cortisone injection in Dec 2021, that didn't help. Was told she was a candidate for a partial knee replacement or more injections. Treatment Goals Patient/Caregiver Goals Pt goals are to improve L knee mobility, strength, walk without an assistive device, to decrease her knee pain and improve her overall function. Prior Functional Status Baseline Function- ADL's Independent Baseline Function- Mobility Independent Baseline Function- Other LEFS score 25 (60-79% impaired , score 17-31) Current Functional Impairments (Reported) Functional Limitations- ADL's Pain with transfers. Pain with activity Limited with L knee mobility. Functional Limitations- Mobility/Gait Avoiding use of stairs. Walks with FWW. Functional Limitations- Other LEFS score 13/80 (80-99% impaired, score 1-16). Personal Factors Other Personal Factors That May Effect Lives alone with dog and 2 Therapy/Recovery cats, but daughter will stay with her for 1 week. PT-OP-C Subjective Start: 02/25/22 19:43 Freq: Status: Active Protocol: Document 06/05/22 09:05 SP (Rec: 06/05/22 09:49 SP [id number]) OP-PT Subjective Patient Comments Patient Comments Pt arrived still use FWW, no real UE WB needed. She reports always stiff in the am and compliant with HEP. Pt reports has ortho follow up later today and hoping to waterproof badging removed ( still from post surgery). Doing well wants to DC FWW, at home using SPC or nothing. Patient Reported Progress Improving PT-OP-G Mobility & Gait Start: 02/25/22 19:43 Freq: Status: Active Protocol: Document 05/27/22 14:43 LRN (Rec: 05/27/22 15:26 LRN [id number]) OP Mobility Evaluation Bed Mobility Supine to and from Sit Independent Transfers Sit to Stand Independent with use of FWW Bed to Chair Transfers Independent with use of FWW. OP Gait Assessment Gait Gait Assistance Required: Independent Assistive Devices Assistive Device Front Wheeled Walker Gait Deviations General Gait Pattern Antalgic,Decreased Stride Length,Wide Based Gait Factors Limiting Gait Function Factors Limiting Gait Function Decreased Activity Tolerance, Decreased Strength,Limited Range of Motion,Pain,Poor Balance PT-OP-H Neuro Start: 02/25/22 19:43 Freq: Status: Active Protocol: Document 05/27/22 14:43 LRN (Rec: 05/27/22 15:26 LRN [id number]) Sensation Evaluation Comments Summary Comments Pt reports normal sensation, but not able to assess underneath the JACKSON bandage covering the LLE. PT-OP-J Posture/Palpation/Skin Start: 02/25/22 19:43 Freq: Status: Active Protocol: Document 05/27/22 14:43 LRN (Rec: 05/27/22 17:23 LRN [id number]) Posture Evaluation Position Standing Weight Distribution Weight Shifted Right Hip Posture (L) Flexed,(R) Flexed Comments Posture Comments Pt using FWW for standing. Palpation Assessment Location L knee Palpation Details Not able to palpate due to JACKSON wrap around L knee, proximal lower leg and distal thigh. PT-OP-K Range of Motion Start: 02/25/22 19:43 Freq: Status: Active Protocol: Document 06/05/22 09:05 SP (Rec: 06/05/22 09:49 SP [id number]) Knee Goniometric Range of Motion Knee Left Knee ROM WFL No Patient Position Supine Flexion Active (degrees) 118 Extension Active (degrees) 2 Comments 06/05/22 Supine AROM L knee: Flexion agained 8 deg, 118 deg Extension gained 1 deg, 2 deg lacking. PT-OP-M Strength Start: 02/25/22 19:43 Freq: Status: Active Protocol: Document 05/27/22 14:43 LRN (Rec: 05/27/22 15:26 LRN [id number]) Knee Strength Knee Manual Muscle Testing Right Flexion (S2) 5 Normal Extension (L3) 5 Normal Left Flexion (S2) 2 Poor Extension (L3) 2 Poor Ankle/Foot Strength Ankle and Foot Manual Muscle Testing Right Comments All 5/5 Left Comments All 5/5 PT-OP-Q Treatments Start: 02/25/22 19:43 Freq: Status: Active Protocol: Document 06/05/22 09:05 SP (Rec: 06/05/22 09:49 SP [id number]) Cardio Equipment Recumbent Bicycle Duration (Minutes) 8 Resistance 0>4 Seat Position 4>3 Other rocking 1 min then progressed fwd revolutions Gym Equipment Shuttle Recovery Unilateral squat Details cued x1 L knee with mid toes Resistance R 37#, L 25# (1 new band each) Shuttle Recovery Platform Stable Reps/Time 2x15 alternate sets bilateral squat Details good knee alignment Resistance 50# (1 new band) Shuttle Recovery Platform Stable Reps/Time x20 Therapeutic Exercises Supine Exercises SLR Supine Exercise Name cues for quad set first Side left Reps/Minutes x5 Comments almost no lag- good continue at home QS first Sitting Exercises LAQ Sitting Exercise Name added Side left Resistance AROM Reps/Minutes 5 reps 2 SH Comments good form, quad little quiver, painfree HS curl Sitting Exercise Name added to HEP Side left Resistance TB #2 Equipment Used seated in mesh chair Reps/Minutes x10 Comments good feedback painfree STS Sitting Exercise Name added to HEP Reps/Minutes x5 Comments good hip hinge eccentric control w/out UE support Standing Exercises TKE Standing Exercise Name HEP- verbal review Side left Resistance Tb #1 post thigh Reps/Minutes x15 Comments cued slow con/eccentric bend, no trunk movement resisted side stepping Standing Exercise Name reviewed HEP- lateral Resistance TB #2 loop mid salguero (soft knee ) Reps/Minutes 10 ft x2 laps Comments good knee alignment Gait Training Gait Activity gait Description fwd, bwd Distance/Duration 20 ft x3 laps Treatment Focus quality gait phases in mirror Comments cane very light contact longer distances and without amb with cues for L knee flex marching pivot steps. PT-OP-R Modalities Start: 02/25/22 19:43 Freq: Status: Active Protocol: Document 05/29/22 16:55 [facility] (Rec: 05/29/22 17:49 [facility] [id number]) Hot Pack/Cold Pack Treatment Cold Pack Location L knee Treatment Duration (minutes) 10 Patient Tolerance Good Comments Pt in supine with LLE elevated PT-OP-T Assessment and Plan Start: 02/25/22 19:43 Freq: Status: Active Protocol: Document 06/05/22 09:05 SP (Rec: 06/05/22 09:49 SP [id number]) Physical Therapy Assessment Goals Four Impairment Decreased L knee mobility Impairment L Knee AROM: Supine: 10-70 left , 0-140 deg's right; Sittin-80 deg's left. Short Term Goal (STG) Improve L knee AROM with pt able to walk with a cane with normal gait pattern. 06/03/22: 0-110 L knee AROM. 06/05/22: 2-118 L knee AROM STG Duration 07/12/22 progressing 3/8/23 Printed Circuit Designer Goal (LTG) Pt able to ambulate w/o an assistive device and normal gait on stairs and flat surface. 06/05/22: arrived using FWW, states walking short distances at home no AD and SPC when needed. Daughter encourages her to use AD due to not walking normal. CENTER DIRECTOR discussed DC FWW, use SPC longer distances due to little unsteady L knee during midstance phase better when thinks about knee extension. Stairs step over step L HR SPC in RUE, cues slow descend for support/control. LTG Duration 08/25/22 progressing 06/05/22 Three Impairment Decreased L knee strength Impairment L knee MMT: Flex/Ext is 2/5 ( R knee is 5/5). L knee pain rated 2-3/10 with Acetaminophen. Tight feeling. Short Term Goal (STG) Strengthen L knee with pt able to perform sit<>stand with out the walker. 06/05/22: MET GOAL: able STS without UE support BLE side by side x5 reps. STG Duration 07/12/22 GOAL MET 06/05/22 Printed Circuit Designer Goal (LTG) Strengthen L knee to 5/5. LTG Duration 08/25/22 Two Impairment Decreased function per LEFS score and pt using FWW for gait Impairment Pre surgery: LEFS score 25 (60 -79% impaired, score 17-31) Re-eval: LEFS score 13/80 (80 -99% impaired, score 1-16). Short Term Goal (STG) Pt will improve function per LEFS score of 25 or greater to be at pre-surgery function ( 60-79% impaired, score 17-31). STG Duration 07/12/22 Halfway Goal (LTG) Improve function per LEFS score 48 or greater (20-39% impaired). LTG Duration 08/25/22 One Impairment Lacks appropriate self care HEP Short Term Goal (STG) Pt will be re-educated in edema and pain management for self retirement. 04/12/22: Reviewed/discussed precautions of movement (rot, review flex/ext) to decrease pain due to meniscal tear and arthritis. Reviewed RICE protocol. STG Duration 05/31/22 Printed Circuit Designer Goal (LTG) Pt will be able to resume HEP for L knee, hip ankle strengthening ex's and ROM ex' s pre surgery. 03/07/22: HEP: L knee supine flex/ext stretch and QS; L hip ext, AB (clamshell and straight leg), AD strengthening in sup/sidelie. : resisted HS curl & LAQ. 04/12/22: ankle DF, IV, EV strengthening and gastroc/ soleus stretch. 04/27/22: added resisted band walk LTG Duration 08/25/22 Progress Towards Goals Progress Comments 06/05/22 Supine AROM L knee: Flexion agained 8 deg, 118 deg Extension gained 1 deg, 2 deg lacking. Assessment Summary Assessment Pt continues to make gains in L knee ROM. She had good response to ther ex, added STS (no UE support required), resisted HS curl, LAQ AROM to HEP no adverse affects, disussed continue quad sets and knee hang to gain last 2 deg L knee extension. Cued quad facilitation during stance phase for improved stability during gait and for safety and good quality performance, use SPC during longer distances. Physical Therapy Plan Frequency and Duration Frequency of Treatment 2x/Week Plan of Care Start Date 05/27/22 Plan of Care End Date 08/25/22 Therapeutic Interventions Therapeutic Interventions Balance Training,Gait Training ,Home Exercise Program,Joint Mobilizations,Manual Therapy, Neuromuscular Re-education, Patient/Caregiver Education, Self-Care/Home Management,Soft Tissue Mobilization,Taping, Therapeutic Activities, Therapeutic Exercises Modalities Cold Pack/Ice Massage,Hot Packs,Ultrasound Next Visit Focus/Plan Next Note Type Treatment Note Next Visit Plan Recheck ROM, start warm up bike/recumbent or stair stepper, strengthening tolerance, STM (including lympedema if appropiate), K- taping for edema when appropriated, gait/balance training. Trial if ready for step ups/step downs.
--- NOTE | 2022-06-12 13:00 | PT.OTN ---
Current Diagnoses Other abnormalities of gait and mobility (06/12/22) Unspecified injury of left lower leg, initial encounter (06/12/22) Physical Therapy Treatment Note PT-OP-A Visit Information Start: 02/25/22 19:43 Freq: Status: Active Protocol: Document 06/12/22 12:15 SP (Rec: 06/12/22 13:06 SP [id number]) Out-Patient Physical Therapy Visit Information Visit Information Visit Type Treatment Note Visit Start Time 12:15 Visit Stop Time 13:00 Total Visit Minutes 45 Visit Number Number of PERFUMER Visits 3 Evaluation Information Evaluation Date 05/27/22 Precautions Precautions ADHESIVE ALLERGIES, Arthritis, decreased hearing but doesn't wear her hearing aids, 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 *S/P L medial knee arthoplasty rehabilitation. PT-OP-B Current Condition Start: 02/25/22 19:43 Freq: Status: Active Protocol: Document 05/27/22 14:43 LRN (Rec: 05/27/22 17:20 LRN [id number]) Current Condition History of Current Condition Onset Date 05/23/22 Current Complaints s/p L TKA History of Current Condition Pt has had L medial knee pain since ~11/29/21 and had L knee rehab her at [facility] prior to surgery from 02/28/22 to 05/21/22. The pt underwent L partial knee replacement surgery 05/23/22 and was released home the same day. She states she had a difficult time the first couple days at home, but on the third day was able to do some of her L knee exercises. She attends to day reporting stiffness and pain at the L knee and feeling like she is not progressing as well as she had hoped, but that she is able to walk and has her daughter around her home to help her. Prior Treatments and Tests Cortisone injection in L knee Dec 2021. PT at [facility] from to 05/21/22. Developmental History Developmental History After hike L knee hurt, a couple weeks later was dancing and next day could hardly walk. Went to a walk-in clinic in [facility] and was told arthritis and was given meds. Pain didn't go away so went to Dr. Acuña and was told arthritis and knee wasn't going to get better. Had a cortisone injection in Dec 2021, that didn't help. Was told she was a candidate for a partial knee replacement or more injections. Treatment Goals Patient/Caregiver Goals Pt goals are to improve L knee mobility, strength, walk without an assistive device, to decrease her knee pain and improve her overall function. Prior Functional Status Baseline Function- ADL's Independent Baseline Function- Mobility Independent Baseline Function- Other LEFS score 25 (60-79% impaired , score 17-31) Current Functional Impairments (Reported) Functional Limitations- ADL's Pain with transfers. Pain with activity Limited with L knee mobility. Functional Limitations- Mobility/Gait Avoiding use of stairs. Walks with FWW. Functional Limitations- Other LEFS score 13/80 (80-99% impaired, score 1-16). Personal Factors Other Personal Factors That May Effect Lives alone with dog and 2 Therapy/Recovery cats, but daughter will stay with her for 1 week. PT-OP-C Subjective Start: 02/25/22 19:43 Freq: Status: Active Protocol: Document 06/12/22 12:15 SP (Rec: 06/12/22 13:06 SP [id number]) OP-PT Subjective Patient Comments Patient Comments Pt stated still getting swelling superior knee. She saw orthopedic and pleased with progress and told the swelling will improve with mobility. Pt stated is it ok to drive longer distances approx 2-3 hrs, get on floor with grandchildren? She stated the STS and going down stairs has been giving more stress on medial L knee and thinks feel the hardware. PT-OP-G Mobility & Gait Start: 02/25/22 19:43 Freq: Status: Active Protocol: Document 05/27/22 14:43 LRN (Rec: 05/27/22 15:26 LRN [id number]) OP Mobility Evaluation Bed Mobility Supine to and from Sit Independent Transfers Sit to Stand Independent with use of FWW Bed to Chair Transfers Independent with use of FWW. OP Gait Assessment Gait Gait Assistance Required: Independent Assistive Devices Assistive Device Front Wheeled Walker Gait Deviations General Gait Pattern Antalgic,Decreased Stride Length,Wide Based Gait Factors Limiting Gait Function Factors Limiting Gait Function Decreased Activity Tolerance, Decreased Strength,Limited Range of Motion,Pain,Poor Balance PT-OP-H Neuro Start: 02/25/22 19:43 Freq: Status: Active Protocol: Document 05/27/22 14:43 LRN (Rec: 05/27/22 15:26 LRN [id number]) Sensation Evaluation Comments Summary Comments Pt reports normal sensation, but not able to assess underneath the JACKSON bandage covering the LLE. PT-OP-J Posture/Palpation/Skin Start: 02/25/22 19:43 Freq: Status: Active Protocol: Document 05/27/22 14:43 LRN (Rec: 05/27/22 17:23 LRN [id number]) Posture Evaluation Position Standing Weight Distribution Weight Shifted Right Hip Posture (L) Flexed,(R) Flexed Comments Posture Comments Pt using FWW for standing. Palpation Assessment Location L knee Palpation Details Not able to palpate due to JACKSON wrap around L knee, proximal lower leg and distal thigh. PT-OP-K Range of Motion Start: 02/25/22 19:43 Freq: Status: Active Protocol: Document 06/12/22 12:15 SP (Rec: 06/12/22 13:06 SP [id number]) Knee Goniometric Range of Motion Knee Left Knee ROM WFL No Patient Position Supine Flexion Active (degrees) 130 Extension Active (degrees) 1 Comments 06/12/22: Supine AROM L knee: flexion gained 12 deg (130deg) extension gained 1 deg (1deg) post ed patellar superior glide, less glut recruitment and inhibited HS/calf recruitment PT-OP-M Strength Start: 02/25/22 19:43 Freq: Status: Active Protocol: Document 05/27/22 14:43 LRN (Rec: 05/27/22 15:26 LRN [id number]) Knee Strength Knee Manual Muscle Testing Right Flexion (S2) 5 Normal Extension (L3) 5 Normal Left Flexion (S2) 2 Poor Extension (L3) 2 Poor Ankle/Foot Strength Ankle and Foot Manual Muscle Testing Right Comments All 5/5 Left Comments All 5/5 PT-OP-Q Treatments Start: 02/25/22 19:43 Freq: Status: Active Protocol: Document 06/12/22 12:15 SP (Rec: 06/12/22 13:06 SP [id number]) Cardio Equipment Recumbent Bicycle Duration (Minutes) 8 Resistance 0>4 Seat Position 4>3 Other rocking 1 min then progressed fwd revolutions Therapeutic Exercises Supine Exercises post op HEP Supine Exercise Name QS: quick then slow posterior press Side left Reps/Minutes 3 min total (ed/proper facilitation, weak quad superior patellar glide) Comments improved post quick quad engagement, cued no glut/calf/ HS recruitment Sitting Exercises HS curl Sitting Exercise Name reviewed HEP Side left Resistance TB #2>#3 Equipment Used seated in mesh chair Reps/Minutes x10 Comments good feedback painfree Standing Exercises step down Standing Exercise Name forward, lateral Side left Resistance RLE descend, L knee flexion AROM Equipment Used rail support Reps/Minutes x5 reps each Comments report couple reps ok but then feel medial Jt irritation- stopped TKE Standing Exercise Name HEP- verbal review Side left Resistance Tb #1>#3 post thigh (anchored in door above knee height) Reps/Minutes x20 reps Comments cued slow con/eccentric bend, no trunk movement resisted side stepping Standing Exercise Name reviewed HEP- lateral Resistance TB #2 loop mid salguero (soft knee ) Reps/Minutes 10 ft x2 laps Comments good knee alignment Therapeutic Activity Therapeutic Activity on/off floor Comments SBA use rail/chair LLE forward position Gait Training Gait Activity gait Description fwd gait quality phases Device Used 0 Level of Assistance S Distance/Duration 20 ft x3 laps in mirror Treatment Focus L knee stability stance time, no SB wt shift Comments Cued quad fac during stance phase mindfulness, noted improve less little medial/ lateral shifts. Pt able to walk with improve stability and no use of SPC- discussed SPC if needed for support longer distance otherwise ok to DC. Manual Therapy Treatment Soft Tissue Mobilization retrograde massage Body Location L knee superior patella and jt : quad, ITB Mobilization Type Myofascial Release Intensity/Depth Moderate Body Position Sitting Comments Long sitting on floor manual and instruction self application with good feedback understanding/ performance. DIscussed can use rolling pin as well if needed. PT-OP-R Modalities Start: 02/25/22 19:43 Freq: Status: Active Protocol: Document 05/29/22 16:55 LR (Rec: 05/29/22 17:49 [email or web address] [id number]) Hot Pack/Cold Pack Treatment Cold Pack Location L knee Treatment Duration (minutes) 10 Patient Tolerance Good Comments Pt in supine with LLE elevated PT-OP-T Assessment and Plan Start: 02/25/22 19:43 Freq: Status: Active Protocol: Document 06/12/22 12:15 SP (Rec: 06/12/22 13:06 SP [id number]) Physical Therapy Assessment Goals Four Impairment Decreased L knee mobility Impairment L Knee AROM: Supine: 10-70 left , 0-140 deg's right; Sittin-80 deg's left. Short Term Goal (STG) Improve L knee AROM with pt able to walk with a cane with normal gait pattern. 06/03/22: 0-110 L knee AROM. 06/05/22: 2-118 L knee AROM 06/12/22: 1-130 L knee AROM STG Duration 07/12/22 progressing 06/12/22 Comic Artist Goal (LTG) Pt able to ambulate w/o an assistive device and normal gait on stairs and flat surface. 06/05/22: arrived using FWW, states walking short distances at home no AD and SPC when needed. Daughter encourages her to use AD due to not walking normal. PERFUMER discussed DC FWW, use SPC longer distances due to little unsteady L knee during midstance phase better when thinks about knee extension. Stairs step over step L HR SPC in RUE, cues slow descend for support/control. 06/12/22: improved gait w/ SPC in mirror, cued less UE support needed. Pt ableto walk short distances with no AD and improved L knee stability with cues for quad fac support . LTG Duration 08/25/22 progressing 06/12/22 Three Impairment Decreased L knee strength Impairment L knee MMT: Flex/Ext is 2/5 ( R knee is 5/5). L knee pain rated 2-3/10 with Acetaminophen. Tight feeling. Short Term Goal (STG) Strengthen L knee with pt able to perform sit<>stand with out the walker. 06/05/22: MET GOAL: able STS without UE support BLE side by side x5 reps. STG Duration 07/12/22 GOAL MET 06/05/22 Comic Artist Goal (LTG) Strengthen L knee to 5/5. LTG Duration 08/25/22 Two Impairment Decreased function per LEFS score and pt using FWW for gait Impairment Pre surgery: LEFS score 25 (60 -79% impaired, score 17-31) Re-eval: LEFS score 13/80 (80 -99% impaired, score 1-16). Short Term Goal (STG) Pt will improve function per LEFS score of 25 or greater to be at pre-surgery function ( 60-79% impaired, score 17-31). STG Duration 07/12/22 Usp Goal (LTG) Improve function per LEFS score 48 or greater (20-39% impaired). LTG Duration 08/25/22 One Impairment Lacks appropriate self care HEP Short Term Goal (STG) Pt will be re-educated in edema and pain management for self shelter. 04/12/22: Reviewed/discussed precautions of movement (rot, review flex/ext) to decrease pain due to meniscal tear and arthritis. Reviewed RICE protocol. 06/12/22: discussed self retro grade STMs and elevate/ice STG Duration 05/31/22 progressing 06/12/22 Comic Artist Goal (LTG) Pt will be able to resume HEP for L knee, hip ankle strengthening ex's and ROM ex' s pre surgery. 03/07/22: HEP: L knee supine flex/ext stretch and QS; L hip ext, AB (clamshell and straight leg), AD strengthening in sup/sidelie. : resisted HS curl & LAQ. 04/12/22: ankle DF, IV, EV strengthening and gastroc/ soleus stretch. 04/27/22: added resisted band walk LTG Duration 08/25/22 Progress Towards Goals Progress Comments 06/12/22: Supine AROM L knee: flexion gained 12 deg (130deg) extension gained 1 deg (1deg) post ed patellar superior glide, less glut recruitment and inhibited HS/calf recruitment Assessment Summary Assessment Pt responded well time with instruction proper quad sets carryover into gait in mirror. She was able to get on/off floor with UE support at this time for ability to play with her grandchildren when goes to visit. Instructed to hold off on repeated STS if L knee medical irritation, add CP if needed for pain/swelling and elevate. UE support on stairs needed at this time. Physical Therapy Plan Frequency and Duration Frequency of Treatment 2x/Week Plan of Care Start Date 05/27/22 Plan of Care End Date 08/25/22 Therapeutic Interventions Therapeutic Interventions Balance Training,Gait Training ,Home Exercise Program,Joint Mobilizations,Manual Therapy, Neuromuscular Re-education, Patient/Caregiver Education, Self-Care/Home Management,Soft Tissue Mobilization,Taping, Therapeutic Activities, Therapeutic Exercises Modalities Cold Pack/Ice Massage,Hot Packs,Ultrasound Next Visit Focus/Plan Next Note Type Treatment Note Next Visit Plan Recheck ROM, Continue standing HEP ROM/ strengthening, progress SLS time and uneven surface gait. start warm up bike/recumbent, stair stepper TM, continue shuttle recovery, strengthening tolerance, STM (including lympedema if appropiate), K-taping for edema when appropriated, gait/ balance training. Trial if ready for step ups/step downs.
--- NOTE | 2022-06-14 13:41 | PT.OTN ---
Current Diagnoses Other abnormalities of gait and mobility (06/14/22) Unspecified injury of left lower leg, initial encounter (06/14/22) Physical Therapy Treatment Note PT-OP-A Visit Information Start: 02/25/22 19:43 Freq: Status: Active Protocol: Document 06/14/22 10:34 LRN (Rec: 06/14/22 11:17 LRN [id number]) Out-Patient Physical Therapy Visit Information Visit Information Visit Type Treatment Note Visit Start Time 10:34 Visit Stop Time 11:24 Total Visit Minutes 50 Visit Number Number of MOLDING ENGINEER Visits 3 Evaluation Information Evaluation Date 05/27/22 Precautions Precautions ADHESIVE ALLERGIES, Arthritis, decreased hearing but doesn't wear her hearing aids, 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 *S/P L medial knee arthoplasty rehabilitation. PT-OP-B Current Condition Start: 02/25/22 19:43 Freq: Status: Active Protocol: Document 05/27/22 14:43 LRN (Rec: 05/27/22 17:20 LRN [id number]) Current Condition History of Current Condition Onset Date 05/23/22 Current Complaints s/p L TKA History of Current Condition Pt has had L medial knee pain since ~11/29/21 and had L knee rehab her at [facility] prior to surgery from 02/28/22 to 05/21/22. The pt underwent L partial knee replacement surgery 05/23/22 and was released home the same day. She states she had a difficult time the first couple days at home, but on the third day was able to do some of her L knee exercises. She attends to day reporting stiffness and pain at the L knee and feeling like she is not progressing as well as she had hoped, but that she is able to walk and has her daughter around her home to help her. Prior Treatments and Tests Cortisone injection in L knee Dec 2021. PT at [facility] from to 05/21/22. Developmental History Developmental History After hike L knee hurt, a couple weeks later was dancing and next day could hardly walk. Went to a walk-in clinic in [facility] and was told arthritis and was given meds. Pain didn't go away so went to Dr. Acuña and was told arthritis and knee wasn't going to get better. Had a cortisone injection in Dec 2021, that didn't help. Was told she was a candidate for a partial knee replacement or more injections. Treatment Goals Patient/Caregiver Goals Pt goals are to improve L knee mobility, strength, walk without an assistive device, to decrease her knee pain and improve her overall function. Prior Functional Status Baseline Function- ADL's Independent Baseline Function- Mobility Independent Baseline Function- Other LEFS score 25 (60-79% impaired , score 17-31) Current Functional Impairments (Reported) Functional Limitations- ADL's Pain with transfers. Pain with activity Limited with L knee mobility. Functional Limitations- Mobility/Gait Avoiding use of stairs. Walks with FWW. Functional Limitations- Other LEFS score 13/80 (80-99% impaired, score 1-16). Personal Factors Other Personal Factors That May Effect Lives alone with dog and 2 Therapy/Recovery cats, but daughter will stay with her for 1 week. PT-OP-C Subjective Start: 02/25/22 19:43 Freq: Status: Active Protocol: Document 06/14/22 10:34 LRN (Rec: 06/14/22 11:17 LRN [id number]) OP-PT Subjective Patient Comments Patient Comments States her knee is radha coming along. Wearing of compression socks helps. With heel slide gets pain under the knee. States she is exercising the knee 2-3x/day. Sees July 04. Requests assessment of stair ambulation . PT-OP-G Mobility & Gait Start: 02/25/22 19:43 Freq: Status: Active Protocol: Document 05/27/22 14:43 LRN (Rec: 05/27/22 15:26 LRN [id number]) OP Mobility Evaluation Bed Mobility Supine to and from Sit Independent Transfers Sit to Stand Independent with use of FWW Bed to Chair Transfers Independent with use of FWW. OP Gait Assessment Gait Gait Assistance Required: Independent Assistive Devices Assistive Device Front Wheeled Walker Gait Deviations General Gait Pattern Antalgic,Decreased Stride Length,Wide Based Gait Factors Limiting Gait Function Factors Limiting Gait Function Decreased Activity Tolerance, Decreased Strength,Limited Range of Motion,Pain,Poor Balance PT-OP-H Neuro Start: 02/25/22 19:43 Freq: Status: Active Protocol: Document 05/27/22 14:43 LRN (Rec: 05/27/22 15:26 LRN [id number]) Sensation Evaluation Comments Summary Comments Pt reports normal sensation, but not able to assess underneath the JACKSON bandage covering the LLE. PT-OP-J Posture/Palpation/Skin Start: 02/25/22 19:43 Freq: Status: Active Protocol: Document 05/27/22 14:43 LRN (Rec: 05/27/22 17:23 LRN [id number]) Posture Evaluation Position Standing Weight Distribution Weight Shifted Right Hip Posture (L) Flexed,(R) Flexed Comments Posture Comments Pt using FWW for standing. Palpation Assessment Location L knee Palpation Details Not able to palpate due to JACKSON wrap around L knee, proximal lower leg and distal thigh. PT-OP-K Range of Motion Start: 02/25/22 19:43 Freq: Status: Active Protocol: Document 06/14/22 10:34 LRN (Rec: 06/14/22 11:17 LRN [id number]) Knee Goniometric Range of Motion Knee Left Knee ROM WFL No Patient Position Supine Flexion Active (degrees) 115 Extension Active (degrees) 3 PT-OP-M Strength Start: 02/25/22 19:43 Freq: Status: Active Protocol: Document 05/27/22 14:43 LRN (Rec: 05/27/22 15:26 LRN [id number]) Knee Strength Knee Manual Muscle Testing Right Flexion (S2) 5 Normal Extension (L3) 5 Normal Left Flexion (S2) 2 Poor Extension (L3) 2 Poor Ankle/Foot Strength Ankle and Foot Manual Muscle Testing Right Comments All 5/5 Left Comments All 5/5 PT-OP-Q Treatments Start: 02/25/22 19:43 Freq: Status: Active Protocol: Document 06/14/22 10:34 LRN (Rec: 06/14/22 11:17 LRN [id number]) Cardio Equipment Recumbent Bicycle Duration (Minutes) 8 Resistance 0>4 Seat Position 4 Other No rocking needed. Therapeutic Exercises Supine Exercises SLR Supine Exercise Name cues for quad set first Side left Reps/Minutes 15x Comments almost no lag, cuing to keep anter tib at rest with lifts L knee AROM Supine Exercise Name L knee flex AROM - roll behind knee Side left Reps/Minutes 5' Comments AROM: 3-115 deg's Standing Exercises step down Standing Exercise Name Descent Side left Resistance RLE descend, L knee flexion AROM Equipment Used rail support, 4 and 6 steps Reps/Minutes 3' Comments report couple reps ok but then feel medial Jt irritation- stopped TKE Standing Exercise Name HEP- verbal review Side left Resistance 2# Reps/Minutes 10x 3 reps Comments cued slow con/eccentric bend, no trunk movement Stair stepping Standing Exercise Name Step ups/down Equipment Used 6 step/az hand railing and with 1 rail/cane Reps/Minutes 15x each Comments 15x Therapeutic Activity Therapeutic Activity Stair ambulation Name Stair ambulation training Reps/Minutes 10' Comments Use of railing, use of rail/1 cane. PT-OP-R Modalities Start: 02/25/22 19:43 Freq: Status: Active Protocol: Document 06/14/22 10:34 LRN (Rec: 06/14/22 11:18 LRN [id number]) Hot Pack/Cold Pack Treatment Cold Pack Location L knee Treatment Duration (minutes) 10 Patient Tolerance Good Comments Pt in supine with LLE elevated PT-OP-T Assessment and Plan Start: 02/25/22 19:43 Freq: Status: Active Protocol: Document 06/14/22 10:34 LRN (Rec: 06/14/22 11:17 LRN [id number]) Physical Therapy Assessment Goals Four Impairment Decreased L knee mobility Impairment L Knee AROM: Supine: 10-70 left , 0-140 deg's right; Sittin-80 deg's left. Short Term Goal (STG) Improve L knee AROM with pt able to walk with a cane with normal gait pattern. 06/03/22: 0-110 L knee AROM. 06/05/22: 2-118 L knee AROM 06/12/22: 1-130 L knee AROM 06/14/22: 3-115 L knee AROM STG Duration 07/12/22 progressing 06/12/22 Cradle Slide Maker Goal (LTG) Pt able to ambulate w/o an assistive device and normal gait on stairs and flat surface. 06/05/22: arrived using FWW, states walking short distances at home no AD and SPC when needed. Daughter encourages her to use AD due to not walking normal. MOLDING ENGINEER discussed DC FWW, use SPC longer distances due to little unsteady L knee during midstance phase better when thinks about knee extension. Stairs step over step L HR SPC in RUE, cues slow descend for support/control. 06/12/22: improved gait w/ SPC in mirror, cued less UE support needed. Pt ableto walk short distances with no AD and improved L knee stability with cues for quad fac support . 06/14/22: Normal sequencing gait on stairs with use of 2 rails or 1 rail/1 SPC. LTG Duration 08/25/22 progressing 06/14/22 Three Impairment Decreased L knee strength Impairment L knee MMT: Flex/Ext is 2/5 ( R knee is 5/5). L knee pain rated 2-3/10 with Acetaminophen. Tight feeling. Short Term Goal (STG) Strengthen L knee with pt able to perform sit<>stand with out the walker. 06/05/22: MET GOAL: able STS without UE support BLE side by side x5 reps. STG Duration 07/12/22 GOAL MET 06/05/22 Penitentiary Goal (LTG) Strengthen L knee to 5/5. LTG Duration 08/25/22 Two Impairment Decreased function per LEFS score and pt using FWW for gait Impairment Pre surgery: LEFS score 25 (60 -79% impaired, score 17-31) Re-eval: LEFS score 13/80 (80 -99% impaired, score 1-16). Short Term Goal (STG) Pt will improve function per LEFS score of 25 or greater to be at pre-surgery function ( 60-79% impaired, score 17-31). STG Duration 07/12/22 Cradle Slide Maker Goal (LTG) Improve function per LEFS score 48 or greater (20-39% impaired). LTG Duration 08/25/22 One Impairment Lacks appropriate self care HEP Short Term Goal (STG) Pt will be re-educated in edema and pain management for self fci. 04/12/22: Reviewed/discussed precautions of movement (rot, review flex/ext) to decrease pain due to meniscal tear and arthritis. Reviewed RICE protocol. 06/12/22: discussed self retro grade STMs and elevate/ice STG Duration 05/31/22 progressing 06/12/22 Penitentiary Goal (LTG) Pt will be able to resume HEP for L knee, hip ankle strengthening ex's and ROM ex' s pre surgery. 03/07/22: HEP: L knee supine flex/ext stretch and QS; L hip ext, AB (clamshell and straight leg), AD strengthening in sup/sidelie. : resisted HS curl & LAQ. 04/12/22: ankle DF, IV, EV strengthening and gastroc/ soleus stretch. 04/27/22: added resisted band walk LTG Duration 08/25/22 Assessment Summary Assessment Pt is not appropriate for K- tape due to pt report of allergy to tape. Pt is able to ambulate stairs with reciprocal gait with 1 rail and cane with good stability. L knee AROM in supine: 3-115 deg's. Pt needs more ROM and quad/hamstring strengthening w/o use of ankle ms to obtain full kne ext. Physical Therapy Plan Frequency and Duration Frequency of Treatment 2x/Week Plan of Care Start Date 05/27/22 Plan of Care End Date 08/25/22 Next Visit Focus/Plan Next Note Type Treatment Note Next Visit Plan KX modifier next visit. Monitor ROM. Focus on improving L knee ROM. Continue standing HEP ROM/ strengthening, progress SLS time and uneven surface gait. start warm up bike/recumbent, stair stepper TM, continue shuttle recovery, strengthening tolerance, STM ( including lympedema if appropiate), gait/balance training.
--- NOTE | 2022-06-19 11:19 | PT.OTN ---
Current Diagnoses Other abnormalities of gait and mobility (06/19/22) Unspecified injury of left lower leg, initial encounter (06/19/22) Physical Therapy Treatment Note PT-OP-A Visit Information Start: 02/25/22 19:43 Freq: Status: Active Protocol: Document 06/19/22 10:34 SP (Rec: 06/19/22 11:41 SP [id number]) Out-Patient Physical Therapy Visit Information Visit Information Visit Type Treatment Note Visit Start Time 10:34 Visit Stop Time 11:19 Total Visit Minutes 45 Visit Number Number of GAS FLOW REGULATOR Visits 4 Evaluation Information Evaluation Date 05/27/22 Precautions Precautions ADHESIVE ALLERGIES, Arthritis, decreased hearing but doesn't wear her hearing aids, 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 *05/23/22: S/P L medial knee arthoplasty rehabilitation. PT-OP-B Current Condition Start: 02/25/22 19:43 Freq: Status: Active Protocol: Document 05/27/22 14:43 LRN (Rec: 05/27/22 17:20 LRN [id number]) Current Condition History of Current Condition Onset Date 05/23/22 Current Complaints s/p L TKA History of Current Condition Pt has had L medial knee pain since ~11/29/21 and had L knee rehab her at [facility] prior to surgery from 02/28/22 to 05/21/22. The pt underwent L partial knee replacement surgery 05/23/22 and was released home the same day. She states she had a difficult time the first couple days at home, but on the third day was able to do some of her L knee exercises. She attends to day reporting stiffness and pain at the L knee and feeling like she is not progressing as well as she had hoped, but that she is able to walk and has her daughter around her home to help her. Prior Treatments and Tests Cortisone injection in L knee Dec 2021. PT at [facility] from to 05/21/22. Developmental History Developmental History After hike L knee hurt, a couple weeks later was dancing and next day could hardly walk. Went to a walk-in clinic in [facility] [place] and was told arthritis and was given meds. Pain didn't go away so went to Dr. Acuña and was told arthritis and knee wasn't going to get better. Had a cortisone injection in Dec 2021, that didn't help. Was told she was a candidate for a partial knee replacement or more injections. Treatment Goals Patient/Caregiver Goals Pt goals are to improve L knee mobility, strength, walk without an assistive device, to decrease her knee pain and improve her overall function. Prior Functional Status Baseline Function- ADL's Independent Baseline Function- Mobility Independent Baseline Function- Other LEFS score 25 (60-79% impaired , score 17-31) Current Functional Impairments (Reported) Functional Limitations- ADL's Pain with transfers. Pain with activity Limited with L knee mobility. Functional Limitations- Mobility/Gait Avoiding use of stairs. Walks with FWW. Functional Limitations- Other LEFS score 13/80 (80-99% impaired, score 1-16). Personal Factors Other Personal Factors That May Effect Lives alone with dog and 2 Therapy/Recovery cats, but daughter will stay with her for 1 week. PT-OP-C Subjective Start: 02/25/22 19:43 Freq: Status: Active Protocol: Document 06/19/22 10:34 SP (Rec: 06/19/22 11:41 SP [id number]) OP-PT Subjective Patient Comments Patient Comments Pt reports went to ER since last tx for metallic taste in mouth and found possibe medication Omeprazole taking for support taking asprin coating for stomach. Pt remembered might have taken double dose day before and next day seem to go away. Hasn 't heard back from ortho or general physician for follow up conversation. States going up/down stairs w/ SPC step to but bottom step ups. PT-OP-G Mobility & Gait Start: 02/25/22 19:43 Freq: Status: Active Protocol: Document 05/27/22 14:43 LRN (Rec: 05/27/22 15:26 LRN [id number]) OP Mobility Evaluation Bed Mobility Supine to and from Sit Independent Transfers Sit to Stand Independent with use of FWW Bed to Chair Transfers Independent with use of FWW. OP Gait Assessment Gait Gait Assistance Required: Independent Assistive Devices Assistive Device Front Wheeled Walker Gait Deviations General Gait Pattern Antalgic,Decreased Stride Length,Wide Based Gait Factors Limiting Gait Function Factors Limiting Gait Function Decreased Activity Tolerance, Decreased Strength,Limited Range of Motion,Pain,Poor Balance PT-OP-H Neuro Start: 02/25/22 19:43 Freq: Status: Active Protocol: Document 05/27/22 14:43 LRN (Rec: 05/27/22 15:26 LRN [id number]) Sensation Evaluation Comments Summary Comments Pt reports normal sensation, but not able to assess underneath the JACKSON bandage covering the LLE. PT-OP-J Posture/Palpation/Skin Start: 02/25/22 19:43 Freq: Status: Active Protocol: Document 05/27/22 14:43 LRN (Rec: 05/27/22 17:23 LRN [id number]) Posture Evaluation Position Standing Weight Distribution Weight Shifted Right Hip Posture (L) Flexed,(R) Flexed Comments Posture Comments Pt using FWW for standing. Palpation Assessment Location L knee Palpation Details Not able to palpate due to JACKSON wrap around L knee, proximal lower leg and distal thigh. PT-OP-K Range of Motion Start: 02/25/22 19:43 Freq: Status: Active Protocol: Document 06/19/22 10:34 SP (Rec: 06/19/22 11:41 SP [id number]) Knee Goniometric Range of Motion Knee Left Knee ROM WFL No Patient Position Supine Flexion Active (degrees) 130 Extension Active (degrees) 0 Comments 06/19/22: L knee extension relaxed 1 deg lag. PT-OP-M Strength Start: 02/25/22 19:43 Freq: Status: Active Protocol: Document 05/27/22 14:43 LRN (Rec: 05/27/22 15:26 LRN [id number]) Knee Strength Knee Manual Muscle Testing Right Flexion (S2) 5 Normal Extension (L3) 5 Normal Left Flexion (S2) 2 Poor Extension (L3) 2 Poor Ankle/Foot Strength Ankle and Foot Manual Muscle Testing Right Comments All 5/5 Left Comments All 5/5 PT-OP-Q Treatments Start: 02/25/22 19:43 Freq: Status: Active Protocol: Document 06/19/22 10:34 SP (Rec: 06/19/22 11:41 SP [id number]) Cardio Equipment Recumbent Bicycle Duration (Minutes) 8 Resistance 4>6 Seat Position 3 Other full revolution good ankle ROM Therapeutic Exercises Supine Exercises SLR Supine Exercise Name cues for quad set first DF then lift Side left Resistance AROM Reps/Minutes 15x Comments almost no lag, cuing QS and DF anterior tib fac support. L knee AROM Supine Exercise Name L knee flex AROM - roll behind knee Side left Reps/Minutes 5 SH x5 Comments AROM: 0-130, 1 deg extension relaxed post Sitting Exercises supported squat Sitting Exercise Name assisted squat: added to HEP Equipment Used UE support on post Reps/Minutes x10 Comments good response painfree more glut/mid quad Standing Exercises calf raises Standing Exercise Name added to HEP Side bilateral Equipment Used light contact rail Reps/Minutes x10 Comments good feedback response, cued soft knee/ not locked step down Standing Exercise Name Descent: fwd, lateral Side left Resistance RLE descend, L knee flexion AROM Equipment Used rail support, 2 step Reps/Minutes 4 reps Comments report couple reps ok but then feel medial Jt irritation- stopped Gastroc stretch Standing Exercise Name Gastroc Stretch Side left Reps/Minutes 30 Comments good form Stair stepping Standing Exercise Name Step ups/down Equipment Used 6 step, light contact rail Reps/Minutes 15x each Comments 15x Self-Care/Home Management Treatment Education Patient Education Home Exercise Program,Joint Protection,Pain Management Other Education added standing supported squats and calf raises off bottom step- good feedback painfree and good mid muscle tiring. PT-OP-R Modalities Start: 02/25/22 19:43 Freq: Status: Active Protocol: Document 06/19/22 10:34 SP (Rec: 06/19/22 11:41 SP [id number]) Hot Pack/Cold Pack Treatment Cold Pack Location L knee Patient Position Supine Treatment Duration (minutes) 6 Patient Tolerance Good Comments Pt in supine with LLE elevated PT-OP-T Assessment and Plan Start: 02/25/22 19:43 Freq: Status: Active Protocol: Document 06/19/22 10:34 SP (Rec: 06/19/22 11:41 SP [id number]) Physical Therapy Assessment Goals Four Impairment Decreased L knee mobility Impairment L Knee AROM: Supine: 10-70 left , 0-140 deg's right; Sittin-80 deg's left. Short Term Goal (STG) Improve L knee AROM with pt able to walk with a cane with normal gait pattern. 06/03/22: 0-110 L knee AROM. 06/05/22: 2-118 L knee AROM 06/12/22: 1-130 L knee AROM 06/14/22: 3-115 L knee AROM 06/19/22: 0-130 L knee AROM (1 deg lag relaxed extension and SLR) STG Duration 07/12/22 progressing 06/19/22 Halfway Goal (LTG) Pt able to ambulate w/o an assistive device and normal gait on stairs and flat surface. 06/05/22: arrived using FWW, states walking short distances at home no AD and SPC when needed. Daughter encourages her to use AD due to not walking normal. GAS FLOW REGULATOR discussed DC FWW, use SPC longer distances due to little unsteady L knee during midstance phase better when thinks about knee extension. Stairs step over step L HR SPC in RUE, cues slow descend for support/control. 06/12/22: improved gait w/ SPC in mirror, cued less UE support needed. Pt ableto walk short distances with no AD and improved L knee stability with cues for quad fac support . 06/14/22: Normal sequencing gait on stairs with use of 2 rails or 1 rail/1 SPC. 06/19/22: gait without SPC arrival today, initial step L knee sway, rest steps aware quad fac improves more normal gait phase. LTG Duration 08/25/22 progressing 06/19/22 Three Impairment Decreased L knee strength Impairment L knee MMT: Flex/Ext is 2/5 ( R knee is 5/5). L knee pain rated 2-3/10 with Acetaminophen. Tight feeling. Short Term Goal (STG) Strengthen L knee with pt able to perform sit<>stand with out the walker. 06/05/22: MET GOAL: able STS without UE support BLE side by side x5 reps. STG Duration 07/12/22 GOAL MET 06/05/22 Home Care Scheduler Goal (LTG) Strengthen L knee to 5/5. LTG Duration 08/25/22 Two Impairment Decreased function per LEFS score and pt using FWW for gait Impairment Pre surgery: LEFS score 25 (60 -79% impaired, score 17-31) Re-eval: LEFS score 13/80 (80 -99% impaired, score 1-16). Short Term Goal (STG) Pt will improve function per LEFS score of 25 or greater to be at pre-surgery function ( 60-79% impaired, score 17-31). STG Duration 07/12/22 Halfway Goal (LTG) Improve function per LEFS score 48 or greater (20-39% impaired). LTG Duration 08/25/22 One Impairment Lacks appropriate self care HEP Short Term Goal (STG) Pt will be re-educated in edema and pain management for self mcc. 04/12/22: Reviewed/discussed precautions of movement (rot, review flex/ext) to decrease pain due to meniscal tear and arthritis. Reviewed RICE protocol. 06/12/22: discussed self retro grade STMs and elevate/ice. : GOAL MET: elevates and uses ice pack and compression sleeve if needed. STG Duration 05/31/22 GOAL MET 05/30/22 Halfway Goal (LTG) Pt will be able to resume HEP for L knee, hip ankle strengthening ex's and ROM ex' s pre surgery. 03/07/22: HEP: L knee supine flex/ext stretch and QS; L hip ext, AB (clamshell and straight leg), AD strengthening in sup/sidelie. : resisted HS curl & LAQ. 04/12/22: ankle DF, IV, EV strengthening and gastroc/ soleus stretch. 04/27/22: added resisted band walk 06/19/22: reviewed HEP: DC band walk, AP, QS, HS, SLR 15 reps , SAQ wt 3x10, knee hang, LAQ, STS, knee flexion seated, TKE and HS curl w/ TB, repeated step ups 20 reps. LTG Duration 08/25/22 Progressing 06/19/22 Progress Towards Goals Progress Towards Goals Progressing Toward Goals Progress Comments MET STG #1. Gained 15 deg AROM L knee flexion since last tx. Assessment Summary Assessment Pt good response to supported squat and calf raises, added to HEP and provided HO. Pt gained AROM gained 15 deg flexion and states use of towel behind knee has helped since last tx. Physical Therapy Plan Frequency and Duration Frequency of Treatment 2x/Week Plan of Care Start Date 05/27/22 Plan of Care End Date 08/25/22 Therapeutic Interventions Therapeutic Interventions Balance Training,Gait Training ,Home Exercise Program,Joint Mobilizations,Manual Therapy, Neuromuscular Re-education, Patient/Caregiver Education, Self-Care/Home Management,Soft Tissue Mobilization,Taping, Therapeutic Activities, Therapeutic Exercises Modalities Cold Pack/Ice Massage,Hot Packs,Ultrasound Next Visit Focus/Plan Next Note Type Treatment Note Next Visit Plan Add hurdles, uneven surface gait. Next tx Focus on improving L knee ROM. Continue standing HEP ROM/strengthening, progress SLS time and uneven surface gait. start warm up bike/recumbent, stair stepper TM, continue shuttle recovery, strengthening tolerance, STM (including lympedema if appropiate), gait/balance training.
--- NOTE | 2022-06-21 16:56 | PT.OTN ---
Current Diagnoses Other abnormalities of gait and mobility (06/21/22) Unspecified injury of left lower leg, initial encounter (06/21/22) Physical Therapy Treatment Note PT-OP-A Visit Information Start: 02/25/22 19:43 Freq: Status: Active Protocol: Document 06/21/22 10:35 LRN (Rec: 06/21/22 11:21 LRN [id number]) Out-Patient Physical Therapy Visit Information Visit Information Visit Type Treatment Note Visit Start Time 10:35 Visit Stop Time 11:23 Total Visit Minutes 48 Visit Number Evaluation Information Evaluation Date 05/27/22 Precautions Precautions ADHESIVE ALLERGIES, Arthritis, decreased hearing but doesn't wear her hearing aids, 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 *05/23/22: S/P L medial knee arthoplasty rehabilitation. PT-OP-B Current Condition Start: 02/25/22 19:43 Freq: Status: Active Protocol: Document 05/27/22 14:43 LRN (Rec: 05/27/22 17:20 LRN [id number]) Current Condition History of Current Condition Onset Date 05/23/22 Current Complaints s/p L TKA History of Current Condition Pt has had L medial knee pain since ~11/29/21 and had L knee rehab her at [facility] prior to surgery from 02/28/22 to 05/21/22. The pt underwent L partial knee replacement surgery 05/23/22 and was released home the same day. She states she had a difficult time the first couple days at home, but on the third day was able to do some of her L knee exercises. She attends to day reporting stiffness and pain at the L knee and feeling like she is not progressing as well as she had hoped, but that she is able to walk and has her daughter around her home to help her. Prior Treatments and Tests Cortisone injection in L knee Dec 2021. PT at [facility] from to 05/21/22. Developmental History Developmental History After hike L knee hurt, a couple weeks later was dancing and next day could hardly walk. Went to a walk-in clinic in [facility] and was told arthritis and was given meds. Pain didn't go away so went to Dr. Acuña and was told arthritis and knee wasn't going to get better. Had a cortisone injection in Dec 2021, that didn't help. Was told she was a candidate for a partial knee replacement or more injections. Treatment Goals Patient/Caregiver Goals Pt goals are to improve L knee mobility, strength, walk without an assistive device, to decrease her knee pain and improve her overall function. Prior Functional Status Baseline Function- ADL's Independent Baseline Function- Mobility Independent Baseline Function- Other LEFS score 25 (60-79% impaired , score 17-31) Current Functional Impairments (Reported) Functional Limitations- ADL's Pain with transfers. Pain with activity Limited with L knee mobility. Functional Limitations- Mobility/Gait Avoiding use of stairs. Walks with FWW. Functional Limitations- Other LEFS score 13/80 (80-99% impaired, score 1-16). Personal Factors Other Personal Factors That May Effect Lives alone with dog and 2 Therapy/Recovery cats, but daughter will stay with her for 1 week. PT-OP-C Subjective Start: 02/25/22 19:43 Freq: Status: Active Protocol: Document 06/21/22 10:35 LRN (Rec: 06/21/22 11:21 LRN [id number]) OP-PT Subjective Patient Comments Patient Comments Getting more swelling above the knee. Yesterday felt like workouts were going good. Had started started doing stair stepper and going up/ down stairs. PT-OP-G Mobility & Gait Start: 02/25/22 19:43 Freq: Status: Active Protocol: Document 05/27/22 14:43 LRN (Rec: 05/27/22 15:26 LRN [id number]) OP Mobility Evaluation Bed Mobility Supine to and from Sit Independent Transfers Sit to Stand Independent with use of FWW Bed to Chair Transfers Independent with use of FWW. OP Gait Assessment Gait Gait Assistance Required: Independent Assistive Devices Assistive Device Front Wheeled Walker Gait Deviations General Gait Pattern Antalgic,Decreased Stride Length,Wide Based Gait Factors Limiting Gait Function Factors Limiting Gait Function Decreased Activity Tolerance, Decreased Strength,Limited Range of Motion,Pain,Poor Balance PT-OP-H Neuro Start: 02/25/22 19:43 Freq: Status: Active Protocol: Document 05/27/22 14:43 LRN (Rec: 05/27/22 15:26 LRN [id number]) Sensation Evaluation Comments Summary Comments Pt reports normal sensation, but not able to assess underneath the JACKSON bandage covering the LLE. PT-OP-J Posture/Palpation/Skin Start: 02/25/22 19:43 Freq: Status: Active Protocol: Document 05/27/22 14:43 LRN (Rec: 05/27/22 17:23 LRN [id number]) Posture Evaluation Position Standing Weight Distribution Weight Shifted Right Hip Posture (L) Flexed,(R) Flexed Comments Posture Comments Pt using FWW for standing. Palpation Assessment Location L knee Palpation Details Not able to palpate due to JACKSON wrap around L knee, proximal lower leg and distal thigh. PT-OP-K Range of Motion Start: 02/25/22 19:43 Freq: Status: Active Protocol: Document 06/21/22 10:35 LRN (Rec: 06/21/22 16:54 LRN [id number]) Knee Goniometric Range of Motion Knee Left Knee ROM WFL No Patient Position Supine Flexion Active (degrees) 120 Extension Active (degrees) 0 Comments Knee ext after stretching was 0 deg's extension. PT-OP-M Strength Start: 02/25/22 19:43 Freq: Status: Active Protocol: Document 05/27/22 14:43 LRN (Rec: 05/27/22 15:26 LRN [id number]) Knee Strength Knee Manual Muscle Testing Right Flexion (S2) 5 Normal Extension (L3) 5 Normal Left Flexion (S2) 2 Poor Extension (L3) 2 Poor Ankle/Foot Strength Ankle and Foot Manual Muscle Testing Right Comments All 5/5 Left Comments All 5/5 PT-OP-Q Treatments Start: 02/25/22 19:43 Freq: Status: Active Protocol: Document 06/21/22 10:35 LRN (Rec: 06/21/22 11:21 LRN [id number]) Cardio Equipment Recumbent Bicycle Duration (Minutes) 8 Resistance 4>6 Seat Position 3 Other full revolution good ankle ROM Therapeutic Exercises Supine Exercises L knee AROM Supine Exercise Name L knee flex AROM - with & w/o roll behind knee Side left Reps/Minutes 4' Comments AROM: 0-120, 1 deg extension relaxed post Prone Exercises Femoral nerve glides Prone Exercise Name Femoral n slider (kick head w/ ft DF/PF)>tensioner(kick head down)>slider Reps/Minutes 10x each Comments Extra time taken for determining correct motion and tolerance to ex. Standing Exercises resisted side stepping Standing Exercise Name reviewed HEP- lateral Resistance TB #2 loop above knee Reps/Minutes 10 ft x 5 laps Comments good knee alignment Gait Training Gait Activity gait Description Gait for anterior rot of L innominate Device Used 0 Surface level Treatment Focus 8' Self-Care/Home Management Treatment Education Patient Education Home Exercise Program Activities Self-Care/Home Management Activities Issue & reviewed HEP: Femoral nerve glide slider and tensioner. PT-OP-R Modalities Start: 02/25/22 19:43 Freq: Status: Active Protocol: Document 06/21/22 10:35 LRN (Rec: 06/21/22 11:21 LRN [id number]) Hot Pack/Cold Pack Treatment Cold Pack Location L knee Patient Position Supine Treatment Duration (minutes) 10 Patient Tolerance Good Comments Pt in supine with LLE elevated PT-OP-T Assessment and Plan Start: 02/25/22 19:43 Freq: Status: Active Protocol: Document 06/21/22 10:35 LRN (Rec: 06/21/22 11:21 LRN [id number]) Physical Therapy Assessment Goals Four Impairment Decreased L knee mobility Impairment L Knee AROM: Supine: 10-70 left , 0-140 deg's right; Sittin-80 deg's left. Short Term Goal (STG) Improve L knee AROM with pt able to walk with a cane with normal gait pattern. 06/03/22: 0-110 L knee AROM. 06/05/22: 2-118 L knee AROM 06/12/22: 1-130 L knee AROM 06/14/22: 3-115 L knee AROM 06/19/22: 0-130 L knee AROM (1 deg lag relaxed extension and SLR) 06/21/22: 0-120 L knee AROM. Pt lacks L hip protraction with gait. STG Duration 07/12/22 progressing 06/21/22 Child Nutrition Director Goal (LTG) Pt able to ambulate w/o an assistive device and normal gait on stairs and flat surface. 06/05/22: arrived using FWW, states walking short distances at home no AD and SPC when needed. Daughter encourages her to use AD due to not walking normal. SHORTHAND REPORTER discussed DC FWW, use SPC longer distances due to little unsteady L knee during midstance phase better when thinks about knee extension. Stairs step over step L HR SPC in RUE, cues slow descend for support/control. 06/12/22: improved gait w/ SPC in mirror, cued less UE support needed. Pt ableto walk short distances with no AD and improved L knee stability with cues for quad fac support . 06/14/22: Normal sequencing gait on stairs with use of 2 rails or 1 rail/1 SPC. 06/19/22: gait without SPC arrival today, initial step L knee sway, rest steps aware quad fac improves more normal gait phase. LTG Duration 08/25/22 progressing 06/19/22 Three Impairment Decreased L knee strength Impairment L knee MMT: Flex/Ext is 2/5 ( R knee is 5/5). L knee pain rated 2-3/10 with Acetaminophen. Tight feeling. Short Term Goal (STG) Strengthen L knee with pt able to perform sit<>stand with out the walker. 06/05/22: MET GOAL: able STS without UE support BLE side by side x5 reps. STG Duration 07/12/22 GOAL MET 06/05/22 Child Nutrition Director Goal (LTG) Strengthen L knee to 5/5. LTG Duration 08/25/22 Two Impairment Decreased function per LEFS score and pt using FWW for gait Impairment Pre surgery: LEFS score 25 (60 -79% impaired, score 17-31) Re-eval: LEFS score 13/80 (80 -99% impaired, score 1-16). Short Term Goal (STG) Pt will improve function per LEFS score of 25 or greater to be at pre-surgery function ( 60-79% impaired, score 17-31). STG Duration 07/12/22 Group Home Goal (LTG) Improve function per LEFS score 48 or greater (20-39% impaired). LTG Duration 08/25/22 One Impairment Lacks appropriate self care HEP Short Term Goal (STG) Pt will be re-educated in edema and pain management for self senior care. 04/12/22: Reviewed/discussed precautions of movement (rot, review flex/ext) to decrease pain due to meniscal tear and arthritis. Reviewed RICE protocol. 06/12/22: discussed self retro grade STMs and elevate/ice. : GOAL MET: elevates and uses ice pack and compression sleeve if needed. STG Duration 05/31/22 GOAL MET 05/30/22 Group Home Goal (LTG) Pt will be able to resume HEP for L knee, hip ankle strengthening ex's and ROM ex' s pre surgery. 03/07/22: HEP: L knee supine flex/ext stretch and QS; L hip ext, AB (clamshell and straight leg), AD strengthening in sup/sidelie. : resisted HS curl & LAQ. 04/12/22: ankle DF, IV, EV strengthening and gastroc/ soleus stretch. 04/27/22: added resisted band walk 06/19/22: reviewed HEP: DC band walk, AP, QS, HS, SLR 15 reps , SAQ wt 3x10, knee hang, LAQ, STS, knee flexion seated, TKE and HS curl w/ TB, repeated step ups 20 reps. 06/21/22: added Femoral nerve sliders LTG Duration 08/25/22 progressing 06/21/22 Assessment Summary Assessment Pt L is mildly flared in the knee due to increased activity at home. Pt wanting to descend stairs normal, but fearful of falling. Gt training for normal gait, pt lacks L anterior hip translation with gait. Physical Therapy Plan Frequency and Duration Frequency of Treatment 2x/Week Plan of Care Start Date 05/27/22 Plan of Care End Date 08/25/22 Next Visit Focus/Plan Next Note Type Treatment Note Next Visit Plan Improve gait mechanics. Next tx Focus on L knee AROM 125 deg's or greater and therefore abilty to descend stairs. Add hurdles, uneven surface gait. Continue standing HEP ROM/ strengthening, progress SLS time and uneven surface gait. start warm up bike/recumbent, stair stepper TM, continue shuttle recovery, strengthening tolerance, STM ( including lympedema if appropiate), gait/balance training.
--- NOTE | 2022-06-26 11:22 | PT.OTN ---
Current Diagnoses Other abnormalities of gait and mobility (06/26/22) Unspecified injury of left lower leg, initial encounter (06/26/22) Physical Therapy Treatment Note PT-OP-A Visit Information Start: 02/25/22 19:43 Freq: Status: Active Protocol: Document 06/26/22 10:35 SP (Rec: 06/26/22 11:44 SP [id number]) Out-Patient Physical Therapy Visit Information Visit Information Visit Type Treatment Note Visit Start Time 10:35 Visit Stop Time 11:22 Total Visit Minutes 47 Visit Number Number of STRATEGIC ALLIANCES MANAGER Visits 1 Evaluation Information Evaluation Date 05/27/22 Precautions Precautions ADHESIVE ALLERGIES, Arthritis, decreased hearing but doesn't wear her hearing aids, 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 *05/23/22: S/P L medial knee arthoplasty rehabilitation. PT-OP-B Current Condition Start: 02/25/22 19:43 Freq: Status: Active Protocol: Document 05/27/22 14:43 LRN (Rec: 05/27/22 17:20 LRN [id number]) Current Condition History of Current Condition Onset Date 05/23/22 Current Complaints s/p L TKA History of Current Condition Pt has had L medial knee pain since ~11/29/21 and had L knee rehab her at prior to surgery from 02/28/22 to 05/21/22. The pt underwent L partial knee replacement surgery 05/23/22 and was released home the same day. She states she had a difficult time the first couple days at home, but on the third day was able to do some of her L knee exercises. She attends to day reporting stiffness and pain at the L knee and feeling like she is not progressing as well as she had hoped, but that she is able to walk and has her daughter around her home to help her. Prior Treatments and Tests Cortisone injection in L knee Dec 2021. PT at from to 05/21/22. Developmental History Developmental History After hike L knee hurt, a couple weeks later was dancing and next day could hardly walk. Went to a walk-in clinic in [facility] and was told arthritis and was given meds. Pain didn't go away so went to Dr. Acuña and was told arthritis and knee wasn't going to get better. Had a cortisone injection in Dec 2021, that didn't help. Was told she was a candidate for a partial knee replacement or more injections. Treatment Goals Patient/Caregiver Goals Pt goals are to improve L knee mobility, strength, walk without an assistive device, to decrease her knee pain and improve her overall function. Prior Functional Status Baseline Function- ADL's Independent Baseline Function- Mobility Independent Baseline Function- Other LEFS score 25 (60-79% impaired , score 17-31) Current Functional Impairments (Reported) Functional Limitations- ADL's Pain with transfers. Pain with activity Limited with L knee mobility. Functional Limitations- Mobility/Gait Avoiding use of stairs. Walks with FWW. Functional Limitations- Other LEFS score 13/80 (80-99% impaired, score 1-16). Personal Factors Other Personal Factors That May Effect Lives alone with dog and 2 Therapy/Recovery cats, but daughter will stay with her for 1 week. PT-OP-C Subjective Start: 02/25/22 19:43 Freq: Status: Active Protocol: Document 06/26/22 10:35 SP (Rec: 06/26/22 11:44 SP [id number]) OP-PT Subjective Patient Comments Patient Comments Pt stated is concentrating on feet // and ankle movement and noticing getting better and less stiff. She reports her lateral L leg is sore. She reports started doing a zoom [employer] video did during the pandemic eg. lots lateral repeated side step with UE AROM motions, quick jog stepping in place/ lateral but only does in place painfree. BUt feels workout in ITB. PT-OP-G Mobility & Gait Start: 02/25/22 19:43 Freq: Status: Active Protocol: Document 05/27/22 14:43 LRN (Rec: 05/27/22 15:26 LRN [id number]) OP Mobility Evaluation Bed Mobility Supine to and from Sit Independent Transfers Sit to Stand Independent with use of FWW Bed to Chair Transfers Independent with use of FWW. OP Gait Assessment Gait Gait Assistance Required: Independent Assistive Devices Assistive Device Front Wheeled Walker Gait Deviations General Gait Pattern Antalgic,Decreased Stride Length,Wide Based Gait Factors Limiting Gait Function Factors Limiting Gait Function Decreased Activity Tolerance, Decreased Strength,Limited Range of Motion,Pain,Poor Balance PT-OP-H Neuro Start: 02/25/22 19:43 Freq: Status: Active Protocol: Document 05/27/22 14:43 LRN (Rec: 05/27/22 15:26 LRN [id number]) Sensation Evaluation Comments Summary Comments Pt reports normal sensation, but not able to assess underneath the JACKSON bandage covering the LLE. PT-OP-J Posture/Palpation/Skin Start: 02/25/22 19:43 Freq: Status: Active Protocol: Document 05/27/22 14:43 LRN (Rec: 05/27/22 17:23 LRN [id number]) Posture Evaluation Position Standing Weight Distribution Weight Shifted Right Hip Posture (L) Flexed,(R) Flexed Comments Posture Comments Pt using FWW for standing. Palpation Assessment Location L knee Palpation Details Not able to palpate due to JACKSON wrap around L knee, proximal lower leg and distal thigh. PT-OP-K Range of Motion Start: 02/25/22 19:43 Freq: Status: Active Protocol: Document 06/21/22 10:35 LRN (Rec: 06/21/22 16:54 LRN [id number]) Knee Goniometric Range of Motion Knee Left Knee ROM WFL No Patient Position Supine Flexion Active (degrees) 120 Extension Active (degrees) 0 Comments Knee ext after stretching was 0 deg's extension. PT-OP-M Strength Start: 02/25/22 19:43 Freq: Status: Active Protocol: Document 05/27/22 14:43 LRN (Rec: 05/27/22 15:26 LRN [id number]) Knee Strength Knee Manual Muscle Testing Right Flexion (S2) 5 Normal Extension (L3) 5 Normal Left Flexion (S2) 2 Poor Extension (L3) 2 Poor Ankle/Foot Strength Ankle and Foot Manual Muscle Testing Right Comments All 5/5 Left Comments All 5/5 PT-OP-Q Treatments Start: 02/25/22 19:43 Freq: Status: Active Protocol: Document 06/26/22 10:35 SP (Rec: 06/26/22 11:44 SP [id number]) Therapeutic Exercises Prone Exercises Femoral nerve glides Prone Exercise Name Femoral n slider (kick head w/ ft DF/PF)>tensioner(kick head down)>slider Reps/Minutes 10x each Comments verbal review- good feedback response at home Standing Exercises calf raises Standing Exercise Name verbal review Side bilateral Equipment Used light contact rail Reps/Minutes 2x20 Comments good feedback response, cued soft knee/ not locked TKE Standing Exercise Name HEP- verbal review Side left Resistance 2# Reps/Minutes 2x15 reps, 2 xday resisted side stepping Standing Exercise Name reviewed HEP- lateral Resistance TB #2 loop above knee ( RTB in PT, use GTB next) Reps/Minutes 10 ft x 5 laps Comments cued little bigger than normal step- stopped L hip/knee clicking. Stair stepping Standing Exercise Name Step ups/down Equipment Used 6 step, no UE support ascend, light glide descend MAP stairs x2 set Reps/Minutes 28 stairs x2 laps Comments cued Therapeutic Activity Therapeutic Activity on/off floor Comments S use rail/chair LLE forward position, then able to tall kneel on BLEs painfree, wt shift back tight quads but no pain. DIscussed sitting on stool for [employer] garden with mindful vs sitting on ground sit sitting and rotation back, back health. Gait Training Gait Activity stairs Description ascend/descend stairs w/ L HR and SPC in RUE Device Used L HR, SPC in RUE (ascending) Level of Assistance S Surface S (10 min) Distance/Duration 28 stairs x2 laps , outside steps 7 no HR ascending Treatment Focus receiprocal stepping, eccentric L knee alignment & flexion control Comments light contact glide on 1 HR descending, no UE support ascending MAP bldg stairs x2 laps of 28 stairs, light twinge irritation superior patella and med distal quad last few stairs. gait Description outside gait: uneven pavement, grass, uneven trail, over/ back curb Device Used 0 Level of Assistance SBA/S Surface uneven Distance/Duration 15 min Treatment Focus L knee gait phases, stability uneven surface, even leslie Comments good feedback response, painfree, improved midstance stability, toe off, foot clearance PT-OP-R Modalities Start: 02/25/22 19:43 Freq: Status: Active Protocol: Document 06/21/22 10:35 LRN (Rec: 06/21/22 11:21 LRN [id number]) Hot Pack/Cold Pack Treatment Cold Pack Location L knee Patient Position Supine Treatment Duration (minutes) 10 Patient Tolerance Good Comments Pt in supine with LLE elevated PT-OP-T Assessment and Plan Start: 02/25/22 19:43 Freq: Status: Active Protocol: Document 06/26/22 10:35 SP (Rec: 06/26/22 11:44 SP [id number]) Physical Therapy Assessment Goals Four Impairment Decreased L knee mobility Impairment L Knee AROM: Supine: 10-70 left , 0-140 deg's right; Sittin-80 deg's left. Short Term Goal (STG) Improve L knee AROM with pt able to walk with a cane with normal gait pattern. 06/03/22: 0-110 L knee AROM. 06/05/22: 2-118 L knee AROM 06/12/22: 1-130 L knee AROM 06/14/22: 3-115 L knee AROM 06/19/22: 0-130 L knee AROM (1 deg lag relaxed extension and SLR) 06/21/22: 0-120 L knee AROM. Pt lacks L hip protraction with gait. STG Duration 07/12/22 progressing 06/21/22 Health Policy Analyst Goal (LTG) Pt able to ambulate w/o an assistive device and normal gait on stairs and flat surface. 06/05/22: arrived using FWW, states walking short distances at home no AD and SPC when needed. Daughter encourages her to use AD due to not walking normal. STRATEGIC ALLIANCES MANAGER discussed DC FWW, use SPC longer distances due to little unsteady L knee during midstance phase better when thinks about knee extension. Stairs step over step L HR SPC in RUE, cues slow descend for support/control. 06/12/22: improved gait w/ SPC in mirror, cued less UE support needed. Pt ableto walk short distances with no AD and improved L knee stability with cues for quad fac support . 06/14/22: Normal sequencing gait on stairs with use of 2 rails or 1 rail/1 SPC. 06/19/22: gait without SPC arrival today, initial step L knee sway, rest steps aware quad fac improves more normal gait phase. 06/26/22: progressing, pt requires light contact glide on 1 HR descending, no UE support ascending MAP bldg stairs x2 laps of 28 stairs, light twinge irritation superior patella and med distal quad last few stairs. LTG Duration 08/25/22 progressing 06/26/22 Three Impairment Decreased L knee strength Impairment L knee MMT: Flex/Ext is 2/5 ( R knee is 5/5). L knee pain rated 2-3/10 with Acetaminophen. Tight feeling. Short Term Goal (STG) Strengthen L knee with pt able to perform sit<>stand with out the walker. 06/05/22: MET GOAL: able STS without UE support BLE side by side x5 reps. STG Duration 07/12/22 GOAL MET 06/05/22 Health Policy Analyst Goal (LTG) Strengthen L knee to 5/5. LTG Duration 08/25/22 Two Impairment Decreased function per LEFS score and pt using FWW for gait Impairment Pre surgery: LEFS score 25 (60 -79% impaired, score 17-31) Re-eval: LEFS score 13/80 (80 -99% impaired, score 1-16). Short Term Goal (STG) Pt will improve function per LEFS score of 25 or greater to be at pre-surgery function ( 60-79% impaired, score 17-31). STG Duration 07/12/22 Care Home Goal (LTG) Improve function per LEFS score 48 or greater (20-39% impaired). LTG Duration 08/25/22 One Impairment Lacks appropriate self care HEP Short Term Goal (STG) Pt will be re-educated in edema and pain management for self [place] [facility]. 04/12/22: Reviewed/discussed precautions of movement (rot, review flex/ext) to decrease pain due to meniscal tear and arthritis. Reviewed RICE protocol. 06/12/22: discussed self retro grade STMs and elevate/ice. : GOAL MET: elevates and uses ice pack and compression sleeve if needed. STG Duration 05/31/22 GOAL MET 05/30/22 Care Home Goal (LTG) Pt will be able to resume HEP for L knee, hip ankle strengthening ex's and ROM ex' s pre surgery. 03/07/22: HEP: L knee supine flex/ext stretch and QS; L hip ext, AB (clamshell and straight leg), AD strengthening in sup/sidelie. : resisted HS curl & LAQ. 04/12/22: ankle DF, IV, EV strengthening and gastroc/ soleus stretch. 04/27/22: added resisted band walk 06/19/22: reviewed HEP: DC band walk, AP, QS, HS, SLR 15 reps , SAQ wt 3x10, knee hang, LAQ, STS, knee flexion seated, TKE and HS curl w/ TB, repeated step ups 20 reps. 06/21/22: added Femoral nerve sliders LTG Duration 08/25/22 progressing 06/21/22 Assessment Summary Assessment Pt good feedback to outdoor uneven surface gait, flights of stairs 1 UE light glide descend, no UE ascend today, cued for scap and core fac for posturing and demonstrated improved stability receiprocal stepping Physical Therapy Plan Frequency and Duration Frequency of Treatment 2x/Week Plan of Care Start Date 05/27/22 Plan of Care End Date 08/25/22 Next Visit Focus/Plan Next Note Type Treatment Note Next Visit Plan Continue improved gait mechanics, stair mgt, on/off floor least UE support for allowance weed garden. Continue uneven surface gait for mowing lawn. POC: Next tx Focus on L knee AROM 125 deg's or greater and therefore abilty to descend stairs. Add hurdles. Continue standing HEP ROM/ strengthening, progress SLS time and uneven surface gait. start warm up bike/recumbent, stair stepper TM, continue shuttle recovery, strengthening tolerance, STM ( including lympedema if appropiate), gait/balance training.
--- NOTE | 2022-06-28 17:18 | PT.OTN ---
Current Diagnoses Other abnormalities of gait and mobility (06/28/22) Unspecified injury of left lower leg, initial encounter (06/28/22) Physical Therapy Treatment Note PT-OP-A Visit Information Start: 02/25/22 19:43 Freq: Status: Active Protocol: Document 06/28/22 10:38 LRN (Rec: 06/28/22 11:21 LRN [id number]) Out-Patient Physical Therapy Visit Information Visit Information Visit Type Treatment Note Visit Start Time 10:38 Visit Stop Time 11:28 Total Visit Minutes 50 Visit Number Evaluation Information Evaluation Date 05/27/22 Precautions Precautions ADHESIVE ALLERGIES, Arthritis, decreased hearing but doesn't wear her hearing aids, 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 *05/23/22: S/P L medial knee arthoplasty rehabilitation. PT-OP-B Current Condition Start: 02/25/22 19:43 Freq: Status: Active Protocol: Document 05/27/22 14:43 LRN (Rec: 05/27/22 17:20 LRN [id number]) Current Condition History of Current Condition Onset Date 05/23/22 Current Complaints s/p L TKA History of Current Condition Pt has had L medial knee pain since ~11/29/21 and had L knee rehab her at [facility] prior to surgery from 02/28/22 to 05/21/22. The pt underwent L partial knee replacement surgery 05/23/22 and was released home the same day. She states she had a difficult time the first couple days at home, but on the third day was able to do some of her L knee exercises. She attends to day reporting stiffness and pain at the L knee and feeling like she is not progressing as well as she had hoped, but that she is able to walk and has her daughter around her home to help her. Prior Treatments and Tests Cortisone injection in L knee Dec 2021. PT at [facility] from to 05/21/22. Developmental History Developmental History After hike L knee hurt, a couple weeks later was dancing and next day could hardly walk. Went to a walk-in clinic in [facility] and was told arthritis and was given meds. Pain didn't go away so went to Dr. Acuña and was told arthritis and knee wasn't going to get better. Had a cortisone injection in Dec 2021, that didn't help. Was told she was a candidate for a partial knee replacement or more injections. Treatment Goals Patient/Caregiver Goals Pt goals are to improve L knee mobility, strength, walk without an assistive device, to decrease her knee pain and improve her overall function. Prior Functional Status Baseline Function- ADL's Independent Baseline Function- Mobility Independent Baseline Function- Other LEFS score 25 (60-79% impaired , score 17-31) Current Functional Impairments (Reported) Functional Limitations- ADL's Pain with transfers. Pain with activity Limited with L knee mobility. Functional Limitations- Mobility/Gait Avoiding use of stairs. Walks with FWW. Functional Limitations- Other LEFS score 13/80 (80-99% impaired, score 1-16). Personal Factors Other Personal Factors That May Effect Lives alone with dog and 2 Therapy/Recovery cats, but daughter will stay with her for 1 week. PT-OP-C Subjective Start: 02/25/22 19:43 Freq: Status: Active Protocol: Document 06/28/22 10:38 LRN (Rec: 06/28/22 11:21 LRN [id number]) OP-PT Subjective Patient Comments Patient Comments States yesterday she stepped down a step wrong and yasmani the knee and had pain going down stairs. States she woke and had a lot of straightening the knee. Now can't go up/ down the stair without a lot of pain. Doesn't hurt to walk and the ex's are fine. Just feels tight. The L medial knee hurts more. PT-OP-G Mobility & Gait Start: 02/25/22 19:43 Freq: Status: Active Protocol: Document 05/27/22 14:43 LRN (Rec: 05/27/22 15:26 LRN [id number]) OP Mobility Evaluation Bed Mobility Supine to and from Sit Independent Transfers Sit to Stand Independent with use of FWW Bed to Chair Transfers Independent with use of FWW. OP Gait Assessment Gait Gait Assistance Required: Independent Assistive Devices Assistive Device Front Wheeled Walker Gait Deviations General Gait Pattern Antalgic,Decreased Stride Length,Wide Based Gait Factors Limiting Gait Function Factors Limiting Gait Function Decreased Activity Tolerance, Decreased Strength,Limited Range of Motion,Pain,Poor Balance PT-OP-H Neuro Start: 02/25/22 19:43 Freq: Status: Active Protocol: Document 05/27/22 14:43 LRN (Rec: 05/27/22 15:26 LRN [id number]) Sensation Evaluation Comments Summary Comments Pt reports normal sensation, but not able to assess underneath the JACKSON bandage covering the LLE. PT-OP-J Posture/Palpation/Skin Start: 02/25/22 19:43 Freq: Status: Active Protocol: Document 05/27/22 14:43 LRN (Rec: 05/27/22 17:23 LRN [id number]) Posture Evaluation Position Standing Weight Distribution Weight Shifted Right Hip Posture (L) Flexed,(R) Flexed Comments Posture Comments Pt using FWW for standing. Palpation Assessment Location L knee Palpation Details Not able to palpate due to JACKSON wrap around L knee, proximal lower leg and distal thigh. PT-OP-K Range of Motion Start: 02/25/22 19:43 Freq: Status: Active Protocol: Document 06/28/22 10:38 LRN (Rec: 06/28/22 11:21 LRN [id number]) Knee Goniometric Range of Motion Knee Left Knee ROM WFL No Patient Position Supine Flexion Active (degrees) 130 Extension Active (degrees) 2 PT-OP-M Strength Start: 02/25/22 19:43 Freq: Status: Active Protocol: Document 05/27/22 14:43 LRN (Rec: 05/27/22 15:26 LRN [id number]) Knee Strength Knee Manual Muscle Testing Right Flexion (S2) 5 Normal Extension (L3) 5 Normal Left Flexion (S2) 2 Poor Extension (L3) 2 Poor Ankle/Foot Strength Ankle and Foot Manual Muscle Testing Right Comments All 5/5 Left Comments All 5/5 PT-OP-Q Treatments Start: 02/25/22 19:43 Freq: Status: Active Protocol: Document 06/28/22 10:38 LRN (Rec: 06/28/22 11:21 LRN [id number]) Cardio Equipment Recumbent Bicycle Duration (Minutes) 8 Resistance 4>6 Seat Position 3 Other full revolution good ankle ROM Therapeutic Exercises Prone Exercises Femoral nerve glides Prone Exercise Name Femoral n slider (kick head w/ ft PF)>tensioner(kick head down)>slider Reps/Minutes 10x each Comments verbal review- good feedback response at home Standing Exercises Lateral trunk shift Standing Exercise Name Lateral trunk shift to R/hip shift L Reps/Minutes 3' Comments phys cuing needed, pt had difficulty shifting her trunk R. Gait Training Gait Activity gait Description Gait for lateral shift of L innominate, L leg progression fwd Surface level Treatment Focus 25' Comments Needed extra training of leaning against wall on L side to get trunk shift to R=L hip shift laterally left. Manual Therapy Treatment Soft Tissue Mobilization Left IT Band Body Location Left IT Band Mobilization Type Instrument Assisted Intensity/Depth Moderate Body Position Sidelying PT-OP-R Modalities Start: 02/25/22 19:43 Freq: Status: Active Protocol: Document 06/28/22 10:38 LRN (Rec: 06/28/22 11:21 LRN [id number]) Hot Pack/Cold Pack Treatment Cold Pack Location L knee Patient Position Supine Treatment Duration (minutes) 10 Patient Tolerance Good Comments Pt in supine with LLE elevated PT-OP-T Assessment and Plan Start: 02/25/22 19:43 Freq: Status: Active Protocol: Document 06/28/22 10:38 LRN (Rec: 06/28/22 11:21 LRN [id number]) Physical Therapy Assessment Goals Four Impairment Decreased L knee mobility Impairment L Knee AROM: Supine: 10-70 left , 0-140 deg's right; Sittin-80 deg's left. Short Term Goal (STG) Improve L knee AROM with pt able to walk with a cane with normal gait pattern. 06/03/22: 0-110 L knee AROM. 06/05/22: 2-118 L knee AROM 06/12/22: 1-130 L knee AROM 06/14/22: 3-115 L knee AROM 06/19/22: 0-130 L knee AROM (1 deg lag relaxed extension and SLR) 06/21/22: 0-120 L knee AROM. Pt lacks L hip protraction with gait. 06/28/22: 3-130 L knee AROM. Walking without cane and decreased hip shift with gait. STG Duration 07/12/22 partially met goal 06/28/22 Prison Goal (LTG) Pt able to ambulate w/o an assistive device and normal gait on stairs and flat surface. 06/05/22: arrived using FWW, states walking short distances at home no AD and SPC when needed. Daughter encourages her to use AD due to not walking normal. 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 Stairs step over step L HR SPC in RUE, cues slow descend for support/control. 06/12/22: improved gait w/ SPC in mirror, cued less UE support needed. Pt ableto walk short distances with no AD and improved L knee stability with cues for quad fac support . 06/14/22: Normal sequencing gait on stairs with use of 2 rails or 1 rail/1 SPC. 06/19/22: gait without SPC arrival today, initial step L knee sway, rest steps aware quad fac improves more normal gait phase. 06/26/22: progressing, pt requires light contact glide on 1 HR descending, no UE support ascending MAP bldg stairs x2 laps of 28 stairs, light twinge irritation superior patella and med distal quad last few stairs. LTG Duration 08/25/22 progressing Three Impairment Decreased L knee strength Impairment L knee MMT: Flex/Ext is 2/5 ( R knee is 5/5). L knee pain rated 2-3/10 with Acetaminophen. Tight feeling. Short Term Goal (STG) Strengthen L knee with pt able to perform sit<>stand with out the walker. 06/05/22: MET GOAL: able STS without UE support BLE side by side x5 reps. STG Duration 07/12/22 (GOAL MET 06/05/22) Respiratory Services Manager Goal (LTG) Strengthen L knee to 5/5. LTG Duration 08/25/22 Two Impairment Decreased function per LEFS score and pt using FWW for gait Impairment Pre surgery: LEFS score 25 (60 -79% impaired, score 17-31) Re-eval: LEFS score 13/80 (80 -99% impaired, score 1-16). Short Term Goal (STG) Pt will improve function per LEFS score of 25 or greater to be at pre-surgery function ( 60-79% impaired, score 17-31). STG Duration 07/12/22 Prison Goal (LTG) Improve function per LEFS score 48 or greater (20-39% impaired). LTG Duration 08/25/22 One Impairment Lacks appropriate self care HEP Short Term Goal (STG) Pt will be re-educated in edema and pain management for self halfway. 04/12/22: Reviewed/discussed precautions of movement (rot, review flex/ext) to decrease pain due to meniscal tear and arthritis. Reviewed RICE protocol. 06/12/22: discussed self retro grade STMs and elevate/ice. : GOAL MET: elevates and uses ice pack and compression sleeve if needed. STG Duration 05/31/22 (GOAL MET 05/30/22) Prison Goal (LTG) Pt will be able to resume HEP for L knee, hip ankle strengthening ex's and ROM ex' s pre surgery. 03/07/22: HEP: L knee supine flex/ext stretch and QS; L hip ext, AB (clamshell and straight leg), AD strengthening in sup/sidelie. : resisted HS curl & LAQ. 04/12/22: ankle DF, IV, EV strengthening and gastroc/ soleus stretch. 04/27/22: added resisted band walk 06/19/22: reviewed HEP: DC band walk, AP, QS, HS, SLR 15 reps , SAQ wt 3x10, knee hang, LAQ, STS, knee flexion seated, TKE and HS curl w/ TB, repeated step ups 20 reps. 06/21/22: added Femoral nerve sliders LTG Duration 08/25/22 progressing 06/21/22 Assessment Summary Assessment L knee flexion AROM is very good (130 deg's flex), ext is lacking 2-3 deg's. She has no pain with gait and tolerated gait training without c/o knee pain. Lack of L knee strength may be her limiting condition and swelling from jarring her leg in descending stairs. Pt c/o medial L knee pain with descending of stairs . Physical Therapy Plan Frequency and Duration Frequency of Treatment 2x/Week Plan of Care Start Date 05/27/22 Plan of Care End Date 08/25/22 Next Visit Focus/Plan Next Note Type Treatment Note Next Visit Plan Check outcome of MD visit for L knee pain after mis-step on descending stairs. Continue for improved gait mechanics, stair mgt, on/off floor least UE support for allowance weed garden. Continue uneven surface gait for mowing lawn. POC: Next tx Focus on abilty to descend stairs. Add hurdles. Progress L knee ext ROM/ strengthening, progress SLS time and uneven surface gait ( gait/balance training). Shuttle recovery, STM for left IT Band tightness.
--- NOTE | 2022-07-05 11:25 | PT.OTN ---
Current Diagnoses Other abnormalities of gait and mobility (07/05/22) Unspecified injury of left lower leg, initial encounter (07/05/22) Physical Therapy Treatment Note PT-OP-A Visit Information Start: 02/25/22 19:43 Freq: Status: Active Protocol: Document 07/05/22 10:34 SP (Rec: 07/05/22 11:36 SP [id number]) Out-Patient Physical Therapy Visit Information Visit Information Visit Type Treatment Note Visit Start Time 10:34 Visit Stop Time 11:25 Total Visit Minutes 51 Visit Number Number of CLOTHESPIN MACHINE OPERATOR Visits 1 PT-OP-B Current Condition Start: 02/25/22 19:43 Freq: Status: Active Protocol: Document 05/27/22 14:43 LRN (Rec: 05/27/22 17:20 LRN [id number]) Current Condition History of Current Condition Onset Date 05/23/22 Current Complaints s/p L TKA History of Current Condition Pt has had L medial knee pain since ~11/29/21 and had L knee rehab her at [facility] prior to surgery from 02/28/22 to 05/21/22. The pt underwent L partial knee replacement surgery 05/23/22 and was released home the same day. She states she had a difficult time the first couple days at home, but on the third day was able to do some of her L knee exercises. She attends to day reporting stiffness and pain at the L knee and feeling like she is not progressing as well as she had hoped, but that she is able to walk and has her daughter around her home to help her. Prior Treatments and Tests Cortisone injection in L knee Dec 2021. PT at [facility] from to 05/21/22. Developmental History Developmental History After hike L knee hurt, a couple weeks later was dancing and next day could hardly walk. Went to a walk-in clinic in [facility] [facility] and was told arthritis and was given meds. Pain didn't go away so went to Dr. Acuña and was told arthritis and knee wasn't going to get better. Had a cortisone injection in Dec 2021, that didn't help. Was told she was a candidate for a partial knee replacement or more injections. Treatment Goals Patient/Caregiver Goals Pt goals are to improve L knee mobility, strength, walk without an assistive device, to decrease her knee pain and improve her overall function. Prior Functional Status Baseline Function- ADL's Independent Baseline Function- Mobility Independent Baseline Function- Other LEFS score 25 (60-79% impaired , score 17-31) Current Functional Impairments (Reported) Functional Limitations- ADL's Pain with transfers. Pain with activity Limited with L knee mobility. Functional Limitations- Mobility/Gait Avoiding use of stairs. Walks with FWW. Functional Limitations- Other LEFS score 13/80 (80-99% impaired, score 1-16). Personal Factors Other Personal Factors That May Effect Lives alone with dog and 2 Therapy/Recovery cats, but daughter will stay with her for 1 week. PT-OP-C Subjective Start: 02/25/22 19:43 Freq: Status: Active Protocol: Document 07/05/22 10:34 SP (Rec: 07/05/22 11:36 SP [id number]) OP-PT Subjective Patient Comments Patient Comments Patient reports MD appt took xrays of L leg and no fractures or structure concerns, unsure why ITBand and lateral low leg pain recently with seated wt shift to R but be cautious and alignment. Continue as tolerated. PT-OP-G Mobility & Gait Start: 02/25/22 19:43 Freq: Status: Active Protocol: Document 05/27/22 14:43 LRN (Rec: 05/27/22 15:26 LRN [id number]) OP Mobility Evaluation Bed Mobility Supine to and from Sit Independent Transfers Sit to Stand Independent with use of FWW Bed to Chair Transfers Independent with use of FWW. OP Gait Assessment Gait Gait Assistance Required: Independent Assistive Devices Assistive Device Front Wheeled Walker Gait Deviations General Gait Pattern Antalgic,Decreased Stride Length,Wide Based Gait Factors Limiting Gait Function Factors Limiting Gait Function Decreased Activity Tolerance, Decreased Strength,Limited Range of Motion,Pain,Poor Balance PT-OP-H Neuro Start: 02/25/22 19:43 Freq: Status: Active Protocol: Document 05/27/22 14:43 LRN (Rec: 05/27/22 15:26 LRN [id number]) Sensation Evaluation Comments Summary Comments Pt reports normal sensation, but not able to assess underneath the JACKSON bandage covering the LLE. PT-OP-J Posture/Palpation/Skin Start: 02/25/22 19:43 Freq: Status: Active Protocol: Document 05/27/22 14:43 LRN (Rec: 05/27/22 17:23 LRN [id number]) Posture Evaluation Position Standing Weight Distribution Weight Shifted Right Hip Posture (L) Flexed,(R) Flexed Comments Posture Comments Pt using FWW for standing. Palpation Assessment Location L knee Palpation Details Not able to palpate due to JACKSON wrap around L knee, proximal lower leg and distal thigh. PT-OP-K Range of Motion Start: 02/25/22 19:43 Freq: Status: Active Protocol: Document 06/28/22 10:38 LRN (Rec: 06/28/22 11:21 LRN [id number]) Knee Goniometric Range of Motion Knee Left Knee ROM WFL No Patient Position Supine Flexion Active (degrees) 130 Extension Active (degrees) 2 PT-OP-M Strength Start: 02/25/22 19:43 Freq: Status: Active Protocol: Document 05/27/22 14:43 LRN (Rec: 05/27/22 15:26 LRN [id number]) Knee Strength Knee Manual Muscle Testing Right Flexion (S2) 5 Normal Extension (L3) 5 Normal Left Flexion (S2) 2 Poor Extension (L3) 2 Poor Ankle/Foot Strength Ankle and Foot Manual Muscle Testing Right Comments All 5/5 Left Comments All 5/5 PT-OP-Q Treatments Start: 02/25/22 19:43 Freq: Status: Active Protocol: Document 07/05/22 10:34 SP (Rec: 07/05/22 11:36 SP [id number]) Therapeutic Exercises Prone Exercises Femoral nerve glides Prone Exercise Name Femoral n slider (kick head w/ ft PF)>tensioner(kick head down)>slider Side left Resistance AROM Prone Reps/Minutes 4 sets 10x each (neutral, plantar flexed) Comments Good performance, pain free Sitting Exercises L ankle DF Sitting Exercise Name L ankle DF strengthening Side left Equipment Used towel between knees Reps/Minutes 10x Comments cued ankle under/ front knee, slow eccentric control L ankle IV Sitting Exercise Name L ankle IV strengthening with R foot behind the L Side left Resistance TB #2 Reps/Minutes 10x Comments cued keep leg straight, painfree L ankle EV Sitting Exercise Name L ankle EV strengthening Side left Resistance TB #2 Equipment Used towel between knees Reps/Minutes x10 Comments cued eccentric control return Standing Exercises IT band Stretch Standing Exercise Name IT band stretch Side left Equipment Used @ wall, supine w/ strap assist , LLE bent over RLE Reps/Minutes x8 min Gait Training Gait Activity gait Description Gait for lateral shift of L innominate, L leg progression fwd Device Used 0 Level of Assistance S Surface level Distance/Duration 3min Treatment Focus 20 ft x4 laps Comments Improved L hip edge range extension and L hip flexion functional stretch which allowed even lateral wt shift WB into LLE. Manual Therapy Treatment Soft Tissue Mobilization Left IT Band Body Location Left IT Band Mobilization Type Instrument Assisted Intensity/Depth Moderate Body Position Sidelying Comments brief manual and reviewed self application Neuro Re-Education Treatment Balance Activities Hurdles Details Forward, lateral stepping Equipment Hurdles Reps/Duration 4 laps each Comments VC for WBOS, slower pacing, soft stepping, improved SLS time and stability Self-Care/Home Management Treatment Education Other Education manual mostly self care for flexibility, relaxation PT-OP-R Modalities Start: 02/25/22 19:43 Freq: Status: Active Protocol: Document 07/05/22 10:34 SP (Rec: 07/05/22 11:36 SP [id number]) Hot Pack/Cold Pack Treatment Cold Pack Location L ITB Patient Position Supine Treatment Duration (minutes) 10 Patient Tolerance Good Comments supine straight front PT-OP-T Assessment and Plan Start: 02/25/22 19:43 Freq: Status: Active Protocol: Document 07/05/22 10:34 SP (Rec: 07/05/22 11:36 SP [id number]) Physical Therapy Assessment Goals Four Impairment Decreased L knee mobility Impairment L Knee AROM: Supine: 10-70 left , 0-140 deg's right; Sittin-80 deg's left. Short Term Goal (STG) Improve L knee AROM with pt able to walk with a cane with normal gait pattern. 06/03/22: 0-110 L knee AROM. 06/05/22: 2-118 L knee AROM 06/12/22: 1-130 L knee AROM 06/14/22: 3-115 L knee AROM 06/19/22: 0-130 L knee AROM (1 deg lag relaxed extension and SLR) 06/21/22: 0-120 L knee AROM. Pt lacks L hip protraction with gait. 06/28/22: 3-130 L knee AROM. Walking without cane and decreased hip shift with gait. STG Duration 07/12/22 partially met goal 06/28/22 Project Designer Goal (LTG) Pt able to ambulate w/o an assistive device and normal gait on stairs and flat surface. 06/05/22: arrived using FWW, states walking short distances at home no AD and SPC when needed. Daughter encourages her to use AD due to not walking normal. CLOTHESPIN MACHINE OPERATOR discussed DC FWW, use SPC longer distances due to little unsteady L knee during midstance phase better when thinks about knee extension. Stairs step over step L HR SPC in RUE, cues slow descend for support/control. 06/12/22: improved gait w/ SPC in mirror, cued less UE support needed. Pt ableto walk short distances with no AD and improved L knee stability with cues for quad fac support . 06/14/22: Normal sequencing gait on stairs with use of 2 rails or 1 rail/1 SPC. 06/19/22: gait without SPC arrival today, initial step L knee sway, rest steps aware quad fac improves more normal gait phase. 06/26/22: progressing, pt requires light contact glide on 1 HR descending, no UE support ascending MAP bldg stairs x2 laps of 28 stairs, light twinge irritation superior patella and med distal quad last few stairs. LTG Duration 08/25/22 progressing Three Impairment Decreased L knee strength Impairment L knee MMT: Flex/Ext is 2/5 ( R knee is 5/5). L knee pain rated 2-3/10 with Acetaminophen. Tight feeling. Short Term Goal (STG) Strengthen L knee with pt able to perform sit<>stand with out the walker. 06/05/22: MET GOAL: able STS without UE support BLE side by side x5 reps. STG Duration 07/12/22 (GOAL MET 06/05/22) Project Designer Goal (LTG) Strengthen L knee to 5/5. LTG Duration 08/25/22 Two Impairment Decreased function per LEFS score and pt using FWW for gait Impairment Pre surgery: LEFS score 25 (60 -79% impaired, score 17-31) Re-eval: LEFS score 13/80 (80 -99% impaired, score 1-16). Short Term Goal (STG) Pt will improve function per LEFS score of 25 or greater to be at pre-surgery function ( 60-79% impaired, score 17-31). STG Duration 07/12/22 Fci Goal (LTG) Improve function per LEFS score 48 or greater (20-39% impaired). LTG Duration 08/25/22 One Impairment Lacks appropriate self care HEP Short Term Goal (STG) Pt will be re-educated in edema and pain management for self fci. 04/12/22: Reviewed/discussed precautions of movement (rot, review flex/ext) to decrease pain due to meniscal tear and arthritis. Reviewed RICE protocol. 06/12/22: discussed self retro grade STMs and elevate/ice. : GOAL MET: elevates and uses ice pack and compression sleeve if needed. STG Duration 05/31/22 (GOAL MET 05/30/22) Fci Goal (LTG) Pt will be able to resume HEP for L knee, hip ankle strengthening ex's and ROM ex' s pre surgery. 03/07/22: HEP: L knee supine flex/ext stretch and QS; L hip ext, AB (clamshell and straight leg), AD strengthening in sup/sidelie. : resisted HS curl & LAQ. 04/12/22: ankle DF, IV, EV strengthening and gastroc/ soleus stretch. 04/27/22: added resisted band walk 06/19/22: reviewed HEP: DC band walk, AP, QS, HS, SLR 15 reps , SAQ wt 3x10, knee hang, LAQ, STS, knee flexion seated, TKE and HS curl w/ TB, repeated step ups 20 reps. 06/21/22: added Femoral nerve sliders LTG Duration 08/25/22 progressing 06/21/22 Assessment Summary Assessment Reviewed ankle HEP for strengthening and self massage support for lessening LLE pain throughout the week. Pt improved flexibility and understanding mechanics gait and LLE lateral wt shift and use of massage/stretching ITB for decreased pain/discomfort into LLE. Pt L ITB little sore after ther ex but much better than arrived. Is self application contrast MHP/CP. Physical Therapy Plan Frequency and Duration Frequency of Treatment 2x/Week Plan of Care Start Date 05/27/22 Plan of Care End Date 08/25/22 Next Visit Focus/Plan Next Note Type Treatment Note Next Visit Plan Continue for improved gait mechanics, stair mgt, on/off floor least UE support for allowance weed garden. Continue uneven surface gait for mowing lawn. POC: Next tx Focus on abilty to descend stairs. Add hurdles. Progress L knee ext ROM/ strengthening, progress SLS time and uneven surface gait ( gait/balance training). Shuttle recovery, STM for left IT Band tightness. [ End ]
--- NOTE | 2022-07-11 20:43 | PT.OTN ---
Current Diagnoses Other abnormalities of gait and mobility (07/11/22) Unspecified injury of left lower leg, initial encounter (07/11/22) Physical Therapy Treatment Note PT-OP-A Visit Information Start: 02/25/22 19:43 Freq: Status: Active Protocol: Document 07/11/22 10:43 LRN (Rec: 07/11/22 11:25 LRN [id number]) Out-Patient Physical Therapy Visit Information Visit Information Visit Type Progress Note Visit Start Time 10:43 Visit Stop Time 11:21 Total Visit Minutes 38 Visit Number Evaluation Information Evaluation Date 05/27/22 Precautions Precautions ADHESIVE ALLERGIES, Arthritis, decreased hearing but doesn't wear her hearing aids, 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 *05/23/22: S/P L medial knee arthoplasty rehabilitation. PT-OP-B Current Condition Start: 02/25/22 19:43 Freq: Status: Active Protocol: Document 05/27/22 14:43 LRN (Rec: 05/27/22 17:20 LRN [id number]) Current Condition History of Current Condition Onset Date 05/23/22 Current Complaints s/p L TKA History of Current Condition Pt has had L medial knee pain since ~11/29/21 and had L knee rehab her at [facility] prior to surgery from 02/28/22 to 05/21/22. The pt underwent L partial knee replacement surgery 05/23/22 and was released home the same day. She states she had a difficult time the first couple days at home, but on the third day was able to do some of her L knee exercises. She attends to day reporting stiffness and pain at the L knee and feeling like she is not progressing as well as she had hoped, but that she is able to walk and has her daughter around her home to help her. Prior Treatments and Tests Cortisone injection in L knee Dec 2021. PT at [facility] from to 05/21/22. Developmental History Developmental History After hike L knee hurt, a couple weeks later was dancing and next day could hardly walk. Went to a walk-in clinic in [facility] and was told arthritis and was given meds. Pain didn't go away so went to Dr. Acuña and was told arthritis and knee wasn't going to get better. Had a cortisone injection in Dec 2021, that didn't help. Was told she was a candidate for a partial knee replacement or more injections. Treatment Goals Patient/Caregiver Goals Pt goals are to improve L knee mobility, strength, walk without an assistive device, to decrease her knee pain and improve her overall function. Prior Functional Status Baseline Function- ADL's Independent Baseline Function- Mobility Independent Baseline Function- Other LEFS score 25 (60-79% impaired , score 17-31) Current Functional Impairments (Reported) Functional Limitations- ADL's Pain with transfers. Pain with activity Limited with L knee mobility. Functional Limitations- Mobility/Gait Avoiding use of stairs. Walks with FWW. Functional Limitations- Other LEFS score 13/80 (80-99% impaired, score 1-16). Personal Factors Other Personal Factors That May Effect Lives alone with dog and 2 Therapy/Recovery cats, but daughter will stay with her for 1 week. PT-OP-C Subjective Start: 02/25/22 19:43 Freq: Status: Active Protocol: Document 07/11/22 10:43 LRN (Rec: 07/11/22 11:25 LRN [id number]) OP-PT Subjective Patient Comments Patient Comments States scooting on couch 2 days before last appt pt report she had stabbing, shooting pain into the lateral side of the L lower leg. Having pain in the lateral lower L leg during doing Bi[employer]. PT-OP-G Mobility & Gait Start: 02/25/22 19:43 Freq: Status: Active Protocol: Document 05/27/22 14:43 LRN (Rec: 05/27/22 15:26 LRN [id number]) OP Mobility Evaluation Bed Mobility Supine to and from Sit Independent Transfers Sit to Stand Independent with use of FWW Bed to Chair Transfers Independent with use of FWW. OP Gait Assessment Gait Gait Assistance Required: Independent Assistive Devices Assistive Device Front Wheeled Walker Gait Deviations General Gait Pattern Antalgic,Decreased Stride Length,Wide Based Gait Factors Limiting Gait Function Factors Limiting Gait Function Decreased Activity Tolerance, Decreased Strength,Limited Range of Motion,Pain,Poor Balance PT-OP-H Neuro Start: 02/25/22 19:43 Freq: Status: Active Protocol: Document 05/27/22 14:43 LRN (Rec: 02/27/23 15:26 LRN [id number]) Sensation Evaluation Comments Summary Comments Pt reports normal sensation, but not able to assess underneath the JACKSON bandage covering the LLE. PT-OP-J Posture/Palpation/Skin Start: 02/25/22 19:43 Freq: Status: Active Protocol: Document 05/27/22 14:43 LRN (Rec: 05/27/22 17:23 LRN [id number]) Posture Evaluation Position Standing Weight Distribution Weight Shifted Right Hip Posture (L) Flexed,(R) Flexed Comments Posture Comments Pt using FWW for standing. Palpation Assessment Location L knee Palpation Details Not able to palpate due to JACKSON wrap around L knee, proximal lower leg and distal thigh. PT-OP-K Range of Motion Start: 02/25/22 19:43 Freq: Status: Active Protocol: Document 06/28/22 10:38 LRN (Rec: 06/28/22 11:21 LRN [id number]) Knee Goniometric Range of Motion Knee Left Knee ROM WFL No Patient Position Supine Flexion Active (degrees) 130 Extension Active (degrees) 2 PT-OP-M Strength Start: 02/25/22 19:43 Freq: Status: Active Protocol: Document 05/27/22 14:43 LRN (Rec: 05/27/22 15:26 LRN [id number]) Knee Strength Knee Manual Muscle Testing Right Flexion (S2) 5 Normal Extension (L3) 5 Normal Left Flexion (S2) 2 Poor Extension (L3) 2 Poor Ankle/Foot Strength Ankle and Foot Manual Muscle Testing Right Comments All 5/5 Left Comments All 5/5 PT-OP-Q Treatments Start: 02/25/22 19:43 Freq: Status: Active Protocol: Document 07/11/22 10:43 LRN (Rec: 07/11/22 11:25 LRN [id number]) Cardio Equipment Recumbent Elliptical (BiodCrosswise) Duration (Minutes) 6 Resistance 1 Seat Position 4 Therapeutic Exercises Prone Exercises Femoral nerve glides Prone Exercise Name Femoral n slider (kick head w/ ft PF)>tensioner(kick head down)>slider Side left Resistance AROM Prone Reps/Minutes 1 sets 10x each (neutral) Comments Cuing for pain free Sitting Exercises L ankle DF Sitting Exercise Name AROM Side left Reps/Minutes 10x L ankle IV Sitting Exercise Name AROM Side left Reps/Minutes 10x Comments Phys assist & cuing to keep from rotating at the knee L ankle EV Sitting Exercise Name AROM Side left Reps/Minutes 10x Comments Phys assist & cuing to keep from rotating at the knee Manual Therapy Treatment Soft Tissue Mobilization L lower leg Body Location L lower leg: lateral, posterior, anterior tib Mobilization Type Strumming Intensity/Depth Superficial Body Position Prone Comments Contrast Hot Pack/CP during STM Left IT Band Body Location Left IT Band Mobilization Type Strumming Intensity/Depth Superficial Body Position Sidelying Comments Contrast Hot Pack/CP during STM PT-OP-R Modalities Start: 02/25/22 19:43 Freq: Status: Active Protocol: Document 07/05/22 10:34 SP (Rec: 07/05/22 11:36 SP [id number]) Hot Pack/Cold Pack Treatment Cold Pack Location L ITB Patient Position Supine Treatment Duration (minutes) 10 Patient Tolerance Good Comments supine straight front PT-OP-T Assessment and Plan Start: 02/25/22 19:43 Freq: Status: Active Protocol: Document 07/11/22 10:43 LRN (Rec: 07/11/22 11:25 LRN [id number]) Physical Therapy Assessment Rehab Potential Rehabilitation Potential Excellent Evaluation Complexity Number of Personal Factors/Comorbidities 1-2 Number of Body Systems Impaired 4 or More Clinical Presentation at Evaluation Evolving Impairments Impairments Activity Tolerance,Balance, Edema,Functional Mobility,Gait ,Pain,ROM,Soft Tissue Mobility ,Strength,Transfers Goals Four Impairment Decreased L knee mobility Impairment L Knee AROM: Supine: 10-70 left , 0-140 deg's right; Sittin-80 deg's left. Short Term Goal (STG) Improve L knee AROM with pt able to walk with a cane with normal gait pattern. 06/03/22: 0-110 L knee AROM. 06/05/22: 2-118 L knee AROM 06/12/22: 1-130 L knee AROM 06/14/22: 3-115 L knee AROM 06/19/22: 0-130 L knee AROM (1 deg lag relaxed extension and SLR) 06/21/22: 0-120 L knee AROM. Pt lacks L hip protraction with gait. 06/28/22: 3-130 L knee AROM. Walking without cane and decreased hip shift with gait. STG Duration 07/12/22 partially met goal 06/28/22 Associate Professor Of Psychology Goal (LTG) Pt able to ambulate w/o an assistive device and normal gait on stairs and flat surface. 06/05/22: arrived using FWW, states walking short distances at home no AD and SPC when needed. Daughter encourages her to use AD due to not walking normal. COPY WORKER discussed DC FWW, use SPC longer distances due to little unsteady L knee during midstance phase better when thinks about knee extension. Stairs step over step L HR SPC in RUE, cues slow descend for support/control. 06/12/22: improved gait w/ SPC in mirror, cued less UE support needed. Pt ableto walk short distances with no AD and improved L knee stability with cues for quad fac support . 06/14/22: Normal sequencing gait on stairs with use of 2 rails or 1 rail/1 SPC. 06/19/22: gait without SPC arrival today, initial step L knee sway, rest steps aware quad fac improves more normal gait phase. 06/26/22: progressing, pt requires light contact glide on 1 HR descending, no UE support ascending MAP bldg stairs x2 laps of 28 stairs, light twinge irritation superior patella and med distal quad last few stairs. LTG Duration 08/25/22 progressing Three Impairment Decreased L knee strength Impairment L knee MMT: Flex/Ext is 2/5 ( R knee is 5/5). L knee pain rated 2-3/10 with Acetaminophen. Tight feeling. Short Term Goal (STG) Strengthen L knee with pt able to perform sit<>stand with out the walker. 06/05/22: MET GOAL: able STS without UE support BLE side by side x5 reps. STG Duration 07/12/22 (GOAL MET 06/05/22) Associate Professor Of Psychology Goal (LTG) Strengthen L knee to 5/5. LTG Duration 08/25/22 Two Impairment Decreased function per LEFS score and pt using FWW for gait Impairment Pre surgery: LEFS score 25 (60 -79% impaired, score 17-31) Re-eval: LEFS score 13/80 (80 -99% impaired, score 1-16). Short Term Goal (STG) Pt will improve function per LEFS score of 25 or greater to be at pre-surgery function ( 60-79% impaired, score 17-31). STG Duration 07/12/22 Residential Goal (LTG) Improve function per LEFS score 48 or greater (20-39% impaired). LTG Duration 08/25/22 One Impairment Lacks appropriate self care HEP Short Term Goal (STG) Pt will be re-educated in edema and pain management for self fpc. 04/12/22: Reviewed/discussed precautions of movement (rot, review flex/ext) to decrease pain due to meniscal tear and arthritis. Reviewed RICE protocol. 06/12/22: discussed self retro grade STMs and elevate/ice. : GOAL MET: elevates and uses ice pack and compression sleeve if needed. STG Duration 05/31/22 (GOAL MET 05/30/22) Residential Goal (LTG) Pt will be able to resume HEP for L knee, hip ankle strengthening ex's and ROM ex' s pre surgery. 03/07/22: HEP: L knee supine flex/ext stretch and QS; L hip ext, AB (clamshell and straight leg), AD strengthening in sup/sidelie. : resisted HS curl & LAQ. 04/12/22: ankle DF, IV, EV strengthening and gastroc/ soleus stretch. 04/27/22: added resisted band walk 06/19/22: reviewed HEP: DC band walk, AP, QS, HS, SLR 15 reps , SAQ wt 3x10, knee hang, LAQ, STS, knee flexion seated, TKE and HS curl w/ TB, repeated step ups 20 reps. 06/21/22: added Femoral nerve sliders LTG Duration 08/25/22 progressing 06/21/22 Progress Towards Goals Progress Towards Goals Progressing Toward Goals Progress Comments 06/19/22 MET STG #1. Gained 15 deg AROM L knee flexion since last tx. Assessment Summary Assessment Pt attends today with reports of sudden onset of L knee pain after shifting up in her couch from a sit position. She reports being at surgeon's office and examined and told no fractures; therefore no treatment changes. The pt L knee is limited in sitting today with recent pain flare up; L knee active flex ~ 100 deg's in sitting due to lateral knee pain. Her gait is mildly an antalgic gait. The pt tolerated less activity due to the pain; therefore treatment focused on pain reduction. The pt will benefit from continued skilled physical therapy to reduce pain and progress her towards meeting her above stated goals . Physical Therapy Plan Frequency and Duration Frequency of Treatment 2x/Week Plan of Care Start Date 05/27/22 Plan of Care End Date 08/25/22 Therapeutic Interventions Therapeutic Interventions Balance Training,Gait Training ,Home Exercise Program,Manual Therapy,Neuromuscular Re- education,Patient/Caregiver Education,Self-Care/Home Management,Soft Tissue Mobilization,Taping, Therapeutic Activities, Therapeutic Exercises Modalities Cold Pack/Ice Massage,Hot Packs Next Visit Focus/Plan Next Note Type Treatment Note Next Visit Plan Focus on L knee pain resolution and minimize stress at knee joint and low back. Hold deep STM to IT Band and ankle ex's if pt not able to perform w/o twisting at the knee joint. When appropriate, continue for improved gait mechanics, stair mgt, on/off floor least UE support for allowance weed garden and uneven surface gait for mowing lawn. POC: When pain resolved, Focus on abilty to descend stairs. Add hurdles. Progress L knee ext ROM/ strengthening, progress SLS time and uneven surface gait ( gait/balance training). Shuttle recovery, STM for left IT Band tightness. [ End ]
--- NOTE | 2022-07-30 14:59 | PT.OTN ---
Current Diagnoses Other abnormalities of gait and mobility (07/30/22) Unspecified injury of left lower leg, initial encounter (07/30/22) Physical Therapy Treatment Note PT-OP-A Visit Information Start: 02/25/22 19:43 Freq: Status: Active Protocol: Document 07/30/22 10:28 LRN (Rec: 07/30/22 11:18 LRN [id number]) Out-Patient Physical Therapy Visit Information Visit Information Visit Type Treatment Note Visit Start Time 10:28 Visit Stop Time 11:14 Total Visit Minutes 46 Visit Number Evaluation Information Evaluation Date 05/27/22 Precautions Precautions ADHESIVE ALLERGIES, Arthritis, decreased hearing but doesn't wear her hearing aids, 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 *05/23/22: S/P L medial knee arthoplasty rehabilitation. PT-OP-B Current Condition Start: 02/25/22 19:43 Freq: Status: Active Protocol: Document 05/27/22 14:43 LRN (Rec: 05/27/22 17:20 LRN [id number]) Current Condition History of Current Condition Onset Date 05/23/22 Current Complaints s/p L TKA History of Current Condition Pt has had L medial knee pain since ~11/29/21 and had L knee rehab her at [facility] prior to surgery from 02/28/22 to 05/21/22. The pt underwent L partial knee replacement surgery 05/23/22 and was released home the same day. She states she had a difficult time the first couple days at home, but on the third day was able to do some of her L knee exercises. She attends to day reporting stiffness and pain at the L knee and feeling like she is not progressing as well as she had hoped, but that she is able to walk and has her daughter around her home to help her. Prior Treatments and Tests Cortisone injection in L knee Dec 2021. PT at [facility] from to 05/21/22. Developmental History Developmental History After hike L knee hurt, a couple weeks later was dancing and next day could hardly walk. Went to a walk-in clinic in [facility] and was told arthritis and was given meds. Pain didn't go away so went to Dr. Acuña and was told arthritis and knee wasn't going to get better. Had a cortisone injection in Dec 2021, that didn't help. Was told she was a candidate for a partial knee replacement or more injections. Treatment Goals Patient/Caregiver Goals Pt goals are to improve L knee mobility, strength, walk without an assistive device, to decrease her knee pain and improve her overall function. Prior Functional Status Baseline Function- ADL's Independent Baseline Function- Mobility Independent Baseline Function- Other LEFS score 25 (60-79% impaired , score 17-31) Current Functional Impairments (Reported) Functional Limitations- ADL's Pain with transfers. Pain with activity Limited with L knee mobility. Functional Limitations- Mobility/Gait Avoiding use of stairs. Walks with FWW. Functional Limitations- Other LEFS score 13/80 (80-99% impaired, score 1-16). Personal Factors Other Personal Factors That May Effect Lives alone with dog and 2 Therapy/Recovery cats, but daughter will stay with her for 1 week. PT-OP-C Subjective Start: 02/25/22 19:43 Freq: Status: Active Protocol: Document 07/30/22 10:28 LRN (Rec: 07/30/22 11:18 LRN [id number]) OP-PT Subjective Patient Comments Patient Comments States percent better is 85%- 100% better per L knee. Feels tight/stiffness/inflammation at IT Band. Took hike yesterday and used ice and was helpful. Patient Questionnaires Lower Extremity Functional Scale LEFS Score 63 LEFS Impairment 1 to 19% Impaired (Score 63-79 ) PT-OP-G Mobility & Gait Start: 02/25/22 19:43 Freq: Status: Active Protocol: Document 05/27/22 14:43 LRN (Rec: 05/27/22 15:26 LRN [id number]) OP Mobility Evaluation Bed Mobility Supine to and from Sit Independent Transfers Sit to Stand Independent with use of FWW Bed to Chair Transfers Independent with use of FWW. OP Gait Assessment Gait Gait Assistance Required: Independent Assistive Devices Assistive Device Front Wheeled Walker Gait Deviations General Gait Pattern Antalgic,Decreased Stride Length,Wide Based Gait Factors Limiting Gait Function Factors Limiting Gait Function Decreased Activity Tolerance, Decreased Strength,Limited Range of Motion,Pain,Poor Balance PT-OP-H Neuro Start: 02/25/22 19:43 Freq: Status: Active Protocol: Document 05/27/22 14:43 LRN (Rec: 05/27/22 15:26 LRN [id number]) Sensation Evaluation Comments Summary Comments Pt reports normal sensation, but not able to assess underneath the JACKSON bandage covering the LLE. PT-OP-J Posture/Palpation/Skin Start: 02/25/22 19:43 Freq: Status: Active Protocol: Document 05/27/22 14:43 LRN (Rec: 05/27/22 17:23 LRN [id number]) Posture Evaluation Position Standing Weight Distribution Weight Shifted Right Hip Posture (L) Flexed,(R) Flexed Comments Posture Comments Pt using FWW for standing. Palpation Assessment Location L knee Palpation Details Not able to palpate due to JACKSON wrap around L knee, proximal lower leg and distal thigh. PT-OP-K Range of Motion Start: 02/25/22 19:43 Freq: Status: Active Protocol: Document 07/30/22 10:28 LRN (Rec: 07/30/22 11:18 LRN [id number]) Knee Goniometric Range of Motion Knee Right Knee ROM WFL Yes Patient Position Supine Flexion Active (degrees) 140 Flexion Passive (degrees) 0 Extension Active (degrees) 0 Left Knee ROM WFL No Patient Position Supine Flexion Active (degrees) 130 Extension Active (degrees) 2 PT-OP-M Strength Start: 02/25/22 19:43 Freq: Status: Active Protocol: Document 05/27/22 14:43 LRN (Rec: 05/27/22 15:26 LRN [id number]) Knee Strength Knee Manual Muscle Testing Right Flexion (S2) 5 Normal Extension (L3) 5 Normal Left Flexion (S2) 2 Poor Extension (L3) 2 Poor Ankle/Foot Strength Ankle and Foot Manual Muscle Testing Right Comments All 5/5 Left Comments All 5/5 PT-OP-Q Treatments Start: 02/25/22 19:43 Freq: Status: Active Protocol: Document 07/30/22 10:28 LRN (Rec: 07/30/22 11:18 LRN [id number]) Cardio Equipment Bicycle (Upright) Duration (Minutes) 7 Resistance 8 Seat Position 4 Therapeutic Exercises Supine Exercises QS Supine Exercise Name Quad set Side left Reps/Minutes 5 SH x 10 Knee ext stretch Supine Exercise Name Knee ext stretch Side left Equipment Used Lower leg on pillow Standing Exercises step down Standing Exercise Name Descent: fwd, lateral Side left Resistance RLE descend, L knee flexion AROM Equipment Used // barfs, 6 step Reps/Minutes 3' Comments report couple reps ok but then feel medial Jt irritation- stopped Stair stepping Standing Exercise Name Step ups/down Equipment Used 6 step, no UE support for balance Reps/Minutes 6' Comments cued ECC control on descent and core stab. Therapeutic Activity Therapeutic Activity on/off floor Name Transfers off floor to simulate gardening position Reps/Minutes 6' Comments Cued to prevent twisting at left knee and forced flexion of the back. Pt education in precautions of side sitting to do gardening. Gait Training Gait Activity stairs Description Up/down 6 stairs Device Used Stairs Distance/Duration 2' Treatment Focus Core stab & L knee strengthening Self-Care/Home Management Treatment Education Patient Education Pain Management Other Education Educated and discussed with pt use of hot/cold treatment concept for treatment to L lateral thigh and posterior L knee for pain management. Activities Self-Care/Home Management Activities Issued & reviewed contrast bath hot/cold handout. PT-OP-R Modalities Start: 02/25/22 19:43 Freq: Status: Active Protocol: Document 07/05/22 10:34 SP (Rec: 07/05/22 11:36 SP [id number]) Hot Pack/Cold Pack Treatment Cold Pack Location L ITB Patient Position Supine Treatment Duration (minutes) 10 Patient Tolerance Good Comments supine straight front PT-OP-T Assessment and Plan Start: 02/25/22 19:43 Freq: Status: Active Protocol: Document 07/30/22 10:28 LRN (Rec: 07/30/22 11:18 LRN [id number]) Physical Therapy Assessment Goals Four Impairment Decreased L knee mobility Impairment L Knee AROM: Supine: 10-70 left , 0-140 deg's right; Sittin-80 deg's left. Short Term Goal (STG) Improve L knee AROM with pt able to walk with a cane with normal gait pattern. 06/03/22: 0-110 L knee AROM. 06/05/22: 2-118 L knee AROM 06/12/22: 1-130 L knee AROM 06/14/22: 3-115 L knee AROM 06/19/22: 0-130 L knee AROM (1 deg lag relaxed extension and SLR) 06/21/22: 0-120 L knee AROM. Pt lacks L hip protraction with gait. 06/28/22: 3-130 L knee AROM. Walking without cane and decreased hip shift with gait. STG Duration 07/12/22 partially met goal 06/28/22 Group Home Goal (LTG) Pt able to ambulate w/o an assistive device and normal gait on stairs and flat surface. 06/05/22: arrived using FWW, states walking short distances at home no AD and SPC when needed. Daughter encourages her to use AD due to not walking normal. HIDE TANNER discussed DC FWW, use SPC longer distances due to little unsteady L knee during midstance phase better when thinks about knee extension. Stairs step over step L HR SPC in RUE, cues slow descend for support/control. 06/12/22: improved gait w/ SPC in mirror, cued less UE support needed. Pt ableto walk short distances with no AD and improved L knee stability with cues for quad fac support . 06/14/22: Normal sequencing gait on stairs with use of 2 rails or 1 rail/1 SPC. 06/19/22: gait without SPC arrival today, initial step L knee sway, rest steps aware quad fac improves more normal gait phase. 06/26/22: progressing, pt requires light contact glide on 1 HR descending, no UE support ascending MAP bldg stairs x2 laps of 28 stairs, light twinge irritation superior patella and med distal quad last few stairs. LTG Duration 08/25/22 progressing Three Impairment Decreased L knee strength Impairment L knee MMT: Flex/Ext is 2/5 ( R knee is 5/5). L knee pain rated 2-3/10 with Acetaminophen. Tight feeling. Short Term Goal (STG) Strengthen L knee with pt able to perform sit<>stand with out the walker. 06/05/22: MET GOAL: able STS without UE support BLE side by side x5 reps. STG Duration 07/12/22 (GOAL MET 06/05/22) Group Home Goal (LTG) Strengthen L knee to 5/5. LTG Duration 08/25/22 Two Impairment Decreased function per LEFS score and pt using FWW for gait Impairment Pre surgery: LEFS score 25 (60 -79% impaired, score 17-31) Re-eval: LEFS score 13/80 (80 -99% impaired, score 1-16). Short Term Goal (STG) Pt will improve function per LEFS score of 25 or greater to be at pre-surgery function ( 60-79% impaired, score 17-31). STG Duration 07/12/22 Group Home Goal (LTG) Improve function per LEFS score 48 or greater (20-39% impaired). LTG Duration 08/25/22 One Impairment Lacks appropriate self care HEP Short Term Goal (STG) Pt will be re-educated in edema and pain management for self group home. 04/12/22: Reviewed/discussed precautions of movement (rot, review flex/ext) to decrease pain due to meniscal tear and arthritis. Reviewed RICE protocol. 06/12/22: discussed self retro grade STMs and elevate/ice. : GOAL MET: elevates and uses ice pack and compression sleeve if needed. STG Duration 05/31/22 (GOAL MET 05/30/22) Group Home Goal (LTG) Pt will be able to resume HEP for L knee, hip ankle strengthening ex's and ROM ex' s pre surgery. 03/07/22: HEP: L knee supine flex/ext stretch and QS; L hip ext, AB (clamshell and straight leg), AD strengthening in sup/sidelie. : resisted HS curl & LAQ. 04/12/22: ankle DF, IV, EV strengthening and gastroc/ soleus stretch. 04/27/22: added resisted band walk 06/19/22: reviewed HEP: DC band walk, AP, QS, HS, SLR 15 reps , SAQ wt 3x10, knee hang, LAQ, STS, knee flexion seated, TKE and HS curl w/ TB, repeated step ups 20 reps. 06/21/22: added Femoral nerve sliders LTG Duration 08/25/22 progressing 06/21/22 Progress Towards Goals Progress Comments LEFS score was 13 initially ( 80-99% impaired, score 1-16), now is rated 63 (1-19% impaired, score 63-79). Assessment Summary Assessment Pt much improved s/p L TKA, with pain less and function improving per LEFS score of 63 (1-19% impaired, score 63-79) . Some of the L knee IT band tightness may be related to L /S posturing, as when pt cued to maintain a stable core, her pain appears to be less or not present, primarily stiffness. Deep STM to distal 1/3 of IT Band caused sensation of posterior calf pain; therefore pain appears to be neural related. Physical Therapy Plan Frequency and Duration Frequency of Treatment 2x/Week Plan of Care Start Date 05/27/22 Plan of Care End Date 08/25/22 Next Visit Focus/Plan Next Note Type Treatment Note Next Visit Plan Assess for DC next visit. One more visit is needed to achieve pt goals. Assess L knee pain resolution and minimize stress at knee joint and low back. Hold ankle ex's if pt not able to perform w/o twisting at the knee joint. Continue for improved gait mechanics, stair mgt, on/off floor least UE support for allowance weed garden and uneven surface gait for mowing lawn. POC: Focus on abilty to descend stairs. Add hurdles. Progress L knee ext ROM/ strengthening, progress SLS time and uneven surface gait ( gait/balance training). Shuttle recovery, STM for left IT Band tightness. [ End ]
--- NOTE | 2022-08-15 15:05 | PT.OTN ---
Current Diagnoses Other abnormalities of gait and mobility (08/15/22) Unspecified injury of left lower leg, initial encounter (08/15/22) Physical Therapy Treatment Note PT-OP-A Visit Information Start: 02/25/22 19:43 Freq: Status: Active Protocol: Document 08/15/22 14:03 LRN (Rec: 08/15/22 15:04 LRN [id number]) Out-Patient Physical Therapy Visit Information Visit Information Visit Type Treatment Note Visit Start Time 14:03 Visit Stop Time 14:50 Total Visit Minutes 47 Visit Number Evaluation Information Evaluation Date 05/27/22 Precautions Precautions ADHESIVE ALLERGIES, Arthritis, decreased hearing but doesn't wear her hearing aids, 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 *05/23/22: S/P L medial knee arthoplasty rehabilitation. PT-OP-B Current Condition Start: 02/25/22 19:43 Freq: Status: Active Protocol: Document 05/27/22 14:43 LRN (Rec: 05/27/22 17:20 LRN [id number]) Current Condition History of Current Condition Onset Date 05/23/22 Current Complaints s/p L TKA History of Current Condition Pt has had L medial knee pain since ~11/29/21 and had L knee rehab her at [facility] prior to surgery from 02/28/22 to 05/21/22. The pt underwent L partial knee replacement surgery 05/23/22 and was released home the same day. She states she had a difficult time the first couple days at home, but on the third day was able to do some of her L knee exercises. She attends to day reporting stiffness and pain at the L knee and feeling like she is not progressing as well as she had hoped, but that she is able to walk and has her daughter around her home to help her. Prior Treatments and Tests Cortisone injection in L knee Dec 2021. PT at [facility] from to 05/21/22. Developmental History Developmental History After hike L knee hurt, a couple weeks later was dancing and next day could hardly walk. Went to a walk-in clinic in [facility] and was told arthritis and was given meds. Pain didn't go away so went to Dr. Acuña and was told arthritis and knee wasn't going to get better. Had a cortisone injection in Dec 2021, that didn't help. Was told she was a candidate for a partial knee replacement or more injections. Treatment Goals Patient/Caregiver Goals Pt goals are to improve L knee mobility, strength, walk without an assistive device, to decrease her knee pain and improve her overall function. Prior Functional Status Baseline Function- ADL's Independent Baseline Function- Mobility Independent Baseline Function- Other LEFS score 25 (60-79% impaired , score 17-31) Current Functional Impairments (Reported) Functional Limitations- ADL's Pain with transfers. Pain with activity Limited with L knee mobility. Functional Limitations- Mobility/Gait Avoiding use of stairs. Walks with FWW. Functional Limitations- Other LEFS score 13/80 (80-99% impaired, score 1-16). Personal Factors Other Personal Factors That May Effect Lives alone with dog and 2 Therapy/Recovery cats, but daughter will stay with her for 1 week. PT-OP-C Subjective Start: 02/25/22 19:43 Freq: Status: Active Protocol: Document 08/15/22 14:03 LRN (Rec: 08/15/22 15:04 LRN [id number]) OP-PT Subjective Patient Comments Patient Comments Today doing great. 2 weekends ago went camping and did 2 walks and while putting sleeping bags away had sharp pains down the LLE and fell down. Had ice bag down L LE and it took a few days to recover. PT-OP-G Mobility & Gait Start: 02/25/22 19:43 Freq: Status: Active Protocol: Document 05/27/22 14:43 LRN (Rec: 05/27/22 15:26 LRN [id number]) OP Mobility Evaluation Bed Mobility Supine to and from Sit Independent Transfers Sit to Stand Independent with use of FWW Bed to Chair Transfers Independent with use of FWW. OP Gait Assessment Gait Gait Assistance Required: Independent Assistive Devices Assistive Device Front Wheeled Walker Gait Deviations General Gait Pattern Antalgic,Decreased Stride Length,Wide Based Gait Factors Limiting Gait Function Factors Limiting Gait Function Decreased Activity Tolerance, Decreased Strength,Limited Range of Motion,Pain,Poor Balance PT-OP-H Neuro Start: 02/25/22 19:43 Freq: Status: Active Protocol: Document 05/27/22 14:43 LRN (Rec: 05/27/22 15:26 LRN [id number]) Sensation Evaluation Comments Summary Comments Pt reports normal sensation, but not able to assess underneath the JACKSON bandage covering the LLE. PT-OP-J Posture/Palpation/Skin Start: 02/25/22 19:43 Freq: Status: Active Protocol: Document 05/27/22 14:43 LRN (Rec: 05/27/22 17:23 LRN [id number]) Posture Evaluation Position Standing Weight Distribution Weight Shifted Right Hip Posture (L) Flexed,(R) Flexed Comments Posture Comments Pt using FWW for standing. Palpation Assessment Location L knee Palpation Details Not able to palpate due to JACKSON wrap around L knee, proximal lower leg and distal thigh. PT-OP-K Range of Motion Start: 02/25/22 19:43 Freq: Status: Active Protocol: Document 07/30/22 10:28 LRN (Rec: 07/30/22 11:18 LRN [id number]) Knee Goniometric Range of Motion Knee Right Knee ROM WFL Yes Patient Position Supine Flexion Active (degrees) 140 Flexion Passive (degrees) 0 Extension Active (degrees) 0 Left Knee ROM WFL No Patient Position Supine Flexion Active (degrees) 130 Extension Active (degrees) 2 PT-OP-M Strength Start: 02/25/22 19:43 Freq: Status: Active Protocol: Document 05/27/22 14:43 LRN (Rec: 05/27/22 15:26 LRN [id number]) Knee Strength Knee Manual Muscle Testing Right Flexion (S2) 5 Normal Extension (L3) 5 Normal Left Flexion (S2) 2 Poor Extension (L3) 2 Poor Ankle/Foot Strength Ankle and Foot Manual Muscle Testing Right Comments All 5/5 Left Comments All 5/5 PT-OP-Q Treatments Start: 02/25/22 19:43 Freq: Status: Active Protocol: Document 08/15/22 14:03 LRN (Rec: 08/15/22 15:04 LRN [id number]) Cardio Equipment Bicycle (Upright) Duration (Minutes) 11 Resistance 8 Seat Position 4 Therapeutic Exercises Supine Exercises Bridge Supine Exercise Name Bridge - review HEP Reps/Minutes 15x Prone Exercises Femoral nerve glides Prone Exercise Name Hip Ext & Femoral n glides Side bilateral Resistance AROM Prone Reps/Minutes 1 sets 15x each (neutral) Comments Cuing tight TA Sidelying Exercises Hip AB/AD strengthening Sidelying Exercise Name Hip AB - review HEP Side bilateral Reps/Minutes 15x Standing Exercises Wall squats Standing Exercise Name Wall Squats Equipment Used small ball btn knees Reps/Minutes 15x Comments extra time for cuing for body positioning and feet placement . IT band Stretch Standing Exercise Name IT band stretch Side left Equipment Used LLE crossed over RLE Reps/Minutes 10 SH x 10 hip ext/abd Standing Exercise Name Hip AB - review HEP Side bilateral Reps/Minutes 15x Comments Cuing for L LE positioning for toes fwd. Self-Care/Home Management Treatment Education Patient Education Home Exercise Program Activities Self-Care/Home Management Activities Reviewed and re-issued appropriate self care HEP for pt to continue. PT-OP-R Modalities Start: 02/25/22 19:43 Freq: Status: Active Protocol: Document 07/05/22 10:34 SP (Rec: 07/05/22 11:36 SP [id number]) Hot Pack/Cold Pack Treatment Cold Pack Location L ITB Patient Position Supine Treatment Duration (minutes) 10 Patient Tolerance Good Comments supine straight front PT-OP-T Assessment and Plan Start: 02/25/22 19:43 Freq: Status: Active Protocol: Document 08/15/22 14:03 LRN (Rec: 08/15/22 15:04 LRN [id number]) Physical Therapy Assessment Goals Four Impairment Decreased L knee mobility Impairment L Knee AROM: Supine: 10-70 left , 0-140 deg's right; Sittin-80 deg's left. Short Term Goal (STG) Improve L knee AROM with pt able to walk with a cane with normal gait pattern. 06/03/22: 0-110 L knee AROM. 06/05/22: 2-118 L knee AROM 06/12/22: 1-130 L knee AROM 06/14/22: 3-115 L knee AROM 06/19/22: 0-130 L knee AROM (1 deg lag relaxed extension and SLR) 06/21/22: 0-120 L knee AROM. Pt lacks L hip protraction with gait. 06/28/22: 3-130 L knee AROM. Walking without cane and decreased hip shift with gait. STG Duration 07/12/22 partially met goal 06/28/22 [employer] Goal (LTG) Pt able to ambulate w/o an assistive device and normal gait on stairs and flat surface. 06/05/22: arrived using FWW, states walking short distances at home no AD and SPC when needed. Daughter encourages her to use AD due to not walking normal. [employer] CHILDH[employer] WORK[employer] discussed DC FWW, use SPC longer distances due to little unsteady L knee during midstance phase better when thinks about knee extension. Stairs step over step L HR SPC in RUE, cues slow descend for support/control. 06/12/22: improved gait w/ SPC in mirror, cued less UE support needed. Pt ableto walk short distances with no AD and improved L knee stability with cues for quad fac support . 06/14/22: Normal sequencing gait on stairs with use of 2 rails or 1 rail/1 SPC. 06/19/22: gait without SPC arrival today, initial step L knee sway, rest steps aware quad fac improves more normal gait phase. 06/26/22: progressing, pt requires light contact glide on 1 HR descending, no UE support ascending MAP bldg stairs x2 laps of 28 stairs, light twinge irritation superior patella and med distal quad last few stairs. 08/15/22: Pt shows minimal to no antalgic limp with gait. LTG Duration 08/25/22 partially met goal 08/15/22 Three Impairment Decreased L knee strength Impairment L knee MMT: Flex/Ext is 2/5 ( R knee is 5/5). L knee pain rated 2-3/10 with Acetaminophen. Tight feeling. Short Term Goal (STG) Strengthen L knee with pt able to perform sit<>stand with out the walker. 06/05/22: MET GOAL: able STS without UE support BLE side by side x5 reps. STG Duration 07/12/22 (GOAL MET 06/05/22) [employer] Goal (LTG) Strengthen L knee to 5/5. LTG Duration 08/25/22 Two Impairment Decreased function per LEFS score and pt using FWW for gait Impairment Pre surgery: LEFS score 25 (60 -79% impaired, score 17-31) Re-eval: LEFS score 13/80 (80 -99% impaired, score 1-16). Short Term Goal (STG) Pt will improve function per LEFS score of 25 or greater to be at pre-surgery function ( 60-79% impaired, score 17-31). STG Duration 07/12/22 Mcfp Goal (LTG) Improve function per LEFS score 48 or greater (20-39% impaired). LTG Duration 08/25/22 One Impairment Lacks appropriate self care HEP Short Term Goal (STG) Pt will be re-educated in edema and pain management for self skilled nursing. 04/12/22: Reviewed/discussed precautions of movement (rot, review flex/ext) to decrease pain due to meniscal tear and arthritis. Reviewed RICE protocol. 06/12/22: discussed self retro grade STMs and elevate/ice. : GOAL MET: elevates and uses ice pack and compression sleeve if needed. STG Duration 05/31/22 (GOAL MET 05/30/22) Mcfp Goal (LTG) Pt will be able to resume HEP for L knee, hip ankle strengthening ex's and ROM ex' s pre surgery. 03/07/22: HEP: L knee supine flex/ext stretch and QS; L hip ext, AB (clamshell and straight leg), AD strengthening in sup/sidelie. : resisted HS curl & LAQ. 04/12/22: ankle DF, IV, EV strengthening and gastroc/ soleus stretch. 04/27/22: added resisted band walk 06/19/22: reviewed HEP: DC band walk, AP, QS, HS, SLR 15 reps , SAQ wt 3x10, knee hang, LAQ, STS, knee flexion seated, TKE and HS curl w/ TB, repeated step ups 20 reps. 06/21/22: added Femoral nerve sliders LTG Duration 08/25/22 (08/15/22: MET GOAL ) Assessment Summary Assessment Pt needed correction of body positioning with some of her HEP and I was able to review both her ortho physician and PT HEP, with consolidation of ex's. Physical Therapy Plan Frequency and Duration Frequency of Treatment 2x/Week Plan of Care Start Date 05/27/22 Plan of Care End Date 08/25/22 Next Visit Focus/Plan Next Note Type Discharge Summary Next Visit Plan One more visit to review pt: L knee mobility, strength, function/gait mechanics, stair mgt, on/off floor w/ UE support for allowance of weeding in garden and uneven surface gait for mowing lawn.
--- NOTE | 2022-08-23 17:27 | PT.OTN ---
Current Diagnoses Other abnormalities of gait and mobility (08/23/22) Unspecified injury of left lower leg, initial encounter (08/23/22) Physical Therapy Treatment Note PT-OP-A Visit Information Start: 02/25/22 19:43 Freq: Status: Active Protocol: Document 08/23/22 10:30 LRN (Rec: 08/23/22 11:21 LRN [id number]) Out-Patient Physical Therapy Visit Information Visit Information Visit Type Treatment Note Visit Start Time 10:31 Visit Stop Time 11:09 Total Visit Minutes 38 Visit Number Evaluation Information Evaluation Date 05/27/22 Precautions Precautions ADHESIVE ALLERGIES, Arthritis, decreased hearing but doesn't wear her hearing aids, 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 *05/23/22: S/P L medial knee arthoplasty rehabilitation. PT-OP-B Current Condition Start: 02/25/22 19:43 Freq: Status: Active Protocol: Document 05/27/22 14:43 LRN (Rec: 05/27/22 17:20 LRN [id number]) Current Condition History of Current Condition Onset Date 05/23/22 Current Complaints s/p L TKA History of Current Condition Pt has had L medial knee pain since ~11/29/21 and had L knee rehab her at [facility] prior to surgery from 02/28/22 to 05/21/22. The pt underwent L partial knee replacement surgery 05/23/22 and was released home the same day. She states she had a difficult time the first couple days at home, but on the third day was able to do some of her L knee exercises. She attends to day reporting stiffness and pain at the L knee and feeling like she is not progressing as well as she had hoped, but that she is able to walk and has her daughter around her home to help her. Prior Treatments and Tests Cortisone injection in L knee Dec 2021. PT at [facility] from to 05/21/22. Developmental History Developmental History After hike L knee hurt, a couple weeks later was dancing and next day could hardly walk. Went to a walk-in clinic in [facility] and was told arthritis and was given meds. Pain didn't go away so went to Dr. Acuña and was told arthritis and knee wasn't going to get better. Had a cortisone injection in Dec 2021, that didn't help. Was told she was a candidate for a partial knee replacement or more injections. Treatment Goals Patient/Caregiver Goals Pt goals are to improve L knee mobility, strength, walk without an assistive device, to decrease her knee pain and improve her overall function. Prior Functional Status Baseline Function- ADL's Independent Baseline Function- Mobility Independent Baseline Function- Other LEFS score 25 (60-79% impaired , score 17-31) Current Functional Impairments (Reported) Functional Limitations- ADL's Pain with transfers. Pain with activity Limited with L knee mobility. Functional Limitations- Mobility/Gait Avoiding use of stairs. Walks with FWW. Functional Limitations- Other LEFS score 13/80 (80-99% impaired, score 1-16). Personal Factors Other Personal Factors That May Effect Lives alone with dog and 2 Therapy/Recovery cats, but daughter will stay with her for 1 week. PT-OP-C Subjective Start: 02/25/22 19:43 Freq: Status: Active Protocol: Document 08/23/22 10:30 LRN (Rec: 08/23/22 11:21 LRN [id number]) OP-PT Subjective Patient Comments Patient Comments States yesterday she did the TFL stretch that caused the L knee to be tweeked. States she had a massage therapy session that just did deep tissue massage to the lateral L knee and all her pain went away, except at the top of the knee but may be due to her varicose veins (history of painful veins). Patient Questionnaires Lower Extremity Functional Scale LEFS Score 51 LEFS Impairment 20 to 39% Impaired (Score 48- 62) PT-OP-G Mobility & Gait Start: 02/25/22 19:43 Freq: Status: Active Protocol: Document 05/27/22 14:43 LRN (Rec: 05/27/22 15:26 LRN [id number]) OP Mobility Evaluation Bed Mobility Supine to and from Sit Independent Transfers Sit to Stand Independent with use of FWW Bed to Chair Transfers Independent with use of FWW. OP Gait Assessment Gait Gait Assistance Required: Independent Assistive Devices Assistive Device Front Wheeled Walker Gait Deviations General Gait Pattern Antalgic,Decreased Stride Length,Wide Based Gait Factors Limiting Gait Function Factors Limiting Gait Function Decreased Activity Tolerance, Decreased Strength,Limited Range of Motion,Pain,Poor Balance PT-OP-H Neuro Start: 02/25/22 19:43 Freq: Status: Active Protocol: Document 05/27/22 14:43 LRN (Rec: 05/27/22 15:26 LRN [id number]) Sensation Evaluation Comments Summary Comments Pt reports normal sensation, but not able to assess underneath the JACKSON bandage covering the LLE. PT-OP-J Posture/Palpation/Skin Start: 02/25/22 19:43 Freq: Status: Active Protocol: Document 05/27/22 14:43 LRN (Rec: 05/27/22 17:23 LRN [id number]) Posture Evaluation Position Standing Weight Distribution Weight Shifted Right Hip Posture (L) Flexed,(R) Flexed Comments Posture Comments Pt using FWW for standing. Palpation Assessment Location L knee Palpation Details Not able to palpate due to JACKSON wrap around L knee, proximal lower leg and distal thigh. PT-OP-K Range of Motion Start: 02/25/22 19:43 Freq: Status: Active Protocol: Document 08/23/22 10:30 LRN (Rec: 08/23/22 11:21 LRN [id number]) Knee Goniometric Range of Motion Knee Right Knee ROM WFL Yes Patient Position Supine Flexion Active (degrees) 138 Extension Active (degrees) 0 Left Knee ROM WFL No Patient Position Supine Flexion Active (degrees) 130 Extension Active (degrees) 2 PT-OP-M Strength Start: 02/25/22 19:43 Freq: Status: Active Protocol: Document 05/27/22 14:43 LRN (Rec: 05/27/22 15:26 LRN [id number]) Knee Strength Knee Manual Muscle Testing Right Flexion (S2) 5 Normal Extension (L3) 5 Normal Left Flexion (S2) 2 Poor Extension (L3) 2 Poor Ankle/Foot Strength Ankle and Foot Manual Muscle Testing Right Comments All 5/5 Left Comments All 5/5 PT-OP-Q Treatments Start: 02/25/22 19:43 Freq: Status: Active Protocol: Document 08/23/22 10:30 LRN (Rec: 08/23/22 11:21 LRN [id number]) Cardio Equipment Bicycle (Upright) Duration (Minutes) 10 Resistance 8 Seat Position 4 Therapeutic Exercises Supine Exercises Bridge Supine Exercise Name Bridge - review HEP Reps/Minutes 15x Knee ext stretch Supine Exercise Name Knee ext stretch Side left Equipment Used Leg straight with 1# wgt on knee Reps/Minutes 2' L knee AROM Supine Exercise Name L knee flex AROM - with & w/o roll behind knee Side left Reps/Minutes 4' Comments AROM: 0-120, 2 deg extension Sitting Exercises HS curl Sitting Exercise Name HS curl strengthening. Side left Resistance TB #2>#3 Reps/Minutes x20 Comments good feedback painfree Manual Therapy Treatment Soft Tissue Mobilization Left IT Band Body Location Left IT Band Mobilization Type Strumming Intensity/Depth Superficial Body Position Supine Self-Care/Home Management Treatment Education Other Education Reviewed HEP with pt. Activities Self-Care/Home Management Activities Issued Lev 3 TBand for HEP. PT-OP-R Modalities Start: 02/25/22 19:43 Freq: Status: Active Protocol: Document 07/05/22 10:34 SP (Rec: 07/05/22 11:36 SP [id number]) Hot Pack/Cold Pack Treatment Cold Pack Location L ITB Patient Position Supine Treatment Duration (minutes) 10 Patient Tolerance Good Comments supine straight front PT-OP-T Assessment and Plan Start: 02/25/22 19:43 Freq: Status: Active Protocol: Document 08/23/22 10:30 LRN (Rec: 08/23/22 11:21 LRN [id number]) Physical Therapy Assessment Goals Four Impairment Decreased L knee mobility Impairment L Knee AROM: Supine: 10-70 left , 0-140 deg's right; Sittin-80 deg's left. Short Term Goal (STG) Improve L knee AROM with pt able to walk with a cane with normal gait pattern. 06/03/22: 0-110 L knee AROM. 06/05/22: 2-118 L knee AROM 06/12/22: 1-130 L knee AROM 06/14/22: 3-115 L knee AROM 06/19/22: 0-130 L knee AROM (1 deg lag relaxed extension and SLR) 06/21/22: 0-120 L knee AROM. Pt lacks L hip protraction with gait. 06/28/22: 3-130 L knee AROM. Walking without cane and decreased hip shift with gait. 08/23/22: Pt ambs w/o asst device. Was normal until her L knee tweek this morning. STG Duration 07/12/22 (08/23/22: MET GOAL ) Procurement Forester Goal (LTG) Pt able to ambulate w/o an assistive device and normal gait on stairs and flat surface. 06/05/22: arrived using FWW, states walking short distances at home no AD and SPC when needed. Daughter encourages her to use AD due to not walking normal. 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 Stairs step over step L HR SPC in RUE, cues slow descend for support/control. 06/12/22: improved gait w/ SPC in mirror, cued less UE support needed. Pt ableto walk short distances with no AD and improved L knee stability with cues for quad fac support . 06/14/22: Normal sequencing gait on stairs with use of 2 rails or 1 rail/1 SPC. 06/19/22: gait without SPC arrival today, initial step L knee sway, rest steps aware quad fac improves more normal gait phase. 06/26/22: progressing, pt requires light contact glide on 1 HR descending, no UE support ascending MAP bldg stairs x2 laps of 28 stairs, light twinge irritation superior patella and med distal quad last few stairs. 08/15/22: Pt shows minimal to no antalgic limp with gait. 08/23/22: Most of the time walks with a fairly normal gait. LTG Duration 08/25/22 (08/23/22: MET GOAL) Three Impairment Decreased L knee strength Impairment L knee MMT: Flex/Ext is 2/5 ( R knee is 5/5). L knee pain rated 2-3/10 with Acetaminophen. Tight feeling. Short Term Goal (STG) Strengthen L knee with pt able to perform sit<>stand with out the walker. 06/05/22: MET GOAL: able STS without UE support BLE side by side x5 reps. STG Duration 07/12/22 (GOAL MET 06/05/22) Custodial Goal (LTG) Strengthen L knee to 5/5. 08/23/22: R Quads 5/5, Hamstrings 4+/5. LTG Duration 08/25/22 (08/23/22: Partially met goal) Two Impairment Decreased function per LEFS score and pt using FWW for gait Impairment Pre surgery: LEFS score 25 (60 -79% impaired, score 17-31) Re-eval: LEFS score 13/80 (80 -99% impaired, score 1-16). Short Term Goal (STG) Pt will improve function per LEFS score of 25 or greater to be at pre-surgery function ( 60-79% impaired, score 17-31). 08/23/22: LEFS score is 51/80. STG Duration 07/12/22 (08/23/22: MET GOAL ) Custodial Goal (LTG) Improve function per LEFS score 48 or greater (20-39% impaired). 08/23/22: LEFS score is 51/80. LTG Duration 08/25/22 (08/23/22: LEFS score is 51/80). One Impairment Lacks appropriate self care HEP Short Term Goal (STG) Pt will be re-educated in edema and pain management for self longterm. 04/12/22: Reviewed/discussed precautions of movement (rot, review flex/ext) to decrease pain due to meniscal tear and arthritis. Reviewed RICE protocol. 06/12/22: discussed self retro grade STMs and elevate/ice. : GOAL MET: elevates and uses ice pack and compression sleeve if needed. STG Duration 05/31/22 (GOAL MET 05/30/22) Custodial Goal (LTG) Pt will be able to resume HEP for L knee, hip ankle strengthening ex's and ROM ex' s pre surgery. 03/07/22: HEP: L knee supine flex/ext stretch and QS; L hip ext, AB (clamshell and straight leg), AD strengthening in sup/sidelie. : resisted HS curl & LAQ. 04/12/22: ankle DF, IV, EV strengthening and gastroc/ soleus stretch. 04/27/22: added resisted band walk 06/19/22: reviewed HEP: DC band walk, AP, QS, HS, SLR 15 reps , SAQ wt 3x10, knee hang, LAQ, STS, knee flexion seated, TKE and HS curl w/ TB, repeated step ups 20 reps. 06/21/22: added Femoral nerve sliders LTG Duration 08/25/22 (08/15/22: MET GOAL ) Assessment Summary Assessment Pt attends today with her L knee flared up from IT band stretch this morning causing onset of knee pain, probably from a twist of the knee. The pt demonstrates a normal gait when walking slowly and had no c/o pain with exercise. She has good L knee mobility and only has mild weakness of L hamstring muscles. The pt is expected to do well strengthening on her self care ex's. The pt feels confident and ready for discharge to her HEP. Physical Therapy Plan Discharge Physical Therapy Discharge Comments Pt has met most of her goals. She has some weakness of her L knee that she will need to strengthen on her HEP. I believe strengthening her L knee will limit the occasional onset of tweeking and pain at the knee. Thank you for your referral.
== END 2022-08-27 12:00 | disposition home or self-care (01) ==
LOC: PHYS 10:30
PROVIDERS: Family Provider Student in an Organized Health Care Education/Training Program; PCP Student in an Organized Health Care Education/Training Program; Referring Provider Student in an Organized Health Care Education/Training Program; Visit Provider Student in an Organized Health Care Education/Training Program
DX: S89.92XA Unspecified injury of left lower leg, initial encounter (principal); R26.89 Other abnormalities of gait and mobility
CPT/HCPCS: 97110; 97116; 97140; 97162; 97164; 97530; 97535

== ENCOUNTER → 2022-09-19 10:02 | Outpatient (CLI) | payer MEDICARE, SELFPAY ==
[2022-09-19 12:22] LABS: Cholesterol 268 mg/dL (140-199); HDL Cholesterol 60 mg/dL (40-60); LDL Cholesterol Calculated 163 mg/dL (<100); Triglycerides 227 mg/dL (35-150)
[2022-09-19 12:31] LABS: Vitamin D 25 Hydroxy (D3) 37.7 ng/mL (30.0-100.0)
[2022-09-19 12:36] LABS: Free T3, Triiodothyronine Free 4.01 pg/mL (2.77-5.27); Free T4, Direct Thyroxine 0.91 ng/dL (0.78-2.19)
[2022-09-19 12:49] LABS: Thyroid Stimulating Hormone 2.59 uIU/mL (0.47-4.68)
== END ==
PROVIDERS: Family Provider Student in an Organized Health Care Education/Training Program; PCP Pediatrics; Referring Provider Pediatrics; Visit Provider Pediatrics
DX: L65.9 Nonscarring hair loss, unspecified (principal); E78.00 Pure hypercholesterolemia, unspecified; L60.9 Nail disorder, unspecified; M16.0 Bilateral primary osteoarthritis of hip; M85.80 Other specified disorders of bone density and structure, unspecified site; Z00.00 Encounter for general adult medical examination without abnormal findings; Z78.0 Asymptomatic menopausal state; E78.5 Hyperlipidemia, unspecified
CPT/HCPCS: 36415; 80061; 82306; 84439; 84443; 84481

== ENCOUNTER → 2023-01-27 13:46 | Outpatient (CLI) | payer MEDICARE, SELFPAY | PROVIDERS: Family Provider Student in an Organized Health Care Education/Training Program; PCP Pediatrics; Visit Provider Physician Assistant | DX: R30.0 Dysuria (principal) | CPT/HCPCS: 87086 ==

== ENCOUNTER → 2023-01-30 08:07 | Outpatient (CLI) | payer MEDICARE, SELFPAY ==
--- NOTE | 2023-01-30 | DI.MG.S_ITS ---
BILATERAL DIGITAL SCREENING MAMMOGRAM 3D/2D WITH CAD: 01/30/2023 CLINICAL: Routine screening. Comparison is made to exams dated: 12/19/2021 mammogram, 11/01/2020 mammogram, and 09/04/2018 mammogram - [facility]. There are scattered areas of fibroglandular density in both breasts (category b / 25%-50% glandular tissue). Current study was also evaluated with a Computer Aided Detection (CAD) system. No significant masses, calcifications, or other findings are seen in either breast. There has been no significant interval change. IMPRESSION: NEGATIVE There is no mammographic evidence of malignancy. A 1 year screening mammogram is recommended. Based on the Tyrer Cuzick model (a risk assessment model) the patient's lifetime risk is 5.4% and her 10 year risk is 3.2%. According to the ACR, ACS, and NCCN guidelines, an annual breast MRI exam along with mammogram is recommended if the patient's lifetime risk is 20% or greater. This exam was interpreted at Station ID: [id number]. NOTE: For mammograms, a report in lay terms will be sent to the patient. Approximately 15% of breast malignancies will not be visualized mammographically. In the management of a palpable breast mass, a negative mammogram must not discourage biopsy of a clinically suspicious lesion. Electronically Signed By: Dino polk/jenny:01/30/2023 13:39:37 letter sent: Normal Exam ACR BI-RADS Category 1: Negative [id number]
== END ==
PROVIDERS: Family Provider Student in an Organized Health Care Education/Training Program; PCP Family Medicine; Referring Provider Family Medicine; Visit Provider Family Medicine
DX: Z12.31 Encounter for screening mammogram for malignant neoplasm of breast (principal)
CPT/HCPCS: 77063; 77067

== ENCOUNTER → 2023-03-19 10:29 | Outpatient (CLI) | payer MEDICARE, SELFPAY ==
[2023-03-19 12:48] LABS: Appearance Urine UA CLEAR; Bilirubin Urine UA NEGATIVE (NEGATIVE); Color Urine UA YELLOW; Glucose Urine UA NEGATIVE (Negative); Ketones Urine UA NEGATIVE (NEGATIVE); Leukocyte Esterase Urine UA NEGATIVE (NEGATIVE); Nitrite Urine UA NEGATIVE (Negative); Occult Blood Urine UA 2+ (Negative); Protein Urine UA NEGATIVE (Negative); Specific Gravity Urine UA 1.025 (1.000-1.035); Urobilinogen Urine UA 0.2 E.U./dL (0.2)
[2023-03-19 12:52] LABS: Bacteria Urine Occasional (0-1); Culture Indicated Urine Cult Not Indicated; Mucus Urine 1+ (Negative); RBC Urine 1-5/HPF (0-5/HPF); Squamous Epithelial Cell Urine 0-1 /HPF (0-5/HPF); WBC Urine 0-1/HPF (0-5/HPF)
== END ==
PROVIDERS: Family Provider Student in an Organized Health Care Education/Training Program; PCP Family Medicine; Referring Provider Family Medicine; Visit Provider Family Medicine
DX: N39.0 Urinary tract infection, site not specified (principal); R82.90 Unspecified abnormal findings in urine
CPT/HCPCS: 81001

== ENCOUNTER → 2023-04-03 11:58 | Outpatient (CLI) | payer MEDICARE, SELFPAY ==
[2023-04-03 13:01] LABS: Appearance Urine UA CLEAR; Bilirubin Urine UA NEGATIVE (NEGATIVE); Color Urine UA YELLOW; Glucose Urine UA NEGATIVE (Negative); Ketones Urine UA NEGATIVE (NEGATIVE); Leukocyte Esterase Urine UA NEGATIVE (NEGATIVE); Nitrite Urine UA NEGATIVE (Negative); Occult Blood Urine UA 1+ (Negative); Protein Urine UA NEGATIVE (Negative); Specific Gravity Urine UA <=1.005 (1.000-1.035); Urobilinogen Urine UA 0.2 E.U./dL (0.2)
[2023-04-03 13:47] LABS: Bacteria Urine None Seen; Culture Indicated Urine Cult Not Indicated; RBC Urine None Seen (0-5/HPF); Squamous Epithelial Cell Urine None Seen (0-5/HPF); WBC Urine None Seen (0-5/HPF)
== END ==
PROVIDERS: Family Provider Student in an Organized Health Care Education/Training Program; PCP Family Medicine; Referring Provider Family Medicine; Visit Provider Family Medicine
DX: N30.90 Cystitis, unspecified without hematuria (principal); N39.0 Urinary tract infection, site not specified
CPT/HCPCS: 81001

== ENCOUNTER → 2023-04-04 07:36 | Outpatient (CLI) | payer MEDICARE, SELFPAY ==
--- NOTE | 2023-04-04 07:37 | DI.US.S_ITS ---
PROCEDURE: US RENAL COMPLETE INDICATIONS: RECURRENT CYSTITIS AND MICROSCOPIC HEMATURIA TECHNIQUE: Real-time scanning was performed of the kidneys and bladder, with image documentation. COMPARISON: None. FINDINGS: Kidneys: Kidneys are normal in size. Right kidney measures 10.3 cm long; left kidney measures 11.2 cm long. Right renal cortical thickness is 1.2 cm; left renal cortical thickness is 1.3 cm. 7 mm right inferior pole septated cortical cyst. 1.2 cm right lower pole parapelvic cyst. No hydronephrosis or nephrolithiasis. No suspicious solid mass lesions. Bladder: Pre-void bladder volume is 316 mL. Post-void residual is 16 mL. Pre-void images demonstrate no intraluminal masses or stones. On pre-void images, bilateral ureteral jets are noted with color Doppler interrogation. (Of note, ureteral jets may not be detectable in up to 25% of cases due to insufficient differences in specific gravity between ureteral and bladder urine). Miscellaneous: No free pelvic fluid. Incidental note of heterogeneous uterus, likely due to known fibroids. Incidental note of benign subcentimeter splenic cyst in the lower pole. IMPRESSION: 1. No evidence of obstructive uropathy. 2. No detectable intrarenal calculi. Consider CT KUB if there is continued concern for stones. Dictated by: Valerie Sanchez M.D. on 04/04/2023 at 14:23 Approved by: Valerie Sanchez M.D. on 04/04/2023 at 14:28
== END ==
PROVIDERS: Family Provider Student in an Organized Health Care Education/Training Program; PCP Family Medicine; Referring Provider Family Medicine; Visit Provider Family Medicine
DX: N30.90 Cystitis, unspecified without hematuria (principal)
CPT/HCPCS: 76770

== ENCOUNTER 2023-04-23 08:57 | Emergency (ER) | payer MEDICARE, SELFPAY ==
[2023-04-23 09:00] VITALS: BP 129/76; PULSE 87; RESP 15; TEMP 36.6; O2SAT 98; BMI 25.0
--- NOTE | 2023-04-23 09:04 | DI.RAD.S_ITS ---
PROCEDURE: XR SHOULDER LT MIN 2V INDICATIONS: shoulder pain TECHNIQUE: 3 views of the shoulder were acquired. COMPARISON: None. FINDINGS: Bones: No fractures or dislocations. No suspicious bony lesions. Visualized ribs appear intact. Moderate acromioclavicular degenerative narrowing. Minimal glenohumeral degenerative narrowing. No erosions. Soft tissues: No suspicious soft tissue calcifications. IMPRESSION: Acromioclavicular and glenohumeral arthritic change. Dictated by: Tiny Klein M.D. on 04/23/2023 at 9:59 Approved by: Tiny Klein M.D. on 04/23/2023 at 10:01
--- NOTE | 2023-04-23 09:20 | ED.EXTPRO ---
HPI - Extremity Problem General Chief complaint: Extremity Problem,Nontraumatic Stated complaint: Left shoulder and arm pain Time Seen by Provider: 04/23/23 08:58 Source: patient Mode of arrival: Ambulatory History of Present Illness HPI Narrative: 67-year-old female presents for left shoulder pain that is gradually worsened over the last several weeks. She has a primary care doctor appointment set up, but it is not for several more weeks and because it is more painful she decided to present today for evaluation. Taking Tylenol and Motrin for symptoms with intermittent relief Related Data Home Medications Medication Instructions Recorded Confirmed calcium carbonate 600 mg calcium 600 mg PO DAILY 10/31/20 03/28/23 (1,500 mg) tablet (Calcium) cholecalciferol (vitamin D3) 25 25 mcg PO DAILY 01/02/22 03/28/23 mcg (1,000 unit) chewable tablet (Vitamin D3) Previous Rx's Medication Instructions Recorded gabapentin 300 mg capsule 300 mg PO TID #270 caps 05/20/22 triamcinolone acetonide 0.025 % 1 applic topical BID #15 grams 04/24/23 topical cream Allergies Allergy/AdvReac Type Severity Reaction Status Date / Time cephalexin Allergy Mild Rash Verified 04/24/23 10:09 Review of Systems Review of Systems Narrative: Negative except as noted above Patient History Medical History Hyperlipidemia Encounter for Medicare annual wellness exam Urinary tract infection Finger laceration Rheumatoid bursitis, unspecified hip Ovarian cyst (~1984) Genital warts (~1971) Fibroids (~1984) Lipoma of right upper extremity Sinus congestion Tinnitus (~2017) Vitamin D deficiency Actinic keratosis Osteopenia Surgical History Anesthesia History of oral surgery (~2017) History of varicose veins H/O blepharoplasty History of 2 sections History of bunionectomy (~1970) Family History Mother Hypertension Stroke Social History Smoking Status: Former smoker alcohol intake: current substance use type: former substance user Smoking Status: Former smoker alcohol intake frequency: holidays/special occasions only Substance Use Type: does not use Exam Initial Vital Signs Initial Vital Signs: Vital Signs Temperature 97.8 F 04/23/23 09:00 Pulse Rate 87 04/23/23 09:00 Respiratory Rate 15 04/23/23 09:00 Blood Pressure 129/76 04/23/23 09:00 Pulse Oximetry 98 04/23/23 09:00 Oxygen Delivery Method Room Air 04/23/23 09:00 Const: Awake, alert, no acute distress, nontoxic appearing Cardiac: regular rate, regular rhythm RESP: unlabored, clear bilaterally, no wheezing GI: Atraumatic, soft, nontender, nondistended, no rebound, no guarding MSK: no deformity, tenderness over deltoid muscle. Decreased ROM due to pain. 2+ radial pulses, flexion, extension, fine motor of L extremity intact Skin: Warm, Dry, intact, no rashes Neuro: AO x3, CN II-XII grossly intact, moves all extremities Psych: affect normal, mood normal, not suicidal, not homicidal Course Orders Ordered: Discontinued Medications Dexamethasone (Dexamethasone 10 Mg/Ml Vial) 10 mg IM NOW ONE Stop: 04/23/23 10:12 Last Admin: 04/23/23 10:19 Dose: 10 mg Documented By: CTS Vital Signs Vital signs: Vital Signs - 8 hr 04/23/23 09:00 Temperature 97.8 F Pulse Rate 87 Respiratory Rate 15 Blood Pressure 129/76 Pulse Oximetry 98 Oxygen Delivery Method Room Air MDM - Extremity (Nontraumatic) Differential Diagnosis Differential diagnosis: Likely other (arm strain, muscle spasm, arthritis) MDM Narrative Medical decision making narrative: Well-appearing patient with several weeks of symptoms. She has tenderness all over her deltoid region, decreased range of motion due to pain but is neurovascularly intact. X-rays show mild arthritis, no other acute abnormalities. Patient placed in sling for comfort, advised continued use of Tylenol and Motrin as well as heat and ice as needed for pain. Orthopedic referral provided Discharge Plan Departure Patient Disposition: Home Clinical Impression: Arthralgia Qualifiers: Joint pain location: shoulder Laterality: left Qualified Code(s): M25.512 - Pain in left shoulder Instructions: DI for Osteoarthritis, DI for Shoulder Pain Activity Restrictions/Additional Instructions: your x-rays today showed degenerative and arthritic changes of your left shoulder. Continue to take Tylenol and Motrin for pain, you may also apply Voltaren gel, which can be found [id number] at most pharmacies. I highly recommend following up with Orthopedic surgery as they can further evaluate your shoulder and determine if any further imaging or therapy is necessary. Prescriptions: No Action gabapentin 300 mg capsule 300 mg PO TID Qty: 270 3RF cholecalciferol (vitamin D3) [Vitamin D3] 25 mcg (1,000 unit) tablet,chewable 25 mcg PO DAILY calcium carbonate [Calcium 600] 600 mg calcium (1,500 mg) tablet 600 mg PO DAILY triamcinolone acetonide 0.025 % cream 1 applic topical BID Qty: 15 0RF Rx Instructions: do not use for more than 7 days Referrals: Chester Michaud MD [Physician] - Mana Strauss DO [Primary Care Provider] - Stand Alone Forms: Patient Portal/API
[2023-04-23] MEDS: DEXAMETHASONE 10 MG/ML VIAL IM (10:19)
== END 2023-04-23 10:24 | disposition home or self-care (01) ==
PROVIDERS: Emergency Provider Emergency Medicine; Family Provider Student in an Organized Health Care Education/Training Program; PCP Family Medicine
DX: M25.512 Pain in left shoulder (principal)
CPT/HCPCS: 73030; 96372; 99283; 99284; J1100

== ENCOUNTER 2023-04-24 10:00 | Emergency (ER) | payer MEDICARE, SELFPAY ==
[2023-04-24 10:09] VITALS: BP 136/77; PULSE 61; RESP 14; TEMP 36.7; O2SAT 98; BMI 25.0
--- NOTE | 2023-04-24 11:44 | ED.SKABFB ---
HPI - Skin/Abscess/Foreign Bdy <Kathrine De Jesus PA-C - Last Filed: 04/24/23 18:19> General Chief complaint: Skin/Abscess/Foreign Body Stated complaint: allergic reaction, redness on face Time Seen by Provider: 04/24/23 11:20 Source: patient Mode of arrival: Ambulatory Limitations: no limitations History of Present Illness HPI narrative: Patient is a 67-year-old female who was seen in the emergency department yesterday for left shoulder pain. She was given a dose of IM dexamethasone and advised to use Voltaren gel over the shoulder. She picked up the Voltaren gel and used it last night and this morning. This morning she has a red rash over her bilateral cheeks that is mildly burning and somewhat swollen. She denies any nausea, vomiting, throat swelling, tongue swelling or other symptoms of allergic reaction. She has not taken any particular medications for this. She reports her shoulder does feel better. She has been referred to orthopedics. Related Data Home Medications Medication Instructions Recorded Confirmed calcium carbonate 600 mg calcium 600 mg PO DAILY 10/31/20 04/25/23 (1,500 mg) tablet (Calcium) cholecalciferol (vitamin D3) 25 25 mcg PO DAILY 01/02/22 04/25/23 mcg (1,000 unit) chewable tablet (Vitamin D3) Previous Rx's Medication Instructions Recorded gabapentin 300 mg capsule 300 mg PO TID #270 caps 05/20/22 Allergies Allergy/AdvReac Type Severity Reaction Status Date / Time cephalexin Allergy Mild Rash Verified 04/25/23 14:08 Review of Systems <Kathrine De Jesus PA-C - Last Filed: 04/24/23 18:19> Review of Systems ROS Unobtainable: All systems reviewed & are unremarkable except as noted in HPI and below Patient History <Kathrine De Jesus PA-C - Last Filed: 04/24/23 18:19> Medical History Hyperlipidemia Encounter for Medicare annual wellness exam Urinary tract infection Finger laceration Rheumatoid bursitis, unspecified hip Ovarian cyst (~1984) Genital warts (~1971) Fibroids (~1984) Lipoma of right upper extremity Sinus congestion Tinnitus (~2017) Vitamin D deficiency Actinic keratosis Osteopenia Surgical History Anesthesia History of oral surgery (~2018) History of varicose veins H/O blepharoplasty History of 2 sections History of bunionectomy (~1970) Family History Mother Hypertension Stroke Social History Smoking Status: Former smoker alcohol intake: current substance use type: former substance user Smoking Status: Former smoker alcohol intake frequency: holidays/special occasions only Substance Use Type: does not use Exam <DARLING Hernández Last Filed: 04/24/23 18:19> Narrative Exam Narrative: GENERAL: 67 year old patient appears stated age. Well-developed patient, in no acute distress. NEURO: AOx3. HEAD: Atraumatic. Normocephalic. EYES: Pupils equal round and reactive. Extraocular motions intact. No scleral icterus. No injection or drainage. ENT: Nose without bleeding or purulent drainage. Airway patent. RESPIRATORY: No distress. EXTREMITIES: No edema or joint tenderness. SKIN: Moderately erythematous rash across bilateral cheeks, no drainage, no vesicles Initial Vital Signs Initial Vital Signs: Vital Signs Temperature 98.1 F 04/24/23 10:09 Pulse Rate 61 04/24/23 10:09 Respiratory Rate 14 04/24/23 10:09 Blood Pressure 136/77 04/24/23 10:09 Pulse Oximetry 98 04/24/23 10:09 Oxygen Delivery Method Room Air 04/24/23 10:09 <Rhona Espinosa DO - Last Filed: 04/27/23 01:38> Initial Vital Signs Initial Vital Signs: Vital Signs Temperature 98.1 F 04/24/23 10:09 Pulse Rate 61 04/24/23 10:09 Respiratory Rate 14 04/24/23 10:09 Blood Pressure 136/77 04/24/23 10:09 Pulse Oximetry 98 04/24/23 10:09 Oxygen Delivery Method Room Air 04/24/23 10:09 Course <DARLING Hernández Last Filed: 04/24/23 18:19> Vital Signs Vital signs: Vital Signs - 8 hr 04/24/23 11:54 Pulse Rate 63 Respiratory Rate 16 Blood Pressure 147/74 H Pulse Oximetry 100 Oxygen Delivery Method Room Air <Rhona EspinosaDO - Last Filed: 04/27/23 01:38> Vital Signs Vital signs: Vital Signs - 8 hr 04/24/23 11:54 Pulse Rate 63 Respiratory Rate 16 Blood Pressure 147/74 H Pulse Oximetry 100 Oxygen Delivery Method Room Air MDM - Skin/Abscess/Foreign Bdy <Kathrine De Jesus PA-C - Last Filed: 04/24/23 18:19> MDM Narrative Medical decision making narrative: Multiple etiologies for patient's symptoms considered including, but not limited to: Drug reaction, allergic reaction to some other source History and exam was consistent with a drug reaction to the Voltaren gel, although a little surprising that it isn't over the site where she applied it. I doubt the dexamethasone would be giving her reaction and she has not taken any other medications besides Tylenol, which she has taken before. There is no evidence of anaphylaxis or life-threatening reaction. I advised her to take an [id number] nonsedating antihistamine such as Claritin or Zyrtec and prescribed a low potency steroid to be used for limited amount of time over the rash if she desires if it becomes more irritating. At this time it does not seem to be bothering her too much and she thinks she will just take the antihistamine and wait and see. Advised her not to use any more of the Voltaren gel. She has a primary care appointment tomorrow for follow-up that was previously arranged. Patient's symptoms improved over duration of stay with above-stated therapies. Findings and discharge diagnosis discussed with patient/family followed by verbalization of understanding Return precautions discussed with patient/family whom verbalize understanding of diagnosis and plan Discharge Plan Departure Patient Disposition: Home Clinical Impression: Allergic drug rash Instructions: DI for Adverse Drug Reaction -- Allergic Activity Restrictions/Additional Instructions: *You have been diagnosed with allergic drug rash. I suspect this is from the Voltaren gel that you started using yesterday for your shoulder pain. I would stop taking this medicine, start taking a daily antihistamine such as Zyrtec, Claritin or Ghazala (whenever you have at home is fine) until the rash resolves. I will also send a prescription for a steroid ointment that can be used on your face to decrease the irritation of your skin. It is very important not to use this longer than 1 week. If you feel like the rash is getting better without it, you do not need to use this medicine. Please follow up with your primary care tomorrow as previously arranged. Return to the emergency room if you develop any difficulty breathing, nausea, vomiting, tongue swelling. *What to do: *Please continue to take your regular medications as directed. [x] New medication prescriptions sent to your pharmacy: [[facility]] [ ] New medication written as a paper prescription [ ] No new medications given *Please follow up with your primary care provider in 2-3 days, call for an appointment. Let them know you were seen in the Emergency Department and that we ask that you be seen in follow up. We will electronically transmit a record of today's note if your PCP is in our system *If you do not have a primary care provider please contact the [facility] Resource line at [phone]. They will ask some questions about your medical history and help get you set up with a doctor in the community. *Return to Emergency Department if you should have any new, worsening or concerning symptoms, such as [fever greater than 101 F, shaking chills, worsening pain, persistent vomiting or other concerning symptoms]. Prescriptions: No Action gabapentin 300 mg capsule 300 mg PO TID Qty: 270 3RF cholecalciferol (vitamin D3) [Vitamin D3] 25 mcg (1,000 unit) tablet,chewable 25 mcg PO DAILY calcium carbonate [Calcium 600] 600 mg calcium (1,500 mg) tablet 600 mg PO DAILY Referrals: Mana Strauss DO [Primary Care Provider] - Stand Alone Forms: Patient Portal/API ED Sign-out <Rhona Espinosa DO - Last Filed: 04/27/23 01:38> Cosign ED Attending Chanelleature Attestation: I was available for consultation.
[2023-04-24 11:54] VITALS: BP 147/74; PULSE 63; RESP 16; O2SAT 100
== END 2023-04-24 11:55 | disposition home or self-care (01) ==
PROVIDERS: Emergency Provider Physician Assistant; Family Provider Student in an Organized Health Care Education/Training Program; PCP Family Medicine
DX: L27.0 Generalized skin eruption due to drugs and medicaments taken internally (principal)
CPT/HCPCS: 99281

== ENCOUNTER → 2023-05-09 10:58 | Outpatient (CLI) | payer MEDICARE, SELFPAY ==
--- NOTE | 2023-05-09 10:58 | DI.RAD.S_ITS ---
Bone Density Report Name: YSABEL MAGALLANES Age: 67 Sex: Female Ethnicity: White Date of : 1955 Indication: osteopenia; history of glucocorticoids; Referring Provider: CAROLE FORREST Study: Bone densitometry was performed. Exam Date: May 09, 2023 Accession number: [id number] Bone Density: Region BMD T-score Z-score Classification AP Spine(L1-L4) 0.796 -2.3 -0.2 Osteopenia Femoral Neck (Left) 0.632 -2.0 -0.2 Osteopenia Total Hip (Left) 0.744 -1.6 -0.1 Osteopenia Femoral Neck (Right) 0.656 -1.7 0.0 Osteopenia Total Hip (Right) 0.781 -1.3 0.2 Osteopenia Total Hip Mean 0.762 -1.5 0.1 Osteopenia World Health Organization criteria for BMD impression classify patients as: Normal (T-score at or above -1.0), Osteopenia (T-score between -1.0 and -2.5), or Osteoporosis (T-score at or below -2.5). 10-year Fracture Risk(1): Major Osteoporotic Fracture 18% Hip Fracture 3.9% Reported Risk Factors: [place] (), Neck BMD=0.632, BMI=25.0, glucocorticoids (1) FRAX(R) Version 3.08. Fracture probability calculated for an untreated patient. Fracture probability may be lower if the patient has received treatment. Previous Exams: -- Region Exam Age BMD T-score BMD Change BMD Change Date g/cm2 vs Baseline vs Previous -- AP Spine (L1-L4) 05/09/2023 67 0.796 -2.3 -0.023 (-2.8%)# -0.020 (-2.4%)# 12/19/2021 66 0.816 -2.1 -0.003 (-0.4%)# -0.003 (-0.4%)# 09/28/2019 64 0.820 -2.1 Total Hip(Left) 05/09/2023 67 0.744 -1.6 -0.038 (-4.9%)# -0.068 (-8.3%)# 12/19/2021 66 0.811 -1.1 0.030 (3.8%)# 0.030 (3.8%)# 09/28/2019 64 0.782 -1.3 Total Hip(Right) 05/09/2023 67 0.781 -1.3 0.015 (2.0%)# 0.006 (0.8%)# 12/19/2021 66 0.775 -1.4 0.009 (1.1%)# 0.009 (1.1%)09/28/2019 64 0.766 -1.4 -- *Denotes significance at 95% confidence level, LSC for AP Spine = 0.022 g/cm2, LSC for Total Hip = 0.027 g/cm2 # Denotes dissimilar scan types or analysis methods Impression: The patient has low bone mass, based on the Total Spine T-score. The patient has an estimated ten-year risk of hip fracture of 3.9% and an estimated ten-year risk of major fracture of 18%, based on the WHO FRAX algorithm. The patient has risk factors, including: history of glucocorticoid therapy. No significant bone loss was observed. Discussion: BONE DENSITY IS LOW AT ONE OR MORE SKELETAL SITES. THE PATIENT'S BMD AND CLINICAL RISK FACTORS CONTRIBUTE TO THIS PATIENT'S INCREASED RISK OF FRACTURE. This patient's lowest T-score is low at one or more skeletal sites. It meets the World Health Organization's (WHO) criteria for low bone mass (T-score between -1.0 and -2.5). The patient's 10-year risk of hip fracture as calculated by FRAX exceeds the threshold where pharmacological therapy is recommended by the National Osteoporosis Foundation (NOF). However, all treatment decisions require clinical judgment and consideration of individual patient factors, including patient preferences, comorbidities, previous drug use, risk factors not captured in the FRAX model (e.g., frailty, falls, vitamin D deficiency, increased bone turnover, interval significant decline in bone density) and possible under or overestimation of fracture risk by FRAX. The patient should follow a healthful lifestyle (good nutrition with adequate calcium and vitamin D, and appropriate weight-bearing exercise). Follow-Up: Consider a repeat BMD and Vertebral Fracture Assessment (VFA) exam in 2 years or sooner if medically necessary, to reassess this patient's status. Reported by: [facility] SHAQUILLE FINN M.D. on 05/09/2023 11:35:00 AM.
== END ==
PROVIDERS: Family Provider Student in an Organized Health Care Education/Training Program; PCP Family Medicine; Referring Provider Family Medicine; Visit Provider Family Medicine
DX: M81.0 Age-related osteoporosis without current pathological fracture (principal)
CPT/HCPCS: 77080

== ENCOUNTER → 2023-05-23 08:23 | Outpatient (CLI) | payer MEDICARE, SELFPAY ==
[2023-05-23 09:45] LABS: Influenza A - CEPHEID Flu A NEGATIVE (NEGATIVE); Influenza B - CEPHEID Flu B NEGATIVE (NEGATIVE); Respiratory Syncytial Virus Negative (Negative)
[2023-05-23 09:46] LABS: COVID-19 CEPHEID 4-PLEX PCR POSITIVE (Negative)
== END ==
PROVIDERS: Family Provider Student in an Organized Health Care Education/Training Program; PCP Family Medicine; Visit Provider Registered Nurse
DX: Z20.828 Contact with and (suspected) exposure to other viral communicable diseases (principal)
CPT/HCPCS: 0241U

== ENCOUNTER → 2023-06-13 08:35 | Outpatient (CLI) | payer MEDICARE, SELFPAY ==
[2023-06-13 09:31] LABS: Add Manual Diff / Slide Review NO; Basophils Absolute Auto 0 /uL (0-100); Basophils Percent Auto 0.6 % (0-2); Eosinophils Absolute Auto 200 /uL (0-450); Eosinophils Percent Auto 4.3 % (2-4); Hematocrit 37.9 % (36-46); Hemoglobin 12.7 g/dL (12.0-16.0); Lymphocytes Absolute Auto 2200 /uL (1100-4500); Lymphocytes Percent Auto 38.4 % (25-40); Mean Corpuscular HGB Conc 33.5 % (30-36); Mean Corpuscular Hemoglobin 28.4 PG (26-34); Mean Corpuscular Volume 84.7 fL (80-100); Monocytes Absolute Auto 400 /uL (0-900); Monocytes Percent Auto 6.8 % (3-14); Neutrophils Absolute Auto 2900 /uL (1500-7000); Neutrophils Percent Auto 49.9 % (50-75); Platelet Count 217 X10^3/uL (150-400); Red Blood Cell Count 4.48 X10^6/uL (4.0-5.2); Red Cell Distribution Width 12.7 % (11.6-14.8); White Blood Cell Count 5.8 X10^3/uL (4.5-11.0)
[2023-06-13 09:46] LABS: Alanine Aminotransferase 13 IU/L (<35); Albumin 3.9 g/dL (3.5-5.0); Albumin Globulin Ratio 1.3 (1.0-2.8); Alkaline Phosphatase 58 U/L (38-126); Aspartate Aminotransferase 21 IU/L (14-36); BUN Creatinine Ratio 24.3 (6-22); Bilirubin Total 0.6 mg/dL (0.2-1.3); Blood Urea Nitrogen 17 mg/dL (7-17); Calcium 9.2 mg/dL (8.4-10.2); Carbon Dioxide 29 mmol/L (22-32); Chloride 110 mmol/L (98-107); Cholesterol 251 mg/dL (140-199); Estimated Glomerular Filt Rate > 60 mL/min (>60); Globulin 2.9 g/dL (1.7-4.1); Glucose 93 mg/dL (80-110); HDL Cholesterol 59 mg/dL (40-60); HEMOLYSIS < 15 (0-50); LDL Cholesterol Calculated 162 mg/dL (<100); Potassium 4.2 mmol/L (3.4-5.1); Sodium 143 mmol/L (137-145); Total Protein 6.8 g/dL (6.3-8.2); Triglycerides 149 mg/dL (35-150)
[2023-06-13 10:29] LABS: Vitamin D 25 Hydroxy (D3) 37.8 ng/mL (30.0-100.0)
== END ==
PROVIDERS: Family Provider Student in an Organized Health Care Education/Training Program; PCP Family Medicine; Referring Provider Family Medicine; Visit Provider Family Medicine
DX: M85.80 Other specified disorders of bone density and structure, unspecified site (principal); E78.5 Hyperlipidemia, unspecified
CPT/HCPCS: 36415; 80053; 80061; 82306; 85025

== ENCOUNTER → 2023-06-19 09:59 | Outpatient (CLI) | payer MEDICARE, SELFPAY ==
--- NOTE | 2023-06-19 10:03 | DI.RAD.S_ITS ---
PROCEDURE: XR FINGER LT MIN 2V INDICATIONS: Left Thumb bump, 3V TECHNIQUE: AP hand, 2 views of the 1st finger(s) acquired. COMPARISON: None. FINDINGS: Bones: No fractures or dislocations. Focal osteophytes in small ossicles adjacent to the 1st digit interphalangeal joint. There is degenerative change elsewhere most pronounced at the interphalangeal joints and 2nd MCP joint, less pronounced compared to the 1st digit. No suspicious bony lesions. Soft tissues: No suspicious soft tissue calcifications. No radiopaque foreign body. 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 This may correspond to the palpable abnormality. Difficult to exclude small cyst or other soft tissue abnormality. Dictated by: Dino Spence M.D. on 06/19/2023 at 11:16 Approved by: Dino Spence M.D. on 06/19/2023 at 11:19
== END ==
PROVIDERS: Family Provider Student in an Organized Health Care Education/Training Program; PCP Family Medicine; Referring Provider Family Medicine; Visit Provider Family Medicine
DX: M19.042 Primary osteoarthritis, left hand (principal); L98.9 Disorder of the skin and subcutaneous tissue, unspecified
CPT/HCPCS: 73140

== ENCOUNTER → 2023-07-11 09:12 | Outpatient (CLI) | payer MEDICARE, SELFPAY ==
--- NOTE | 2023-07-11 09:13 | DI.MRI.S_ITS ---
PROCEDURE: MR KNEE LT WO CON INDICATIONS: left knee instability TECHNIQUE: Noncontrast sagittal PD fast spin echo and T2 fast spin echo with fat saturation, sagittal 3-D FLASH with fat saturation; coronal T1 spin echo and PD fast spin echo with fat saturation, and axial PD fast spin echo with fat saturation through the knee. COMPARISON: [facility], MR, MR KNEE LT WO CON, 01/09/2022, 8:52. FINDINGS: Image quality: Excellent. Menisci: The lateral meniscus is unremarkable. The medial meniscus is absent. Cruciate ligaments: Full-thickness tear of the ACL at the proximal fiber. Prior sprain of the PCL. Medial structures: The MCL is intact. Lateral structures: The biceps femoris tendon, fibular collateral ligament, and popliteal tendon and muscle are unremarkable. The left fallopian tube is unremarkable. Anterior structures: Mild tendinosis of the quadriceps tendon. The patellar tendon is unremarkable. No Hoffa's fat pad edema. Partial tear of the medial patellofemoral ligament with associated irregularity. The lateral patellofemoral ligament is intact. Bones and cartilage: The cartilage of the patella is well maintained. The cartilage of the trochlea is well maintained as well. Status post medial compartment unicompartmental knee arthroplasty, in near anatomic alignment. There is multi focal mild chondral irregularity of the lateral trochlea. No marrow edema. Mild osteophytosis of the lateral compartment. Joint space: Small knee effusion. Small popliteal cyst. The popliteal vasculature is unremarkable. Varicose veins seen about the knee. IMPRESSION: 1. Status post medial compartment unicompartmental knee arthroplasty, in near anatomic alignment. 2. Full-thickness tear of the ACL at the proximal fiber. 3. Partial tear of the medial patellofemoral ligament. 4. Mild chondrosis of the lateral compartment. 5. Small knee effusion with small popliteal cyst. Dictated by: Danyell Reid M.D. on 07/11/2023 at 19:01 Approved by: Danyell Reid M.D. on 07/11/2023 at 19:10
== END ==
LOC: MRI 09:12
PROVIDERS: Family Provider Student in an Organized Health Care Education/Training Program; PCP Family Medicine; Referring Provider Orthopaedic Surgery Foot and Ankle Surgery; Visit Provider Orthopaedic Surgery Foot and Ankle Surgery
DX: S83.512A Sprain of anterior cruciate ligament of left knee, initial encounter (principal); S76.112A Strain of left quadriceps muscle, fascia and tendon, initial encounter; M25.362 Other instability, left knee; M94.262 Chondromalacia, left knee; M25.462 Effusion, left knee; M71.22 Synovial cyst of popliteal space [Baker], left knee
CPT/HCPCS: 73721

== ENCOUNTER 2023-10-25 18:33 | Emergency (ER) | payer MEDICARE, SELFPAY ==
[2023-10-25 18:35] VITALS: BP 142/83; PULSE 72; RESP 18; TEMP 36.9; O2SAT 100; BMI 25.0
--- NOTE | 2023-10-25 19:13 | ED.SKABFB ---
HPI - Skin/Abscess/Foreign Bdy General Chief complaint: Skin/Abscess/Foreign Body Stated complaint: poss allergic reaction, hives, rash Time Seen by Provider: 10/25/23 18:55 Source: patient Mode of arrival: Ambulatory History of Present Illness HPI narrative: Patient is a 68 year old female who is here for evaluation of what she thinks is potentially an allergic reaction to eyedrops. She stated that several days ago she started have some irritation of her left eye. She tried eyedrops. She had a provider tell her that she should try some allergy eyedrops. She has been doing this but now she reports that she was having some pain and irritation in a rash when her forehead. This has been present for the past couple days. No vision changes. No ear pain. No problems breathing. No problems swallowing. No fevers. She reports that the rash is burning and itching. Related Data Home Medications Medication Instructions Recorded Confirmed calcium carbonate (Calcium 600) 600 mg PO DAILY 10/31/20 10/17/23 cholecalciferol (vitamin D3) 25 25 mcg PO DAILY 01/02/22 10/17/23 mcg (1,000 unit) chewable tablet (Vitamin D3) loratadine 10 mg tablet (Claritin) 10 mg PO DAILY 09/07/23 10/17/23 magnesium 250 mg tablet 250 mg PO DAILY 09/07/23 10/17/23 meloxicam 15 mg tablet 15 mg PO DAILY 09/07/23 10/17/23 vitamin E (dl, acetate) 180 mg 180 mg PO DAILY 09/07/23 10/17/23 (400 unit) capsule vitamin K2 100 mcg capsule 100 mcg PO DAILY 09/07/23 10/17/23 Previous Rx's Medication Instructions Recorded gabapentin 300 mg capsule 300 mg PO TID #270 caps 06/24/23 acyclovir 800 mg tablet 800 mg PO 5XD 7 days #35 tabs 10/25/23 Allergies Allergy/AdvReac Type Severity Reaction Status Date / Time cephalexin AdvReac Mild Rash Verified 10/25/23 18:35 dextromethorphan AdvReac Mild Palpitation Verified 10/25/23 18:35 s Review of Systems Review of Systems Narrative: See HPI Patient History Medical History Left shoulder pain Lipoma of arm Acute medial meniscus tear of left knee MCL sprain of left knee Arm mass Hyperlipidemia Encounter for Medicare annual wellness exam Urinary tract infection Finger laceration Rheumatoid bursitis, unspecified hip Ovarian cyst (~1984) Genital warts (~1971) Fibroids (~1984) Lipoma of right upper extremity Sinus congestion Tinnitus (~2017) Vitamin D deficiency Actinic keratosis Osteopenia Surgical History Anesthesia History of oral surgery (~2017) History of varicose veins H/O blepharoplasty History of 2 sections History of bunionectomy (~1970) Family History Mother Hypertension Stroke Social History Smoking Status: Former smoker alcohol intake: current substance use type: former substance user Smoking Status: Former smoker alcohol intake frequency: holidays/special occasions only Substance Use Type: does not use Exam Initial Vital Signs Initial Vital Signs: Vital Signs Temperature 98.5 F 10/25/23 18:35 Pulse Rate 72 10/25/23 18:35 Respiratory Rate 18 10/25/23 18:35 Blood Pressure 142/83 H 10/25/23 18:35 Pulse Oximetry 100 10/25/23 18:35 Oxygen Delivery Method Room Air 10/25/23 18:35 Const General: cooperative, comfortable and No ill appearing HENMT Ears: TM normal on the left Nose: external nose normal Mouth: oral mucosae normal and moist mucous membranes Eyes Periorbital: periorbital findings normal Eyelids: eyelids normal Cornea: corneas normal and fluorescein used Pupils: PERRL EOM: EOM intact bilaterally Resp Effort & Inspection: normal respiratory effort Skin Other: Patient has what appears to be a vesicular rash that is midline/just left of midline on her forehead. It does extend into the hairline. She also has a slight redness above her left eye on her left forehead. Neuro General: patient alert and patient awake Course Orders Ordered: Discontinued Medications Acyclovir (Acyclovir 400 Mg Tablet) 800 mg PO NOW ONE Stop: 10/25/23 19:41 Last Admin: 10/25/23 19:47 Dose: 800 mg Documented By: Fluorescein Sodium (Fluorescein 1 Mg Strip) 1 mg EYE-BOTH NOW ONE Stop: 10/25/23 19:15 Last Admin: 10/25/23 19:36 Dose: 1 mg Documented By: Proparacaine HCl (Proparacaine 0.5% Ophth Nathalie) 1 drops EYE-LEFT NOW ONE Stop: 10/25/23 19:15 Last Admin: 10/25/23 19:37 Dose: 2 drop Documented By: Vital Signs Vital signs: Vital Signs - 8 hr 10/25/23 18:35 10/25/23 19:39 10/25/23 19:52 Temperature 98.5 F 98.3 F Pulse Rate 72 85 75 Respiratory Rate 18 18 18 Blood Pressure 142/83 H 135/78 133/78 Pulse Oximetry 100 98 98 Oxygen Delivery Method Room Air Room Air Room Air MDM - Skin/Abscess/Foreign Bdy MDM Narrative Medical decision making narrative: Her history and physical today is consistent with shingles. It seems to not involve her left eye. There were no dendrites noted with fluorescein staining. Her left ear is unremarkable. No lesions noted on her nose. She has had the shingles vaccine. Plan will be to place her on antivirals. Her 1st dose was given here in the emergency department. A prescription was sent to the pharmacy of her choice. She was given return precautions and follow-up instructions. She expressed understanding and agreement. Discharge Plan Departure Patient Disposition: Home Clinical Impression: Shingles Instructions: DI for Shingles Activity Restrictions/Additional Instructions: Take the antiviral medication as directed. You can shower like normal and use soap and water like normal over the lesions. Contact your primary care doctor for a follow-up. Return to the emergency department for new worsening symptoms. Prescriptions: New acyclovir 800 mg tablet 800 mg PO 5XD 7 Days Qty: 35 0RF Rx Instructions: space evenly during waking hours No Action meloxicam 15 mg tablet 15 mg PO DAILY vitamin E (dl, acetate) 180 mg (400 unit) capsule 180 mg PO DAILY vitamin K2 100 mcg capsule 100 mcg PO DAILY magnesium 250 mg tablet 250 mg PO DAILY loratadine [Claritin] 10 mg tablet 10 mg PO DAILY gabapentin 300 mg capsule 300 mg PO TID Qty: 270 3RF cholecalciferol (vitamin D3) [Vitamin D3] 25 mcg (1,000 unit) tablet,chewable 25 mcg PO DAILY calcium carbonate [Calcium 600] 600 mg calcium (1,500 mg) tablet 600 mg PO DAILY Referrals: Mana Strasus DO [Primary Care Provider] - Stand Alone Forms: Patient Portal/API
[2023-10-25] MEDS: FLUORESCEIN 1 MG STRIP EYE-BOTH (19:36)
[2023-10-25] MEDS: PROPARACAINE 0.5% OPHTH SOL 1 DROPS EYE-LEFT (19:37)
[2023-10-25 19:39] VITALS: BP 135/78; PULSE 85; RESP 18; O2SAT 98
[2023-10-25] MEDS: ACYCLOVIR 400 MG TABLET 800 MG PO (19:47)
[2023-10-25 19:52] VITALS: BP 133/78; PULSE 75; RESP 18; TEMP 36.8; O2SAT 98
== END 2023-10-25 19:53 | disposition home or self-care (01) ==
PROVIDERS: Emergency Provider Emergency Medicine; Family Provider Student in an Organized Health Care Education/Training Program; PCP Family Medicine
DX: B02.9 Zoster without complications (principal)
CPT/HCPCS: 99283

== ENCOUNTER → 2024-04-08 11:38 | Outpatient (CLI) | payer MEDICARE, SELFPAY | PROVIDERS: Family Provider Student in an Organized Health Care Education/Training Program; PCP Family Medicine; Visit Provider Nurse Practitioner Family | DX: R30.0 Dysuria (principal) | CPT/HCPCS: 87077; 87086; 87186 ==

== ENCOUNTER → 2024-05-28 12:32 | Outpatient (CLI) | payer MEDICARE, SELFPAY ==
--- NOTE | 2024-05-28 12:34 | DI.ECHO.S_ITS ---
[facility] : : [address] : : [place] : : [id number] : : Phone: [phone] Echocardiogram Report + + :Name: YSABEL MAGALLANES Study Date: 05/28/2024 Height: 65 in : :[facility] ReadingLocation: Weight: 150 lb : : Gender: Female BSA: 1.8 m2 : :: 1955 Age: 68 yrs BP: 132/82 mmHg: :Reason For Study: PERSISTENT DIZZINESS : :Ordering Physician: LON, : :CAROLE Performed By: Bob Santana : :Referring: CAROLE FORREST : + + Interpretation Summary The left ventricle is normal in size. The left ventricular ejection fraction is normal. Left ventricular ejection fraction is estimated to be 60 +/- 5%. The right ventricle is normal in size and function. There is mild mitral regurgitation. There is mild tricuspid regurgitation. The right ventricular systolic pressure is estimated to be at least 26 mmHg based on an estimated right atrial pressure of 3 mm Hg. Procedure: A two-dimensional transthoracic echocardiogram with color flow and Doppler was performed. The study quality was technically good. There is no prior echocardiogram noted for this patient. The patient was in normal sinus rhythm during the exam. Left Ventricle: The left ventricle is normal in size. There is normal left ventricular wall thickness. There is no thrombus. Left ventricular ejection fraction is estimated to be 60 +/- 5%. The left ventricular ejection fraction is normal. There are no focal wall motion abnormalities. Diastolic parameters suggest a relaxation abnormality of the left ventricle, consistent with probable normal filling pressures. Right Ventricle: The right ventricle is normal in size and function. Atria: The left atrium is not well visualized. The right atrium is mildly dilated. There is no Doppler evidence for an interatrial shunt. Mitral Valve: The mitral valve leaflets appear normal. There is no evidence of stenosis, fluttering, or prolapse. There is mild mitral regurgitation. Aortic Valve: The aortic valve is trileaflet. The aortic valve is mildly calcified. The aortic valve opens well. There is discrete nodular thickening of the right coronary cusp. No aortic regurgitation is present. Tricuspid Valve: The tricuspid valve is normal. There is mild tricuspid regurgitation. The right ventricular systolic pressure is estimated to be at least 26 mmHg based on an estimated right atrial pressure of 3 mm Hg. Pulmonic Valve: The pulmonic valve leaflets are thin and pliable; valve motion is normal. There is trace pulmonic regurgitation. Great Vessels: The aortic root is normal size. The dimensions of the ascending aorta are normal. The pulmonary artery is normal size. The IVC is of normal diameter and collapses greater than 50% with a sniff. This suggests a low right atrial pressure of 3 mm Hg. Pericardium/ Pleura There is no pericardial effusion. There is no pleural effusion. MMode/2D Measurements & Calculations LVIDd: 5.1 cm LVOT diam: 2.0 cm LVIDs: 3.1 cm Ao root diam: 3.0 cm FS: 39.0 % asc Aorta Diam: 3.3 cm EPSS: 0.86 cm IVSd: 0.84 cm LVPWd: 0.76 cm LV cantu. diameter/BSA (cm/m^2): 2.9 LV sys. diameter/BSA (cm/m^2): 1.8 LA A2 area: 18.1 cm2 RA long axis: 5.3 cm LA A4 area: 18.8 cm2 RA area: 19.4 cm2 LA length (vol): 5.6 cm RA vol: 60.1 ml LA vol: 51.6 ml RA : 34.3 ml/m2 LA vol index: 29.5 ml/m2 IVC diam: 1.3 cm RVD1 (basal): 3.5 cm RVD2 (mid): 2.5 cm TAPSE: 2.8 cm Doppler Measurements & Calculations Ao V2 max: 132.2 cm/sec LVOT Max Bar: 86.0 cm/sec Ao V2 mean: 91.9 cm/sec LV V1 max P.0 mmHg Ao max P.0 mmHg LV V1 VTI: 21.8 cm Ao mean P.7 mmHg SUNITHA(I,D): 2.3 cm2 Ao V2 VTI: 28.7 cm SUNITHA(V,D): 2.0 cm2 sev ratio: 0.76 SUNITHA indexed to BSA (cm^2/m^2): 1.3 MV E max bar: 46.7 cm/sec TR max bar: 239.9 cm/sec MV A max bar: 60.4 cm/sec TR max P.0 mmHg MV E/A: 0.77 PA V2 max: 69.7 cm/sec Med Peak E' Bar: 5.8 cm/sec PA V2 mean: 45.4 cm/sec E/E' med: 8.0 PA mean P.95 mmHg Lat Peak E' Bar: 8.8 cm/sec PA pr(Accel): 39.6 mmHg E/E' lat: 5.3 E/e' average: 6.7 MV dec time: 0.25 sec SV(LVOT): 66.0 ml Reading Physician:04:45 PM
== END ==
PROVIDERS: Family Provider Student in an Organized Health Care Education/Training Program; PCP Family Medicine; Referring Provider Family Medicine; Visit Provider Family Medicine
DX: I08.1 Rheumatic disorders of both mitral and tricuspid valves (principal); R00.1 Bradycardia, unspecified; E78.00 Pure hypercholesterolemia, unspecified; R42 Dizziness and giddiness; E78.5 Hyperlipidemia, unspecified
CPT/HCPCS: 93306

== ENCOUNTER → 2024-06-04 12:13 | Outpatient (CLI) | payer MEDICARE, SELFPAY ==
[2024-06-04 12:47] LABS: Estimated Glomerular Filt Rate > 60 mL/min (>60)
--- NOTE | 2024-06-04 16:43 | DI.NM.S_ITS ---
DATE OF SERVICE: 06/04/2024 EXERCISE TREADMILL STRESS TEST PROCEDURE: Exercise treadmill stress test without imaging. ORDERING PROVIDER: Mana Strauss D.O. INDICATIONS: The patient is a 69-year-old female with dizziness. FINDINGS: 1. The patient was able to exercise for 8 minutes 46 seconds on a standard Abdirahman protocol suggesting exceptional exercise capacity with an ELIZABETH of -53%, achieving 8.8 METs. 2. She had a normal heart rate response to exercise, achieving a maximum heart rate of around 150 bpm (100% of her predicted maximum), although definitive measurement is challenging because of motion artifact. She had a normal blood pressure response to exercise. 3. She had moderate exertional dyspnea but no chest discomfort or other anginal symptoms. 4. Her resting ECG shows normal sinus rhythm with normal ST segments. There are no obvious ST-segment shifts or arrhythmias with stress but marked motion artifact at peak exercise limits the interpretation. Yet, immediate post-stress tracing show only slight, flat ST depression in the inferior leads that promptly resolve without any late changes and nonspecific for ischemia. There were no obvious arrhythmias. IMPRESSION: 1. Probable normal exercise treadmill stress test for ischemia but with limited sensitivity because of significant motion artifact at peak exercise. If there is a high degree of clinical concern for ischemic heart disease, consider a stress imaging study but this is a low risk study. 2. Exceptional exercise capacity without angina. 3. No obvious arrhythmias although with limited interpretation because of motion artifact. June Flores - RS/catalina/FRANCOISE doc#: [id number]/job#: [id number] dd: 06/04/2024 16:27:00 dt: 06/04/2024 16:34:00 DICTATING MD/COPIES TO: Elmer Ramirez MD; Mana Strauss DO COPIES MNE: ANTHONY; ; Mana Strauss DO
== END ==
PROVIDERS: Radiology Diagnostic Radiology; Family Provider Student in an Organized Health Care Education/Training Program; PCP Family Medicine; Referring Provider Family Medicine; Visit Provider Family Medicine
DX: R42 Dizziness and giddiness (principal); R31.29 Other microscopic hematuria; E78.00 Pure hypercholesterolemia, unspecified; R00.1 Bradycardia, unspecified; E78.5 Hyperlipidemia, unspecified
CPT/HCPCS: 36415; 82565; 93017

== ENCOUNTER → 2024-06-08 11:27 | Outpatient (CLI) | payer MEDICARE, SELFPAY ==
--- NOTE | 2024-06-08 11:30 | DI.CT.S_ITS ---
PROCEDURE: CT IVP A/P W/WO INDICATIONS: 68 y/o F w/ microscopic hematuria, eval upper tracts. TECHNIQUE: Optional 5 mm thick noncontrast images acquired from the diaphragm to the symphysis pubis. After the administration of intravenous contrast, 5 mm thick images acquired from the diaphragm to the symphysis pubis after a 10-minute delay. 2 mm thick coronal and sagittal reformats were then performed of the kidneys and ureters. For radiation dose reduction, the following was used: automated exposure control, adjustment of mA and/or kV according to patient size. COMPARISON: None. FINDINGS: Image quality: Diagnostic. Kidneys and Ureters: Both kidneys are normal in size, without hydronephrosis or nephrolithiasis. No perinephric fat stranding. There is normal bilateral renal enhancement. Small left peripelvic cysts. Renal calyces appear normal in morphology when filled with contrast. Opacified portions of both ureters demonstrate normal caliber. No upper urinary tract filling defect. Bladder: Bladder wall thickness is normal. No calcified bladder stones. OTHER: Lower chest: Dependent atelectasis. No pleural effusion. Liver: No solid mass. Small cyst in the right liver. Gallbladder: No radiopaque gallstones or wall thickening. Biliary ducts: No biliary dilation. Pancreas: No ductal dilation. Spleen: Size is within normal limits. Adrenal Glands: No adrenal nodules. Stomach and Bowel: Normal colonic caliber, without significant wall thickening. Normal appendix. Peritoneum: No abnormal intraperitoneal fluid. No free air. Ventral Wall: Tiny fat containing umbilical hernia. Abdominal Nodes: No retroperitoneal or mesenteric adenopathy by size criteria. Vessels: No abdominal aortic aneurysm. Calcified splenic artery aneurysm. No filling defect in the portal vein. The IVC is prominent. PELVIS: Pelvic Organs: Anteverted uterus. Multiple uterine fibroids. Pelvic Nodes: No enlarged lymph nodes. Miscellaneous: No inguinal hernias are seen. Bones: No aggressive osseous abnormality. IMPRESSION: 1. No kidney stones. No hydronephrosis. 2. No solid renal mass. No upper urinary tract filling defect. Dictated by: Dino Spence M.D. on 06/08/2024 at 16:31 Approved by: Dino Spence M.D. on 06/08/2024 at 16:48
== END ==
LOC: CT 11:29
PROVIDERS: Family Provider Student in an Organized Health Care Education/Training Program; PCP Family Medicine; Referring Provider Urology; Visit Provider Urology
DX: R31.29 Other microscopic hematuria (principal); D25.9 Leiomyoma of uterus, unspecified; I72.8 Aneurysm of other specified arteries; N28.89 Other specified disorders of kidney and ureter; J98.11 Atelectasis; K76.89 Other specified diseases of liver
CPT/HCPCS: 74178; Q9967

== ENCOUNTER → 2024-08-13 08:08 | Outpatient (CLI) | payer MEDICARE, SELFPAY ==
[2024-08-13 10:44] LABS: Influenza A - CEPHEID Flu A NEGATIVE (NEGATIVE); Influenza B - CEPHEID Flu B NEGATIVE (NEGATIVE); Respiratory Syncytial Virus Negative (Negative)
[2024-08-13 10:45] LABS: COVID-19 CEPHEID 4-PLEX PCR Negative (Negative)
== END ==
LOC: LAB 08:09
PROVIDERS: PCP Family Medicine; Visit Provider Chiropractor
DX: R05.9 Cough, unspecified (principal)
CPT/HCPCS: 0241U

== ENCOUNTER 2025-01-11 19:35 | Emergency (ER) | payer MEDICARE, SELFPAY ==
[2025-01-11 19:48] VITALS: BP 117/66; PULSE 89; RESP 18; TEMP 36.5; O2SAT 100; BMI 24.1
--- NOTE | 2025-01-11 20:08 | DI.US.S_ITS ---
PROCEDURE: US PERIPH VENOUS LOW EXTREM LT INDICATIONS: CALF PAIN 5 DAYS POST TKA TECHNIQUE: Real-time imaging, as well as color and pulse Doppler interrogation, were performed of the lower extremity deep veins from the inguinal ligament to the popliteal fossa, with documentation of the visualized calf veins. COMPARISON: None. FINDINGS: The common femoral, femoral, popliteal, and the visualized calf veins are normally compressible, and free of intraluminal thrombus. Color and pulse Doppler demonstrate normal phasic intraluminal flow. There is normal augmentation response to distal compression maneuver. IMPRESSION: No findings of lower extremity deep venous thrombosis. Dictated by: Gamaliel Smith M.D. on 01/11/2025 at 21:01 Approved by: Gamaliel Smith M.D. on 01/11/2025 at 21:02
--- NOTE | 2025-01-12 01:13 | ED.EXTPRO ---
HPI - Extremity Problem General Chief complaint: Extremity Problem,Nontraumatic Stated complaint: PER PT COMPRESSION HOSE EXPOSED AFTER SURGERY Time Seen by Provider: 01/12/25 01:12 Source: patient, RN notes reviewed and old records reviewed Mode of arrival: Wheelchair Limitations: no limitations Related Data Home Medications ?Medication ?Instructions ?Recorded ?Confirmed cholecalciferol (vitamin D3) 25 25 mcg PO DAILY 01/02/22 01/10/25 mcg (1,000 unit) chewable tablet (Vitamin D3) Held on 01/10/25. Instructions: held per surgery; PCP to review magnesium 250 mg tablet 250 mg PO DAILY 09/07/23 01/10/25 Held on 01/10/25. Instructions: per surgery; PCP to review omega 6-fkj-toh-fish oil 100 cap PO 11/10/23 01/10/25 mg-160 mg-1,000 mg capsule (Fish Oil) Held on 01/10/25. Instructions: per surgery;PCP to review calcium carbonate [Calcium 500] 1 tab PO DAILY 04/22/24 01/10/25 Held on 01/10/25. Instructions: per surgeon, provider to review gabapentin 300 mg capsule 300 mg PO BID 04/22/24 01/10/25 loratadine 10 mg tablet (Claritin) 10 mg PO DAILY 04/22/24 01/10/25 apixaban 2.5 mg tablet 2.5 mg PO BID 01/10/25 01/10/25 calicum acetate PO 01/10/25 01/10/25 docusate sodium 100 mg capsule 100 mg PO BID 01/10/25 01/10/25 hydroxyzine HCl 25 mg tablet 25 mg PO TID PRN 01/10/25 01/10/25 ondansetron 4 mg disintegrating 4 mg PO Q8H 01/10/25 01/10/25 tablet sennosides 8.6 mg tablet (Laxative 8.6 mg PO BID 01/10/25 01/10/25 (sennosides)) tramadol 50 mg tablet 50 mg PO Q6H PRN 01/10/25 01/10/25 Allergies Allergy/AdvReac Type Severity Reaction Status Date / Time latex Allergy Rash Verified 01/11/25 19:48 cephalexin AdvReac Mild Rash Verified 08/13/24 08:05 dextromethorphan AdvReac Mild Palpitation Verified 08/13/24 08:05 s Patient History Medical History Osteopenia after menopause Numbness of left foot Left shoulder pain Lipoma of arm Acute medial meniscus tear of left knee MCL sprain of left knee Arm mass Hyperlipidemia Encounter for Medicare annual wellness exam Urinary tract infection Finger laceration Rheumatoid bursitis, unspecified hip Ovarian cyst (~1984) Genital warts (~1971) Fibroids (~1984) Lipoma of right upper extremity Sinus congestion Tinnitus (~2017) Vitamin D deficiency Actinic keratosis Osteopenia Surgical History Anesthesia History of oral surgery (~2017) History of varicose veins H/O blepharoplasty History of 2 sections History of bunionectomy (~1970) Family History Mother Hypertension Stroke Social History marital status: number of children: 3 occupational status: previously employed leisure activities: exercise Smoking Status: Never smoker alcohol intake: current substance use type: former substance user Type(s) of exercise: walking Smoking Status: Never smoker alcohol intake frequency: holidays/special occasions only Exam Initial Vital Signs Initial Vital Signs: Vital Signs Temperature 97.7 F 01/11/25 19:48 Pulse Rate 89 01/11/25 19:48 Respiratory Rate 18 01/11/25 19:48 Blood Pressure 117/66 01/11/25 19:48 Pulse Oximetry 100 01/11/25 19:48 Oxygen Delivery Method Room Air 01/11/25 19:48 Course Orders Ordered: ED Orders 01/11/25 20:08 US periph venous low extrem lt Stat Vital Signs Vital signs: Vital Signs - 8 hr 01/11/25 19:48 Temperature 97.7 F Pulse Rate 89 Respiratory Rate 18 Blood Pressure 117/66 Pulse Oximetry 100 Oxygen Delivery Method Room Air MDM - Extremity (Nontraumatic) MDM Narrative Medical decision making narrative: DVT ultrasound no findings of lower extremity DVT. Discharge Plan Departure Patient Disposition: Left Without Being Seen Clinical Impression: Patient left without being seen Prescriptions: No Action magnesium 250 mg tablet 250 mg PO DAILY cholecalciferol (vitamin D3) [Vitamin D3] 25 mcg (1,000 unit) tablet,chewable 25 mcg PO DAILY Fish Oil 100-160-1,000 mg capsule PO gabapentin 300 mg capsule 300 mg PO BID loratadine [Claritin] 10 mg tablet 10 mg PO DAILY calcium carbonate [Calcium 500] 1 tab PO DAILY apixaban 2.5 mg tablet 2.5 mg PO BID calicum acetate PO docusate sodium 100 mg capsule 100 mg PO BID tramadol 50 mg tablet 50 mg PO Q6H PRN hydroxyzine HCl 25 mg tablet 25 mg PO TID PRN sennosides [Laxative (sennosides)] 8.6 mg tablet 8.6 mg PO BID ondansetron 4 mg tablet,disintegrating 4 mg PO Q8H
== END 2025-01-12 01:22 | disposition left against medical advice (07) ==
PROVIDERS: Emergency Provider Emergency Medicine; PCP Family Medicine
DX: Z98.890 Other specified postprocedural states (principal); M79.605 Pain in left leg
CPT/HCPCS: 93971; 99281